=== PATIENT | male | born 1945 | race Caucasian/White ===

== ENCOUNTER 2019-12-22 16:17 | Outpatient (REF) | payer MEDICARE, SELFPAY ==
--- NOTE | 2019-12-22 | XR_ITS ---
EXAMINATION: XR ORBITS CLINICAL INFORMATION: ORBITAL MYOSITIS, FB? COMPARISON: None TECHNIQUE: 3 views of the orbits were obtained. FINDINGS: No radiodense foreign bodies are identified. A few of the mandibular teeth remain, though the patient is otherwise intact and shows. No acute osseous abnormalities. Paranasal sinuses appear clear. IMPRESSION: No periorbital radiodense foreign bodies are identified.
== END 2019-12-22 16:18 | disposition home or self-care (01) ==
LOC: HO.XRAY 16:17
PROVIDERS: PCP Internal Medicine; Visit Provider Internal Medicine Medical Oncology
DX: H05.123 Orbital myositis, bilateral (principal)
CPT/HCPCS: 70200

== ENCOUNTER 2019-12-23 12:31 | Outpatient (REF) | payer MEDICARE, SELFPAY ==
--- NOTE | 2019-12-23 13:05 | CT_ITS ---
EXAMINATION: CT ABDOMEN AND PELVIS WITHOUT AND WITH CONTRAST CLINICAL INFORMATION: 4 cm rectal tumor. Staging. COMPARISON: None TECHNIQUE: Multidetector volumetric imaging was performed of the abdomen and pelvis before and after the IV administration of 85 mL Omnipaque 350. Sagittal and coronal reformatted images were obtained on the technologist's workstation. This CT examination was performed using dose optimization techniques as appropriate, variously including the following: *Automated exposure control *Adjustment of mA and/or kV according to patient size (this includes techniques or standardized protocols for targeted exams where dose is matched to indication/reason for exam; i.e. extremities or head) *Use of iterative reconstruction technique DLP: 594 mGy-cm FINDINGS: LUNG BASES: There are increased peripheral reticular markings, traction bronchiolectasis and probable honeycombing the right lung base suggestive of interstitial lung disease. LIVER, GALLBLADDER, AND BILIARY TREE: The liver is normal in size, shape, and attenuation. No focal hepatic lesion or biliary ductal dilatation is present. The gallbladder is unremarkable with no evidence of radiopaque gallstones, gallbladder wall thickening, or obvious pericholecystic inflammatory changes. PANCREAS: Unremarkable SPLEEN: Unremarkable ADRENAL GLANDS: Unremarkable KIDNEYS AND URETERS: There are bilateral renal cysts. Origin cyst measures 2.2 x 3 cm exophytic to the lower pole of the right kidney. BLADDER: There is a left-sided bladder diverticulum. The prostate gland is enlarged and protrudes into the base of the bladder. GASTROINTESTINAL TRACT: There is a large soft tissue mass in the rectum. This measures 4.2 cm in length and sagittal constructed image 82. There is marked luminal narrowing and question ulceration. There is increased fat stranding seen in the perirectal space on the right. There is a prominent longitudinally oriented soft tissue density that follows the course of the vessels, for example axial image 60 04/18/1967 series 8. This area measures approximately 5 x 9 x 3.5 cm in transverse AP and longitudinal dimension and is worrisome for atypical appearance of natty disease along the vessels. This could be better delineated with MRI. There is severe diverticular disease of the colon. There is an area of marked wall thickening of the cystic colon measuring approximately 5 cm in length, for example axial image 61 series 8. This may be related to diverticular disease. Correlation with colonoscopy is recommended. The small and large bowel is otherwise unremarkable. The appendix is not identified. The stomach is unremarkable. ABDOMINAL WALL: No significant hernia is appreciated. LYMPH NODES: Question right-sided perirectal lymphadenopathy extending along the vascular bundle. No other adenopathy. VASCULAR: There is evidence of atherosclerotic disease. No aneurysm is seen. There is focal mild ectasia of the distal abdominal aorta just above the bifurcation measuring 2.1 cm. PELVIC VISCERA: The prostate gland is enlarged and protrudes into the base of the bladder. The prostate gland measures 4 x 5 cm in AP and transverse dimension. OSSEOUS STRUCTURES: There are degenerative changes of the spine. There are T11 and L3 vertebral body compression fractures. IMPRESSION: Large 4.2 cm rectal mass with question of infiltration of the perirectal fat and right-sided perirectal lymphadenopathy. These findings could be better assessed with MRI. There is marked luminal narrowing, question of ulceration and impending partial obstruction should be considered. Severe diverticular disease of the sigmoid colon. There is an area of wall thickening of the distal sigmoid colon measuring 5 cm in length, question related to diverticular disease. Correlation with colonoscopy results recommended. No evidence of metastatic disease. Bilateral renal cysts. Severe atherosclerotic disease. Enlarged prostate gland. Left-sided bladder diverticulum. Evidence of interstitial lung disease. T11 and L3 vertebral body compression fractures.
[2019-12-23 13:29] LABS: MANUAL DIFF FLAG NO
[2019-12-23 13:35] LABS: Basophils Absolute Auto 0.1 X10*3/uL (0.0-0.2); Basophils Percent Auto 0.7 % (0-2); Eosinophils Absolute Auto 0.2 X10*3/uL (0.0-0.4); Eosinophils Percent Auto 1.6 % (0-4); Imm Gran Abs Auto 0.05 X10*3/uL (0.00-0.03); Imm Gran Pct Auto 0.5 % (0.0-0.4); Lymphocytes Absolute Auto 2.8 X10*3/uL (1.2-4.9); Lymphocytes Percent Auto 26.6 % (20-40); Mean Corpuscular HGB Conc 33.3 g/dl (31.0-36.0); Mean Corpuscular Volume 95.9 fL (80-98); Mean Platelet Volume 9.7 fL (9.4-12.4); Monocytes Absolute Auto 0.6 X10*3/uL (0.1-1.2); Monocytes Percent Auto 5.9 % (2-11); Neutrophils Absolute Auto 6.8 X10*3/uL (2.0-8.3); Neutrophils Percent Auto 64.7 % (45-73); Platelet Count 178 X10*3/uL (160-400); Red Blood Count 5.32 X10*6/uL (4.60-5.80); Red Cell Distribution Width 13.2 % (11.0-16.0); White Blood Count 10.4 X10*3/uL (4.8-10.8)
[2019-12-23 13:59] LABS: Alanine Aminotransferase 12 U/L (0-40); Albumin Level 4.5 g/dL (3.5-5.0); Alkaline Phosphatase 145 U/L (39-117); Anion Gap 14 (12-20); Aspartate Amino Transferase 16 U/L (5-37); Bilirubin Total 0.9 mg/dL (0.0-1.0); Blood Urea Nitrogen 11 mg/dL (9-16); Calcium 9.6 mg/dL (8.4-10.2); Carbon Dioxide 28 mmol/L (22-29); Chloride 99 mmol/L (96-108); Estimated Glomerular Filt Rate > 60; Glucose Random 95 mg/dL (60-115); Potassium 4.9 mmol/l (3.3-5.1); Sodium 136 mmol/L (135-145); Total Protein 7.9 g/dL (6.5-8.0)
[2019-12-23] MEDS: iohexoL 350 MG/ML 100 ML INFUS..BTL IV (16:07)
[2019-12-23] MEDS: Barium Sulfate Oral (Berry) 450 ML ORAL.SUSP 900 ML PO (16:08)
== END 2019-12-23 12:32 | disposition home or self-care (01) ==
LOC: HO.CT 12:31
PROVIDERS: PCP Internal Medicine Medical Oncology; Visit Provider Internal Medicine Medical Oncology
DX: C61 Malignant neoplasm of prostate (principal)
CPT/HCPCS: 36415; 74178; 80053; 85025

== ENCOUNTER 2020-01-04 08:58 | Outpatient (REF) | payer MEDICARE, SELFPAY ==
--- NOTE | 2020-01-04 | PE_ITS ---
EXAMINATION: Fluorine-18 FDG PET/CT Scan CLINICAL INDICATION: Initial treatment management. Rectal cancer. PROCEDURE: 67 minutes following the intravenous administration of 16.8 mCi of fluorine 18 FDG, images from the base of the skull to the mid thighs were obtained using a combined PET/CT scanner with CT scan based attenuation correction. No oral contrast was administered. No intravenous contrast was administered. Transverse, coronal, sagittal, and volume reconstruction projections were obtained. The patient's blood glucose as determined by a finger stick, was 100 mg/dl immediately prior to injection. Total CT exam dose-length product 263.84 mGy-cm COMPARISON: No previous PET/CT scan is available for comparison. The diagnostic CT scan of the abdomen and pelvis, dated 12/23/2019, is available for comparison. FINDINGS: (Slice numbers described in this report are numbered superiorly to inferiorly with slice #1 in the head) NECK AND VISUALIZED HEAD: No foci of abnormal FDG activity are noted. The distribution of FDG activity is physiological. There is no cervical lymphadenopathy. THORAX: There is a weakly FDG avid right lower paratracheal lymph node showing SUV Max 2.3, slice 77/267 which measures 2.0 x 1.1 cm in largest transverse dimensions. No additional foci of abnormally increased FDG activity are present in the chest. A few additional subcentimeter mediastinal lymph nodes are present predominantly in the AP window region. There is no additional mediastinal, supraclavicular, or axillary lymphadenopathy. Severe emphysema is present diffusely. Unchanged from the CT scan dated 12/23/2019 are increased peripheral reticular markings, traction bronchiectasis bilaterally, and some honeycombing in the right lung base. These findings are not associated with abnormal FDG activity. No definite pulmonary nodules are visualized. There is no pleural or pericardial fluid, or pneumothorax. ABDOMEN AND PELVIS: There is intense abnormally increased FDG activity associated with circumferential wall thickening in the rectum, showing SUV Max 10.8, slice 206/267. There is some perirectal fat stranding on the CT images, similar to the 12/23/2019 CT scan but no abnormal FDG activity is present in the perirectal soft tissues. There is a focus of FDG activity in the right side of the pelvis, slice 197/267 which is most likely in the distal right ureter and an additional more superior focus which is more intense centered around slice 176/267 corresponds to the ureter on the CT images. No additional foci of abnormal FDG activity are suggested in the abdomen or pelvis. The liver, gallbladder, spleen, adrenal glands and pancreas appear unremarkable. Bilateral renal cysts are present, the largest posteriorly in the lower pole of the right kidney is markedly FDG photopenic and likely a simple cyst cysts. A left renal cyst is just barely visualized and these renal cysts are much better visualized on the diagnostic IV contrast enhanced CT scan dated 12/23/2019. The kidneys are otherwise unremarkable. There is diffuse diverticulosis without evidence of diverticulitis. Residual dense barium is present in the colon and particularly in multiple diverticuli, likely residual from the diagnostic CT scan dated 12/23/2019. There is no retroperitoneal, mesenteric, pelvic or inguinal lymphadenopathy. The prostate gland is enlarged measuring approximately 6.4 cm in largest transverse dimension. A left-sided bladder diverticulum is noted. MUSCULOSKELETAL: No foci of abnormal FDG activity are present in the osseous structures. Compression deformities at T11 and L3 show no associated abnormal FDG activity and are likely chronic, and are unchanged from the recent 12/23/2019 CT scan. There are no suspicious sclerotic or lytic lesions visualized. VASCULAR: Diffuse vascular calcifications including coronary are noted. PET/PET CT fusion skull to thigh IMPRESSION: 1. Intensely FDG avid rectal mass is present as described above, consistent with the known diagnosis of rectal cancer. 2. Some stranding in the perirectal fat is present and this does not show abnormal FDG activity, but this subtle stranding is probably below the resolution of the FDG PET images. This remains suspicious for local invasion. 3. No FDG avid lymphadenopathy is present. 4. A single right paratracheal lymph node is mildly enlarged and shows weak FDG activity and this is nonspecific. This is more likely inflammatory than malignant. 5. No additional abnormalities suspicious for metastatic or other malignant lesions are noted. 6. Severe emphysema. 7. Diffuse vascular calcifications including coronary. 8. Chronic T11 and L3 vertebral compression fractures.
== END 2020-01-04 08:59 | disposition home or self-care (01) ==
LOC: HO.PET 08:58
PROVIDERS: Visit Provider Internal Medicine Medical Oncology
DX: Z13.89 Encounter for screening for other disorder (principal)

== ENCOUNTER → 2020-01-06 09:19 | Outpatient (BNVA) | payer MEDICARE, SELFPAY | PROVIDERS: PCP Internal Medicine Medical Oncology; Visit Provider Surgery | DX: C20 Malignant neoplasm of rectum (principal) | CPT/HCPCS: 46600; 99214 ==

== ENCOUNTER → 2020-02-03 09:05 | Outpatient (BNVA) | payer MEDICARE, SELFPAY | PROVIDERS: PCP Internal Medicine Medical Oncology; Visit Provider Surgery | DX: C20 Malignant neoplasm of rectum (principal) | CPT/HCPCS: 99212 ==

== ENCOUNTER → 2020-03-01 09:15 | Outpatient (BNVA) | payer MEDICARE, SELFPAY | PROVIDERS: PCP Internal Medicine Medical Oncology; Visit Provider Surgery | DX: C20 Malignant neoplasm of rectum (principal) | CPT/HCPCS: 99212 ==

== ENCOUNTER → 2020-03-29 09:17 | Outpatient (BNVA) | payer MEDICARE, SELFPAY | PROVIDERS: PCP Internal Medicine Medical Oncology; Visit Provider Surgery | DX: C20 Malignant neoplasm of rectum (principal) | CPT/HCPCS: 99212 ==

== ENCOUNTER 2020-05-03 09:07 | Outpatient (REF) | payer MEDICARE, SELFPAY ==
[2020-05-03 11:22] LABS: Blood Urea Nitrogen 12 mg/dL (9-16); Estimated Glomerular Filt Rate > 60
== END 2020-05-03 09:08 | disposition home or self-care (01) ==
LOC: HO.LAB 09:07
PROVIDERS: PCP Internal Medicine Medical Oncology; Visit Provider Surgery
DX: C20 Malignant neoplasm of rectum (principal); Z92.3 Personal history of irradiation; Z92.21 Personal history of antineoplastic chemotherapy
CPT/HCPCS: 36415; 82565; 84520; 99212

== ENCOUNTER 2020-05-12 07:52 | Outpatient (REF) | payer MEDICARE, SELFPAY ==
--- NOTE | ~2020-05-12 | CT_ITS ---
EXAMINATION: CT ABDOMEN AND PELVIS WITH CONTRAST CLINICAL INFORMATION: Rectal cancer COMPARISON: Previous CT of the abdomen and pelvis December 2019 TECHNIQUE: Multidetector volumetric images were obtained from the superior aspect of the liver through the pubic symphysis following administration 85 mL of Omnipaque 350 intravenous contrast. Sagittal and coronal reformatted images were obtained on the technologist's workstation. Oral contrast: Yes This CT examination was performed using dose optimization techniques as appropriate, variously including the following: *Automated exposure control *Adjustment of mA and/or kV according to patient size (this includes techniques or standardized protocols for targeted exams where dose is matched to indication/reason for exam; i.e. extremities or head) *Use of iterative reconstruction technique DLP: 243 mGy-cm FINDINGS: LUNG BASES: There is evidence of interstitial lung disease at the lung bases. This is similar to previous exam. There is a trace right pleural effusion. LIVER, GALLBLADDER, AND BILIARY TREE: The liver is normal in size, shape, and attenuation. No focal hepatic lesion or biliary ductal dilatation is present. The gallbladder is unremarkable with no evidence of radiopaque gallstones, gallbladder wall thickening, or obvious pericholecystic inflammatory changes. PANCREAS: Unremarkable. SPLEEN: Unremarkable. ADRENAL GLANDS: Unremarkable. KIDNEYS AND URETERS: There are bilateral renal cysts. The kidneys are otherwise unremarkable. BLADDER: Not optimally distended. There is diffuse bladder wall thickening. There is a left-sided bladder diverticulum. GASTROINTESTINAL TRACT: There is severe diverticulosis of the distal colon. There is an area of wall thickening of the distal sigmoid colon. It is uncertain whether this is related to diverticular disease or could represent a mass. This appears increased from December 2019 exam. There is no evidence of obstruction. Small and large bowel is otherwise unremarkable. The previously identified rectal mass has decreased in size. There is residual circumferential wall thickening of the rectum seen in this region. There is a stranding of the surrounding perirectal fat.. ABDOMINAL WALL: No significant hernia is appreciated. LYMPH NODES: Normal. VASCULAR: There is evidence of severe atherosclerotic disease. There is mild ectasia of the lower abdominal aorta measuring 2.2 cm in transverse dimension. PELVIC VISCERA: The prostate gland is slightly enlarged measuring 3.8 x 5.4 cm in AP and transverse dimension. OSSEOUS STRUCTURES: There are degenerative changes of the spine. There is an old severe L3 vertebral body compression fracture and moderate T11 vertebral body compression fracture that are unchanged. CT/CT abdomen pelvis w con IMPRESSION: Interval decrease in size in the rectal mass from previous exam. There is residual mild rectal wall thickening and some stranding of the adjacent fat. Severe diverticular disease of the distal colon. There is increased wall thickening of the sigmoid colon. It is uncertain whether this is related to diverticular disease or could represent post radiation change or neoplasm. Increased wall thickening of the bladder probably, question related to post radiation change. Bilateral renal cysts. Severe atherosclerotic disease. Interstitial lung disease. Stable T11 and L3 compression fractures.
[2020-05-12] MEDS: iohexoL 350 MG/ML 100 ML INFUS..BTL 85 ML IV (10:48)
[2020-05-12] MEDS: Barium Sulfate Oral (Berry) 450 ML ORAL.SUSP 900 ML PO (10:49)
== END 2020-05-12 07:53 | disposition home or self-care (01) ==
LOC: HO.CT 07:52
PROVIDERS: Visit Provider Surgery
DX: C20 Malignant neoplasm of rectum (principal)
CPT/HCPCS: 74177; Q9967

== ENCOUNTER → 2020-05-18 09:49 | Outpatient (BNVA) | payer MEDICARE, SELFPAY | PROVIDERS: PCP Internal Medicine Medical Oncology; Visit Provider Surgery | DX: C20 Malignant neoplasm of rectum (principal) | CPT/HCPCS: 99212 ==

== ENCOUNTER 2020-05-26 06:18 | Day surgery (SDC) | payer MEDICARE, SELFPAY ==
[2020-05-22 11:25] VITALS: BMI 19.5
--- NOTE | 2020-05-25 07:43 | HO.ANESPROP2 ---
Documented by User: Hoa Cooper 05/25/20 07:44 HPI - Anesthesia Eval Consult details Narrative: 74yo M for Sigmoidoscopy Flexible PMFSH Active Problems Active Problems: All Active Problems (Updated 05/22/20 @ 11:27 by Darcy Schmitt) Rectal cancer (Acute) Chronic bronchitis (Acute) Smoker (Acute) History of herpes zoster (Acute) Hypertension (Acute) Past Medical History Medical History Chronic bronchitis History of herpes zoster Hypertension Rectal cancer Smoker Family History Family History Sister History of breast cancer Surgical History Surgical History H/O colonoscopy History of eye surgery (~1965) History of left inguinal hernia repair History of right inguinal hernia repair (~1971) Hx of bilateral cataract extraction Social History Social History Smoking Status: Current every day smoker Use of substances other than those prescribed or required for medical reasons: No Have you been hit, kicked, punched, or otherwise hurt by someone within the past year? If so, by whom?: No Advance Directives Information Provided: No Meds Allergies Allergy/AdvReac Type Severity Reaction Status Date / Time No Known Allergies Allergy Verified 05/26/20 06:41 Home Medications Medication Instructions Recorded Confirmed Last Taken Type atenolol 50 mg tablet 50 mg PO DAILY 01/06/20 05/26/20 05/26/20 03:00 History cholecalciferol (vitamin D3) 10 10 mcg PO DAILY 03/29/20 05/22/20 Unknown History mcg (400 unit) capsule Exam Exam Date and Time: May 25, 2020 0743 Height,Weight and Vital Signs: Height 5 ft 9 in Weight 60 kg Pertinent Lab Results Pertinent Lab Results: Laboratory Tests 12/23/19 05/03/20 12:56 10:15 WBC 10.4 Hgb 17.0 Hct 51.0 Plt Count 178 BUN 12 Creatinine 0.82 Assessment and Plan Assessment Anesthesia Assessment: Chart Reviewed Documented by User: Maxine Bergman 05/26/20 07:41 PMFSH Past Medical History Medical History Chronic bronchitis History of herpes zoster Hypertension Rectal cancer Smoker Family History Family History Sister History of breast cancer Family history of problems with anesthesia: No Surgical History Surgical History H/O colonoscopy History of eye surgery (~1965) History of left inguinal hernia repair History of right inguinal hernia repair (~1971) Hx of bilateral cataract extraction History of Problems with Anesthesia: No Social History Social History Smoking Status: Current every day smoker Use of substances other than those prescribed or required for medical reasons: No Have you been hit, kicked, punched, or otherwise hurt by someone within the past year? If so, by whom?: No Advance Directives Information Provided: No Meds Allergies Allergy/AdvReac Type Severity Reaction Status Date / Time No Known Allergies Allergy Verified 05/26/20 06:41 Home Medications Medication Instructions Recorded Confirmed Last Taken Type atenolol 50 mg tablet 50 mg PO DAILY 01/06/20 05/26/20 05/26/20 03:00 History cholecalciferol (vitamin D3) 10 10 mcg PO DAILY 03/29/20 05/22/20 Unknown History mcg (400 unit) capsule Exam Height,Weight and Vital Signs: Vital Signs Temp Pulse Resp BP Pulse Ox 05/26/20 06:31 97.6 F 54 18 125/49 L 97 Airway Mallampati Class: II TM Dist: >3cm Neck ROM: Full Denture: Upper Partial: Lower Heart: RRR Lungs: CTAB Assessment and Plan Assessment Anesthesia Assessment: Anesthesia Plan Discussed and Chart Reviewed Final Anesthetic Review NPO: Yes ASA Class: II Final Preanesthetic Review: No Changes in Pt Med Stat, Meds/Allgs Chart Reviewed, Consent Obtained/Reviewed and Anes Risks/Benef Reviewed Patient Risk: Low Procedure Risk: Low Assessment/Block/Sedation in SS: Assess/Block/Sedation-SS Anesthetic Plan Anesthetic Plan: MAC: Disposition: Standard PACU
[2020-05-26 06:31] VITALS: BP 125/49; PULSE 54; RESP 18; TEMP 36.4; O2SAT 97
[2020-05-26] MEDS: Lactated Ringers 1,000 ML 100 ML IVCONT (06:50)
--- NOTE | 2020-05-26 07:26 | MHC.SHP ---
Pre-Procedural Eval Section B Chief Complaint: Rectal Cancer Allergies: Allergies Allergy/AdvReac Type Severity Reaction Status Date / Time No Known Allergies Allergy Verified 05/26/20 06:41 Plan I have reviewed the history and physical and performed a pertinent physical examination on my patient. No changes have occurred unless specified.
[2020-05-26 07:46] VITALS: BP 95/47; PULSE 52; RESP 12; TEMP 37.1; O2SAT 100
--- NOTE | 2020-05-26 07:47 | W.PM.OPN ---
Operative Note Operative Note Date of Service: 05/26/20 Narrative: Preop diagnosis: Rectal cancer status post neoadjuvant chemotherapy and radiation Postop diagnosis: Rectal cancer status post neoadjuvant chemotherapy and radiation Procedure: Flexible sigmoidoscopy Surgeon: Maurice Crowe MD The patient is a 74-year-old male with a history of rectal cancer. He had undergone neoadjuvant chemotherapy and radiation and had completed this. I had scheduled him for flexible sigmoidoscopy to re-examine the area of the cancer and determine response to treatment prior to resection. He understood the technique of the procedure as well as the risks, benefits, and alternatives. The patient was brought to the operating room placed in left lateral decubitus position under monitored anesthesia care. A full digital rectal was done and there were no palpable anal canal lesions. There was no induration felt on exam with the finger. The tip of the Olympus colonoscope was gently inserted into the anal orifice advanced with insufflation all way to level about 30 cm. We proceeded to then withdraw the scope with careful examination of the entire colonic mucosa being done with scope withdrawal. There were no lesions seen. I reach the area of the rectum. I did not visualize any obvious lesion. There was note of a mild erythema in suggestion of scattering at level 8 cm. There was no ulceration. Again the mucosa appeared to be unremarkable except for some erythema in this area on a very short segment. The rest of the distal rectum a nickel also unremarkable. The scope was then withdrawn completely. I then repeated the digital examination and palpated for the entire anal canal, anal shelf as well as the distal rectum and I did not feel any induration. The procedure was then completed. He tolerated the procedure well. There were no complications noted. It appears that he had excellent response to neoadjuvant treatment. I will see him in the office to discuss low anterior resection.
[2020-05-26 08:01] VITALS: BP 103/54; PULSE 50; RESP 16; O2SAT 96
[2020-05-26 08:08] VITALS: BP 95/59; PULSE 53; RESP 18; O2SAT 96
--- NOTE | 2020-05-26 08:43 | PM.OP ---
Brief Operative Note Date of Service: 05/26/20 Pre-op diagnosis: Rectal cancer status post neoadjuvant chemotherapy and radiation Post-op diagnosis: same Procedure: Flexible sigmoidoscopy Surgeon: Maurice Crowe MD Anesthesia: MAC Estimated blood loss (mL): 0 Pathology: none sent Condition: stable Disposition: PACU
== END 2020-05-26 08:37 | disposition home or self-care (01) ==
PROVIDERS: PCP Internal Medicine Medical Oncology; Visit Provider Surgery
PROC: 0DJD8ZZ Inspection of Lower Intestinal Tract, Via Natural or Artificial Opening Endoscopic (ICD-10-PCS; CPT 45330; principal; 2020-05-26 07:30)
DX: C20 Malignant neoplasm of rectum (principal); Z92.21 Personal history of antineoplastic chemotherapy; Z92.3 Personal history of irradiation; I10 Essential (primary) hypertension; J42 Unspecified chronic bronchitis; Z79.899 Other long term (current) drug therapy; Z86.19 Personal history of other infectious and parasitic diseases
CPT/HCPCS: 45330; J2370

== ENCOUNTER → 2020-05-31 13:16 | Outpatient (BNVA) | payer MEDICARE, SELFPAY | PROVIDERS: PCP Internal Medicine Medical Oncology; Visit Provider Surgery | DX: C20 Malignant neoplasm of rectum (principal) | CPT/HCPCS: 99202 ==

== ENCOUNTER 2020-06-13 05:47 | Inpatient (IN) | payer MEDICARE, SELFPAY ==
[2020-06-08 09:01] VITALS: BMI 19.5
[2020-06-09 11:39] VITALS: BP 127/61; PULSE 55; RESP 20; O2SAT 95; BMI 19.9
--- NOTE | 2020-06-09 12:34 | ECG_ITS ---
Test Reason : PRE-OP, ARRHYTHMIA Blood Pressure : / mmHG Vent. Rate : 055 BPM Atrial Rate : 055 BPM P-R Int : 168 ms QRS Dur : 100 ms QT Int : 422 ms P-R-T Axes : 052 022 045 degrees QTc Int : 403 ms Sinus bradycardia Otherwise normal ECG When compared with ECG of 12-JUL-2019 08:24, No significant change was found Referred By: Justin Yin Electronically Signed By:CA RUTHERFORD
[2020-06-09 13:29] LABS: Hematocrit 45.2 % (42-52); Hemoglobin 15.4 g/dl (14.0-18.0); Mean Corpuscular HGB Conc 34.1 g/dl (31.0-36.0); Mean Corpuscular Hemoglobin 34.7 pg (27.0-33.0); Mean Corpuscular Volume 101.8 fL (80-98); Mean Platelet Volume 9.7 fL (9.4-12.4); Platelet Count 107 X10*3/uL (160-400); Red Blood Count 4.44 X10*6/uL (4.60-5.80); Red Cell Distribution Width 12.2 % (11.0-16.0); White Blood Count 5.9 X10*3/uL (4.8-10.8)
[2020-06-09 13:52] LABS: Anion Gap 14 (12-20); Blood Urea Nitrogen 15 mg/dL (9-16); Calcium 8.7 mg/dL (8.4-10.2); Carbon Dioxide 26 mmol/L (22-29); Chloride 100 mmol/L (96-108); Estimated Glomerular Filt Rate > 60; Glucose Random 96 mg/dL (60-115); Potassium 4.1 mmol/L (3.3-5.1); Sodium 136 mmol/L (135-145)
--- NOTE | 2020-06-12 09:27 | HO.ANESPROP2 ---
Documented by User: Hoa Cooper 06/12/20 09:30 HPI - Anesthesia Eval Consult details Narrative: 74yo M for Hand Assisted Bowel Resection Laparoscopic, Sigmod with Stoma, Poss Open s/p Flex Sig with TIVA 05/26/20 PMF Active Problems Active Problems: All Active Problems (Updated 06/09/20 @ 12:04 by Darcy Schmitt) Rectal cancer (Acute) Chronic bronchitis (Acute) Smoker (Acute) History of herpes zoster (Acute) Hypertension (Acute) Past Medical History Medical History Chronic bronchitis COPD (chronic obstructive pulmonary disease) History of herpes zoster Hx of flexible sigmoidoscopy Hx of melanoma of skin Hypertension On beta alisson at home Peptic ulcer Rectal cancer Smoker Family History Family History Sister History of breast cancer Surgical History Surgical History H/O colonoscopy History of eye surgery (~1965) History of left inguinal hernia repair History of right inguinal hernia repair (~1971) Hx of bilateral cataract extraction Social History Social History Are you a primary career and transition teacher to a significant other at home: No Do you presently have visiting nurse or other home services: No Smoking Status: Current every day smoker Packs Per Day: 0.75 Cigarettes Per Day: 15.0 Years Smoked: 60 Smoked in Last 30 Days: Yes Patient Interested in Nicotine Replacement: Yes Patient Given Instructions on How to Stop Smoking: Yes Date Education Initiated: 06/09/20 Use of substances other than those prescribed or required for medical reasons: No Have you been hit, kicked, punched, or otherwise hurt by someone within the past year? If so, by whom?: No Advance Directives Information Provided: No Recently lost weight without trying: No Meds Allergies Allergy/AdvReac Type Severity Reaction Status Date / Time No Known Allergies Allergy Verified 05/31/20 13:26 Home Medications Medication Instructions Recorded Confirmed Last Taken Type atenolol 50 mg tablet 50 mg PO DAILY 01/06/20 06/13/20 06/13/20 05:00 History cholecalciferol (vitamin D3) 10 10 mcg PO DAILY 03/29/20 06/09/20 Unknown History mcg (400 unit) capsule Exam Exam Date and Time: June 12, 2020926 Height,Weight and Vital Signs: Height 5 ft 9 in Weight 61.235 kg Last Vital Signs Pulse 55 06/09/20 11:39 Resp 20 06/09/20 11:39 BP 127/61 06/09/20 11:39 Pulse Ox 95 06/09/20 11:39 Pertinent Lab Results Pertinent Lab Results: Laboratory Tests 06/09/20 06/09/20 06/09/20 13:00 13:00 13:00 WBC 5.9 RBC 4.44 L Hgb 15.4 Hct 45.2 MCV 101.8 H MCH 34.7 H MCHC 34.1 RDW 12.2 Plt Count 107 L D MPV 9.7 Absolute Nucleated RBC 0.000 Nucleated RBC % (auto) 0.0 Sodium 136 Potassium 4.1 Chloride 100 Carbon Dioxide 26 Anion Gap 14 BUN 15 Creatinine 0.85 Estim Creat Clear Calc 65.0 Estimated GFR > 60 Random Glucose 96 Calcium 8.7 D Blood Type O Positive Antibody Screen NEGATIVE Narrative Narrative: EKG 06/09/20 Vent. Rate : 055 BPM Atrial Rate : 055 BPM P-R Int : 168 ms QRS Dur : 100 ms QT Int : 422 ms P-R-T Axes : 052 022 045 degrees QTc Int : 403 ms Sinus bradycardia Otherwise normal ECG When compared with ECG of 12-JUL-2019 08:24, No significant change was found Assessment and Plan Assessment Anesthesia Assessment: Chart Reviewed Documented by User: Prasanna Shell MD 06/13/20 07:29 [facility] Past Medical History Medical History Chronic bronchitis COPD (chronic obstructive pulmonary disease) History of herpes zoster Hx of flexible sigmoidoscopy Hx of melanoma of skin Hypertension On beta alisson at home Peptic ulcer Rectal cancer Smoker Family History Family History Sister History of breast cancer Surgical History Surgical History H/O colonoscopy History of eye surgery (~1965) History of left inguinal hernia repair History of right inguinal hernia repair (~1971) Hx of bilateral cataract extraction Social History Social History Are you a primary career and transition teacher to a significant other at home: No Do you presently have visiting nurse or other home services: No Smoking Status: Current every day smoker Packs Per Day: 0.75 Cigarettes Per Day: 15.0 Years Smoked: 60 Smoked in Last 30 Days: Yes Patient Interested in Nicotine Replacement: Yes Patient Given Instructions on How to Stop Smoking: Yes Date Education Initiated: 06/09/20 Use of substances other than those prescribed or required for medical reasons: No Have you been hit, kicked, punched, or otherwise hurt by someone within the past year? If so, by whom?: No Advance Directives Information Provided: No Recently lost weight without trying: No Meds Allergies Allergy/AdvReac Type Severity Reaction Status Date / Time No Known Allergies Allergy Verified 05/31/20 13:26 Home Medications Medication Instructions Recorded Confirmed Last Taken Type atenolol 50 mg tablet 50 mg PO DAILY 01/06/20 06/13/20 06/13/20 05:00 History cholecalciferol (vitamin D3) 10 10 mcg PO DAILY 03/29/20 06/09/20 Unknown History mcg (400 unit) capsule Exam Airway Mallampati Class: I TM Dist: >3cm Denture: Upper and Lower Heart: RRR Lungs: NL Assessment and Plan Assessment Anesthesia Assessment: Anesthesia Plan Discussed and Chart Reviewed Final Anesthetic Review NPO: Yes ASA Class: III Final Preanesthetic Review: No Changes in Pt Med Stat, Meds/Allgs Chart Reviewed, Consent Obtained/Reviewed and Anes Risks/Benef Reviewed Patient Risk: High Procedure Risk: Intermediate Anesthetic Plan Anesthetic Plan: GA Disposition: Standard PACU
[2020-06-13] VITALS (18 sets, daily range): BP systolic 89–130; BP diastolic 46–65; PULSE 55–82; RESP 14–19; TEMP 36.1–36.4; O2SAT 93–100
--- NOTE | ~2020-06-13 | NM_ITS ---
EXAMINATION: NM LUNG IMAGE PERFUSION CLINICAL INFORMATION: SOB, hypoxia. Recent surgery. Left lower lobe pneumonia. COMPARISON: Chest x-ray 06/15/2020 TECHNIQUE: Following intravenous administration of 4 mCi of 90 9M technetium MAA, imaging with lungs were obtained in multiple projections. No ventilation study was obtained. FINDINGS: On perfusion imaging there is normal flow seen to all segments of both lungs with no defects seen. There are nonsegmental defects corresponding to the major fissure in both lungs. Ventilation study was not performed. NM/[place] pul perfusion IMPRESSION: No evidence of segmental or subsegmental perfusion defects seen. Findings suggestive of low probability for PE.
--- NOTE | ~2020-06-13 | XR_ITS ---
EXAMINATION: CHEST 1 VIEW CLINICAL INFORMATION: Shortness of breath. COMPARISON: None. TECHNIQUE: An AP view of the chest is provided. FINDINGS: The cardiac silhouette is not enlarged. The mediastinal and hilar contours are unremarkable. There are neither pleural effusions nor pneumothoraces. There is retrocardiac opacification. There is coarsened interstitial prominence throughout both lungs. There is suggestion of gas underneath the right hemidiaphragm. The osseous structures are unremarkable. XR/XR chest 1V IMPRESSION: Lucency underneath the right hemidiaphragm suspicious for pneumoperitoneum. The aforementioned was communicated to Dr. Rae at [address]10 hours. Upon discussion with Dr. Rae , it is revealed that the patient had gastric surgery on 06/13/2020. The recent abdominal surgery history explains the presence of pneumoperitoneum. Retrocardiac opacification is present. Recommendation is for a followup chest series to be obtained following treatment and/or resolution of symptoms to assure resolution of this appearance. Diffuse interstitial prominence throughout both lungs. This is age indeterminant, though likely chronic.
[2020-06-13 06:44] LABS: COVID-19 Test Negative (Negative)
[2020-06-13] MEDS: Lactated Ringers 1,000 ML 100 ML IVCONT (07:03)
--- NOTE | 2020-06-13 07:25 | MHC.SHP ---
Pre-Procedural Eval Section B Chief Complaint: S/P HAND ASST BOWEL RESECTION Allergies: Allergies Allergy/AdvReac Type Severity Reaction Status Date / Time No Known Allergies Allergy Verified 05/31/20 13:26 Plan I have reviewed the history and physical and performed a pertinent physical examination on my patient. No changes have occurred unless specified.
--- NOTE | 2020-06-13 12:32 | PM.OP ---
Brief Operative Note Date of Service: 06/13/20 Pre-op diagnosis: rectal CA Post-op diagnosis: same Procedure: hand assisted laparoscopic low anterior resection with diverting loop ileostomy Surgeon: PATEL GARCIA MD Anesthesia: GETA [place] Operator: Chano Kim Estimated blood loss (mL): 350 IV fluids (mL): 1,300 Urine output (mL): 110 Pathology: other (RECTOSIGMOID) Condition: stable Disposition: PACU
--- NOTE | 2020-06-13 13:37 | W.PM.OPN ---
Operative Note Operative Note Date of Service: 06/13/20 Narrative: Preop diagnosis: Rectal cancer Postop diagnosis: Rectal cancer Procedure: Hand assisted laparoscopic low anterior resection, mobilization of the splenic flexure, intraop flexible sigmoidoscopy, loop loop ileostomy Surgeon: Maurice Crowe MD medicine assistant: Chano Kim MD Second family medicine physician assistant: MATIAS Chavez The patient is 74-year-old male who had previously undergone colonoscopy last December 2020 and was noted to have a rectal cancer at around 8 cm. He had undergone neoadjuvant chemotherapy and radiation and had completed this about 11 weeks ago. I had done a flexible sigmoidoscopy post neoadjuvant treatment and the lesion was barely identifiable with just note of some scarring on the area at level 8 cm more proximally. The patient did not have any metastatic disease. He had apparent very good response to neoadjuvant treatment. I therefore scheduled him for hand assisted laparoscopic low anterior resection resection with loop ileostomy. He understood the technique procedure and he was aware of the risks, benefits and alternatives. The patient was brought the operating room placed in modified lithotomy position under general anesthesia via endotracheal tube. A surgical time-out was done. The patient received Cefotan 2 g IV preoperatively. The abdomen and the perineum were prepped and draped in the usual sterile fashion. I made incision on the skin the on the lower midline measuring about 6.5 cm just below umbilicus using a blade 15. This was carried down through the full-thickness of the skin subcutaneous fat down to the fascia. The fascia was incised. The peritoneum was entered and through this incision an Ezio wound retractor was positioned. We attached a GelPort with an insufflating port and this was insufflated to a pressure of 15 mmHg. We position a 10 mm 30 degree angle laparoscope through the insufflating port and with laparoscopic visualization, inserted a 5/12 mm port in the epigastric area. I then transferred the laparoscope into this epigastric port. A 2nd 5/12 mm port was introduced in the right lower quadrant through a small incision. From here on the rest of procedure was done under vision with the laparoscope. The patient was placed in a steep head-down position. This allowed us to retract the small bowel loops away from the pelvis. I had my left hand placed through the GelPort to retract the rest of the bowel loops away from the pelvis. I was able to visualize the rectum. There was note of significant chronic inflammatory changes with adhesions from the rectosigmoid all the way to the left colon. The mid part of the sigmoid also appeared to be boggy, edematous with chronic inflammatory changes. This is likely due to some chronic diverticular disease. I had to carefully take down the adhesions tethering this sigmoid to the sidewall. This was achieved using the LigaSure. By doing so, I was able to visualize the entire length of the sigmoid. However, there was note of poor planes on the peritoneum on both the left side and the right side of the sigmoid all the way to the rectum. Furthermore, the left colon was also adherent as well to the gutter with bands of adhesions. I placed the patient in a head down position to expose the right side the rectum. I opened up peritoneum just at the rectosigmoid and divided the peritoneum with the LigaSure distally to expose the mesorectum. I proceeded slowly and carefully just under the peritoneal so as to make sure that we were not in the plane of the ureter. I proceeded to continue to divide the peritoneum all the way to the anterior aspect. I was able to visualize the rectum. I bluntly dissected this rectum to sweep down fat and identify a plane of dissection to include the mesorectum. Once this plane was identified I was able to carefully dissect the mesorectum off of the sacral curve with a combination of sharp dissection with the LigaSure as well as with blunt dissection with my finger. I step-down small thin tubular structures that could be part of the nerve plexus in the sacrum. I was able to identify the plane well and was able to separate the right side of the rectum off of the rest of the pelvic wall. I was able to therefore continue to dissect the distal rectum all the way distally towards the pelvic floor . We also carefully the mesorectum from the curve of the sacrum to preserve the planes of the mesorectum. Again this was all achieved with a combination of blunt dissection with the finger as well as with the LigaSure. I continued with this dissection distally until I was able to separate the right side of the rectum, anteriorly, and posteriorly with an intact plane of mesorectum. I then proceeded to work on the left perirectal plane. Again I opened up peritoneum and divided this using the LigaSure distally. We connected with the earlier opening in the anterior aspect of the rectum towards the floor and continued to dissect along the same plane that we had created earlier. We had to do a lot of dissection to separate the sigmoid the left colon from the left gutter cause of adhesions likely from a previous diverticular inflammation. This was also suggested by a short segment of sigmoid colon that was boggy and somewhat edematous. I proceeded to continue to dissect the left colon all the way proximally. I was able to therefore separate the retroperitoneal side of the lateral aspect of the colon. It appeared that we had good mobilization of the left colon sigmoid at this point. However, it is noted that there were poor planes on the left side of the peritoneum of the sigmoid and the rectum. I had to struggle a little bit with finding the plane and dissecting on the left side using the LigaSure because of these adhesions. During the dissection of the peritoneum, I was mindful that we were staying superficial to avoid any injury to the ureter. Eventually were able to continue to advance distally and the proceeded to continue to do total mesorectal excision distally from the right site to the left. We had good planes posteriorly and on the right side. We continue to separate the mesorectum from the rest of the pelvis circumferentially with the LigaSure and fine dissection and proceeded to continue along this plane anteriorly. This part of the procedure took the longest time of the entire procedure. We had to go all the way down until we were able to reach the pelvic floor circumferentially. Once I felt that we had reached the pelvic floor and we were past the lesion, I proceeded to continue to mobilize the left colon and the splenic flexure. We pulled down the splenic flexure to allow me to identify the spleniccolic ligaments and I proceeded to divide this with the LigaSure in a mm by mm fashion, making sure that we were staying away from the serosa of the flexure itself. We were able to mobilize the splenic flexure down and separate this from the omentum by carefully dividing the omental attachments to the transverse colon as well distally. By doing so I felt that we were able to bring down the splenic flexure and had this well mobilized to allow as anastomosis of the resected left colon later on. I then proceeded to continue to see if we were past the lesion on the rectum. I put the rectum on stretch away from the pelvic floor. I was able to place my index finger and 3rd finger around the distal rectum just adjacent to the pelvic floor to mimic the stapler. To confirm the level of resection and and 2 make sure that were past the lesion distally, I proceeded to do an intraop flexible sigmoidoscopy. The family medicine physician assistant, MATIAS Chavez inserted this flexible sigmoidoscope gently with my fingers clamped distal to the lesion. We were able to reach this with the scope. We proceeded to examine the proximal mucosa and there were no lesions seen. I opened up my fingers to allow the scope to pass to and I could see the faint scar from the previous lesion more proximal to our intended line of transection. We therefore proceeded to remove the flexible sigmoidoscope. We examination of the rest of the distal most part of the rectum and the anal canal did not reveal any other lesions. Then positioned the Radial stapler through the right lower quadrant incision. I removed the port and by following the curve of the stapler, was able to inserted to the small port site. I advanced it into the pelvis. I positioned this was across the rectum and proceeded to gently advanced this further until I reached the floor of the pelvis. I confirmed by palpation that we were past the level of the lesion. I had the radial stapler resting on the pelvic floor itself. I therefore positioned this across the rectum at this level and this was fired. We had to apply the stapler twice to allow complete transection of the very distal rectum at the floor of the pelvis. I removed the stapler. I proceeded to then check whether we had enough length and mobilization of the left colon to reach the pelvic floor as we had to divide a longer part of this sigmoid proximally in view of the presence of diverticular disease. I had to do some more mobilization of the left colon by dividing the ligamentous attachments at the retroperitoneum. Eventually I felt that we would be reaching the floor of the pelvis with the proximal line of transection to allow an anastomosis without tension. I then proceeded to remove the GelPort with the Ezio wound retractor in place. I pulled up the rectum in the sigmoid and identified my proximal line of transection. I created a mesenteric window at this and I applied a MO stapler across to divide this part of the colon. The mesentery of the sigmoid was then transected using the LigaSure to connect with the previous transected mesentery near the sigmoid until the entire specimen was . This was sent as a specimen for immediate gross examination. I then prepared the proximal stump for the anastomosis. I opened up the staple line by dividing this using Metzenbaum scissors. I used a 25 mm dilator to dilate this stump. Appeared to be tight already so I did not proceed with dilating this further. I therefore opened up a 25 mm EEA stapler. I created a pursestring suture with a Prolene 2-0 on this proximal stump. I positioned and will through this and this pursestring was tightened. This was brought back into the peritoneal cavity. The 1st family medicine physician assistant proceeded to then dilate rectum from below with the 25 mm dilator. We were able to visualize the position of the staple line of the rectal stump. We then replaced this dilator with the EEA apparatus. This was gently inserted by the persistent until this was seen on the staple line of the stump. The spike was activated. I then connected the anvil of the proximal stump into the spike to out fistula in place. The EEA stapler was then tightened and then activated. This was then withdrawn carefully. There was note of 2 small and thin anastomotic rings. We proceeded to insufflate the anus with a bulb syringe using air with the anastomosis immersed in irrigation fluid. This was done 5 times and there was no signs of any bleeding or any leak. The more proximal colon distended with insufflation as well. We then proceeded to irrigate the pelvis. We observed for hemostasis. There was note of old blood clots from the earlier dissection. There had been some steady oozing earlier in the pelvis during dissection of the rectum and him me so sigmoid. Examination of the pelvis however did not show any difficult bleeding. I then examined the colon starting from the distal transverse all the way to the anastomosis. There was no twisting of the colon. I also proceeded to further divide attachments of the left colon retroperitoneum using the LigaSure to make sure that there was absolutely no tension on the anastomotic line. Once this was confirmed, I observed all 4 quadrants. There is no evidence of any bowel injury. I removed the GelPort to directly visualize the cecum. By following the cecum, I was able to see the terminal ileum. I chose a segment that would easily reach the bowel wall for my loop ileostomy. I passed a [place] drain through a small mesenteric defect that was created. I pulled this [place] drain right lower quadrant port. I had earlier dilated this port to 3 0 my fingers. The loop of ileum went through these port site without difficulty. I position a stoma bridge through the mesenteric defect. I then re placed the GelPort and laparoscopically examined the entire abdomen again. The loop ileostomy was examined and this appeared to in good position. Again I proceeded to examine the left colon, and splenic flexure all the way to the pelvis. There was no evidence of any bowel injury. There was note of good hemostasis. I re-irrigated the area the pelvis and left side of the abdomen. I suctioned out the irrigant fluid. We desufflated through the port sites. I closed the fascia of the midline incision with a running Maxon 1 stitch. I removed all ports. All incisions were closed with skin bridgett. I then matured the stoma by making a transverse incision on the anterior wall of small bowel. If this done using electrocautery to enter the lumen. We then proceeded to secure the open anterior wall to the subdermal layer circumferentially with Dexon 3-0 interrupted sutures to mature the stoma. I was able to pass my little finger through both efferent and afferent limbs without difficulty. All incisions were infiltrated with Marcaine 0.5% for postop analgesia. Dressings were applied. The stoma appliance was placed. The patient tolerated procedure well. There were no complication noted. Initial and final counts of sponges and instruments were correct. Estimated blood loss was about 350 cc. The patient was extubated without difficulty in the operating room and transferred to the recovery room with stable vital signs.
[2020-06-13] MEDS: Lactated Ringers 1,000 ML 999 ML IVCONT (14:00)
[2020-06-13] MEDS: Lactated Ringers 1,000 ML 80 ML IVCONT (15:30)
--- NOTE | 2020-06-13 16:38 | PM.EVENT ---
Event Note Date of Service: 06/13/20 Event Note: Seen postoperatively Says he is comfortable Denies significant pain Vital signs have been stable in the PACU Urine output was poor earlier - on least 50 cc in PACU Given a bolus of 1 L - [place] now with increasing output, clear, nonbloody Pain management bedside - reviewed surgery with her Stoma appears viable
--- NOTE | 2020-06-13 19:52 | HO.PM.IMPN ---
Subjective Subjective Date of Service: 06/26/20 Interval History: Medicine consult: Patient is status post surgery. Complains of mild pain. Spoke to the RN. Vitals stable. Physical Exam Vital Signs: Vital Signs: Last Vital Signs Temp 97.1 F 06/13/20 15:50 Pulse 60 06/13/20 15:50 Resp 16 06/13/20 15:50 BP 96/50 L 06/13/20 15:50 Pulse Ox 98 06/13/20 15:50 Body Mass Index 19.9 Gen: Appears be in no acute distress HEENT: NCAT, Moist mucosa. Pulmonary: Vesicular breath sounds, fair air entry CVS: Normal S1-S2 Abdomen: BS+, dressing in place. Extremities: Warm well perfused Neuro: Alert and awake. Objective Data Current Medications Generic Name Dose Route Start Last Admin Trade Name Freq PRN Reason Stop Dose Admin Atenolol 50 mg 06/14/20 09:00 Atenolol 50 Mg Tablet PO DAILY [facility] Protocol Heparin Sodium (Porcine) 5,000 unit 06/14/20 13:00 Heparin Sodium,Porcine 5,000 Unit/Ml Vial SUBCUT Q12H [facility] Hydromorphone HCl 0.5 mg 06/13/20 19:28 Hydromorphone Hcl 0.5 Mg/0.5 Ml Syringe IVPUSH Q3H PRN Breakthrough Pain Lactated Ringer's 1,000 mls @ 100 mls/hr 06/13/20 15:26 06/13/20 16:52 Lr IVCONT 100 mls/hr .Q10H [facility] Infusion Acetaminophen 1,000 mg in 100 mls @ 400 mls/hr 06/13/20 16:24 Ofirmev IV Q6H PRN Pain, Severe (Pain Scale 7-10) Metoprolol Tartrate 12.5 mg 06/13/20 21:00 Metoprolol Tartrate 12.5 Mg Halftab PO BID [facility] Protocol Nicotine 21 mg 06/14/20 09:00 Nicotine 21 Mg Patch.Td24 TRANSDERMA DAILY [facility] Ondansetron HCl 4 mg 06/13/20 16:24 Ondansetron Hcl 4 Mg/2 Ml Vial IVPUSH Q8H PRN Nausea and Vomiting Ondansetron HCl 4 mg 06/13/20 16:41 Ondansetron Hcl 4 Mg/2 Ml Vial IVPUSH Q8H PRN Nausea Oxycodone HCl 5 mg 06/13/20 16:24 Oxycodone Hcl Immed Release 5 Mg Tablet PO Q4H PRN Pain, Moderate (Pain Scale 4-6 Sodium Chloride 3 ml 06/13/20 16:24 06/13/20 16:36 0.9 % Sodium Chloride Flush 3 Ml Syringe IVFLUSH Not Given QSHIFT [facility] Labs CBC & Chem 7: 06/16/20 07:27 06/16/20 07:27 Assessment and Plan (1) Rectal cancer: Problem details: He underwent hand assisted laparoscopic low anterior resection with a loop ileostomy as a same-day surgery patient last June 13, 2020. He tolerated procedure well. He went to the med surg unit from PACU. He did have some low O2 sats on his 1st postop day and underwent chest x-ray which suggested an early pneumonia. He had a V/Q scan was unremarkable. These were all ordered by the hospitalist service. He was therefore advised on bring out of bed as well as doing incentive spirometry and he improved significantly. He was started on regular diet postop day 2 as he had good stoma function function. He continued to tolerate this. He had good pain control and was off of IV fluids on postop day 3. He did not have any further significant complaints. He did not have any fever postop. He had good pain control so he was discharged on postop day 4, on 06/17/2020. His path report showed a moderately differentiated [id number] rectal adenocarcinoma. Status: Acute Assessment and Plan: 74-year-old male with a past medical history of hypertension, chronic bronchitis, rectal cancer admitted to the surgery service. Status post/colostomy. Medicine team consulted for comanagement of blood pressure. Rectal cancer: Status post surgery. Postoperative care as per the General surgery team Hypertension: Patient on atenolol at home. Currently blood pressure is 96/50. Will stop omental well. Will keep the patient on metoprolol 12.5 mg b.i.d. with holding parameters in the perioperative period. Will also suggest to discontinue morphine and to start the patient on Dilaudid p.r.n. for pain control. Regard to provide room for blood pressure. Thank you for the consult please call for any questions.
[2020-06-13] MEDS: Metoprolol Tartrate 12.5 MG HALFTAB PO (21:13)
[2020-06-14] VITALS (7 sets, daily range): BP systolic 93–123; BP diastolic 50–75; PULSE 62–84; RESP 16–20; TEMP 36.1–36.6; O2SAT 92–100
[2020-06-14] MEDS: Lactated Ringers 1,000 ML 100 ML IVCONT ×2 (03:05→13:22)
[2020-06-14 06:43] LABS: Basophils Percent Auto 0.1 % (0-2); Hematocrit 37.7 % (42-52); Hemoglobin 12.8 g/dl (14.0-18.0); Imm Gran Abs Auto 0.05 X10*3/uL (0.00-0.03); Imm Gran Pct Auto 0.4 % (0.0-0.4); Lymphocytes Absolute Auto 0.4 X10*3/uL (1.2-4.9); Lymphocytes Percent Auto 3.1 % (20-40); MANUAL DIFF FLAG SCAN; Mean Corpuscular Hemoglobin 34.4 pg (27.0-33.0); Mean Corpuscular Volume 101.3 fL (80-98); Mean Platelet Volume 9.8 fL (9.4-12.4); Monocytes Absolute Auto 0.8 X10*3/uL (0.1-1.2); Monocytes Percent Auto 6.2 % (2-11); Neutrophils Absolute Auto 11.3 X10*3/uL (2.0-8.3); Neutrophils Percent Auto 90.2 % (45-73); Red Blood Count 3.72 X10*6/uL (4.60-5.80); Red Cell Distribution Width 12.2 % (11.0-16.0); SCAN SMEAR FLAG 1; White Blood Count 12.5 X10*3/uL (4.8-10.8)
[2020-06-14 06:46] LABS: Platelet Count 97 X10*3/uL (160-400)
[2020-06-14 07:28] LABS: Anion Gap 17 (12-20); Blood Urea Nitrogen 19 mg/dL (9-16); Carbon Dioxide 22 mmol/L (22-29); Chloride 99 mmol/L (96-108); Creatinine Clr Calc Pharmacy 54.7; Estimated Glomerular Filt Rate > 60; Glucose Random 139 mg/dL (60-115); Potassium 4.7 mmol/L (3.3-5.1); Sodium 133 mmol/L (135-145)
[2020-06-14 07:31] LABS: SLIDE REVIEW VERIFIED
--- NOTE | 2020-06-14 08:10 | PM.PNGS ---
Subjective Subjective Date of Service: 06/14/20 Interval history: Says his left for a few hours last night Sore on his incisions but not too bad Tolerating liquids - says he wants to eat No events reported Physical Exam Vital Signs: Vital Signs: Last Vital Signs Temp 97 F 06/14/20 03:27 Pulse 74 06/14/20 03:27 Resp 16 06/14/20 03:27 BP 110/56 L 06/14/20 03:27 Pulse Ox 98 06/14/20 03:27 Body Mass Index 19.9 Chemistry 06/14/20 06:11 Sodium 133 L Potassium 4.7 Carbon Dioxide 22 BUN 19 H Creatinine 1.01 Calcium 8.0 L D Hematology 06/14/20 06:11 WBC 12.5 H Hgb 12.8 L Plt Count 97 L Const: General: comfortable and no acute distress Resp: Effort & Inspection: normal respiratory effort Cardio: Rhythm: regular rhythm GI: Other: Ileostomy good output Palpation (GI): Soft to palpation, not firm, Tenderness to palpation present (GI) (Appropriate to postop status) and no guarding : Other: Patton in place, good urine output, clear, nonbloody Progress Note: A&P Assessment and plan (1) Rectal cancer: Problem details: w/chemotherapy & radiation-completed 03/09/20 Status: Acute Assessment and Plan: Status post low anterior resection, ileostomy Seems to have adequate pain control Urine output much improved Ileostomy function - will advance diet tolerated today Instructed again on incentive spirometry Out of bed to chair - will provide recliner Will Keep Patton until tomorrow Platelet count low - will hold subcu heparin Pain management Appreciate hospitalist input Seems to be doing well Fall Risk Details Current Medications: Current Medications Generic Name Dose Route Start Last Admin Trade Name Freq PRN Reason Stop Dose Admin Atenolol 50 mg 06/14/20 09:00 Atenolol 50 Mg Tablet PO DAILY [facility] Protocol Heparin Sodium (Porcine) 5,000 unit 06/14/20 13:00 Heparin Sodium,Porcine 5,000 Unit/Ml Vial SUBCUT Q12H [facility] Hydromorphone HCl 0.5 mg 06/13/20 19:28 Hydromorphone Hcl 0.5 Mg/0.5 Ml Syringe IVPUSH Q3H PRN Breakthrough Pain Lactated Ringer's 1,000 mls @ 100 mls/hr 06/13/20 15:26 06/14/20 03:05 Lr IVCONT 100 mls/hr .Q10H [facility] Administration Acetaminophen 1,000 mg in 100 mls @ 400 mls/hr 06/13/20 16:24 Ofirmev IV Q6H PRN Pain, Severe (Pain Scale 7-10) Metoprolol Tartrate 12.5 mg 06/13/20 21:00 06/13/20 21:13 Metoprolol Tartrate 12.5 Mg Halftab PO 12.5 mg BID [facility] Administration Protocol Nicotine 21 mg 06/14/20 09:00 Nicotine 21 Mg Patch.Td24 TRANSDERMA DAILY [facility] Ondansetron HCl 4 mg 06/13/20 16:24 Ondansetron Hcl 4 Mg/2 Ml Vial IVPUSH Q8H PRN Nausea and Vomiting Ondansetron HCl 4 mg 06/13/20 16:41 Ondansetron Hcl 4 Mg/2 Ml Vial IVPUSH Q8H PRN Nausea Oxycodone HCl 5 mg 06/13/20 16:24 Oxycodone Hcl Immed Release 5 Mg Tablet PO Q4H PRN Pain, Moderate (Pain Scale 4-6 Sodium Chloride 3 ml 06/13/20 16:24 06/13/20 21:51 0.9 % Sodium Chloride Flush 3 Ml Syringe IVFLUSH Not Given QSHIFT [facility] Time Spent With Patient Time: Total time spent is greater than 50% in coordination of care (as documented) at patient's floor/unit and/or counseling patient: Time with patient: 15 - 24 minutes
[2020-06-14] MEDS: Nicotine 21 MG PATCH.TD24 TRANSDERMA (08:13)
[2020-06-14] MEDS: atenoloL 50 MG TABLET PO (08:13)
[2020-06-14] MEDS: HYDROmorphone HCl 0.5 MG/0.5 ML SYRINGE IVPUSH ×2 (08:14→23:11)
[2020-06-14] MEDS: Metoprolol Tartrate 12.5 MG HALFTAB PO (08:14)
--- NOTE | 2020-06-14 08:53 | MHC.CM.PN ---
pt lives c his and adult son in his home. he reports that he is independent in his care. he drives a car and does not use any AD c ambulation, although he says he has a walker and cane in the home. pt's and son can help him should he need it. this will include a ride home [place]. pt also has requested to have [facility] provide nsg visits at [place], a ref. has been made for this. pt does not want to go to [facility]. dc plan is home c [facility]na. cm to cont. to follow.
--- NOTE | 2020-06-14 13:07 | HO.POSTANES ---
Post Anesthesia Evaluation Post Anesthesia Evaluation Vital Signs: Vital Signs Temp Pulse Resp BP Pulse Ox 06/14/20 12:00 97.3 F 62 17 93/55 L 100 06/14/20 08:00 97.2 F 62 18 123/60 98 06/14/20 03:27 97 F 74 16 110/56 L 98 Anesthesia: General Endotracheal-GETA Mental Status: Awake Pain Control: Satisfactory Nausea/Vomiting: None Hydration: Adequate Anesthesia-Related Issues: No Anes. Related Issues
--- NOTE | 2020-06-14 13:10 | P.PNIM_ITS ---
Subjective Subjective Date of Service: 06/14/20 Interval History: the patient was seen and evaluated this morning Laying in bed, feels comfortable overall with some discomfort around the s urgical site. Noticed to have low blood pressure readings Denies any fever, chills or shortness of breath No reported other overnight events. Systemic review: No fever, chills or weakness No chest pain, palpitation No shortness of breath or coughing No abdominal pain, nausea or vomiting No urinary symptoms No any rash or wounds Physical Exam Vital Signs: Vital Signs: Last Vital Signs Temp 97.3 F 06/14/20 12:00 Pulse 62 06/14/20 12:00 Resp 17 06/14/20 12:00 BP 93/55 L 06/14/20 12:00 Pulse Ox 100 06/14/20 12:00 Body Mass Index 19.9 Const: Other: Constitutional : Alert, oriented, not in distress Neck : Normal inspection, Supple Cardiovascular : RRR, S1 S2, no lower extremity edema Respiratory : Good bilateral air entry, no crackles, wheezes or rhonchi Gastrointestinal: soft, lax, Normal bowel sounds, Non tender, ostomy in place with no bleeding Skin : Warm/Dry, No rash Neurological : Alert & oriented x3, No focal deficit Objective Data Current Medications Generic Name Dose Route Start Last Admin Trade Name Freq PRN Reason Stop Dose Admin Atenolol 50 mg 06/14/20 09:00 06/14/20 08:13 Atenolol 50 Mg Tablet PO 50 mg DAILY [facility] Administration Protocol Hydromorphone HCl 0.5 mg 06/13/20 19:28 06/14/20 08:14 Hydromorphone Hcl 0.5 Mg/0.5 Ml Syringe IVPUSH 0.5 mg Q3H PRN Administration Breakthrough Pain Lactated Ringer's 1,000 mls @ 80 mls/hr 06/13/20 15:26 06/14/20 03:05 Lr IVCONT 100 mls/hr .[id number] [facility] Administration Acetaminophen 1,000 mg in 100 mls @ 400 mls/hr 06/13/20 16:24 Ofirmev IV Q6H PRN Pain, Severe (Pain Scale 7-10) Metoprolol Tartrate 12.5 mg 06/13/20 21:00 06/14/20 08:14 Metoprolol Tartrate 12.5 Mg Halftab PO 12.5 mg BID [facility] Administration Protocol Nicotine 21 mg 06/14/20 09:00 06/14/20 08:13 Nicotine 21 Mg Patch.Td24 TRANSDERMA 21 mg DAILY [facility] Administration Ondansetron HCl 4 mg 06/13/20 16:24 Ondansetron Hcl 4 Mg/2 Ml Vial IVPUSH Q8H PRN Nausea and Vomiting Ondansetron HCl 4 mg 06/13/20 16:41 Ondansetron Hcl 4 Mg/2 Ml Vial IVPUSH Q8H PRN Nausea Oxycodone HCl 5 mg 06/13/20 16:24 Oxycodone Hcl Immed Release 5 Mg Tablet PO Q4H PRN Pain, Moderate (Pain Scale 4-6 Sodium Chloride 3 ml 06/13/20 16:24 06/14/20 08:13 0.9 % Sodium Chloride Flush 3 Ml Syringe IVFLUSH Not Given QSHIFT [facility] Labs CBC & Chem 7: 06/14/20 06:11 06/14/20 06:11 Assessment and Plan (1) Rectal cancer: Status: Acute Assessment and Plan: 74-year-old male with a past medical history of hypertension, chronic bronchitis, rectal cancer admitted to the surgery service. Status post/colostomy. Medicine team consulted for comanagement of blood pressure. Rectal cancer Status post surgery care as per the General surgery team Hypotension To discontinue home does atenolol continue IVF Smoker NRT Thank you for the consult . Will continue to follow the patient with you as needed.
[2020-06-14] MEDS: oxyCODONE HCl Immed Release 5 MG TABLET PO (14:33)
[2020-06-15] VITALS (7 sets, daily range): BP systolic 113–139; BP diastolic 51–68; PULSE 58–71; RESP 16–19; TEMP 36.3–36.7; O2SAT 91–100
[2020-06-15] MEDS: Lactated Ringers 1,000 ML 80 ML IVCONT (02:23)
--- NOTE | 2020-06-15 04:03 | PC.NURSE ---
Addendum entered by Polly Jung RN 06/15/20 04:12: ordered STAT V/Q scan and CXR Original Note: P: O2 sat found to be 88-92% on room air during 4am VS. Pt otherwise asymptomatic. Pt does have COPD at baseline. Does not use O2 at home. I: Pt placed on 2L O2 NC. notified of change in status. E: Will recheck O2 sat in 30min.
--- NOTE | 2020-06-15 05:14 | PM.EVENT ---
Event Note Date of Service: 06/15/20 Event Note: Hypoxia: Patient was hypoxic to 90%. Patient on supplemental oxygen. Diminished breath sounds. Chest x-ray showed possible lower lobe pneumonia. Started on empiric antibiotics. Also ordered a V/Q scan. Pneumoperitoneum: Spoke to the radiologist to mention the patient had pneumoperitoneum on the chest x-ray done at 5:00 a.m. Per discussion with Radiology the pneumoperitoneum is probably explained by the patient's surgery and no need for follow-up. Patient's vitals are stable. Patient not tachycardic.
[2020-06-15] MEDS: cefTRIAXone sodium 1 GM in 0.9 % Sodium Chloride 50 ML IV (06:42)
--- NOTE | 2020-06-15 08:18 | PM.PNGS ---
Subjective Subjective Date of Service: 06/15/20 Interval history: Reported to have a lot of coughing last night O2 sat was borderline Patient feels better this morning although frustrated Denies abdominal pain stoma has been function Chest x-ray had shown interstitial prominence Tolerating liquids Physical Exam Vital Signs: Vital Signs: Last Vital Signs Temp 98.0 F 06/15/20 03:41 Pulse 69 06/15/20 03:41 Resp 19 06/15/20 03:41 BP 115/51 L 06/15/20 03:41 Pulse Ox 91 L 06/15/20 03:41 Body Mass Index 19.9 Const: Other: No acute shortness of breath General: comfortable and no acute distress Resp: Effort & Inspection: normal respiratory effort Cardio: Rhythm: regular rhythm GI: Other: Stoma functioning well with good output, incisions all clean and healing well Palpation (GI): Soft to palpation, not firm, nontender and no guarding Progress Note: A&P Assessment and plan (1) Rectal cancer: Status: Acute Assessment and Plan: Status post low anterior resection, ileostomy Had borderline O2 sats, a lot of coughing, some shortness of breath last night Patient has been smoker all his life, with chronic bronchitis Much better this morning Nuclear lung scan ordered by hospitalist service Stoma otherwise working well Exam of abdomen very benign Will advance diet PAM Patton Incentive spirometry Out of bed to chair Fall Risk Details Current Medications: Current Medications Generic Name Dose Route Start Last Admin Trade Name Freq PRN Reason Stop Dose Admin Doxycycline Hyclate 100 mg 06/15/20 06:00 06/15/20 06:41 Doxycycline Hyclate 100 Mg Tablet PO 100 mg Q12H [facility] Administration Hydromorphone HCl 0.5 mg 06/13/20 19:28 06/14/20 23:11 Hydromorphone Hcl 0.5 Mg/0.5 Ml Syringe IVPUSH 0.5 mg Q3H PRN Administration Breakthrough Pain Lactated Ringer's 1,000 mls @ 80 mls/hr 06/13/20 15:26 06/15/20 02:23 Lr IVCONT 80 mls/hr .[id number] [facility] Administration Acetaminophen 1,000 mg in 100 mls @ 400 mls/hr 06/13/20 16:24 Ofirmev IV Q6H PRN Pain, Severe (Pain Scale 7-10) Ceftriaxone Sodium 1 gm/ 50 mls @ 100 mls/hr 06/15/20 06:00 06/15/20 07:56 Sodium Chloride IV Infused Q24H [facility] Infusion Nicotine 21 mg 06/14/20 09:00 06/14/20 08:13 Nicotine 21 Mg Patch.Td24 TRANSDERMA 21 mg DAILY [facility] Administration Ondansetron HCl 4 mg 06/13/20 16:24 Ondansetron Hcl 4 Mg/2 Ml Vial IVPUSH Q8H PRN Nausea and Vomiting Ondansetron HCl 4 mg 06/13/20 16:41 Ondansetron Hcl 4 Mg/2 Ml Vial IVPUSH Q8H PRN Nausea Oxycodone HCl 5 mg 06/13/20 16:24 06/14/20 14:33 Oxycodone Hcl Immed Release 5 Mg Tablet PO 5 mg Q4H PRN Administration Pain, Moderate (Pain Scale 4-6 Sodium Chloride 3 ml 06/13/20 16:24 06/15/20 07:53 0.9 % Sodium Chloride Flush 3 Ml Syringe IVFLUSH Not Given QSHIFT TOBY Time Spent With Patient Time: Total time spent is greater than 50% in coordination of care (as documented) at patient's floor/unit and/or counseling patient: Time with patient: 25 - 35 minutes
[2020-06-15] MEDS: Nicotine 21 MG PATCH.TD24 TRANSDERMA (09:17)
--- NOTE | 2020-06-15 10:37 | PC.NURSE ---
Addendum entered by Brittani Davidson RN 06/15/20 14:25: DTV #1 AT 1400 150MLS Original Note: ALBER D/C AT 0800, DTV#1 1400
--- NOTE | 2020-06-15 13:28 | HO.PM.IMPN ---
Subjective Subjective Date of Service: 06/15/20 Interval History: Patient sitting comfortably on bed complaining of mild abdominal discomfort at site of surgery, denies any shortness of breath , no chest pain patient was noted to be hypoxic finger oximetry 90%, chest x-ray and V/Q scan was obtained. ROS General no headache, no dizziness, no fever chills. CVS no chest pain, no palpitation. Respiratory no cough, no sob. Gastrointestinal no nausea, no vomiting, mild abdominal discomfort. Physical Exam Vital Signs: Vital Signs: Last Vital Signs Temp 97.8 F 06/15/20 12:00 Pulse 71 06/15/20 12:00 Resp 19 06/15/20 12:00 BP 135/66 06/15/20 12:00 Pulse Ox 100 06/15/20 12:00 Body Mass Index 19.9 Constitutional : Alert, oriented, no distress Neck : Normal inspection, Supple Cardiovascular : RRR, S1 S2, Respiratory : Diminished breath sounds, no crackles, wheezes or rhonchi Gastrointestinal: soft, Normal bowel sounds, Non tender, ostomy in place with liquidy stool Skin : Warm/Dry, No rash Extremities trace bilateral pedal edema Neurological : Alert & oriented x3, No focal deficit Objective Data Current Medications Generic Name Dose Route Start Last Admin Trade Name Freq PRN Reason Stop Dose Admin Doxycycline Hyclate 100 mg 06/15/20 06:00 06/15/20 06:41 Doxycycline Hyclate 100 Mg Tablet PO 100 mg Q12H [facility] Administration Hydromorphone HCl 0.5 mg 06/13/20 19:28 06/14/20 23:11 Hydromorphone Hcl 0.5 Mg/0.5 Ml Syringe IVPUSH 0.5 mg Q3H PRN Administration Breakthrough Pain Lactated Ringer's 1,000 mls @ 80 mls/hr 06/13/20 15:26 06/15/20 02:23 Lr IVCONT 80 mls/hr .[id number] [facility] Administration Acetaminophen 1,000 mg in 100 mls @ 400 mls/hr 06/13/20 16:24 Ofirmev IV Q6H PRN Pain, Severe (Pain Scale 7-10) Ceftriaxone Sodium 1 gm/ 50 mls @ 100 mls/hr 06/15/20 06:00 06/15/20 07:56 Sodium Chloride IV Infused Q24H [facility] Infusion Nicotine 21 mg 06/14/20 09:00 06/15/20 09:17 Nicotine 21 Mg Patch.Td24 TRANSDERMA 21 mg DAILY [facility] Administration Ondansetron HCl 4 mg 06/13/20 16:24 Ondansetron Hcl 4 Mg/2 Ml Vial IVPUSH Q8H PRN Nausea and Vomiting Ondansetron HCl 4 mg 06/13/20 16:41 Ondansetron Hcl 4 Mg/2 Ml Vial IVPUSH Q8H PRN Nausea Oxycodone HCl 5 mg 06/13/20 16:24 06/14/20 14:33 Oxycodone Hcl Immed Release 5 Mg Tablet PO 5 mg Q4H PRN Administration Pain, Moderate (Pain Scale 4-6 Sodium Chloride 3 ml 06/13/20 16:24 06/15/20 07:53 0.9 % Sodium Chloride Flush 3 Ml Syringe IVFLUSH Not Given QSHIFT [facility] Labs CBC & Chem 7: 06/14/20 06:11 06/14/20 06:11 Assessment and Plan (1) Hypoxia: Status: Acute (2) Chronic bronchitis: Status: Acute (3) Rectal cancer: Status: Acute (4) Smoker: Status: Acute (5) History of herpes zoster: Status: Acute (6) Hypertension: Status: Acute Assessment and Plan: 74-year-old male with a past medical history of hypertension, chronic bronchitis, rectal cancer admitted to the surgery service. Status post/colostomy. Medicine team consulted for comanagement of blood pressure. Rectal cancer Status post surgery, good pain control tolerating diet, colostomy functioning fine, will DC fluids. Hypertension, noted to have soft blood pressure yesterday therefore atenolol will held blood pressure is stable today therefore will resume low-dose atenolol 25 mg by mouth daily Will discontinue IV fluid Mild hypoxia/chronic bronchitis/pneumonia with no evidence of acute respiratory failure, V/Q scan is low probability chest x-ray showed retrocardiac opacity and chronic interstitial changes, patient is on ceftriaxone and doxycycline, noted to have leukocytosis no fever, will follow CBC and clinical course Will follow clinical course, currently oxygenation 100% on 2 L, will wean oxygen, no evidence of sepsis. Smoker continue nicotine patch counseling done DVT prophylaxis with compression boots.
[2020-06-15] MEDS: atenoloL 25 MG TABLET PO (14:12)
--- NOTE | 2020-06-15 16:00 | PM.EVENT ---
Event Note Date of Service: 06/15/20 Event Note: Seen for afternoon rounds He is comfortable Tolerating diet well Denies abdominal pain Says that he is not short of breath Looks well Abdomen soft Stoma functioning Beta-alisson restarted by hospitalist Repeat labs tomorrow Doing well overall Charline roberson
[2020-06-15] MEDS: 0.9 % Sodium Chloride Flush 3 ML SYRINGE IVFLUSH ×2 (16:16→20:32)
[2020-06-16] VITALS (8 sets, daily range): BP systolic 100–145; BP diastolic 61–79; PULSE 59–110; RESP 17–20; TEMP 36.1–36.8; O2SAT 88–100
[2020-06-16] MEDS: cefTRIAXone sodium 1 GM in 0.9 % Sodium Chloride 50 ML IV (05:47)
[2020-06-16 07:59] LABS: MANUAL DIFF FLAG NO
[2020-06-16] MEDS: atenoloL 25 MG TABLET PO (08:04)
[2020-06-16] MEDS: Nicotine 21 MG PATCH.TD24 TRANSDERMA (08:04)
[2020-06-16] MEDS: 0.9 % Sodium Chloride Flush 3 ML SYRINGE IVFLUSH ×3 (08:05→23:28)
--- NOTE | 2020-06-16 08:05 | PM.PNGS ---
Subjective Subjective Date of Service: 06/16/20 Interval history: Says he had a good night Denies new complaints Denies shortness of breath Stoma functioning well Tolerating regular diet Denies significant pain Physical Exam Vital Signs: Vital Signs: Last Vital Signs Temp 97.1 F 06/16/20 03:47 Pulse 74 06/16/20 03:47 Resp 18 06/16/20 03:47 BP 145/70 H 06/16/20 03:47 Pulse Ox 98 06/16/20 03:47 Body Mass Index 19.9 Laboratory Results - last 24 hr 06/16/20 06/16/20 07:27 07:27 WBC 15.4 H RBC 3.77 L Hgb 13.2 L Hct 40.3 L MCV 106.9 H D MCH 35.0 H MCHC 32.8 RDW 12.8 Plt Count 134 L D MPV 11.1 Immature Gran % (A uto) 0.7 H Neut % (Auto) 85.6 H Lymph % (Auto) 5.9 L [place] % (Auto) 7.5 Eos % (Auto) 0.2 Baso % (Auto) 0.1 Lymph # (Auto) 0.9 L [place] # (Auto) 1.2 Eos # (Auto) 0.0 Baso # (Auto) 0.0 Abs Immat Gran (au to) 0.11 H Absolute Neuts (au to) 13.2 H Absolute Nucleated RBC 0.000 Nucleated RBC % (a uto) 0.0 Sodium 133 L Potassium 4.2 Chloride 99 Carbon Dioxide 22 Anion Gap 16 BUN 18 H Creatinine 0.83 Estim Creat Clear Calc 66.6 Estimated GFR > 60 Random Glucose 96 Calcium 8.4 Const: General: comfortable and no acute distress Resp: Effort & Inspection: normal respiratory effort and able to speak in complete sentences Auscultation: clear to auscultation bilaterally Cardio: Rhythm: regular rhythm GI: Other: Soft, guarding or rebound, incisions clean and dry, minimal tenderness, stoma functioning well Progress Note: A&P Assessment and plan (1) Rectal cancer: Status: Acute Assessment and Plan: Status post low anterior resection, loop ileostomy Doing well Good urine output - voiding well Respiratory status much improved Tolerating diet with good GI function WBC elevated - no fever, clinically looks well; will follow Push incentive spirometry Ambulate - out of bed more PT eval Charline updated, plans discussed Fall Risk Details Current Medications: Current Medications Generic Name Dose Route Start Last Admin Trade Name Freq PRN Reason Stop Dose Admin Atenolol 25 mg 06/16/20 09:00 06/15/20 14:12 Atenolol 25 Mg Tablet PO 25 mg DAILY TOBY Administration Protocol Doxycycline Hyclate 100 mg 06/15/20 06:00 06/16/20 05:46 Doxycycline Hyclate 100 Mg Tablet PO 100 mg Q12H TOBY Administration Hydromorphone HCl 0.5 mg 06/13/20 19:28 06/14/20 23:11 Hydromorphone Hcl 0.5 Mg/0.5 Ml Syringe IVPUSH 0.5 mg Q3H PRN Administration Breakthrough Pain Ceftriaxone Sodium 1 gm/ 50 mls @ 100 mls/hr 06/15/20 06:00 06/16/20 06:25 Sodium Chloride IV Infused Q24H TOBY Infusion Nicotine 21 mg 06/14/20 09:00 06/15/20 09:17 Nicotine 21 Mg Patch.Td24 TRANSDERMA 21 mg DAILY TOBY Administration Ondansetron HCl 4 mg 06/13/20 16:24 Ondansetron Hcl 4 Mg/2 Ml Vial IVPUSH Q8H PRN Nausea and Vomiting Ondansetron HCl 4 mg 06/13/20 16:41 Ondansetron Hcl 4 Mg/2 Ml Vial IVPUSH Q8H PRN Nausea Oxycodone HCl 5 mg 06/13/20 16:24 06/14/20 14:33 Oxycodone Hcl Immed Release 5 Mg Tablet PO 5 mg Q4H PRN Administration Pain, Moderate (Pain Scale 4-6 Sodium Chloride 3 ml 06/13/20 16:24 06/15/20 20:32 0.9 % Sodium Chloride Flush 3 Ml Syringe IVFLUSH 3 ml QSHIFT TOBY Administration Time Spent With Patient Time: Total time spent is greater than 50% in coordination of care (as documented) at patient's floor/unit and/or counseling patient: Time with patient: 15 - 24 minutes
[2020-06-16 08:20] LABS: Basophils Percent Auto 0.1 % (0-2); Eosinophils Percent Auto 0.2 % (0-4); Hematocrit 40.3 % (42-52); Hemoglobin 13.2 g/dl (14.0-18.0); Imm Gran Abs Auto 0.11 X10*3/uL (0.00-0.03); Imm Gran Pct Auto 0.7 % (0.0-0.4); Lymphocytes Absolute Auto 0.9 X10*3/uL (1.2-4.9); Lymphocytes Percent Auto 5.9 % (20-40); Mean Corpuscular HGB Conc 32.8 g/dl (31.0-36.0); Mean Corpuscular Volume 106.9 fL (80-98); Mean Platelet Volume 11.1 fL (9.4-12.4); Monocytes Absolute Auto 1.2 X10*3/uL (0.1-1.2); Monocytes Percent Auto 7.5 % (2-11); Neutrophils Absolute Auto 13.2 X10*3/uL (2.0-8.3); Neutrophils Percent Auto 85.6 % (45-73); Platelet Count 134 X10*3/uL (160-400); Red Blood Count 3.77 X10*6/uL (4.60-5.80); Red Cell Distribution Width 12.8 % (11.0-16.0); White Blood Count 15.4 X10*3/uL (4.8-10.8)
[2020-06-16 08:41] LABS: Anion Gap 16 (12-20); Blood Urea Nitrogen 18 mg/dL (9-16); Calcium 8.4 mg/dL (8.4-10.2); Carbon Dioxide 22 mmol/L (22-29); Chloride 99 mmol/L (96-108); Creatinine Clr Calc Pharmacy 66.6; Estimated Glomerular Filt Rate > 60; Glucose Random 96 mg/dL (60-115); Potassium 4.2 mmol/L (3.3-5.1); Sodium 133 mmol/L (135-145)
--- NOTE | 2020-06-16 11:46 | P.PNIM_ITS ---
Subjective Subjective Date of Service: 06/16/20 Interval History: Patient eating breakfast, no episode of choking or cough had a good night sleep, is motivated to be out of bed to chair and ambulate, denies fever chills. ROS General no headache, no dizziness, no fever, chills. CVS no chest pain, no palpitation. Respiratory no cough, no sob. Gastrointestinal no nausea, no vomiting, mild abdominal discomfort. Physical Exam Vital Signs: Vital Signs: Last Vital Signs Temp 97 F 06/16/20 08:00 Pulse 110 H 06/16/20 10:38 Resp 17 06/16/20 08:00 BP 100/61 06/16/20 10:38 Pulse Ox 100 06/16/20 08:00 Body Mass Index 19.9 Constitutional : Sitting comfortably eating breakfast Neck : Normal inspection, Supple Cardiovascular : RRR, S1 S2, Respiratory : Diminished breath sounds, no crackles, wheezes or rhonchi Gastrointestinal: soft, Normal bowel sounds, mild tenderness around incision, incision clean and dry, ileostomy functioning well Skin : Warm/Dry, No rash Extremities trace bilateral pedal edema Neurological : Alert & oriented x3, No focal deficit Objective Data Current Medications Generic Name Dose Route Start Last Admin Trade Name Freq PRN Reason Stop Dose Admin Atenolol 25 mg 06/16/20 09:00 06/16/20 08:04 Atenolol 25 Mg Tablet PO 25 mg DAILY TOBY Administration Protocol Doxycycline Hyclate 100 mg 06/15/20 06:00 06/16/20 05:46 Doxycycline Hyclate 100 Mg Tablet PO 100 mg Q12H TOBY Administration Hydromorphone HCl 0.5 mg 06/13/20 19:28 06/14/20 23:11 Hydromorphone Hcl 0.5 Mg/0.5 Ml Syringe IVPUSH 0.5 mg Q3H PRN Administration Breakthrough Pain Ceftriaxone Sodium 1 gm/ 50 mls @ 100 mls/hr 06/15/20 06:00 06/16/20 06:25 Sodium Chloride IV Infused Q24H TOBY Infusion Nicotine 21 mg 06/14/20 09:00 06/16/20 08:04 Nicotine 21 Mg Patch.Td24 TRANSDERMA 21 mg DAILY TOBY Administration Ondansetron HCl 4 mg 06/13/20 16:24 Ondansetron Hcl 4 Mg/2 Ml Vial IVPUSH Q8H PRN Nausea and Vomiting Ondansetron HCl 4 mg 06/13/20 16:41 Ondansetron Hcl 4 Mg/2 Ml Vial IVPUSH Q8H PRN Nausea Oxycodone HCl 5 mg 06/13/20 16:24 06/14/20 14:33 Oxycodone Hcl Immed Release 5 Mg Tablet PO 5 mg Q4H PRN Administration Pain, Moderate (Pain Scale 4-6 Sodium Chloride 3 ml 06/13/20 16:24 06/16/20 08:05 0.9 % Sodium Chloride Flush 3 Ml Syringe IVFLUSH 3 ml QSHIFT TOBY Administration Labs CBC & Chem 7: 06/16/20 07:27 06/16/20 07:27 Assessment and Plan (1) Hypoxia: Status: Acute (2) Rectal cancer: Status: Acute (3) Chronic bronchitis: Status: Acute (4) Smoker: Status: Acute (5) Hypertension: Status: Acute Assessment and Plan: 74-year-old male with a past medical history of hypertension, chronic bronchitis, rectal cancer admitted to the surgery service. Status post/colostom y. Medicine team consulted for comanagement of blood pressure. Rectal cancer Status post surgery, good pain control tolerating diet, ileostomy functioning fine, encourage out of bed to chair and ambulate, encourage incentive spirometer. Hypertension, noted to have soft blood pressure yesterday therefore atenolol was held, patient started back on low-dose atenolol 25 mg by mouth daily, noted mild tachycardia patient asymptomatic Continue to follow follow vitals closely Mild hypoxia/chronic bronchitis/pneumonia with no evidence of acute respiratory failure, V/Q scan is low probability chest x-ray showed retrocardiac opacity and chronic interstitial changes, patient is on ceftriaxone and doxycycline, no fever, clinically stable, will wean oxygen, no evidence of sepsis, worsening white cell count likely reactive will follow CBC and clinical course, currently oxygenation 100% on 2 L, will wean oxygen, no evidence of sepsis. Smoker continue nicotine patch counseling done DVT prophylaxis with compression boots.
--- NOTE | 2020-06-16 12:11 | MHC.CM.PN ---
PLAN IS FOR PATIENT TO RETURN HOME SATURDAY 06/17. TO TRANSPORT. IMM 06/16 IN CHART.
--- NOTE | 2020-06-16 15:48 | PM.EVENT ---
Event Note Date of Service: 06/16/20 Event Note: pt continues to do very well good PO intake denies significant pain stoma functioning well seen by PT - ok to be at home likely home tomorrow home meds - Betablocker, ?abx to be finalized by Hospitalist service
[2020-06-17 04:00] VITALS: BP 148/73; PULSE 66; RESP 18; TEMP 36.4; O2SAT 97
[2020-06-17] MEDS: cefTRIAXone sodium 1 GM in 0.9 % Sodium Chloride 50 ML IV (05:52)
[2020-06-17 08:00] VITALS: BP 134/73; PULSE 86; RESP 19; TEMP 36.6; O2SAT 91
[2020-06-17] MEDS: 0.9 % Sodium Chloride Flush 3 ML SYRINGE IVFLUSH (08:06)
[2020-06-17] MEDS: atenoloL 25 MG TABLET PO (08:07)
[2020-06-17] MEDS: Nicotine 21 MG PATCH.TD24 TRANSDERMA (08:07)
--- NOTE | 2020-06-17 09:03 | P.PNIM_ITS ---
Subjective Subjective Date of Service: 06/17/20 Interval History: Patient awake alert frustrated and wants to go home today and take the next step he is ready to quit smoking and wishes to be continued on nicotine patch he feels he is aware that he has COPD and will require oxygen, patient not offering any acute complaints but noted to be coughing during conversation and brought up frank colored phlegm, is afebrile require oxygen overnight since finger oximetry drop down to 88 now finger oximetry 91% on 2 L. 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 CVS denies chest pain or palpitation GI denies nausea vomiting no abdominal pain Physical Exam Vital Signs: Vital Signs: Last Vital Signs Temp 97.8 F 06/17/20 08:00 Pulse 86 06/17/20 08:00 Resp 19 06/17/20 08:00 BP 134/73 06/17/20 08:00 Pulse Ox 91 L 06/17/20 08:00 Body Mass Index 19.9 Constitutional : Sitting comfortably eating breakfast Neck : Normal inspection, Supple Cardiovascular : RRR, S1 S2, Respiratory : Diminished breath sounds, no crackles, no wheezes or rhonchi Gastrointestinal: soft, Normal bowel sounds, incision clean and dry, ileostomy functioning well Skin : Warm/Dry, No rash Extremities trace bilateral pedal edema Neurological : Alert & oriented x3, No focal deficit Objective Data Current Medications Generic Name Dose Route Start Last Admin Trade Name Freq PRN Reason Stop Dose Admin Atenolol 25 mg 06/16/20 09:00 06/17/20 08:07 Atenolol 25 Mg Tablet PO 25 mg DAILY TOBY Administration Protocol Doxycycline Hyclate 100 mg 06/15/20 06:00 06/17/20 05:52 Doxycycline Hyclate 100 Mg Tablet PO 100 mg Q12H TOBY Administration Guaifenesin/Dextromethorphan 1 tab 06/17/20 09:05 Guaifenesin Dm 600/30 1 Tab Tab.Er.12h PO BID TOBY Hydromorphone HCl 0.5 mg 06/13/20 19:28 06/14/20 23:11 Hydromorphone Hcl 0.5 Mg/0.5 Ml Syringe IVPUSH 0.5 mg Q3H PRN Administration Breakthrough Pain Ceftriaxone Sodium 1 gm/ 50 mls @ 100 mls/hr 06/15/20 06:00 06/17/20 06:27 Sodium Chloride IV Infused Q24H TOBY Infusion Nicotine 21 mg 06/14/20 09:00 06/17/20 08:07 Nicotine 21 Mg Patch.Td24 TRANSDERMA 21 mg DAILY TOBY Administration Ondansetron HCl 4 mg 06/13/20 16:24 Ondansetron Hcl 4 Mg/2 Ml Vial IVPUSH Q8H PRN Nausea and Vomiting Ondansetron HCl 4 mg 06/13/20 16:41 Ondansetron Hcl 4 Mg/2 Ml Vial IVPUSH Q8H PRN Nausea Oxycodone HCl 5 mg 06/13/20 16:24 06/14/20 14:33 Oxycodone Hcl Immed Release 5 Mg Tablet PO 5 mg Q4H PRN Administration Pain, Moderate (Pain Scale 4-6 Sodium Chloride 3 ml 06/13/20 16:24 06/17/20 08:06 0.9 % Sodium Chloride Flush 3 Ml Syringe IVFLUSH 3 ml QSHIFT TOBY Administration Labs CBC & Chem 7: 06/16/20 07:27 06/16/20 07:27 Assessment and Plan (1) Pneumonia: Status: Acute (2) Hypoxia: Status: Acute (3) Colostomy in place: Status: Acute (4) Rectal cancer: Status: Acute (5) Chronic bronchitis: Status: Acute (6) Smoker: Status: Acute (7) Hypertension: Status: Acute Assessment and Plan: 74-year-old male with a past medical history of hypertension, chronic bronchitis, rectal cancer admitted to the surgery service. Status post/colostomy. Medicine team consulted for comanagement of blood pressure. Rectal cancer Status post surgery, good pain control tolerating diet, ileostomy functioning fine, encourage out of bed to chair and ambulate, encourage incentive spirometer, plan is for discharge home today. Hypertension, noted to have soft blood pressures in last few days, therefore do se of atenolol reduced from 50 mg daily to 25 mg daily BP stable continue atenolol 25 daily may adjust dose as outpatient if noted to have high blood pressure Mild hypoxia/chronic bronchitis/pneumonia/history of COPD with no evidence of acute respiratory failure, no acute COPD exacerbation V/Q scan is low probability chest x-ray showed retrocardiac opacity and chronic interstitial changes, patient noted to have low oxygenation high 80s overnight therefore placed on oxygen 3 liters wean oxygen to 2 L ,obtain home O2 evaluation, patient did not qualify for home O2 therefore will discharge without oxygen, patient is clinically stable, with occasional productive cough,no evidence of sepsis, worsening white cell count likely reactive,will discharge patient home on by mouth Ceftin and doxycycline for 5 more days.cough medicine. Patient will need repeat chest x-ray in 3-4 weeks to check for clearance of retrocardiac opacity. Smoker continue nicotine patch 21 mg daily #21 dispense counseling done. DVT prophylaxis with compression boots.
[2020-06-17] MEDS: guaiFENesin DM 600/30 1 TAB TAB.ER.12H PO (09:35)
[2020-06-17 10:19] VITALS: PULSE 70; O2SAT 93
--- NOTE | 2020-06-17 12:15 | P.F2F_ITS ---
Service Date Service Date: 06/17/20 Encounter Date of encounter: 06/17/20 Encounter: Postop evaluation after low anterior resection and creation of loop ileostomy Reasons for Services Signs and symptoms assessed: assist with care and teaching new ileostomy Reason for senior living: wound care and postoperative assessment and/or care MD Overseeing Care: Maurice Crowe Homebound: Leaving the home is medically contraindicated at this time without the asist of a device and/or another person due th the listed conditions above and below. Reason homebound: weakness related to hospital stay Homebound supporting statement: He is weak after treatment and surgery for rectal CA, requires teaching and assistance with new ileostomy care. Certification: Based on the above findings, I certify that this patient is confined to the home and needs intermittent senior living care, physical therapy and/or speech therapy, or continues to need occupational therapy. The patient is under my care, and I have initiated the establishment of the plan of care. The patient will be followed by a physician who will periodically review the plan of care.
--- NOTE | 2020-06-17 12:21 | MHC.CM.PN ---
PATIENT IS RETURNING HOME TODAY WITH [facility] MONDAY 06/19. RN AND PATIENT AWARE OF PLAN. IMM 06/16 IN CHART.
--- NOTE | 2020-06-17 13:00 | PM.PNGS ---
Subjective Subjective Date of Service: 06/17/20 Interval history: He reports that he is feeling stronger. He wants to go home. He is emptying his ileostomy appliance without difficulty and feels that he could change it if needed. Physical Exam Vital Signs: Vital Signs: Last Vital Signs Temp 97.8 F 06/17/20 08:00 Pulse 86 06/17/20 08:00 Resp 19 06/17/20 08:00 BP 134/73 06/17/20 08:00 Pulse Ox 91 L 06/17/20 08:00 Body Mass Index 19.9 Const: General: cooperative, comfortable and no acute distress Resp: Effort & Inspection: normal respiratory effort Auscultation: crackles on the left at the base Cardio: Rate: regular rate Rhythm: regular rhythm GI: Other: Soft, nondistended, nontender. Incision is clean and well approximated. Healthy-appearing ostomy right lower quadrant. Skin: Other: Normal color, warm and dry Psych: Affect: normal affect Attitude: cooperative Progress Note: A&P Assessment and plan (1) Rectal cancer: Status: Acute Assessment and Plan: He continues to do well postoperatively. He is progressing with ostomy teaching and feels ready for discharge today. Visiting nurses will follow for continued postoperative care and assistance with ostomy management and teaching. He will follow up with Dr. Crowe in the office. (2) Chronic bronchitis: Status: Acute Assessment and Plan: He is improving from a respiratory standpoint. He will be discharged to complete a course of p.o. antibiotics. A prescription for nicotine patches has also been provided for support of smoking cessation. Fall Risk Details Current Medications: Current Medications Generic Name Dose Route Start Last Admin Trade Name Isa PRN Reason Stop Dose Admin Atenolol 25 mg 06/16/20 09:00 06/17/20 08:07 Atenolol 25 Mg Tablet PO 25 mg DAILY TOBY Administration Protocol Doxycycline Hyclate 100 mg 06/15/20 06:00 06/17/20 05:52 Doxycycline Hyclate 100 Mg Tablet PO 100 mg Q12H TOBY Administration Guaifenesin/Dextromethorphan 1 tab 06/17/20 09:05 06/17/20 09:35 Guaifenesin Dm 600/30 1 Tab Tab.Er.12h PO 1 tab BID TOBY Administration Hydromorphone HCl 0.5 mg 06/13/20 19:28 06/14/20 23:11 Hydromorphone Hcl 0.5 Mg/0.5 Ml Syringe IVPUSH 0.5 mg Q3H PRN Administration Breakthrough Pain Ceftriaxone Sodium 1 gm/ 50 mls @ 100 mls/hr 06/15/20 06:00 06/17/20 06:27 Sodium Chloride IV Infused Q24H TOBY Infusion Nicotine 21 mg 06/14/20 09:00 06/17/20 08:07 Nicotine 21 Mg Patch.Td24 TRANSDERMA 21 mg DAILY TOBY Administration Ondansetron HCl 4 mg 06/13/20 16:24 Ondansetron Hcl 4 Mg/2 Ml Vial IVPUSH Q8H PRN Nausea and Vomiting Ondansetron HCl 4 mg 06/13/20 16:41 Ondansetron Hcl 4 Mg/2 Ml Vial IVPUSH Q8H PRN Nausea Oxycodone HCl 5 mg 06/13/20 16:24 06/14/20 14:33 Oxycodone Hcl Immed Release 5 Mg Tablet PO 5 mg Q4H PRN Administration Pain, Moderate (Pain Scale 4-6 Sodium Chloride 3 ml 06/13/20 16:24 06/17/20 08:06 0.9 % Sodium Chloride Flush 3 Ml Syringe IVFLUSH 3 ml QSHIFT TOBY Administration Time Spent With Patient Time: Total time spent is greater than 50% in coordination of care (as documented) at patient's floor/unit and/or counseling patient: Time with patient: less than 15 minutes
--- NOTE | 2020-06-21 10:27 | PM.DS ---
DS: Providers Provider Date of Service: 06/21/20 Date of admission: 06/13/20 05:47 Primary care physician: Felix Tejeda MD Consults: 06/13/20 16:40 Consult to Hospitalist Routine Consulting Provider: Hospitalist Reason For Exam: Hypertension DS: Diagnosis Discharge Diagnosis (1) Pneumonia: Status: Acute Problem details: He good O2 saturation on postop day 2. He was discharged on Ceftin and doxycycline. He had remained afebrile during his hospital stay. (2) Hypoxia: Status: Acute Problem details: He had to be on supplemental oxygen by nasal cannula the 1st 2 days postop. This was probably secondary to his history of smoking. He he improved significantly and was off oxygen after his 3rd postop day. (3) Colostomy in place: Status: Acute (4) Rectal cancer: Status: Acute Problem details: He underwent hand assisted laparoscopic low anterior resection with a loop ileostomy as a same-day surgery patient last June 13, 2020. He tolerated procedure well. He went to the med surg unit from PACU. He did have some low O2 sats on his 1st postop day and underwent chest x-ray which suggested an early pneumonia. He had a V/Q scan was unremarkable. These were all ordered by the hospitalist service. He was therefore advised on bring out of bed as well as doing incentive spirometry and he improved significantly. He was started on regular diet postop day 2 as he had good stoma function function. He continued to tolerate this. He had good pain control and was off of IV fluids on postop day 3. He did not have any further significant complaints. He did not have any fever postop. He had good pain control so he was discharged on postop day 4, on 06/17/2020. His path report showed a moderately differentiated [id number] rectal adenocarcinoma. (5) Chronic bronchitis: Status: Acute (6) Smoker: Status: Acute (7) Hypertension: Status: Acute DS: Medications Discharge Medications Home Medications: Home Medications Medication Instructions Recorded Confirmed cholecalciferol (vitamin D3) 10 10 mcg PO DAILY 03/29/20 06/09/20 mcg (400 unit) capsule Previous Rx's Medication Instructions Recorded ostomy supplies #1 ea 06/16/20 oxycodone-acetaminophen [Percocet] 1 - 2 tab PO Q4-6H PRN #25 tab 06/16/20 skin protectants, misc. 1 pad TOPICAL .as needed #30 ea 06/16/20 atenolol 25 mg PO DAILY #30 tab 06/17/20 cefuroxime axetil 500 mg PO Q12H 5 Days #10 tab 06/17/20 dextromethorphan-guaifenesin 1 tab PO BID #12 tab 06/17/20 [Mucinex DM] doxycycline hyclate 100 mg PO Q12H #10 tab 06/17/20 nicotine 21 mg TRANSDERMAL DAILY #21 ea 06/17/20 DS: Summary Time Spent with Patient Time attestation: Total time spent providing and/or coordinating discharge services: Discharge coordination time: Less than 30 minutes Physical Exam Vital Signs: Vital Signs: Last Vital Signs Temp 97.8 F 06/17/20 08:00 Pulse 86 06/17/20 08:00 Resp 19 06/17/20 08:00 BP 134/73 06/17/20 08:00 Pulse Ox 91 L 06/17/20 08:00 Body Mass Index 19.9 Const: General: comfortable and no acute distress Orientation/consciousness: patient oriented x3 Neck: Neck: Yes no lymphadenopathy Resp: Auscultation: clear to auscultation bilaterally Cardio: Rhythm: regular rhythm GI: Other: Loop ileostomy functioning well Palpation (GI): Soft to palpation, nontender and no guarding Neuro: General: patient oriented x3 DS: Data Data Completed and Pending Completed studies during hospitalization [Text1]: Pending at discharge 06/13/20 10:47 Surgical [PTH] Stat Discharge Plan Discharge Patient Disposition: Home, Self-Care Referrals: [facility] [Outside] Felix Tejeda MD [Primary Care Provider] - Maurice Crowe MD [Physician] - Discharge Medications: New oxycodone-acetaminophen [Percocet] 5-325 mg tablet 1 - 2 tab PO Q4-6H PRN (Reason: pain) Qty: 25 RF: 0 atenolol 25 mg Tablet 25 mg PO DAILY Qty: 30 RF: 0 doxycycline hyclate 100 mg Tablet 100 mg PO Q12H Qty: 10 RF: 0 cefuroxime axetil 500 mg tablet 500 mg PO Q12H 5 Days Qty: 10 RF: 0 nicotine 21 mg/24 hr Patch 24 Hour 21 mg transdermal DAILY Qty: 21 RF: 0 Mucinex DM 30-600 mg Tablet Extended Release 12 Hr 1 tab PO BID Qty: 12 RF: 0 Continued No Sting Barrier Film Pads, Medicated 1 pad topical .as needed Qty: 30 RF: 0 cholecalciferol (vitamin D3) 10 mcg (400 unit) capsule 10 mcg PO DAILY RF: 0 Discontinued atenolol 50 mg tablet 50 mg PO DAILY RF: 0 No Action (DME) SenSura Flex Ostomy Pouch Misc See Rx Instructions .ROUTE .MEDSUPPLY Qty: 1 RF: 0 Discharge Orders: Discharge Order (Routine); Ordered 06/17/20 Ordered By: Lazara Burch Diet: advance to usual diet Activity on Discharge: No heavy lifting Stand Alone Forms: Patient Portal Discharge page Activity Restrictions/Additional Instructions: Drink enough liquids to make up for losses from the stoma. If the incision area is tender, you may apply an ice pack for short intervals (No more than 20 minutes on, followed by at least 20 minutes off). Do not apply heat. Do not use creams, lotions, or topical antibiotics unless instructed to do so by your surgeon. These can cause infection or allergic reaction. Ok to shower. No lifting more than 20 lb Call the office for follow-up in 2-3 weeks Call Your Doctor If: -Your temperature exceeds 101.5? F -You experience excessive pain or swelling -You have an unexpected reaction to medication -You have excessive bleeding -You experience continued vomiting/nausea -Your incision begins to separate -Your incision shows signs of infection such as increased redness, swelling, excessive pain, drainage (light blood or clear fluid is normal) or heat Care Plan Goals: Stoma care Health Concerns: Rectal cancer Chronic bronchitis/retrocardiac opacity repeat chest x-ray in 3-4 weeks for clearance Plan of Treatment: Stoma care Pain management Ffup in office in 2 weeks Discharge Date/Time: 06/17/20 13:25
== END 2020-06-17 13:25 | disposition home or self-care (01) | DRG 331 ==
LOC: HO.SSSA 05:48 → HO.S3 13:53
PROVIDERS: Anesthesiology; Physician Assistant Surgical; Admitting Provider Surgery; PCP Internal Medicine Medical Oncology; Visit Provider Surgery
PROC: 0D1B0Z4 Bypass Ileum to Cutaneous, Open Approach (ICD-10-PCS; principal; 2020-06-13 07:30)
DX: C20 Malignant neoplasm of rectum (principal); J42 Unspecified chronic bronchitis; F17.200 Nicotine dependence, unspecified, uncomplicated; Z71.6 Tobacco abuse counseling; Z79.899 Other long term (current) drug therapy
CPT/HCPCS: 36415; 71045; 78580; 80048; 85025; 85027; 86850; 86900; 87635; 88305; 88309; 88329; 93005; 97162; 99024; A9540; C1758; J0131; J0696; J1100; J1170; J2370; J2405; J3010

== ENCOUNTER → 2020-06-26 11:29 | Outpatient (BNVA) | payer MEDICARE, SELFPAY | PROVIDERS: PCP Internal Medicine Medical Oncology; Visit Provider Surgery | DX: C20 Malignant neoplasm of rectum (principal) | CPT/HCPCS: 99212 ==

== ENCOUNTER 2020-07-19 09:29 | Outpatient (REF) | payer MEDICARE, SELFPAY ==
[2020-07-19 10:37] LABS: MANUAL DIFF FLAG NO
[2020-07-19 11:01] LABS: Basophils Absolute Auto 0.1 X10*3/uL (0.0-0.2); Basophils Percent Auto 0.7 % (0-2); Eosinophils Absolute Auto 0.2 X10*3/uL (0.0-0.4); Eosinophils Percent Auto 2.1 % (0-4); Hematocrit 39.8 % (42-52); Hemoglobin 13.2 g/dl (14.0-18.0); Imm Gran Abs Auto 0.05 X10*3/uL (0.00-0.03); Imm Gran Pct Auto 0.6 % (0.0-0.4); Lymphocytes Absolute Auto 1.1 X10*3/uL (1.2-4.9); Lymphocytes Percent Auto 12.8 % (20-40); Mean Corpuscular HGB Conc 33.2 g/dl (31.0-36.0); Mean Corpuscular Hemoglobin 32.4 pg (27.0-33.0); Mean Corpuscular Volume 97.5 fL (80-98); Mean Platelet Volume 9.8 fL (9.4-12.4); Monocytes Absolute Auto 0.7 X10*3/uL (0.1-1.2); Monocytes Percent Auto 7.7 % (2-11); Neutrophils Absolute Auto 6.7 X10*3/uL (2.0-8.3); Neutrophils Percent Auto 76.1 % (45-73); Platelet Count 151 X10*3/uL (160-400); Red Blood Count 4.08 X10*6/uL (4.60-5.80); Red Cell Distribution Width 13.1 % (11.0-16.0); White Blood Count 8.7 X10*3/uL (4.8-10.8)
[2020-07-19 11:06] LABS: Alanine Aminotransferase 11 U/L (0-40); Albumin Level 3.9 g/dL (3.5-5.0); Alkaline Phosphatase 109 U/L (39-117); Anion Gap 13 (12-20); Aspartate Amino Transferase 19 U/L (5-37); Bilirubin Total 0.6 mg/dL (0.0-1.0); Blood Urea Nitrogen 15 mg/dL (9-16); Calcium 9.3 mg/dL (8.4-10.2); Carbon Dioxide 26 mmol/L (22-29); Chloride 103 mmol/L (96-108); Estimated Glomerular Filt Rate > 60; Glucose Random 96 mg/dL (60-115); Potassium 4.2 mmol/L (3.3-5.1); Sodium 138 mmol/L (135-145)
== END 2020-07-19 09:30 | disposition home or self-care (01) ==
LOC: HO.LAB 09:29
PROVIDERS: PCP Internal Medicine Medical Oncology; Visit Provider Internal Medicine Medical Oncology
DX: C20 Malignant neoplasm of rectum (principal)
CPT/HCPCS: 36415; 80053; 85025

== ENCOUNTER → 2020-07-26 10:20 | Outpatient (BNVA) | payer MEDICARE, SELFPAY | PROVIDERS: PCP Internal Medicine Medical Oncology; Visit Provider Surgery | DX: C20 Malignant neoplasm of rectum (principal) | CPT/HCPCS: 99212 ==

== ENCOUNTER 2020-08-24 08:12 | Outpatient (REF) | payer MEDICARE, SELFPAY ==
--- NOTE | ~2020-08-24 | FL_ITS ---
EXAMINATION: FL BARIUM ENEMA CLINICAL INFORMATION: 75-year-old outpatient status post resection rectal cancer with right lower quadrant double barrel ileostomy. Assess colon from antegrade approach. COMPARISON: CT abdomen and pelvis 05/12/2020. TECHNIQUE: Case discussed with Dr. Crowe prior to procedure. Initial general accounting manager views are obtained. Evaluation of the colon is performed using fluoroscopic evaluation in addition to multiple fluoroscopic spot views and overhead images. The exam is performed using single contrast technique and antegrade approach using Patton catheter with 5 cc balloon from the ostomy. Fluoroscopy time: 1.1 minutes DAP: 24.39 Gycm2 Images: 15 fluoroscopic spot views; 2 general accounting manager views, 8 overhead images. FINDINGS: The general accounting manager view shows no gaseous dilatation of bowel or abnormal collections of gas. There are chain bridgett noted in the central lower pelvis. Barium flows in antegrade fashion from the ostomy to the anus. The distal ileum and ileocecal valve are unremarkable. The cecum, ascending colon, transverse colon, and proximal to mid descending colon are unremarkable. There is no obstruction, mass, mucosal thickening, or stricture. There are numerous diverticula distal descending and sigmoid colon without diverticulitis or stricture or extravasation of contrast. The anastomosis shows no stricture. Mucosal contours appears smooth. FL/FL barium enema IMPRESSION: Diverticulosis distal descending and sigmoid colon. No obstruction, stricture, intraluminal filling defect, or extravasation of contrast.
== END 2020-08-24 08:13 | disposition home or self-care (01) ==
LOC: HO.XRAY 08:12
PROVIDERS: PCP Internal Medicine Medical Oncology; Visit Provider Surgery
DX: Z93.3 Colostomy status (principal)
CPT/HCPCS: 74270

== ENCOUNTER → 2020-08-30 13:27 | Outpatient (BNVA) | payer MEDICARE, SELFPAY | PROVIDERS: PCP Internal Medicine Medical Oncology; Referring Provider Internal Medicine; Visit Provider Surgery | DX: C20 Malignant neoplasm of rectum (principal) | CPT/HCPCS: 99212 ==

== ENCOUNTER → 2020-09-08 11:01 | Outpatient (REF) | payer MEDICARE, SELFPAY ==
--- NOTE | 2020-09-08 11:07 | CA_ITS ---
Transthoracic Echocardiogram Patient (Last, First, Middle): Best Palomo T Gender: Male Date of : 1945 Age: 75 Procedure Date: 09/08/2020 Procedure Type: Transthoracic Echocardiogram Location: OP Height: 172.72 cm Weight: 57.15 kg BSA: 1.68 m2 Heart Rate: bpm BP: 137 / 66 mmHg Podiatrist: WILTON Referring MD: Prasanna Shell MD Symptoms: PRE OP, LEG SWELLING, LONG HX OF COPD ? RV fUNCTION, ?PAP Study Quality: Technically Difficult Conclusions: - Normal left ventricular size, thickness, and systolic function. - Diastolic function is indeterminate on the basis of available data. - Normal right ventricular cavity size and systolic function. - There is no evidence of pulmonary hypertension. Findings Left Ventricle Normal left ventricular size, thickness, and systolic function. The visually estimated ejection fraction is between 55-60%. Regional wall motion abnormalities can not be excluded due to suboptimal endocardial definition. Diastolic function is indeterminate on the basis of available data. Spectral Doppler is indicative of an impaired relaxation filling pattern. E/E prime ratio is <8, consistent with normal filling pressures. Right Ventricle Normal right ventricular cavity size and systolic function. Atria Both atria are normal in size. Aortic Valve There is mild calcification of the aortic valve. There is mild thickening of the aortic valve. There is no aortic valve stenosis. There is no aortic valve regurgitation. Mitral Valve Normal mitral valve structure and function. There is no mitral valve regurgitation. There is no mitral valve stenosis. Pulmonic Valve The pulmonic valve is likely normal. Tricuspid Valve Normal tricuspid valve structure. There is no tricuspid valve regurgitation. Normal right atrial pressure. There is no evidence of pulmonary hypertension. Venous The inferior vena cava is normal in size and collapses greater than 50% with inspiration. Pericardium/Pleural There is no evidence of pericardial effusion. Prior Study Comparison No prior study available for comparison. Measurements M-Mode Liner Measurements Normals - Women/Men AOV Cusps: 1.80 1.5-2.6 cm/m2 2D Linear Measurements IVSd: 0.71 0.6-0.9/0.6-1.0 cm LVIDd: 3.70 3.9-5.3/4.2-5.9 cm LVIDd Index: 2.20 2.4-3.2/2.2-3.1 cm/m2 LVIDs: 1.99 2.0-3.6 cm LVPWd: 0.73 0.7-1.1 cm Ao Root: 2.70 2.1-3.5 cm LA Diam: 2.70 2.7-3.8/3.0-4.0 cm LAIDs Index: 1.61 1.5-2.3 cm/m2 LV Mass: 88.63 67-162/88-224 g LV Mass Index: 52.76 43-95/49-115 g/m2 LVOT Diam: 2.20 3.0+(-)1.3 cm 2D Systolic Function EF 4C: 58.00 >55% EF 2C: 66.60 >55% EF BiP: 61.20 >55% Mitral Valve MV Pk E: 0.76 MV PK A: 0.99 MV Decel Time: 304.00 E/A: 0.80 E'Lateral: 8.70 E'Medial: 4.68 E/E' Med: 16.20 E/E' Lat: 8.70 PHT: 89.00 MVA PHT: 2.47 Decel [place]: 2.50 Aortic Valve AoV Pk [place]: 1.32 AoV Mn [place]: 0.93 AoV VTI: 0.31 AoV Pk Grad: 7.00 Aov Mn Grad: 4.00 SHARDA Cont.VTI: 3.10 LVOT LVOT Pk [place]: 1.03 LVOT Mn [place]: 0.70 LVOT VTI: 0.25 LVOT Pk Grad: 4.00 LVOT Mn Grad: 2.00 LVOT Diam: 2.20 LVOT Area: 3.80 Diastolic Function MV Pk E: 0.76 MV Pk A: 0.99 E/A: 0.80 E'Medial: 4.68 E/E' Med: 16.20 E' Laterial: 8.70 E/E' Lat: 8.70 Tricuspid Valve TR Pk Clayton: 2.45 TR Pk Grad: 24.00 RA Press: 3.00 RVSP: 27.00 Great Vessels Aorta Ao Root-2D: 2.70 2.0-3.7 cm Ao Asc: 2.90 2.1-3.4 cm Pulmonary Valve PV Pk Clayton: 0.86 Peak PV Grad: 3.00 Updated in Other Vendor System with Status of Final Kevin Venegas MD electronically signed on 09/10/2020 1:40:01 PM with status of Final
== END ==
LOC: HO.CARD 11:01
PROVIDERS: PCP Internal Medicine; Visit Provider Internal Medicine
DX: Z01.818 Encounter for other preprocedural examination (principal); M79.89 Other specified soft tissue disorders; M25.472 Effusion, left ankle; M25.471 Effusion, right ankle; J44.9 Chronic obstructive pulmonary disease, unspecified
CPT/HCPCS: 93306

== ENCOUNTER 2020-09-12 09:38 | Inpatient (IN) | payer MEDICARE, SELFPAY ==
[2020-09-06 12:18] VITALS: BMI 18.7
[2020-09-07 11:48] VITALS: BP 139/61; PULSE 56; RESP 20; O2SAT 97; BMI 19.1
--- NOTE | 2020-09-11 11:55 | P.CONAN_ITS ---
Documented by User: Hoa Cooper 09/11/20 11:59 HPI - Anesthesia Eval Consult details Narrative: 75yo M for Reversal of Loop Ileostomy, Poss Laparotomy Pt evaluated in [facility] 09/07/[address] Shell. Echo ordered for new onset of ankle swelling. s/p lap bowel resect 05/2020 with GA-ETT 7.5 PMFSH Active Problems Active Problems: All Active Problems (Updated 09/07/20 @ 12:16 by Angelica Jewell) Colostomy in place (Acute) Rectal cancer (Acute) Chronic bronchitis (Acute) Smoker (Acute) Hypertension (Acute) Past Medical History Medical History Anxiety Chronic bronchitis COPD (chronic obstructive pulmonary disease) Edema of both ankles Family history of radiation exposure History of chemotherapy History of herpes zoster [place] (hard of hearing) Hx of flexible sigmoidoscopy Hx of melanoma of skin Hypertension On beta alisson at home Peptic ulcer Rectal cancer Smoker Family History Family History Sister History of breast cancer Family history of problems with anesthesia: No Surgical History Surgical History H/O colonoscopy History of eye surgery (~1965) History of left inguinal hernia repair History of low anterior resection of rectum History of right inguinal hernia repair (~1971) Hx of bilateral cataract extraction Hx of melanoma excision History of Problems with Anesthesia: No Social History Social History Are you a primary intensive care unit registered nurse to a significant other at home: No Do you presently have visiting nurse or other home services: No Patient Tobacco Use Status: Current someday Tobacco user Tobacco use type: Cigarette Cigarette Packs Per Day: 0.75 Cigarettes Per Day: 3 Years Smoked: 60 Smoked in Last 30 Days: Yes Patient Interested in Nicotine Replacement: Yes Patient Given Instructions on How to Stop Smoking: Yes Date Education Initiated: 09/07/20 Second Hand Smoke Exposure: Yes Use of substances other than those prescribed or required for medical reasons: No Have you been hit, kicked, punched, or otherwise hurt by someone within the past year? If so, by whom?: No Spiritual Healthcare Practices: None Hindu Healthcare Practices: None Cultural Healthcare Practices: None Are you DNR?: No Advance Directives: No Advance Directives Information Provided: No Advance Directives on File: No Recently lost weight without trying: Unsure Poor oral hygiene: No (full upper, partial lower) service: No Current occupational status: retired Meds Allergies Allergy/AdvReac Type Severity Reaction Status Date / Time No Known Allergies Allergy Verified 09/06/20 12:17 Home Medications Medication Instructions Recorded Confirmed Last Taken Type cholecalciferol (vitamin D3) 50 mcg PO DAILY 09/07/20 09/07/20 Unknown History [Vitamin D3] Exam Exam Date and Time: September 11, 2020 1155 Height,Weight and Vital Signs: Height 5 ft 8 in Weight 57.153 kg Last Vital Signs Pulse 56 09/07/20 11:48 Resp 20 09/07/20 11:48 BP 139/61 09/07/20 11:48 Pulse Ox 97 09/07/20 11:48 Pertinent Lab Results Pertinent Lab Results: Laboratory Tests 07/19/20 07/19/20 10:00 10:00 WBC 8.7 Hgb 13.2 L Hct 39.8 L Plt Count 151 L Sodium 138 Potassium 4.2 Chloride 103 Carbon Dioxide 26 BUN 15 Creatinine 0.97 Narrative Narrative: EKG 05/2020 Vent. Rate : 055 BPM Atrial Rate : 055 BPM P-R Int : 168 ms QRS Dur : 100 ms QT Int : 422 ms P-R-T Axes : 052 022 045 degrees QTc Int : 403 ms Sinus bradycardia Otherwise normal ECG When compared with ECG of 12-JUL-2019 08:24, No significant change was found ECHO 09/08/20 Conclusions: - Normal left ventricular size, thickness, and systolic function. - Diastolic function is indeterminate on the basis of available data. - Normal right ventricular cavity size and systolic function. - There is no evidence of pulmonary hypertension. Documented by User: Aminah Smith 09/12/20 10:22 [facility] Past Medical History Medical History Anxiety Chronic bronchitis COPD (chronic obstructive pulmonary disease) Edema of both ankles Family history of radiation exposure History of chemotherapy History of herpes zoster [place] (hard of hearing) Hx of flexible sigmoidoscopy Hx of melanoma of skin Hypertension On beta alisson at home Peptic ulcer Rectal cancer Smoker Family History Family History Sister History of breast cancer Surgical History Surgical History H/O colonoscopy History of eye surgery (~1965) History of left inguinal hernia repair History of low anterior resection of rectum History of right inguinal hernia repair (~1971) Hx of bilateral cataract extraction Hx of melanoma excision Social History Social History Are you a primary intensive care unit registered nurse to a significant other at home: No Do you presently have visiting nurse or other home services: No Patient Tobacco Use Status: Current someday Tobacco user Tobacco use type: Cigarette Cigarette Packs Per Day: 0.75 Cigarettes Per Day: 3 Years Smoked: 60 Smoked in Last 30 Days: Yes Patient Interested in Nicotine Replacement: Yes Patient Given Instructions on How to Stop Smoking: Yes Date Education Initiated: 09/07/20 Second Hand Smoke Exposure: Yes Use of substances other than those prescribed or required for medical reasons: No Have you been hit, kicked, punched, or otherwise hurt by someone within the past year? If so, by whom?: No Spiritual Healthcare Practices: None Hindu Healthcare Practices: None Cultural Healthcare Practices: None Are you DNR?: No Advance Directives: No Advance Directives Information Provided: No Advance Directives on File: No Recently lost weight without trying: Unsure Poor oral hygiene: No (full upper, partial lower) service: No Current occupational status: retired Meds Allergies Allergy/AdvReac Type Severity Reaction Status Date / Time No Known Allergies Allergy Verified 09/06/20 12:17 Home Medications Medication Instructions Recorded Confirmed Last Taken Type cholecalciferol (vitamin D3) 50 mcg PO DAILY 09/07/20 09/07/20 Unknown History [Vitamin D3] Exam Airway Mallampati Class: II TM Dist: <=3cm Neck ROM: Limited Denture: Upper and Lower Assessment and Plan Assessment Anesthesia Assessment: Anesthesia Plan Discussed and Chart Reviewed Final Anesthetic Review NPO: Yes ASA Class: III Final Preanesthetic Review: No Changes in Pt Med Stat, Meds/Allgs Chart Reviewed, Consent Obtained/Reviewed and Anes Risks/Benef Reviewed Patient Risk: Intermediate Procedure Risk: Low Assessment/Block/Sedation in SS: Assess/Block/Sedation-SS Anesthetic Plan Anesthetic Plan: GA Disposition: Standard PACU
[2020-09-12] VITALS (16 sets, daily range): BP systolic 95–137; BP diastolic 46–64; PULSE 48–60; RESP 14–20; TEMP 35.8–36.4; O2SAT 87–98
--- NOTE | 2020-09-12 08:37 | MHC.SHP ---
Pre-Procedural Eval Section A Date of Service: 09/12/20 Section B Chief Complaint: Rectal Cancer Allergies: Allergies Allergy/AdvReac Type Severity Reaction Status Date / Time No Known Allergies Allergy Verified 09/06/20 12:17 Plan I have reviewed the history and physical and performed a pertinent physical examination on my patient. No changes have occurred unless specified.
[2020-09-12] MEDS: Lactated Ringers 1,000 ML 100 ML IVCONT (09:03)
[2020-09-12 09:10] LABS: COVID-19 Test Negative (Negative)
--- NOTE | 2020-09-12 09:14 | PC.NURSE ---
anesthesia aware of patients pulse 44-52 denies dizziness pwd nad
[2020-09-12] MEDS: fentaNYL citrate/PF 100 MCG/2 ML VIAL 50 MCG IVPUSH ×2 (11:37→11:51)
--- NOTE | 2020-09-12 11:40 | W.PM.OPN ---
Operative Note Operative Note Date of Service: 09/12/20 Narrative: Preop diagnosis: loop ileostomy in place Postop diagnosis: same Procedure: Reversal of loop ileostomy Surgeon: Maurice Crowe MD No hospital administrative assistant The patient is a 75-year-old male who had undergone low anterior resection with a diverting loop ileostomy last May,. Isra is here now for reversal of his loop ileostomy. I have reviewed his barium enema study with multiple radiologists and there was no leak identified. The anastomosis appeared patent .The patient therefore wanted to proceed with reversal of the loop ileostomy. He understood the technique of the procedure. He was aware of the risks , benefits and alternatives. The patient was brought to the operating room and placed in supine position under general anesthesia via endotracheal tube. A Patton catheter was inserted. A digital rectum exam was done and the anastomosis was palpable and patent. I closed both limbs of the loop ileostomy with a running Prolene 2-0 stitch. The abdomen was then prepped and draped in the usual sterile fashion. A surgical time-out was done. The patient received cefazolin 2 g IV preoperatively I made an elliptical incision around the stoma using blade 15. This was carried down through the full-thickness of skin subcutaneous fat with electrocautery and we continued to dissect through the subcutaneous layer until I reached the fascia. I then proceeded to carefully define the fascial edge of the stoma. This was done with careful dissection using the right angle clamp and Metzenbaum scissors. Once I was able to identify the fascial edge, proceeded to separate the ileostomy from the fascial layer with prep dissection with Metzenbaum scissors as well as with electrocautery. Was able to therefore enter the peritoneum along the fascial edge. Arthur clamp was placed on the fascial edge so that we could retract the fascia and visualize the peritoneal cavity as we the ileostomy. We continued to sharply dissect the ileostomy off of the fascial edge with Metzenbaum scissors as well as with electrocautery circumferentially until was able to completely separate this from the fascial defect. There was note of a hernia sac which we also divided off of the fascial layer. The deferred and efferent limbs of the ileostomy both appeared very mobile so were able to bring it out into the field adequately. I examined the ileostomy and this appeared viable. I proceeded to carefully define both afferent and efferent limbs and proceeded to create a mesenteric defect on each limb just below the level of the ileostomy itself. I divided each limb of the ileostomy MO 60 mm staplers. I then proceeded to transect the mesentery attached to the ileostomy itself WithLigaSure and this was completely and sent as a specimen. I aligned the afferent and efferent limbs at the antimesenteric side. I open up the apex of each staple line to enter the lumen of each limb. I then inserted each arm of the MO 60 mm stapler through this enterotomy sites. Aligned this limbs at the anti mesenteric border. I closed the MO 60 mm stapler and made sure that we were at the anti mesenteric border and that there were no loops or mesentery trapped between the stapler itself. We then fired the stapler to create our [id number] anastomosis. I applied Allis clamps on the edges of the enterotomy. I lined this edges of the enterotomy and used a TA 60 mm stapler to close this to complete the anastomosis. I examined all staple lines and these all appeared to be intact. The anastomotic site appeared viable. I was able to palpate the anastomosis itself and this appeared to be patent. I applied Dexon 3-0 seromuscular sutures at the crotch of the staple line. I closed the mesenteric defect with a running Dexon 3-0 stitch. I examined the staple line again and this remained viable and in I dropped the anastomotic site back into the peritoneal cavity through the stoma opening. I then positioned the omentum to over lie this staple line I closed the fascia with the running Maxon 1 stitch. I irrigated the area of closure at the subcutaneous layer. I then closed the skin with skin bridgett. I applied Endoform packing into the subcutaneous layer in between the bridgett I infiltrated the area with Marcaine 0.5% for postop analgesia. The procedure was then completed The patient tolerated procedure well. There were no complication noted. Initial fine counts of sponges and instruments were correct. Estimated blood loss about 10 cc The patient was then extubated without difficulty and transferred to the recovery room with stable vital signs.
--- NOTE | 2020-09-12 11:50 | PM.OP ---
Brief Operative Note Date of Service: 09/12/20 Pre-op diagnosis: Presence of loop ileostomy Post-op diagnosis: same Procedure: reversal of loop ileostomy Surgeon: Maurice Crowe MD Anesthesia: GETA Was an Is/It Project Manager used for this Procedure?: No Estimated blood loss (mL): 10 Pathology: other ( loop ileostomy) Condition: stable Disposition: PACU
[2020-09-12] MEDS: Lactated Ringers 1,000 ML 80 ML IVCONT (14:08)
[2020-09-12] MEDS: 0.9 % Sodium Chloride Flush 3 ML SYRINGE IVFLUSH (14:08)
--- NOTE | 2020-09-12 14:41 | PM.EVENT ---
Event Note Date of Service: 09/12/20 Event Note: seen postop - underwent reversal of loop ileotomy earlier today looks comfortable seems to have good pain control abd soft stable VS good UO pain mgt instructed on incentive spirometry doing well postop at bedside
[2020-09-13] MEDS: Lactated Ringers 1,000 ML 80 ML IVCONT ×3 (02:07→21:11)
[2020-09-13 03:58] VITALS: BP 106/56; PULSE 50; RESP 16; TEMP 36; O2SAT 93
[2020-09-13 06:42] LABS: Hematocrit 35.4 % (42-52); Mean Corpuscular HGB Conc 33.9 g/dl (31.0-36.0); Mean Corpuscular Volume 94.4 fL (80-98); Mean Platelet Volume 10.1 fL (9.4-12.4); Platelet Count 107 X10*3/uL (160-400); Red Blood Count 3.75 X10*6/uL (4.60-5.80); Red Cell Distribution Width 13.5 % (11.0-16.0); White Blood Count 10.1 X10*3/uL (4.8-10.8)
[2020-09-13 06:55] LABS: Anion Gap 12 (12-20); Blood Urea Nitrogen 15 mg/dL (9-16); Calcium 8.4 mg/dL (8.4-10.2); Carbon Dioxide 24 mmol/L (22-29); Chloride 101 mmol/L (96-108); Estimated Glomerular Filt Rate > 60; Glucose Random 106 mg/dL (60-115); Potassium 4.4 mmol/L (3.3-5.1); Sodium 133 mmol/L (135-145)
--- NOTE | 2020-09-13 06:56 | HO.POSTANES ---
Post Anesthesia Evaluation Post Anesthesia Evaluation Vital Signs: Vital Signs Temp Pulse Resp BP Pulse Ox 09/13/20 03:58 96.8 F 50 16 106/56 L 93 09/12/20 23:49 97 F 60 18 100/55 L 92 09/12/20 21:01 93 09/12/20 19:09 96.8 F 55 14 95/46 L 87 L Anesthesia: General Mental Status: Awake Pain Control: Satisfactory Nausea/Vomiting: None Hydration: Adequate Anesthesia-Related Issues: No Anes. Related Issues
[2020-09-13 07:36] VITALS: BP 104/61; PULSE 67; RESP 20; TEMP 36.7; O2SAT 92
[2020-09-13] MEDS: atenoloL 25 MG TABLET PO (08:43)
[2020-09-13] MEDS: oxyCODONE HCl Immed Release 5 MG TABLET 10 MG PO ×2 (08:43→21:10)
[2020-09-13] MEDS: Heparin Sodium,Porcine 5,000 UNIT/ML VIAL 5000 UNIT SUBCUT ×2 (08:44→21:10)
--- NOTE | 2020-09-13 09:34 | P.PNGS_ITS ---
Subjective Subjective Date of Service: 09/13/20 Interval history: says he feels well as today thinks he may have passed small amount of flatus earlier good pain control he has been out of bed to the bathroom Physical Exam Vital Signs: Vital Signs: Last Vital Signs Temp 98.0 F 09/13/20 07:36 Pulse 67 09/13/20 07:36 Resp 20 09/13/20 07:36 BP 104/61 09/13/20 07:36 Pulse Ox 92 09/13/20 07:36 Body Mass Index 19.1 Laboratory Results - last 24 hr 09/13/20 09/13/20 05:51 05:51 WBC 10.1 RBC 3.75 L Hgb 12.0 L Hct 35.4 L MCV 94.4 MCH 32.0 MCHC 33.9 RDW 13.5 Plt Count 107 L D MPV 10.1 Absolute Nucleated RBC 0.000 Nucleated RBC % (a uto) 0.0 Sodium 133 L Potassium 4.4 Chloride 101 Carbon Dioxide 24 Anion Gap 12 BUN 15 Creatinine 0.86 Estim Creat Clear Calc 59.0 Estimated GFR > 60 Random Glucose 106 Calcium 8.4 D Const: General: comfortable and no acute distress Resp: Effort & Inspection: normal respiratory effort Cardio: Rate: regular rate GI: Other: dressing dry Palpation (GI): Soft to palpation and not firm Progress Note: A&P Assessment and plan (1) Status post reversal of ileostomy: Status: Acute Assessment and Plan: doing well good pain control looks comfortable plan to keep on clear liquids today and may advance once with consistent flatus out of bed and ambulate pain management [place] Patton Fall Risk Details Current Medications: Current Medications Generic Name Dose Route Start Last Admin Trade Name Freq PRN Reason Stop Dose Admin Albuterol Sulfate 2.5 mg 09/12/20 08:30 Albuterol Sulfate (0.083%) 2.5 Mg/3 Ml Vial.Neb INHALE ONCE PRN Shortness of Breath/Wheezing Albuterol Sulfate 2 puff 09/12/20 11:38 Albuterol Sulfate 90 Mcg 8 Gm Inhaler INHALE RQ4H PRN Wheezing Atenolol 25 mg 09/13/20 09:00 09/13/20 08:43 Atenolol 25 Mg Tablet PO 25 mg DAILY [facility] Administration Protocol Docusate Sodium 100 mg 09/13/20 20:00 Docusate Sodium 100 Mg Capsule PO BEDTIME TOBY Fentanyl 50 mcg 09/12/20 10:25 09/12/20 11:51 Fentanyl Citrate/Pf 100 Mcg/2 Ml Vial IVPUSH 50 mcg Q5M PRN Administration Pain, Severe (Pain Scale 7-10) Heparin Sodium (Porcine) 5,000 unit 09/13/20 10:00 09/13/20 08:44 Heparin Sodium,Porcine 5,000 Unit/Ml Vial SUBCUT 5,000 unit Q12H TOBY Administration Lactated Ringer's 1,000 mls @ 80 mls/hr 09/12/20 08:30 09/13/20 02:07 Lr IVCONT 80 mls/hr .[id number] TOBY Administration Morphine Sulfate 2 mg 09/12/20 13:15 Morphine Sulfate 2 Mg/Ml Cartridge IVPUSH Q3H PRN Pain, Severe (Pain Scale 7-10) Ondansetron HCl 4 mg 09/12/20 10:25 Ondansetron Hcl 4 Mg/2 Ml Vial IVPUSH ONCE PRN Nausea and Vomiting Ondansetron HCl 4 mg 09/12/20 11:34 Ondansetron Hcl 4 Mg/2 Ml Vial IVPUSH Q8H PRN Nausea Oxycodone HCl 5 mg 09/12/20 10:25 Oxycodone Hcl Immed Release 5 Mg Tablet PO ONCE PRN Pain, Severe (Pain Scale 7-10) Oxycodone HCl 10 mg 09/12/20 13:15 09/13/20 08:43 Oxycodone Hcl Immed Release 5 Mg Tablet PO 10 mg Q4H PRN Administration Pain, Moderate (Pain Scale 4-6 Sodium Chloride 3 ml 09/12/20 16:00 09/13/20 08:36 0.9 % Sodium Chloride Flush 3 Ml Syringe IVFLUSH Not Given QSHIFT TOBY Sodium Chloride 3 ml 09/12/20 16:00 09/13/20 08:36 0.9 % Sodium Chloride Flush 3 Ml Syringe IVFLUSH Not Given QSHIFT TOBY Time Spent With Patient Time: Total time spent is greater than 50% in coordination of care (as documented) at patient's floor/unit and/or counseling patient: Time with patient: 15 - 24 minutes Procedures Date of Service Date of Service: 09/13/20 Quality Stroke Does the patient have a stroke diagnosis?: No VTE Prior VTE?: No VTE Risk Level:: Medical - moderate - high VTE Device Contraindication: N/A - Device Ordered VTE Drug Contraindication: N/A - Med Ordered
--- NOTE | 2020-09-13 09:43 | MHC.CM.PN ---
Addendum entered by Emili Blanco RN 09/13/20 09:52: PT IS 10% SERVICE CONNECTED FOR ESSENTIAL HTN, USES [facility] IN [facility] FOR ANTIHYPERTENSIVE AND EPIPEN FOR BEE STINGS ONLY. Original Note: IMM 09/13/2020, EMR REVIEWED, PT ADMITTED S/P REVERSAL OF LOOP ILEOSTOMY, CM MET W/PT WHO REPORTS HE IS INDEPENDENT W/CARE, HAS A WALKER, CANE AND WALK IN SHOWER W/BENCH, PT REPORTS HE HAS NOT NEEDED TO USE THE WALKER/CANE SO FAR, PT HAS NO HOME SERVICES AND DENIES NEED AND DECLINES VNA, PER PT AND WHO IS PRESENT SHE IS ABLE TO MEET ANY NEEDS HE MAY HAVE, ADULT SON ALSO LIVES W/ PT AND . D/C PLAN: HOME SELF-CARE PCP: LATIA TERRY HCP: DEIDRA ELISE [phone], COPY REQUESTED.
[2020-09-13 11:24] VITALS: BP 102/52; PULSE 55; RESP 17; TEMP 36.3; O2SAT 92
--- NOTE | 2020-09-13 13:43 | PC.NURSE ---
Skin assessment completed today. Patient has an abdominal incision which has serosanguineous drainage. Yazmin are intact. Dressing was changed. No other skin issues were found. Skin dry and intact.
[2020-09-13 14:06] VITALS: BMI 19.1
[2020-09-13 15:35] VITALS: BP 143/74; PULSE 77; RESP 15; TEMP 36.4; O2SAT 97
[2020-09-13 19:33] VITALS: BP 102/51; PULSE 51; RESP 14; TEMP 36.2; O2SAT 87
[2020-09-13 23:43] VITALS: BP 103/52; PULSE 61; RESP 16; TEMP 36.4; O2SAT 92
[2020-09-14 03:39] VITALS: BP 117/54; PULSE 54; RESP 16; TEMP 36.8; O2SAT 94
[2020-09-14 07:42] VITALS: BP 150/72; PULSE 58; RESP 18; TEMP 36.2; O2SAT 97
[2020-09-14] MEDS: 0.9 % Sodium Chloride Flush 3 ML SYRINGE IVFLUSH ×2 (09:23)
[2020-09-14] MEDS: Heparin Sodium,Porcine 5,000 UNIT/ML VIAL 5000 UNIT SUBCUT (09:23)
[2020-09-14 09:24] VITALS: BP 141/72; PULSE 60
[2020-09-14] MEDS: atenoloL 25 MG TABLET PO (09:24)
--- NOTE | 2020-09-14 09:24 | PM.PNGS ---
Subjective Subjective Date of Service: 09/14/20 Interval history: he feels well today states he had large amounts of loose stools overnight good pain control says he wants to go home today Physical Exam Vital Signs: Vital Signs: Last Vital Signs Temp 97.2 F 09/14/20 07:42 Pulse 58 09/14/20 07:42 Resp 18 09/14/20 07:42 BP 150/72 H 09/14/20 07:42 Pulse Ox 97 09/14/20 07:42 Body Mass Index 19.1 Const: General: comfortable and no acute distress Resp: Effort & Inspection: normal respiratory effort Cardio: Rate: regular rate GI: Other: soft, nondistended, incision is clean Palpation (GI): not firm and no guarding Progress Note: A&P Assessment and plan (1) Status post reversal of ileostomy: Status: Acute Assessment and Plan: doing well postop diet as tolerated possible home later on today iodoform packing removed from within incision patient instructed on wound care clinically looks well Fall Risk Details Current Medications: Current Medications Generic Name Dose Route Start Last Admin Trade Name Brandonq PRN Reason Stop Dose Admin Albuterol Sulfate 2.5 mg 09/12/20 08:30 Albuterol Sulfate (0.083%) 2.5 Mg/3 Ml Vial.Neb INHALE ONCE PRN Shortness of Breath/Wheezing Albuterol Sulfate 2 puff 09/12/20 11:38 Albuterol Sulfate 90 Mcg 8 Gm Inhaler INHALE RQ4H PRN Wheezing Atenolol 25 mg 09/13/20 09:00 09/13/20 08:43 Atenolol 25 Mg Tablet PO 25 mg DAILY TOBY Administration Protocol Docusate Sodium 100 mg 09/13/20 20:00 09/13/20 21:14 Docusate Sodium 100 Mg Capsule PO Not Given BEDTIME TOBY Fentanyl 50 mcg 09/12/20 10:25 09/12/20 11:51 Fentanyl Citrate/Pf 100 Mcg/2 Ml Vial IVPUSH 50 mcg Q5M PRN Administration Pain, Severe (Pain Scale 7-10) Heparin Sodium (Porcine) 5,000 unit 09/13/20 10:00 09/13/20 21:10 Heparin Sodium,Porcine 5,000 Unit/Ml Vial SUBCUT 5,000 unit Q12H TOBY Administration Morphine Sulfate 2 mg 09/12/20 13:15 Morphine Sulfate 2 Mg/Ml Cartridge IVPUSH Q3H PRN Pain, Severe (Pain Scale 7-10) Ondansetron HCl 4 mg 09/12/20 10:25 Ondansetron Hcl 4 Mg/2 Ml Vial IVPUSH ONCE PRN Nausea and Vomiting Ondansetron HCl 4 mg 09/12/20 11:34 Ondansetron Hcl 4 Mg/2 Ml Vial IVPUSH Q8H PRN Nausea Oxycodone HCl 5 mg 09/12/20 10:25 Oxycodone Hcl Immed Release 5 Mg Tablet PO ONCE PRN Pain, Severe (Pain Scale 7-10) Oxycodone HCl 10 mg 09/12/20 13:15 09/13/20 21:10 Oxycodone Hcl Immed Release 5 Mg Tablet PO 10 mg Q4H PRN Administration Pain, Moderate (Pain Scale 4-6 Sodium Chloride 3 ml 09/12/20 16:00 09/14/20 01:17 0.9 % Sodium Chloride Flush 3 Ml Syringe IVFLUSH Not Given QSHIFT [facility] Sodium Chloride 3 ml 09/12/20 16:00 09/14/20 01:17 0.9 % Sodium Chloride Flush 3 Ml Syringe IVFLUSH Not Given QSHIFT TOBY Time Spent With Patient Time: Total time spent is greater than 50% in coordination of care (as documented) at patient's floor/unit and/or counseling patient: Time with patient: 15 - 24 minutes Procedures Date of Service Date of Service: 09/14/20 Quality Stroke Does the patient have a stroke diagnosis?: No VTE Prior VTE?: No VTE Risk Level:: Medical - moderate - high VTE Device Contraindication: N/A - Device Ordered VTE Drug Contraindication: N/A - Med Ordered
[2020-09-14 09:43] VITALS: O2SAT 91
[2020-09-14 11:20] VITALS: BP 136/56; PULSE 53; RESP 18; TEMP 36.3; O2SAT 92
--- NOTE | 2020-09-14 13:38 | PM.EVENT ---
Event Note Date of Service: 09/14/20 Event Note: he says he feels great tolerating regular diet good flatus abd soft, not distended looks well good GI function ok to dc home tiffany pt and Nichole instructions explained
--- NOTE | 2020-09-14 15:44 | MHC.CM.PN ---
PATIENT DISCHARGED HOME WITH NO NEED FOR SERVICES. IMM 09/13 IN CHART
--- NOTE | 2020-09-18 13:55 | P.DS_ITS ---
DS: Providers Provider Date of Service: 09/14/20 Date of admission: 09/12/20 09:38 Primary care physician: Felix Tejeda MD DS: Diagnosis Discharge Diagnosis (1) Status post reversal of ileostomy: Status: Acute (2) Rectal cancer: Status: Acute DS: Medications Discharge Medications Home Medications: Home Medications Medication Instructions Recorded Confirmed cholecalciferol (vitamin D3) 50 mcg PO DAILY 09/07/20 09/07/20 [Vitamin D3] Previous Rx's Medication Instructions Recorded atenolol 25 mg PO DAILY #30 tab 06/17/20 docusate sodium [Colace] 100 mg PO BID #60 cap 09/14/20 oxycodone-acetaminophen [Percocet] 1 - 2 tab PO Q4-6H PRN #30 tab 09/14/20 DS: Summary Hospital Course Hospital Course: 75M who unde undergone low anterior resection with diverting loop ileostomy last June 13, 2020, admitted for elective reversal of his ileostomy. He underwent reversal of his loop ileostomy on August. He tolerated this well. He was transferred to the med-surg unit postop from the PACU. He was started on clear liquids. He tolerated this well. He started to pass flatus on his POD 1. He was started on regualr diet on the java enterprise architect of POD2. He continud to tolerate diet advancement. He continued to pass good flatus with BMs. He remained stable with good pain control. he was therefore discharged to home on September 14. Time spent discussing smoking cessation with patient: 3 to 10 minutes Time Spent with Patient Time attestation: Total time spent providing and/or coordinating discharge services: Discharge coordination time: Less than 30 minutes Quality: Stroke Does the patient have a stroke diagnosis?: No Physical Exam Vital Signs: Vital Signs: Last Vital Signs Temp 97.4 F 09/14/20 11:20 Pulse 53 09/14/20 11:20 Resp 18 09/14/20 11:20 BP 136/56 L 09/14/20 11:20 Pulse Ox 92 09/14/20 11:20 Body Mass Index 19.1 Const: General: comfortable and no acute distress Orientation/consciousness: patient oriented x3 Neck: Neck: Yes no lymphadenopathy Resp: Auscultation: clear to auscultation bilaterally Cardio: Rhythm: regular rhythm GI: Other: incision clean and dry Palpation (GI): Soft to palpation, nontender and no guarding Neuro: General: patient oriented x3 DS: Data Data Completed and Pending Completed studies during hospitalization [Text1]: Pending at discharge 09/12/20 10:56 Surgical [PTH] Routine Procedures Bypass Ileum to Cutaneous, Open Approach (06/13/20) Excision of Sigmoid Colon, Open Approach (06/13/20) Discharge Plan Discharge Patient Disposition: Home, Self-Care Discharge Diagnosis: s/p reversal of loop ileostomy Referrals: Felix Tejeda MD [Primary Care Provider] - 1 Week Maurice Crowe MD [Physician] - 1 Week Discharge Medications: New docusate sodium [Colace] 100 mg capsule 100 mg PO BID Qty: 60 RF: 2 oxycodone-acetaminophen [Percocet] 5-325 mg tablet 1 - 2 tab PO Q4-6H PRN (Reason: pain) Qty: 30 RF: 0 Continued atenolol 25 mg Tablet 25 mg PO DAILY Qty: 30 RF: 0 cholecalciferol (vitamin D3) [Vitamin D3] 50 mcg (2,000 unit) Tablet 50 mcg PO DAILY RF: 0 Discontinued No Sting Barrier Film Pads, Medicated 1 pad topical .as needed Qty: 30 RF: 0 (DME) SenSura Flex Ostomy Pouch Misc See Rx Instructions .ROUTE .MEDSUPPLY Qty: 30 RF: 3 Discharge Orders: Discharge Order (Routine); Ordered 09/14/20 Ordered By: Maurice Crowe Diet: advance to usual diet Activity on Discharge: No heavy lifting Stand Alone Forms: Patient Portal Discharge page Activity Restrictions/Additional Instructions: If the incision area is tender, you may apply an ice pack for short intervals (No more than 20 minutes on, followed by at least 20 minutes off). Do not apply heat. Do not use creams, lotions, or topical antibiotics unless instructed to do so by your surgeon. These can cause infection or allergic reaction. OK to shower OK to change dressings daily with gauze No lifting more than 15 lb No strenuous activities Call the office for follow-up in 2 weeks - with Dr. Crowe Call Your Doctor If: -Your temperature exceeds 101.5? F -You experience excessive pain or swelling -You have an unexpected reaction to medication -You have excessive bleeding -You experience continued vomiting/nausea -Your incision begins to separate -Your incision shows signs of infection such as increased redness, swelling, excessive pain, drainage (light blood or clear fluid is normal) or heat Care Plan Goals: wound care no lifting ffup in the office Health Concerns: pain control smoking history Plan of Treatment: no lifting more than 20 lbs oral pain meds ffup in office in 2-3 weeks Assessment: doing well postop Discharge Date/Time: 09/14/20 14:11
== END 2020-09-14 14:11 | disposition home or self-care (01) | DRG 331 ==
LOC: HO.SSSA 09:49 → HO.S3 12:14
PROVIDERS: Admitting Provider Surgery; PCP Internal Medicine Medical Oncology; Visit Provider Surgery
PROC: 0DBB0ZZ Excision of Ileum, Open Approach (ICD-10-PCS; CPT 44620; principal; 2020-09-12 11:50)
DX: Z43.2 Encounter for attention to ileostomy (principal); Z85.048 Personal history of other malignant neoplasm of rectum, rectosigmoid junction, and anus; F41.9 Anxiety disorder, unspecified; F17.210 Nicotine dependence, cigarettes, uncomplicated; Z71.6 Tobacco abuse counseling; Z20.822 Contact with and (suspected) exposure to COVID-19; Z79.899 Other long term (current) drug therapy
CPT/HCPCS: 36415; 80048; 85027; 87635; 88304; 88307; 93306; 99024; J0131; J0690; J1100; J2370; J2405; J3010

== ENCOUNTER → 2020-09-25 15:10 | Outpatient (BNVA) | payer MEDICARE, SELFPAY | PROVIDERS: PCP Internal Medicine Medical Oncology; Visit Provider Surgery | DX: Z48.815 Encounter for surgical aftercare following surgery on the digestive system (principal); Z98.890 Other specified postprocedural states | CPT/HCPCS: 99212 ==

== ENCOUNTER 2020-10-03 13:14 | Inpatient (IN) | payer OTHER, SELFPAY ==
--- NOTE | ~2020-10-03 | CT_ITS ---
EXAMINATION: CT CHEST WITHOUT CONTRAST CLINICAL INFORMATION: Shortness of breath and cough COMPARISON: Chest x-ray of October 03, 2020 and June 15, 2020 TECHNIQUE: Multidetector volumetric CT imaging of the chest was done. Axial MIP volume rendering provided. Sagittal and coronal reformatted images were obtained. This CT examination was performed using dose optimization techniques as appropriate, variously including the following: *Automated exposure control *Adjustment of mA and/or kV according to patient size (this includes techniques or standardized protocols for targeted exams where dose is matched to indication/reason for exam; i.e. extremities or head) *Use of iterative reconstruction technique DLP: 295 mGy-cm FINDINGS: LUNGS: There are severe changes of centrilobular and paraseptal emphysema. Central airways are patent. There is left lower lobe consolidative airspace disease consistent with pneumonia and less likely atelectasis. There are some mild atelectatic changes seen dependently in the right lower lobe. There are some sub-4 mm densities present bilaterally. A few calcified granulomas are seen. There is bronchial wall thickening within the lower lobes bilaterally without evidence of bronchiectasis. There is a 7 mm noncalcified subpleural nodule seen within the right lower lobe on image 425 of 576 in series #5. There is a 4 mm noncalcified nodule seen within the right middle lobe on image 417 of 576. There is a 6 mm noncalcified nodule seen within the right lower lobe on image 380 of 576. MEDIASTINUM: Thyroid appears unremarkable. There are some prominent aortopulmonary window lymph nodes but no mediastinal or hilar lymphadenopathy is appreciated. No thoracic aortic aneurysm. Heart normal size. No pericardial effusion. Coronary artery calcification is seen. There is nonocclusive aortic arch calcification seen. PLEURA: There is no pleural effusion. There is elevation of the left hemidiaphragm. This appears chronic. AXILLA: No lymphadenopathy. UPPER ABDOMEN: Unremarkable. OSSEOUS STRUCTURES: No suspicious destructive bony lesions identified. There are compression fractures of greater than 50% seen involving the T7 and T11 vertebral bodies. CT/CT chest wo con IMPRESSION: Severe changes of centrilobular and paraseptal emphysema. Left lower lobe disease consistent with pneumonia. Old granulomatous disease. Multiple lung nodules as described largest measuring approximately 7 mm in diameter. According to the UPDATED 2017 Fleischner Society recommendations, the advised follow-up imaging for multiple solid nodules, the largest measuring 6 mm or greater, is: LOW RISK PATIENT: CT at 3-6 months, then consider CT at 18-24 months. HIGH RISK PATIENT: CT at 3-6 months, then at 18-24 months.
--- NOTE | ~2020-10-03 | XR_ITS ---
EXAMINATION: XR CHEST CLINICAL INFORMATION: Shortness of breath. COMPARISON: Chest 06/15/2020 TECHNIQUE: 2 views of the chest were obtained. FINDINGS: The lungs are well-expanded with increased pulmonary vascularity and bibasilar haziness consistent with CHF. The heart size is enlarged. No gross bony abnormality seen. XR/XR chest 2V IMPRESSION: Cardiomegaly with CHF.
--- NOTE | 2020-10-03 13:15 | ED_ITS ---
HPI - SOB/Dyspnea General Chief Complaint: Dyspnea Stated Complaint: shortness of breath Time Seen by Provider: 10/03/20 13:25 Source: patient Mode of arrival: EMS Limitations: no limitations History of Present Illness HPI Narrative: 2 weeks ago he was discharged from the hospital after colon surgery, he has a history of COPD, not on oxygen at home. EMS states 2 hours of shortness of breath found patient to be 84% on 2L he got up to 91%. According to family he was fine yesterday and this morning. Family states he has a regular cough. Patient states he had shaking chills. MD elicited complaint: shortness of breath Pertinent past history: COPD and pneumonia Onset (ago): hour(s) (2) Context: recent illness Timing: constant Severity: moderate Related Data Home Medications Medication Instructions Recorded Confirmed atenolol 50 mg PO DAILY 10/03/20 10/03/20 Allergies Allergy/AdvReac Type Severity Reaction Status Date / Time No Known Allergies Allergy Verified 09/25/20 15:17 Review of Systems Constitutional: Constitutional: Reports no additional constitutional complaints Eyes: Eyes: Reports no additional eye complaints ENT: Denies dizziness Cardiovascular: Cardiovascular: Reports no additional cardiovascular complaints Respiratory: Respiratory: Reports as per HPI Gastrointestinal: Gastrointestinal: Reports no additional gastrointestinal complaints Musculoskeletal: Musculoskeletal: Reports no additional musculoskeletal complaints Integumentary/Breasts: Skin/Breast: Denies rash Neurologic: Reports system reviewed and no additional complaints, except as documented, Denies dizziness and Denies Sensory deficit (Neuro) Psychiatric: Psychiatric: Denies anxiety PMFSH Past Medical History Medical History Anxiety Chronic bronchitis COPD (chronic obstructive pulmonary disease) Edema of both ankles Family history of radiation exposure History of chemotherapy History of herpes zoster [place] (hard of hearing) Hx of flexible sigmoidoscopy Hx of melanoma of skin Hypertension On beta alisson at home Peptic ulcer Rectal cancer Smoker Surgical History H/O colonoscopy History of eye surgery (~1965) History of left inguinal hernia repair History of low anterior resection of rectum History of right inguinal hernia repair (~1971) Hx of bilateral cataract extraction Hx of melanoma excision Status post reversal of ileostomy Family History Family History Sister History of breast cancer Social History Social History Household Members: Spouse Housing: House Are you a primary care management associate to a significant other at home: No Do you presently have visiting nurse or other home services: No Patient Tobacco Use Status: Current someday Tobacco user Tobacco use type: Cigarette Cigarette Packs Per Day: 0.75 Cigarettes Per Day: 3 Years Smoked: 60 Second Hand Smoke Exposure: Yes Advance Directives: Yes Advance Directives Information Provided: Yes Advance Directives on File: No service: Yes Current occupational status: retired Physical Exam Vital Signs: Vital Signs: Last Vital Signs Pulse 73 10/03/20 15:02 Resp 16 10/03/20 15:02 BP 114/50 L 10/03/20 15:02 Pulse Ox 93 10/03/20 15:02 Body Mass Index 18.0 Const: Other: chronically ill male Nutritional Appearance: thin Orientation/consciousness: oriented to person and patient oriented x3 Limitations: no limitations HENMT: Head: Yes normal to inspection Ears: external ears normal General nose exam: Normal external nose present Mouth: Normal oral and palatal mucosa present and oropharynx normal Throat: Yes posterior oropharynx normal Eyes: General: appearance normal, both eyes and all related structures Neck: Other: supple Neck: Yes normal visual inspection Chest: Chest palpation & inspection: normal inspection of the chest Resp: Auscultation: clear to auscultation bilaterally Cardio: Jugular venous distension: no JVD Rate: regular rate Rhythm: regular rhythm Heart sounds: S1 normal heart sound present and S2 normal heart sound present GI: Inspection: Yes normal to inspection Palpation (GI): Soft to palpation, nontender and No hepatosplenomegaly present Auscultation: normal bowel sounds : General: Yes no CVA tenderness Back/Spine/Pelvis: Back: no CVA tenderness Skin: General skin exam: no rashes or lesions noted Neuro: General: oriented to person and patient oriented x3 Cranial nerves: Yes CN's II-XII intact bilaterally Motor exam (neuro): 5/5 motor strength present throughout Sensory Exam: No Sensory deficit (Neuro) Extrem: General: Yes normal to inspection Psych: Appearance: grossly normal Course Reevaluation(s) Reevaluation #1: shortness of breath most likely secondary to infection will start ceftriaxone and admit Time: 15:49 Reevaluation #2: patients vitals improved he is breathing much easier, will start pyridium Time: 15:53 MDM - SOB/Dyspnea Lab Data Result diagrams: 10/03/20 13:46 10/03/20 13:46 Labs: Lab Results 10/03/20 10/03/20 10/03/20 Range/Units 13:46 13:46 13:46 WBC 14.2 H (4.8-10.8) X10*3/uL RBC 4.05 L (4.60-5.80) X10*6/uL Hgb 12.5 L (14.0-18.0) g/dl Hct 37.3 L (42-52) % MCV 92.1 (80-98) fL MCH 30.9 (27.0-33.0) pg MCHC 33.5 (31.0-36.0) g/dl RDW 13.6 (11.0-16.0) % Plt Count 196 D (160-400) X10*3/uL MPV 9.0 L (9.4-12.4) fL Immature Gran % (Auto) 0.4 (0.0-0.4) % Neut % (Auto) 97.5 H (45-73) % Lymph % (Auto) 1.1 L (20-40) % [place] % (Auto) 0.5 L (2-11) % Eos % (Auto) 0.4 (0-4) % Baso % (Auto) 0.1 (0-2) % Lymph # (Auto) 0.2 L (1.2-4.9) X10*3/uL [place] # (Auto) 0.1 (0.1-1.2) X10*3/uL Eos # (Auto) 0.1 (0.0-0.4) X10*3/uL Baso # (Auto) 0.0 (0.0-0.2) X10*3/uL Abs Immat Gran (auto) 0.06 H (0.00-0.03) X10*3/uL Absolute Neuts (auto) 13.9 H (2.0-8.3) X10*3/uL Absolute Nucleated RBC 0.000 (0.0-0.012) X10*3/uL Nucleated RBC % (auto) 0.0 (0.0-0.2) /100WBC Smear Tech's Comments VERIFIED Sodium 138 (135-145) mmol/L Potassium 3.6 (3.3-5.1) mmol/L Chloride 102 (96-108) mmol/L Carbon Dioxide 18 L (22-29) mmol/L Anion Gap 22 H (12-20) BUN 14 (9-16) mg/dL Creatinine 0.84 (0.5-1.4) mg/dL Estim Creat Clear Calc 60.3 Estimated GFR > 60 Random Glucose 100 (60-115) mg/dL Calcium 8.7 (8.4-10.2) mg/dL Troponin I High Sens 12.7 (<3.5-35.0) ng/L Urine Color Urine Appearance Urine pH (5.0-8.0) Ur Specific [place] (1.005-1.025) Urine Protein (NEG-TRACE) MG/DL Urine Glucose (UA) (NEG) MG/DL Urine Ketones (NEG) MG/DL Urine Blood (NEG) Urine Nitrite (NEG) Ur Leukocyte Esterase (NEG) Urine RBC (0) /HPF Urine WBC (0-4) /HPF Ur Squamous Epith Cells /LPF Urine Bacteria /LPF 10/03/20 Range/Units 13:49 WBC (4.8-10.8) X10*3/uL RBC (4.60-5.80) X10*6/uL Hgb (14.0-18.0) g/dl Hct (42-52) % MCV (80-98) fL MCH (27.0-33.0) pg MCHC (31.0-36.0) g/dl RDW (11.0-16.0) % Plt Count (160-400) X10*3/uL MPV (9.4-12.4) fL Immature Gran % (Auto) (0.0-0.4) % Neut % (Auto) (45-73) % Lymph % (Auto) (20-40) % [place] % (Auto) (2-11) % Eos % (Auto) (0-4) % Baso % (Auto) (0-2) % Lymph # (Auto) (1.2-4.9) X10*3/uL [place] # (Auto) (0.1-1.2) X10*3/uL Eos # (Auto) (0.0-0.4) X10*3/uL Baso # (Auto) (0.0-0.2) X10*3/uL Abs Immat Gran (auto) (0.00-0.03) X10*3/uL Absolute Neuts (auto) (2.0-8.3) X10*3/uL Absolute Nucleated RBC (0.0-0.012) X10*3/uL Nucleated RBC % (auto) (0.0-0.2) /100WBC Smear Tech's Comments Sodium (135-145) mmol/L Potassium (3.3-5.1) mmol/L Chloride (96-108) mmol/L Carbon Dioxide (22-29) mmol/L Anion Gap (12-20) BUN (9-16) mg/dL Creatinine (0.5-1.4) mg/dL Estim Creat Clear Calc Estimated GFR Random Glucose (60-115) mg/dL Calcium (8.4-10.2) mg/dL Troponin I High Sens (<3.5-35.0) ng/L Urine Color YELLOW Urine Appearance HAZY Urine pH 6.0 (5.0-8.0) Ur Specific [place] 1.015 (1.005-1.025) Urine Protein NEG (NEG-TRACE) MG/DL Urine Glucose (UA) NEG (NEG) MG/DL Urine Ketones NEG (NEG) MG/DL Urine Blood 1+ H (NEG) Urine Nitrite POS H (NEG) Ur Leukocyte Esterase TRACE H (NEG) Urine RBC 10-14 H (0) /HPF Urine WBC 30-49 H (0-4) /HPF Ur Squamous Epith Cells TRACE /LPF Urine Bacteria 3+ /LPF Imaging Data Chest x-ray: Radiologist's impression: IMPRESSION: Cardiomegaly with CHF. ECG Data Attestation: I personally reviewed and interpreted this ECG as follows: Interpretation: sinus rate of [address] or twave changes. Discharge Plan Discharge Clinical Impression: Urinary tract infection, Hypoxia Patient Disposition: Admitted As Inpatient Prescriptions: No Action atenolol 50 mg Tablet 50 mg PO DAILY RF: 0
[2020-10-03 13:22] VITALS: BP 108/82; PULSE 81; RESP 16; O2SAT 93; BMI 18.0
--- NOTE | 2020-10-03 13:32 | ECG_ITS ---
Test Reason : SHORT OF BREATH Blood Pressure : / mmHG Vent. Rate : 074 BPM Atrial Rate : 074 BPM P-R Int : 140 ms QRS Dur : 078 ms QT Int : 382 ms P-R-T Axes : 041 018 069 degrees QTc Int : 424 ms Normal sinus rhythm Nonspecific ST and T wave abnormality Abnormal ECG When compared with ECG of 09-JUN-2020 13:04, Nonspecific T wave abnormality now evident in Lateral leads Referred By: Isaac Cristobal Electronically Signed By:TATI ALONSO MD
[2020-10-03] MEDS: 0.9 % Sodium Chloride 500 ML 999 ML IV (13:50)
[2020-10-03 13:57] LABS: Basophils Percent Auto 0.1 % (0-2); Eosinophils Absolute Auto 0.1 X10*3/uL (0.0-0.4); Eosinophils Percent Auto 0.4 % (0-4); Hematocrit 37.3 % (42-52); Hemoglobin 12.5 g/dl (14.0-18.0); Imm Gran Abs Auto 0.06 X10*3/uL (0.00-0.03); Imm Gran Pct Auto 0.4 % (0.0-0.4); Lymphocytes Absolute Auto 0.2 X10*3/uL (1.2-4.9); Lymphocytes Percent Auto 1.1 % (20-40); MANUAL DIFF FLAG SCAN; Mean Corpuscular HGB Conc 33.5 g/dl (31.0-36.0); Mean Corpuscular Hemoglobin 30.9 pg (27.0-33.0); Mean Corpuscular Volume 92.1 fL (80-98); Monocytes Absolute Auto 0.1 X10*3/uL (0.1-1.2); Monocytes Percent Auto 0.5 % (2-11); Neutrophils Absolute Auto 13.9 X10*3/uL (2.0-8.3); Neutrophils Percent Auto 97.5 % (45-73); Platelet Count 196 X10*3/uL (160-400); Red Blood Count 4.05 X10*6/uL (4.60-5.80); Red Cell Distribution Width 13.6 % (11.0-16.0); SCAN SMEAR FLAG 1; White Blood Count 14.2 X10*3/uL (4.8-10.8)
[2020-10-03 13:58] LABS: Glucose Urine UA NEG (NEG); Leukocyte Esterase Urine TRACE (NEG); Nitrite Urine POS (NEG); Specific Gravity - Urine 1.015 (1.005-1.025); UACC Culture Trigger YES; Urine Blood 1+ (NEG); Urine Ketones NEG (NEG); Urine Protein NEG (NEG-TRACE)
[2020-10-03 14:03] LABS: Appearance Urine HAZY; Color Urine YELLOW
[2020-10-03 14:17] LABS: Bacteria Urine 3+ /LPF; Squamous Epithelial Cell Urine TRACE /LPF; WBC Urine 30-49 /HPF (0-4)
[2020-10-03 14:21] LABS: Troponin-I High Sensitivity 12.7 ng/L (<3.5-35.0)
[2020-10-03 14:24] LABS: SLIDE REVIEW VERIFIED
[2020-10-03 14:26] LABS: Anion Gap 22 (12-20); Blood Urea Nitrogen 14 mg/dL (9-16); Calcium 8.7 mg/dL (8.4-10.2); Carbon Dioxide 18 mmol/L (22-29); Chloride 102 mmol/L (96-108); Creatinine Clr Calc Pharmacy 60.3; Estimated Glomerular Filt Rate > 60; Glucose Random 100 mg/dL (60-115); Potassium 3.6 mmol/L (3.3-5.1); Sodium 138 mmol/L (135-145)
[2020-10-03 15:02] VITALS: BP 114/50; PULSE 73; RESP 16; O2SAT 93
--- NOTE | 2020-10-03 16:11 | HE.PHANOTE ---
Pharmacy has completed the medication reconciliation and there were no significant medication issues requiring provider attention. Magaly Guardado PharmD
[2020-10-03] MEDS: Phenazopyridine HCL 100 MG TABLET PO (16:22)
[2020-10-03] MEDS: cefTRIAXone sodium 2 GM in 0.9 % Sodium Chloride 50 ML IV (16:22)
[2020-10-03 16:25] VITALS: BP 107/46; PULSE 70; RESP 16; O2SAT 93
[2020-10-03 16:44] LABS: COVID-19 Test Negative (Negative); IDNOW Serial# 9DD0AD1C
[2020-10-03 16:52] LABS: Lactic Acid 1.4 mmol/L (0.5-2.0)
--- NOTE | 2020-10-03 17:46 | P.HPHOSP_ITS ---
History of Present Illness Date of Service: 10/03/20 <Juliane Rubio NP - Last Filed: 10/07/20 14:34> Chief Complaint: dysuria <Juliane Rubio NP - Last Filed: 10/07/20 14:34> 75-year-old man presented to the ER with complaints of dysuria and frequency. Patient has a history of colon cancer and recently had a colostomy reversal, he completed treatment with chemotherapy and radiation. He reports weight loss from this and weakness. More recently he has developed this dysuria and got into his bed yesterday and had chills and felt feverish. His called EMS due to concern for his health. In the ER he was not noted to be febrile but he did have leukocytosis of 14.2. Urinalysis was grossly positive, no electrolyte abnormalities noted. COVID-19 negative. He does have a history of COPD and is oxygen saturation ranged from 91-93, he was placed on 2 L of oxygen. In the ER he was given a dose of ceftriaxone, 500 mL of IV fluid, Lasix for presumed congestive heart failure. He will be admitted for further management and treatment of urinary tract infection. <Juliane Rubio NP - Last Filed: 10/07/20 14:34> Review of Systems Review of Systems: Denies any recent fever chills or decrease in appetite respiratory denies any shortness of breath coverage production cardiovascular denies chest pain gastrointestinal denies any dysphagia abdominal pain nausea vomiting or diarrhea genitourinary See HPI musculoskeletal denies any joint pain or swelling neuropsych denies any weakness or seizures all other systems reviewed are negative <Juliane Rubio NP - Last Filed: 10/07/20 14:34> [facility] Medical History: Medical History Anxiety Bacteremia due to Klebsiella pneumoniae Chronic bronchitis COPD (chronic obstructive pulmonary disease) Family history of radiation exposure History of chemotherapy History of herpes zoster Hx of flexible sigmoidoscopy Hx of melanoma of skin Hypertension Peptic ulcer Rectal cancer Smoker <Juliane Rubio NP - Last Filed: 10/07/20 14:34> Family History: Family History Sister History of breast cancer <Juliane Rubio NP - Last Filed: 10/07/20 14:34> Surgical History: Surgical History H/O colonoscopy History of eye surgery (~1965) History of left inguinal hernia repair History of low anterior resection of rectum History of right inguinal hernia repair (~1971) Hx of bilateral cataract extraction Hx of melanoma excision Status post reversal of ileostomy <Juliane Rubio NP - Last Filed: 10/07/20 14:34> Social History: Social History Household Members: Spouse and Children Housing: House Are you a primary customer care coordinator to a significant other at home: No Do you presently have visiting nurse or other home services: No Patient Tobacco Use Status: Current someday Tobacco user Tobacco use type: Cigarette Cigarette Packs Per Day: 0.75 Cigarettes Per Day: 3 Years Smoked: 60 Second Hand Smoke Exposure: Yes Advance Directives Date on File: 10/04/20 service: Yes Current occupational status: retired <Juliane Rubio NP - Last Filed: 10/07/20 14:34> Meds Allergies/Adverse reactions: Allergies Allergy/AdvReac Type Severity Reaction Status Date / Time No Known Allergies Allergy Verified 09/25/20 15:17 <Juliane Rubio NP - Last Filed: 10/07/20 14:34> Active Medications: Current Medications Generic Name Dose Route Start Last Admin Trade Name Freq PRN Reason Stop Dose Admin Pharmacy Consult 1 each 10/03/20 15:54 Consult Rx Perform Med Rec MISCELLANE ONCE PRN Consult order <Juliane Rubio NP - Last Filed: 10/07/20 14:34> Physical Exam Vital Signs and Narrative: Vital Signs: Last Vital Signs Pulse 70 10/03/20 16:25 Resp 16 10/03/20 16:25 BP 107/46 L 10/03/20 16:25 Pulse Ox 93 10/03/20 16:25 Body Mass Index 18.0 <Juliane Rubio NP - Last Filed: 10/07/20 14:34> Appearing in no acute distress head is normocephalic atraumatic eyes pupils are PERRLA sclera is anicteric mouth throat mucous membranes are intact and moist neck is supple no lymphadenopathy, no JVD noted lung sounds coarse heart regular rate rhythm, clear S1, S2 positive bowel sounds, abdomen is soft, nontender neuro patient is alert x3, no focal deficits <Juliane Rubio NP - Last Filed: 10/07/20 14:34> Results Labs CBC and Chem 7: : 10/05/20 05:59 10/06/20 06:28 <Juliane Rubio NP - Last Filed: 10/07/20 14:34> Labs: Laboratory Results - last 24 hr 10/03/20 10/03/20 10/03/20 13:46 13:46 13:46 MCV 92.1 MCH 30.9 MCHC 33.5 RDW 13.6 Plt Count 196 D MPV 9.0 L Immature Gran % (Auto) 0.4 Neut % (Auto) 97.5 H Lymph % (Auto) 1.1 L [place] % (Auto) 0.5 L Eos % (Auto) 0.4 Baso % (Auto) 0.1 Lymph # (Auto) 0.2 L [place] # (Auto) 0.1 Eos # (Auto) 0.1 Baso # (Auto) 0.0 Abs Immat Gran (auto) 0.06 H Absolute Neuts (auto) 13.9 H Absolute Nucleated RBC 0.000 Nucleated RBC % (auto) 0.0 Smear Tech's Comments VERIFIED Anion Gap 22 H Estim Creat Clear Calc 60.3 Estimated GFR > 60 Random Glucose 100 Lactic Acid Calcium 8.7 Troponin I High Sens 12.7 Urine Color Urine Appearance Urine pH Ur Specific [employer] Urine Protein Urine Glucose (UA) Urine Ketones Urine Blood Urine Nitrite Ur Leukocyte Esterase Urine RBC Urine WBC Ur Squamous Epith Cells Urine Bacteria COVID-19 (GEENA) COVID-19 Clin Com 10/03/20 10/03/20 10/03/20 13:49 16:21 16:21 MCV MCH MCHC RDW Plt Count MPV Immature Gran % (Auto) Neut % (Auto) Lymph % (Auto) [place] % (Auto) Eos % (Auto) Baso % (Auto) Lymph # (Auto) [place] # (Auto) Eos # (Auto) Baso # (Auto) Abs Immat Gran (auto) Absolute Neuts (auto) Absolute Nucleated RBC Nucleated RBC % (auto) Smear Tech's Comments Anion Gap Estim Creat Clear Calc Estimated GFR Random Glucose Lactic Acid 1.4 Calcium Troponin I High Sens Urine Color YELLOW Urine Appearance HAZY Urine pH 6.0 Ur Specific [employer] 1.015 Urine Protein NEG Urine Glucose (UA) NEG Urine Ketones NEG Urine Blood 1+ H Urine Nitrite POS H Ur Leukocyte Esterase TRACE H Urine RBC 10-14 H Urine WBC 30-49 H Ur Squamous Epith Cells TRACE Urine Bacteria 3+ COVID-19 (GEENA) Negative COVID-19 Clin Com See Note <Juliane Rubio NP - Last Filed: 10/07/20 14:34> Imaging Radiologist's Impressions: Impressions Chest X-Ray 10/03/20 13:33 IMPRESSION: Cardiomegaly with CHF. <Juliane Rubio NP - Last Filed: 10/07/20 14:34> Assessment and Plan (1) Urinary tract infection: Qualifiers: Hematuria presence: without hematuria Urinary tract infection type: site unspecified Qualified Code(s): N39.0 - Urinary tract infection, site not specified <Juliane Rubio NP - Last Filed: 10/07/20 14:34> Status: Acute <Juliane Rubio NP - Last Filed: 10/07/20 14:34> 75 year old man admitted with UTI with chills, fever, dysuria and frequency. UTI. Dysuria and frequency Rocepin follow urine and blood cx Hypertension with hypotension Hold atenolol Follow BP closely Possible CHF exacerbation IV lasix once and follow CT scan echocardiogram if noted heart failure Cardio consult daily weights, I&O check BNP COPD. Duo nebs every 4 hours while awake Mucinex for cough Hold off on steroids for now Continue supplemental oxygen as needed DVT prophylaxis with Lovenox Attending Dr. Rey Full code <Juliane Rubio NP - Last Filed: 10/07/20 14:34> Quality Stroke Does the patient have a stroke diagnosis?: No <Juliane Rubio NP - Last Filed: 10/07/20 14:34> VTE Prior VTE?: No <Juliane Rubio NP - Last Filed: 10/07/20 14:34> VTE Risk Level:: Medical - moderate - high <Juliane Rubio NP - Last Filed: 10/07/20 14:34> VTE Device Contraindication: Treatment Not Indicated <Juliane Rubio NP - Last Filed: 10/07/20 14:34> VTE Drug Contraindication: N/A - Med Ordered <Juliane Rubio NP - Last Filed: 10/07/20 14:34>
[2020-10-03] MEDS: Enoxaparin Sodium 40 MG/0.4 ML SYRINGE SUBCUT (19:39)
[2020-10-03] MEDS: Furosemide 40 MG/4 ML VIAL IVPUSH (19:39)
[2020-10-03 19:44] VITALS: BP 100/48; PULSE 81; RESP 16; O2SAT 98
[2020-10-03] MEDS: Albuterol Sulfate (0.083%) 2.5 MG/3 ML VIAL.NEB INHALE (20:32)
[2020-10-03 20:33] VITALS: PULSE 68; O2SAT 98
--- NOTE | 2020-10-03 21:14 | PC.NURSE ---
Patient changed for incontinence stool and urine
[2020-10-03] MEDS: Acetaminophen 325 MG TABLET 650 MG PO (21:40)
--- NOTE | 2020-10-03 22:58 | PC.NURSE ---
Incontinence care provided. patient reporting 10/10 pain with urination. MD texted.
[2020-10-04] VITALS (13 sets, daily range): BP systolic 82–130; BP diastolic 41–59; PULSE 53–85; RESP 15–22; TEMP 36.5–37; O2SAT 90–97; BMI 18.0
--- NOTE | 2020-10-04 00:01 | PC.NURSE ---
care and report from chad at 23:00
[2020-10-04] MEDS: HYDROmorphone HCl 0.5 MG/0.5 ML SYRINGE IVPUSH (02:09)
[2020-10-04] MEDS: 0.9 % Sodium Chloride Flush 3 ML SYRINGE IVFLUSH ×4 (02:10→20:12)
--- NOTE | 2020-10-04 02:35 | PC.NURSE ---
pt was complaining of burning upon urination, requested something stronger that tylenol from hospitalist. pt using urinal to void.
--- NOTE | 2020-10-04 02:47 | PC.NURSE ---
PT'S SYSTOLIC BP 82 FOLLOWING 0.5 MG DILAUDID. PT AWAKE AND ALERT, NO DISTRESS AND ASKED FOR ICE WATER.
[2020-10-04 07:34] LABS: Basophils Percent Auto 0.2 % (0-2); Eosinophils Percent Auto 0.1 % (0-4); Hematocrit 34.9 % (42-52); Hemoglobin 11.7 g/dl (14.0-18.0); Imm Gran Abs Auto 0.06 X10*3/uL (0.00-0.03); Imm Gran Pct Auto 0.3 % (0.0-0.4); Lymphocytes Absolute Auto 0.5 X10*3/uL (1.2-4.9); Lymphocytes Percent Auto 2.3 % (20-40); MANUAL DIFF FLAG SCAN; Mean Corpuscular HGB Conc 33.5 g/dl (31.0-36.0); Mean Corpuscular Hemoglobin 31.2 pg (27.0-33.0); Mean Corpuscular Volume 93.1 fL (80-98); Mean Platelet Volume 9.3 fL (9.4-12.4); Monocytes Absolute Auto 0.1 X10*3/uL (0.1-1.2); Monocytes Percent Auto 0.6 % (2-11); Neutrophils Absolute Auto 18.5 X10*3/uL (2.0-8.3); Neutrophils Percent Auto 96.5 % (45-73); Platelet Count 149 X10*3/uL (160-400); Red Blood Count 3.75 X10*6/uL (4.60-5.80); SCAN SMEAR FLAG 1; White Blood Count 19.2 X10*3/uL (4.8-10.8)
[2020-10-04] MEDS: Albuterol Sulfate (0.083%) 2.5 MG/3 ML VIAL.NEB INHALE ×4 (08:01→18:46)
[2020-10-04 08:24] LABS: Blood Urea Nitrogen 15 mg/dL (9-16); Calcium 8.4 mg/dL (8.4-10.2); Creatinine Clr Calc Pharmacy 58.2; Estimated Glomerular Filt Rate > 60; Glucose Random 85 mg/dL (60-115)
[2020-10-04 08:28] LABS: B Type Natriuretic Peptide 380 pg/mL (<100)
[2020-10-04 08:37] LABS: Anion Gap 16 (12-20); Carbon Dioxide 26 mmol/L (22-29); Chloride 98 mmol/L (96-108); Potassium 2.9 mmol/L (3.3-5.1); Sodium 137 mmol/L (135-145)
[2020-10-04 08:42] LABS: SLIDE REVIEW VERIFIED
[2020-10-04] MEDS: Potassium Chloride ER 20 MEQ TAB.ER.PRT 40 MEQ PO (09:55)
--- NOTE | 2020-10-04 12:20 | HO.PM.IMPN ---
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 Neck supple no JVD. CVS regular rate rhythm, Respiratory no respiratory distress, no wheeze, no rhonchi, no rales. Gastrointestinal abdomen soft, nontender, bowel sounds audible, no guarding , no rigidity. Extremities no edema. Neuro nonfocal ,speech clear. Skin no rash Objective Data Current Medications Generic Name Dose Route Start Last Admin Trade Name Freq PRN Reason Stop Dose Admin Acetaminophen 650 mg 10/03/20 18:08 10/03/20 21:40 Acetaminophen 325 Mg Tablet PO 650 mg Q6H PRN Administration Pain, Mild (Pain Scale 1-3) Albuterol Sulfate 2.5 mg 10/03/20 20:00 10/04/20 11:56 Albuterol Sulfate (0.083%) 2.5 Mg/3 Ml Vial.Neb INHALE 2.5 mg RQ4H WHILE AWAKE TOBY Administration Enoxaparin Sodium 40 mg 10/03/20 20:00 10/03/20 19:39 Enoxaparin Sodium 40 Mg/0.4 Ml Syringe SUBCUT 40 mg Q24H TOBY Administration Guaifenesin 600 mg 10/03/20 18:11 Guaifenesin La 600 Mg Tab.Er.12h PO BID PRN cough Hydromorphone HCl 0.5 mg 10/04/20 01:22 10/04/20 02:09 Hydromorphone Hcl 0.5 Mg/0.5 Ml Syringe IVPUSH 0.5 mg Q4H PRN Administration Breakthrough Pain Ceftriaxone Sodium 1 gm/ 50 mls @ 100 mls/hr 10/04/20 15:00 Sodium Chloride IV Q24H [facility] Ondansetron HCl 4 mg 10/03/20 18:08 Ondansetron Hcl 4 Mg/2 Ml Vial IVPUSH Q8H PRN Nausea and Vomiting Pharmacy Consult 1 each 10/03/20 15:54 Consult Rx Perform Med Rec MISCELLANE ONCE PRN Consult order Sodium Chloride 3 ml 10/04/20 00:00 10/04/20 08:24 0.9 % Sodium Chloride Flush 3 Ml Syringe IVFLUSH 3 ml QSHIFT [facility] Administration Labs CBC & Chem 7: 10/04/20 07:18 10/04/20 07:18 Labs: Laboratory Results - last 24 hr 10/03/20 10/03/20 10/03/20 13:46 13:46 13:46 WBC 14.2 H RBC 4.05 L Hgb 12.5 L Hct 37.3 L MCV 92.1 MCH 30.9 MCHC 33.5 RDW 13.6 Plt Count 196 D MPV 9.0 L Immature Gran % (Auto) 0.4 Neut % (Auto) 97.5 H Lymph % (Auto) 1.1 L [place] % (Auto) 0.5 L Eos % (Auto) 0.4 Baso % (Auto) 0.1 Lymph # (Auto) 0.2 L [place] # (Auto) 0.1 Eos # (Auto) 0.1 Baso # (Auto) 0.0 Abs Immat Gran (auto) 0.06 H Absolute Neuts (auto) 13.9 H Absolute Nucleated RBC 0.000 Nucleated RBC % (auto) 0.0 Smear Tech's Comments VERIFIED Sodium 138 Potassium 3.6 Chloride 102 Carbon Dioxide 18 L Anion Gap 22 H BUN 14 Creatinine 0.84 Estim Creat Clear Calc 60.3 Estimated GFR > 60 Random Glucose 100 Lactic Acid Calcium 8.7 Troponin I High Sens 12.7 B-Natriuretic Peptide Urine Color Urine Appearance Urine pH Ur Specific [place] Urine Protein Urine Glucose (UA) Urine Ketones Urine Blood Urine Nitrite Ur Leukocyte Esterase Urine RBC Urine WBC Ur Squamous Epith Cells Urine Bacteria COVID-19 (GEENA) COVID-19 Clin Com 10/03/20 10/03/20 10/03/20 13:49 16:21 16:21 WBC RBC Hgb Hct MCV MCH MCHC RDW Plt Count MPV Immature Gran % (Auto) Neut % (Auto) Lymph % (Auto) [place] % (Auto) Eos % (Auto) Baso % (Auto) Lymph # (Auto) [place] # (Auto) Eos # (Auto) Baso # (Auto) Abs Immat Gran (auto) Absolute Neuts (auto) Absolute Nucleated RBC Nucleated RBC % (auto) Smear Tech's Comments Sodium Potassium Chloride Carbon Dioxide Anion Gap BUN Creatinine Estim Creat Clear Calc Estimated GFR Random Glucose Lactic Acid 1.4 Calcium Troponin I High Sens B-Natriuretic Peptide Urine Color YELLOW Urine Appearance HAZY Urine pH 6.0 Ur Specific [place] 1.015 Urine Protein NEG Urine Glucose (UA) NEG Urine Ketones NEG Urine Blood 1+ H Urine Nitrite POS H Ur Leukocyte Esterase TRACE H Urine RBC 10-14 H Urine WBC 30-49 H Ur Squamous Epith Cells TRACE Urine Bacteria 3+ COVID-19 (GEENA) Negative COVID-19 Clin Com See Note 10/04/20 10/04/20 10/04/20 07:18 07:18 07:18 WBC 19.2 H RBC 3.75 L Hgb 11.7 L Hct 34.9 L MCV 93.1 MCH 31.2 MCHC 33.5 RDW 14.0 Plt Count 149 L MPV 9.3 L Immature Gran % (Auto) 0.3 Neut % (Auto) 96.5 H Lymph % (Auto) 2.3 L [place] % (Auto) 0.6 L Eos % (Auto) 0.1 Baso % (Auto) 0.2 Lymph # (Auto) 0.5 L [place] # (Auto) 0.1 Eos # (Auto) 0.0 Baso # (Auto) 0.0 Abs Immat Gran (auto) 0.06 H Absolute Neuts (auto) 18.5 H Absolute Nucleated RBC 0.000 Nucleated RBC % (auto) 0.0 Smear Tech's Comments VERIFIED Sodium 137 Potassium 2.9 L Chloride 98 Carbon Dioxide 26 Anion Gap 16 BUN 15 Creatinine 0.87 Estim Creat Clear Calc 58.2 Estimated GFR > 60 Random Glucose 85 Lactic Acid Calcium 8.4 Troponin I High Sens B-Natriuretic Peptide 380 H Urine Color Urine Appearance Urine pH Ur Specific [place] Urine Protein Urine Glucose (UA) Urine Ketones Urine Blood Urine Nitrite Ur Leukocyte Esterase Urine RBC Urine WBC Ur Squamous Epith Cells Urine Bacteria COVID-19 (GEENA) COVID-19 Clin Com Microbiology Microbiology Results: Microbiology 10/03/20 Unknown Urine Culture - Preliminary Urine clean catch - Urine olivares top Gram negative lashay 10/03/20 14:03 Blood Culture - Preliminary Blood - Venous Prelim: GNR Gram Stain only 10/03/20 14:20 Blood Culture - Preliminary Blood - Venous Prelim: GNR Gram Stain only Quality Stroke Does the patient have a stroke diagnosis?: No VTE Prior VTE?: No VTE Risk Level:: Medical - moderate - high VTE Device Contraindication: Treatment Not Indicated VTE Drug Contraindication: N/A - Med Ordered Assessment and Plan (1) Bacteremia: Status: Acute (2) Urinary tract infection: Status: Acute (3) Status post reversal of ileostomy: Status: Acute (4) Congestive heart failure: Status: Acute Assessment and Plan: 75 year old man admitted with UTI with chills, fever, dysuria and frequency. Gram-negative bacteremia likely due to UTI/pneumonia. Sepsis due to tachypnea and leukocytosis Persistent leukocytosis, tachypnea resolved Dysuria improved, no fevers, blood and urine culture growing Gram-negative lashay Chest x-ray showing left base pneumonia,hypoxia improved Will place patient on IV Zosyn, DC Rocephin, follow final urine and blood culture result , follow CBC/ BMP Acute congestive heart failure with preserved EF Initial chest x-ray consistent with CHF with elevated BNP status post IV Lasix, i/os not documented At present appears euvolemic, no prior history of CHF, no JVD, normal troponin, no chest pain, Will hold Lasix and follow clinical course Recent echo August of 2020 showed EF 55-60% indeterminate diastolic function, will repeat BNP at a.m. if recurrent symptoms of shortness of breath or persistent elevated BNP will consult Cardio CHF likely due to sepsis/hypoxia Hypertension with hypotension on arrival Takes atenolol 50 mg at home, will resume atenolol and lower dose to 25 mg daily Follow BP closely COPD. No acute exacerbation, continue Duo nebs every 4 hours while awake Mucinex for cough Continue supplemental oxygen as needed DVT prophylaxis with Lovenox Full code
[2020-10-04] MEDS: Piperacillin Sodium/Tazobactam 3.375 GM in 0.9 % Sodium Chloride 50 ML IV ×2 (13:42→20:10)
[2020-10-04] MEDS: Phenazopyridine HCL 100 MG TABLET PO (17:33)
[2020-10-04] MEDS: Enoxaparin Sodium 40 MG/0.4 ML SYRINGE SUBCUT (20:09)
[2020-10-04] MEDS: Acetaminophen 325 MG TABLET 650 MG PO (20:11)
[2020-10-05] VITALS (10 sets, daily range): BP systolic 100–126; BP diastolic 50–67; PULSE 56–111; RESP 17–18; TEMP 36.4–37.1; O2SAT 90–96; BMI 19.1
[2020-10-05] MEDS: Piperacillin Sodium/Tazobactam 3.375 GM in 0.9 % Sodium Chloride 50 ML IV ×4 (01:35→20:02)
[2020-10-05 07:15] LABS: MANUAL DIFF FLAG NO
[2020-10-05 07:20] LABS: Basophils Percent Auto 0.2 % (0-2); Eosinophils Absolute Auto 0.2 X10*3/uL (0.0-0.4); Eosinophils Percent Auto 1.4 % (0-4); Hematocrit 33.5 % (42-52); Hemoglobin 11.2 g/dl (14.0-18.0); Imm Gran Abs Auto 0.05 X10*3/uL (0.00-0.03); Imm Gran Pct Auto 0.4 % (0.0-0.4); Lymphocytes Absolute Auto 0.8 X10*3/uL (1.2-4.9); Mean Corpuscular HGB Conc 33.4 g/dl (31.0-36.0); Mean Corpuscular Hemoglobin 31.1 pg (27.0-33.0); Mean Corpuscular Volume 93.1 fL (80-98); Mean Platelet Volume 10.1 fL (9.4-12.4); Monocytes Absolute Auto 0.9 X10*3/uL (0.1-1.2); Monocytes Percent Auto 6.8 % (2-11); Neutrophils Absolute Auto 11.3 X10*3/uL (2.0-8.3); Neutrophils Percent Auto 85.2 % (45-73); Platelet Count 125 X10*3/uL (160-400); White Blood Count 13.2 X10*3/uL (4.8-10.8)
[2020-10-05] MEDS: Phenazopyridine HCL 100 MG TABLET PO ×2 (07:32→17:45)
[2020-10-05] MEDS: 0.9 % Sodium Chloride Flush 3 ML SYRINGE IVFLUSH ×3 (07:33→20:05)
[2020-10-05 08:01] LABS: B Type Natriuretic Peptide 128 pg/mL (<100)
[2020-10-05 08:17] LABS: Anion Gap 16 (12-20); Blood Urea Nitrogen 15 mg/dL (9-16); Calcium 8.2 mg/dL (8.4-10.2); Carbon Dioxide 25 mmol/L (22-29); Chloride 101 mmol/L (96-108); Creatinine Clr Calc Pharmacy 63.3; Estimated Glomerular Filt Rate > 60; Glucose Random 98 mg/dL (60-115); Potassium 2.9 mmol/L (3.3-5.1); Sodium 139 mmol/L (135-145)
--- NOTE | 2020-10-05 08:38 | MHC.CM.PN ---
CM spoke with Patient's /HCP/Charline at [phone] (Patient unavailable & very [place]). Patient lives in a house with his and adult Son and he uses a walker and cane to assist with mobility. Home is the goal for dc (open to [facility]NA but will refuse rehab)and CM has initiated and will follow for dc planning. PCP is Dr. Dahiana Villalobos.
[2020-10-05] MEDS: Albuterol Sulfate (0.083%) 2.5 MG/3 ML VIAL.NEB INHALE ×4 (09:05→20:59)
--- NOTE | 2020-10-05 09:06 | HO.PM.IMPN ---
Subjective Subjective Date of Service: 10/05/20 Interval History: UTI/gram-negative bacteremia Review of Systems Patient seems to be improving Denies any chest pain or shortness of breath or abdominal pain or fever chills Physical Exam Vital Signs: Vital Signs: Last Vital Signs Temp 97.9 F 10/05/20 07:26 Pulse 56 10/05/20 07:26 Resp 17 10/05/20 07:26 BP 126/67 10/05/20 07:26 Pulse Ox 92 10/05/20 07:26 Body Mass Index 18.0 Physical exam: Cvs: [id number], [id number] , no murmur res: clear to auscultation ,no rhonchii or wheezing abd: no rebound or guarding ,nt, bs present. ext pulses present , no cyanosis neuro: axo3 , nonfocal. Objective Data Current Medications Generic Name Dose Route Start Last Admin Trade Name Freq PRN Reason Stop Dose Admin Acetaminophen 650 mg 10/03/20 18:08 10/04/20 20:11 Acetaminophen 325 Mg Tablet PO 650 mg Q6H PRN Administration Pain, Mild (Pain Scale 1-3) Albuterol Sulfate 2.5 mg 10/04/20 16:00 10/05/20 09:05 Albuterol Sulfate (0.083%) 2.5 Mg/3 Ml Vial.Neb INHALE 2.5 mg RQID TOBY Administration Enoxaparin Sodium 40 mg 10/03/20 20:00 10/04/20 20:09 Enoxaparin Sodium 40 Mg/0.4 Ml Syringe SUBCUT 40 mg Q24H TOBY Administration Guaifenesin 600 mg 10/03/20 18:11 Guaifenesin La 600 Mg Tab.Er.12h PO BID PRN cough Hydromorphone HCl 0.5 mg 10/04/20 01:22 10/04/20 02:09 Hydromorphone Hcl 0.5 Mg/0.5 Ml Syringe IVPUSH 0.5 mg Q4H PRN Administration Breakthrough Pain Piperacillin Sod/Tazobactam 50 mls @ 100 mls/hr 10/04/20 14:00 10/05/20 08:27 Sod 3.375 gm/ Sodium Chloride IV Infused Q6H TOBY Infusion Ondansetron HCl 4 mg 10/03/20 18:08 Ondansetron Hcl 4 Mg/2 Ml Vial IVPUSH Q8H PRN Nausea and Vomiting Pharmacy Consult 1 each 10/03/20 15:54 Consult Rx Perform Med Rec MISCELLANE ONCE PRN Consult order Phenazopyridine HCl 100 mg 10/04/20 18:00 10/05/20 07:32 Phenazopyridine Hcl 100 Mg Tablet PO 10/06/20 08:01 100 mg BIDWM TOBY Administration Sodium Chloride 3 ml 10/04/20 00:00 10/05/20 07:33 0.9 % Sodium Chloride Flush 3 Ml Syringe IVFLUSH 3 ml QSHIFT TOBY Administration Labs CBC & Chem 7: 10/05/20 05:59 10/05/20 05:59 Labs: Laboratory Results - last 24 hr 10/05/20 10/05/20 10/05/20 05:59 05:59 05:59 WBC 13.2 H RBC 3.60 L Hgb 11.2 L Hct 33.5 L MCV 93.1 MCH 31.1 MCHC 33.4 RDW 14.0 Plt Count 125 L MPV 10.1 Immature Gran % (Auto) 0.4 Neut % (Auto) 85.2 H Lymph % (Auto) 6.0 L [place] % (Auto) 6.8 Eos % (Auto) 1.4 Baso % (Auto) 0.2 Lymph # (Auto) 0.8 L [place] # (Auto) 0.9 Eos # (Auto) 0.2 Baso # (Auto) 0.0 Abs Immat Gran (auto) 0.05 H Absolute Neuts (auto) 11.3 H Absolute Nucleated RBC 0.000 Nucleated RBC % (auto) 0.0 Sodium 139 Potassium 2.9 L Chloride 101 Carbon Dioxide 25 Anion Gap 16 BUN 15 Creatinine 0.80 Estim Creat Clear Calc 63.3 Estimated GFR > 60 Random Glucose 98 Calcium 8.2 L B-Natriuretic Peptide 128 H Microbiology Microbiology Results: Microbiology 10/03/20 14:20 Blood Culture - Preliminary Blood - Venous Gram negative lashay 10/03/20 14:03 Blood Culture - Preliminary Blood - Venous Gram negative lashay 10/03/20 Unknown Urine Culture - Final Urine clean catch - Urine olivares top Klebsiella pneumoniae Quality Stroke Does the patient have a stroke diagnosis?: No VTE Prior VTE?: No VTE Risk Level:: Medical - moderate - high VTE Device Contraindication: Treatment Not Indicated VTE Drug Contraindication: N/A - Med Ordered Assessment and Plan (1) Bacteremia: Status: Acute (2) Urinary tract infection: Status: Acute Assessment and Plan: 75 year old man admitted with UTI with chills, fever, dysuria and frequency. 1.Gram-negative bacteremia likely due to UTI/pneumonia. Sepsis due to tachypnea and leukocytosis Persistent leukocytosis, tachypnea resolved Dysuria improved, no fevers, blood and urine culture growing Gram-negative lashay Chest x-ray showing left base pneumonia,hypoxia improved Will place patient on IV Zosyn, DC Rocephin, follow final urine and blood culture result , follow CBC/ BMP Acute congestive heart failure with preserved EF Initial chest x-ray consistent with CHF with elevated BNP status post IV Lasix, i/os not documented At present appears euvolemic, no prior history of CHF, no JVD, normal troponin, no chest pain, Will hold Lasix and follow clinical course Recent echo August of 2020 showed EF 55-60% indeterminate diastolic function, will repeat BNP at a.m. if recurrent symptoms of shortness of breath or persistent elevated BNP will consult Cardio CHF likely due to sepsis/hypoxia Hypertension with hypotension on arrival Takes atenolol 50 mg at home, will resume atenolol and lower dose to 25 mg daily Follow BP closely COPD. No acute exacerbation, continue Duo nebs every 4 hours while awake Mucinex for cough Continue supplemental oxygen as needed hypokalemia: added po potassium DVT prophylaxis with Lovenox
[2020-10-05 11:44] LABS: Magnesium 1.6 mg/dL (1.6-2.6)
[2020-10-05] MEDS: Potassium Chloride Packet 20 MEQ PACKET 40 MEQ PO (12:19)
--- NOTE | 2020-10-05 12:43 | MHC.CLN ---
PT IS MODERATELY MALNOURISHED PT WITH MILD DEPLETION OF MUSCLE MASS AND PT REPORTS WT LOSS R/T CHEMO/RAD TX WITH CHRONIC POOR PO INTAKE. PT UNABLE TO QUANTIFY WT LOSS WITH TIMEFRAME. PREVIOUS WT HX REVEALS 134# (11/2019) NO SIGNIFICANT WT LOSS AT THIS TIME, BUT PT IS HIGH RISK NUTRITION DUE TO CHRONIC POOR PO WITH PROLONGED CATABOLIC ILLNESS DIET RX: CARDIAC-PT MAY BENEFIT FROM LIBERALIZED DIET PT RECEPTIVE TO TRIAL OF ENSURE TID ([employer]) SUPPLEMENT TO PROVIDE 1050KCALS, 60G PROTEIN MONITOR PO INTAKE CLOSELY SEE ALSO CLINICAL NUTRITION ASSESSMENT
[2020-10-05] MEDS: Enoxaparin Sodium 40 MG/0.4 ML SYRINGE SUBCUT (20:04)
--- NOTE | 2020-10-06 | ECG_ITS ---
Test Reason : ?afib Blood Pressure : / mmHG Vent. Rate : 086 BPM Atrial Rate : 086 BPM P-R Int : 120 ms QRS Dur : 092 ms QT Int : 360 ms P-R-T Axes : 000 025 032 degrees QTc Int : 430 ms Normal sinus rhythm Nonspecific ST abnormality Abnormal ECG When compared to the previous EKG of No significant changes when compared with the previous EKG of Referred By: Pastor Rae Electronically Signed By:TATI ALONSO MD
[2020-10-06] MEDS: Piperacillin Sodium/Tazobactam 3.375 GM in 0.9 % Sodium Chloride 50 ML IV ×2 (02:46→07:39)
[2020-10-06] MEDS: HYDROmorphone HCl 0.5 MG/0.5 ML SYRINGE IVPUSH (03:03)
[2020-10-06 05:18] VITALS: BP 117/59; PULSE 88; RESP 18; TEMP 36.8; O2SAT 90
[2020-10-06] MEDS: Albuterol Sulfate (0.083%) 2.5 MG/3 ML VIAL.NEB INHALE ×3 (07:37→15:08)
[2020-10-06 07:38] VITALS: PULSE 96; O2SAT 93
[2020-10-06] MEDS: 0.9 % Sodium Chloride Flush 3 ML SYRINGE IVFLUSH (07:40)
[2020-10-06] MEDS: Phenazopyridine HCL 100 MG TABLET PO (07:40)
[2020-10-06 07:46] VITALS: BP 126/67; PULSE 76; RESP 20; O2SAT 100
[2020-10-06 08:14] LABS: Anion Gap 15 (12-20); Blood Urea Nitrogen 11 mg/dL (9-16); Calcium 8.5 mg/dL (8.4-10.2); Carbon Dioxide 24 mmol/L (22-29); Chloride 104 mmol/L (96-108); Creatinine Clr Calc Pharmacy 69.4; Estimated Glomerular Filt Rate > 60; Glucose Random 104 mg/dL (60-115); Potassium 3.5 mmol/L (3.3-5.1); Sodium 139 mmol/L (135-145)
[2020-10-06 11:31] VITALS: BP 149/74; PULSE 85; RESP 20; TEMP 36.6; O2SAT 94
[2020-10-06 11:34] VITALS: O2SAT 94
--- NOTE | 2020-10-06 12:28 | MHC.CLN ---
FOLLOW UP GOOD INTAKE RECORDED AT RECENT MEALS, 50-100%. CONTINUE ENSURE SUPPLEMENT 240 CC TID TO PROVIDE 1050 KCAL AND 60 G PROTEIN.
[2020-10-06 15:09] VITALS: O2SAT 94
--- NOTE | 2020-10-06 15:34 | W.PM.IDCN ---
History of Present Illness Data of Consult Service Date: 10/06/20 Requesting physician: Allie Morrison Primary Care Provider: Dahiana Encinas MD [facility] Reason for consult: bacteremia,Klebsiella pneumonia He presents with fever and dysuria for a day He has no nausea or vomiting Blood and urine cultures show Klebsiella pneumonia He has finished chemotherapy for colon cancer Review of Systems Review of Systems: Yes all other systems are reviewed and are negative PMFSH Past Medical History Medical History Anxiety Bacteremia due to Klebsiella pneumoniae Chronic bronchitis COPD (chronic obstructive pulmonary disease) Family history of radiation exposure History of chemotherapy History of herpes zoster Hx of flexible sigmoidoscopy Hx of melanoma of skin Hypertension Peptic ulcer Rectal cancer Smoker Family History Family History Sister History of breast cancer Family history: reviewed and not pertinent Surgical History Surgical History H/O colonoscopy History of eye surgery (~1965) History of left inguinal hernia repair History of low anterior resection of rectum History of right inguinal hernia repair (~1971) Hx of bilateral cataract extraction Hx of melanoma excision Status post reversal of ileostomy Social History Social History Household Members: Spouse and Children Housing: House Are you a primary home visit field care manager to a significant other at home: No Do you presently have visiting nurse or other home services: No Patient Tobacco Use Status: Current someday Tobacco user Tobacco use type: Cigarette Cigarette Packs Per Day: 0.75 Cigarettes Per Day: 3 Years Smoked: 60 Second Hand Smoke Exposure: Yes Advance Directives Date on File: 10/04/20 service: Yes Current occupational status: retired [employer] Allergies Allergy/AdvReac Type Severity Reaction Status Date / Time No Known Allergies Allergy Verified 09/25/20 15:17 Active Medications: Current Medications Generic Name Dose Route Start Last Admin Trade Name Freq PRN Reason Stop Dose Admin Acetaminophen 650 mg 10/03/20 18:08 10/04/20 20:11 Acetaminophen 325 Mg Tablet PO 650 mg Q6H PRN Administration Pain, Mild (Pain Scale 1-3) Albuterol Sulfate 2.5 mg 10/04/20 16:00 10/06/20 15:08 Albuterol Sulfate (0.083%) 2.5 Mg/3 Ml Vial.Neb INHALE 2.5 mg RQID TOBY Administration Enoxaparin Sodium 40 mg 10/03/20 20:00 10/05/20 20:04 Enoxaparin Sodium 40 Mg/0.4 Ml Syringe SUBCUT 40 mg Q24H TOBY Administration Guaifenesin 600 mg 10/03/20 18:11 Guaifenesin La 600 Mg Tab.Er.12h PO BID PRN cough Hydromorphone HCl 0.5 mg 10/04/20 01:22 10/06/20 03:03 Hydromorphone Hcl 0.5 Mg/0.5 Ml Syringe IVPUSH 0.5 mg Q4H PRN Administration Breakthrough Pain Piperacillin Sod/Tazobactam 50 mls @ 100 mls/hr 10/04/20 14:00 10/06/20 08:21 Sod 3.375 gm/ Sodium Chloride IV Infused Q6H TOBY Infusion Ondansetron HCl 4 mg 10/03/20 18:08 Ondansetron Hcl 4 Mg/2 Ml Vial IVPUSH Q8H PRN Nausea and Vomiting Pharmacy Consult 1 each 10/03/20 15:54 Consult Rx Perform Med Rec MISCELLANE ONCE PRN Consult order Sodium Chloride 3 ml 10/04/20 00:00 10/06/20 07:40 0.9 % Sodium Chloride Flush 3 Ml Syringe IVFLUSH 3 ml QSHIFT TOBY Administration Home Medications Medication Instructions Recorded Confirmed Last Taken Type atenolol 50 mg PO DAILY 10/03/20 10/03/20 10/03/20 History Physical Exam Vital Signs: Vital Signs: Last Vital Signs Temp 97.8 F 10/06/20 11:31 Pulse 85 10/06/20 11:31 Resp 20 10/06/20 11:31 BP 149/74 H 10/06/20 11:31 Pulse Ox 94 10/06/20 11:31 Body Mass Index 19.1 Const: General: cooperative HENMT: Head: Yes normal to inspection Mouth: Normal oral and palatal mucosa present Resp: Effort & Inspection: normal respiratory effort Cardio: Rate: regular rate Rhythm: regular rhythm GI: Palpation (GI): Soft to palpation and nontender Skin: General skin exam: no rashes or lesions noted Results Labs CBC & Chem 7: 10/05/20 05:59 10/06/20 06:28 Labs: BMP 10/06/20 06:28 Sodium 139 Potassium 3.5 D Chloride 104 Carbon Dioxide 24 BUN 11 Creatinine 0.73 Calcium 8.5 Microbiology Microbiology Results: Microbiology 10/03/20 14:20 Blood - Venous Blood Culture - Final Klebsiella pneumoniae 10/03/20 14:03 Blood - Venous Blood Culture - Final Klebsiella pneumoniae 10/03/20 Unknown Urine clean catch - Urine olivares top Urine Culture - Final Klebsiella pneumoniae Assessment and Plan (1) Bacteremia due to Klebsiella pneumoniae: Status: Acute He has bacteremia now feeling better The organism is Klebsiella pneumonia Urine is the source There is no obstruction or signs of osteomyelitis Suggest Would discharge on po Ceftin 500 mg bid for 14 day total antibiotics
--- NOTE | 2020-10-06 16:26 | PM.DS ---
DS: Providers Provider Date of Service: 10/06/20 Date of admission: 10/04/20 01:17 Primary care physician: Dahiana Encinas MD Consults: 10/04/20 13:19 Consult to Infectious Diseases Stat Consulting Provider: Alicia Ulloa Reason for consultation: bacteremia Has provider been notified: No DS: Diagnosis Discharge Diagnosis (1) Bacteremia due to Klebsiella pneumoniae: Status: Acute DS: Medications Discharge Medications Home Medications: Previous Rx's Medication Instructions Recorded atenolol 25 mg PO DAILY #30 tab 10/06/20 cefuroxime axetil 500 mg PO BID #22 tab 10/06/20 DS: Summary Hospital Course Hospital Course: 75-year-old man presented to the ER with complaints of dysuria and frequency. Patient has a history of colon cancer and recently had a colostomy reversal, he completed treatment with chemotherapy and radiation. He reports weight loss from this and weakness. More recently he has developed this dysuria and got into his bed yesterday and had chills and felt feverish. His called EMS due to concern for his health. In the ER he was not noted to be febrile but he did have leukocytosis of 14.2. Urinalysis was grossly positive, no electrolyte abnormalities noted. COVID-19 negative. He does have a history of COPD and is oxygen saturation ranged from 91-93, he was placed on 2 L of oxygen. In the ER he was given a dose of ceftriaxone, 500 mL of IV fluid, Lasix for presumed congestive heart failure. He will be admitted for further management and treatment of urinary tract infection. Hospital course: Patient will admitted secondary to UTI/pneumonia: Subsequently started on IV Zosyn antibiotics seems to be improving, patient was seen by infectious disease -patient has Klebsiella bacteremia probably related to urinary source. Seems to be improved now we will switch antibiotic to p.o. Ceftin. Please complete the antibiotic course.. Patient initially has low blood pressures so we will can decrease his atenolol to 25 mg p.o. daily. Hypokalemia repleted and resolved. follow up cbc and bmp -with PCP outpatient. Above management discussed with the patient in detail length he understand and in agreement with the above plan, time spent 50 minutes and 50% time spent on counseling. Significant findings: As above. Procedures performed: None. Treatment and response: As above. Complications: None. Time Spent with Patient Time attestation: Total time spent providing and/or coordinating discharge services: Discharge coordination time: Greater than 30 minutes Quality: Stroke Does the patient have a stroke diagnosis?: No Physical Exam Vital Signs: Vital Signs: Last Vital Signs Temp 97.8 F 10/06/20 11:31 Pulse 85 10/06/20 11:31 Resp 20 10/06/20 11:31 BP 149/74 H 10/06/20 11:31 Pulse Ox 94 10/06/20 11:31 Body Mass Index 19.1 Appearing in no acute distress head is normocephalic atraumatic eyes pupils are PERRLA sclera is anicteric mouth throat mucous membranes are intact and moist neck is supple no lymphadenopathy, no JVD noted lung sounds coarse heart regular rate rhythm, clear S1, S2 positive bowel sounds, abdomen is soft, nontender neuro patient is alert x3, no focal deficits DS: Data Data Completed and Pending Completed studies during hospitalization [Text1]: Procedures Bypass Ileum to Cutaneous, Open Approach (06/13/20) Excision of Ileum, Open Approach (09/12/20) Excision of Sigmoid Colon, Open Approach (06/13/20) Labs on day of discharge: Laboratory Results - last 24 hr 10/06/20 06:28 Sodium 139 Potassium 3.5 D Chloride 104 Carbon Dioxide 24 Anion Gap 15 BUN 11 Creatinine 0.73 Estim Creat Clear Calc 69.4 Estimated GFR > 60 Random Glucose 104 Calcium 8.5 Discharge Plan Discharge Patient Disposition: Home Health Service Discharge Diagnosis: uti Referrals: Dahiana Encinas MD [Primary Care Provider] - 1 Week Discharge Medications: New cefuroxime axetil 500 mg tablet 500 mg PO BID Qty: 22 RF: 0 Changed atenolol 50 mg Tablet 25 mg PO DAILY Qty: 30 RF: 0 Discharge Orders: Discharge Order (Routine); Ordered 10/06/20 Ordered By: Allie Morrison Diet: advance to usual diet, low fat, low cholesterol and low salt diet Activity on Discharge: As tolerated Stand Alone Forms: Patient Portal Discharge page Care Plan Goals: Patient will admitted secondary to UTI/pneumonia: Subsequently started on IV Zosyn antibiotics seems to be improving, patient was seen by infectious disease -patient has Klebsiella bacteremia probably related to urinary source. Seems to be improved now we will switch antibiotic to p.o. Ceftin. Please complete the antibiotic course.. Patient initially has low blood pressures so we will can decrease his atenolol to 25 mg p.o. daily. Hypokalemia repleted and resolved. follow up cbc and bmp -with PCP outpatient. Health Concerns: As above. Plan of Treatment: As above. Assessment: As above.
--- NOTE | 2020-10-06 16:29 | P.F2F_ITS ---
Service Date Service Date: 10/06/20 Encounter Date of encounter: 10/06/20 Encounter: UTI: Klebsiella bacteremia, hypokalemia. Reasons for Services Homebound: Leaving the home is medically contraindicated at this time without the asist of a device and/or another person due th the listed conditions above and below. Homebound supporting statement: Patient is generalized weak, need help with going to appointments. Certification: Based on the above findings, I certify that this patient is confined to the home and needs intermittent nursing home care, physical therapy and/or speech therapy, or continues to need occupational therapy. The patient is under my care, and I have initiated the establishment of the plan of care. The patient will be followed by a physician who will periodically review the plan of care.
== END 2020-10-06 17:39 | disposition home health service (06) | DRG 193 ==
LOC: HO.ED 16:19 → HO.EDOVER 10-04 01:57 → HO.IMC 10-04 14:04
PROVIDERS: Hospitalist; Nurse Practitioner Acute Care; Admitting Provider Hospitalist; Emergency Provider Emergency Medicine; PCP Internal Medicine; Visit Provider Internal Medicine
DX: J18.9 Pneumonia, unspecified organism (principal); I50.31 Acute diastolic (congestive) heart failure; N39.0 Urinary tract infection, site not specified; R78.81 Bacteremia; J44.0 Chronic obstructive pulmonary disease with (acute) lower respiratory infection; F41.9 Anxiety disorder, unspecified; F17.210 Nicotine dependence, cigarettes, uncomplicated; B96.1 Klebsiella pneumoniae [K. pneumoniae] as the cause of diseases classified elsewhere; Z85.038 Personal history of other malignant neoplasm of large intestine; I95.9 Hypotension, unspecified; E87.6 Hypokalemia; Z71.6 Tobacco abuse counseling; Z20.822 Contact with and (suspected) exposure to COVID-19; Z79.899 Other long term (current) drug therapy
CPT/HCPCS: 36415; 71046; 71250; 80048; 81001; 81003; 83605; 83735; 83880; 84484; 85025; 87040; 87077; 87086; 87088; 87186; 87205; 87635; 93005; 94640; 94664; 99285; J0696; J1170; J1650; J1940; J2543

== ENCOUNTER 2020-11-07 09:19 | Outpatient (REF) | payer MEDICARE, SELFPAY ==
[2020-11-07 11:52] LABS: MANUAL DIFF FLAG NO
[2020-11-07 11:56] LABS: Basophils Absolute Auto 0.1 X10*3/uL (0.0-0.2); Basophils Percent Auto 0.9 % (0-2); Eosinophils Absolute Auto 0.2 X10*3/uL (0.0-0.4); Hematocrit 41.5 % (42-52); Hemoglobin 13.5 g/dl (14.0-18.0); Imm Gran Abs Auto 0.03 X10*3/uL (0.00-0.03); Imm Gran Pct Auto 0.4 % (0.0-0.4); Lymphocytes Absolute Auto 1.1 X10*3/uL (1.2-4.9); Lymphocytes Percent Auto 13.5 % (20-40); Mean Corpuscular HGB Conc 32.5 g/dl (31.0-36.0); Mean Corpuscular Hemoglobin 30.2 pg (27.0-33.0); Mean Corpuscular Volume 92.8 fL (80-98); Mean Platelet Volume 9.8 fL (9.4-12.4); Monocytes Absolute Auto 0.6 X10*3/uL (0.1-1.2); Monocytes Percent Auto 7.6 % (2-11); Neutrophils Absolute Auto 5.8 X10*3/uL (2.0-8.3); Neutrophils Percent Auto 74.6 % (45-73); Platelet Count 203 X10*3/uL (160-400); Red Blood Count 4.47 X10*6/uL (4.60-5.80); Red Cell Distribution Width 15.1 % (11.0-16.0); White Blood Count 7.8 X10*3/uL (4.8-10.8)
[2020-11-07 12:23] LABS: Anion Gap 13 (12-20); Blood Urea Nitrogen 17 mg/dL (9-16); Calcium 9.4 mg/dL (8.4-10.2); Carbon Dioxide 25 mmol/L (22-29); Chloride 101 mmol/L (96-108); Estimated Glomerular Filt Rate > 60; Glucose Fasting 105 mg/dL (60-99); Sodium 135 mmol/L (135-145)
== END 2020-11-07 09:20 | disposition home or self-care (01) ==
LOC: HO.HMGCLDS 09:19
PROVIDERS: PCP Internal Medicine; Visit Provider Internal Medicine
DX: I10 Essential (primary) hypertension (principal); Z87.440 Personal history of urinary (tract) infections; Z87.898 Personal history of other specified conditions
CPT/HCPCS: 36415; 80048; 85025

== ENCOUNTER 2021-02-12 10:40 | Outpatient (REF) | payer MEDICARE, SELFPAY ==
[2021-02-12 13:52] LABS: MANUAL DIFF FLAG NO
[2021-02-12 13:57] LABS: Basophils Absolute Auto 0.1 X10*3/uL (0.0-0.2); Basophils Percent Auto 0.8 % (0-2); Eosinophils Absolute Auto 0.2 X10*3/uL (0.0-0.4); Hematocrit 45.9 % (42.0-52.0); Hemoglobin 15.2 g/dl (14.0-18.0); Imm Gran Abs Auto 0.04 X10*3/uL (0.00-0.03); Imm Gran Pct Auto 0.5 % (0.0-0.4); Lymphocytes Absolute Auto 1.4 X10*3/uL (1.2-4.9); Lymphocytes Percent Auto 19.3 % (20-40); Mean Corpuscular HGB Conc 33.1 g/dl (31.0-36.0); Mean Corpuscular Hemoglobin 31.1 pg (27.0-33.0); Mean Corpuscular Volume 94.1 fL (80.0-98.0); Monocytes Absolute Auto 0.6 X10*3/uL (0.1-1.2); Monocytes Percent Auto 8.2 % (2-11); Neutrophils Absolute Auto 5.2 x10*3/uL (2.0-8.3); Neutrophils Percent Auto 69.2 % (45-73); Platelet Count 158 X10*3/uL (160-400); Red Blood Count 4.88 X10*6/uL (4.60-5.80); Red Cell Distribution Width 14.5 % (11.0-16.0); White Blood Count 7.5 X10*3/uL (4.8-10.8)
[2021-02-12 14:11] LABS: Alanine Aminotransferase 19 U/L (0-40); Albumin Level 4.1 g/dL (3.5-5.0); Alkaline Phosphatase 93 U/L (39-117); Anion Gap 16 (12-20); Aspartate Amino Transferase 21 U/L (5-37); Bilirubin Total 0.7 mg/dL (0.0-1.0); Blood Urea Nitrogen 14 mg/dL (9-16); Calcium 9.4 mg/dL (8.4-10.2); Carbon Dioxide 24 mmol/L (22-29); Chloride 102 mmol/L (96-108); Cholesterol 230 mg/dL; Estimated Glomerular Filt Rate > 60; Glucose Fasting 104 mg/dL (60-99); HDL Cholesterol 48 mg/dL; LDL Cholesterol Calculated 152 mg/dl; Sodium 138 mmol/L (135-145); Total Protein 7.4 g/dL (6.5-8.0); Triglycerides 153 mg/dL
[2021-02-12 14:34] LABS: PSA,Total (Free>4and<10) 0.93 ng/mL (0.00-4.00)
[2021-02-12 14:52] LABS: Vitamin B12 234 pg/mL (200-900)
== END 2021-02-12 10:41 | disposition home or self-care (01) ==
LOC: HO.HMGCLDS 10:40
PROVIDERS: Visit Provider Internal Medicine
DX: D64.9 Anemia, unspecified (principal); I10 Essential (primary) hypertension; Z66 Do not resuscitate; Z12.5 Encounter for screening for malignant neoplasm of prostate; Z85.048 Personal history of other malignant neoplasm of rectum, rectosigmoid junction, and anus
CPT/HCPCS: 36415; 80053; 80061; 82306; 82607; 82746; 84153; 85025

== ENCOUNTER 2021-03-08 09:35 | Inpatient (IN) | payer MEDICARE, SELFPAY ==
--- NOTE | ~2021-03-08 | XR_ITS ---
EXAMINATION: XR CHEST CLINICAL INFORMATION: SOB COMPARISON: Chest x-ray 10/03/[address] chest 10/04/2020 TECHNIQUE: Frontal view of the chest was obtained. FINDINGS: There is diffuse emphysematous lungs with left lower lobe patchy opacity question atelectasis versus infiltrate. In addition there is increase interstitial markings throughout both upper and lower lobes likely chronic interstitial lung disease. The heart size and pulmonary vascularity is normal. No gross bony abnormality seen. XR/XR chest 1V IMPRESSION: Left lower lobe retrocardiac area patchy opacity question infiltrate versus chronic atelectasis. Diffuse increased interstitial changes throughout both lungs likely chronic interstitial lung disease. There is underlying emphysema
[2021-03-08 09:51] VITALS: BP 134/86; BP 139/70; PULSE 71; PULSE 73; RESP 20; TEMP 37.3; O2SAT 92; BMI 19.5
--- NOTE | 2021-03-08 09:58 | ECG_ITS ---
Test Reason : SOB Blood Pressure : / mmHG Vent. Rate : 069 BPM Atrial Rate : 069 BPM P-R Int : 142 ms QRS Dur : 092 ms QT Int : 390 ms P-R-T Axes : -13 -05 046 degrees QTc Int : 417 ms Normal sinus rhythm cannot exclude old Inferior infarct , age undetermined Abnormal ECG When compared with ECG of 06-OCT-2020 00:26, Inferior infarct is now Present Referred By: Vianey Nova Electronically Signed By:CA RUTHERFORD
--- NOTE | 2021-03-08 09:59 | ED.SOB ---
HPI - SOB/Dyspnea General Chief Complaint: Dyspnea Stated Complaint: SOB 88% RA, 92% 2L,EXP TO COVID IN THE HOME,-VACC Time Seen by Provider: 03/08/21 09:58 Source: patient, EMS and old records reviewed Mode of arrival: EMS Limitations: no limitations History of Present Illness HPI Narrative: 75 y/o male with history of COPD (not on home O2), active smoker, CHF, HTN, hx rectal cancer s/p resection w/ colostomy and reversal s/p chemo/radiation, hx Klebsiella UTI and bacteremia who presents to the ER with reports not feeling well and a cough. He is not vaccinated for COVID-19 and had a known exposure at home. He is a vague historian. He reports a new productive cough but cannot say when it started. He denies fever or chills. No chest pain. He denies increased WOB and states his lungs are always bad. He has had episodes of nonbloody diarrhea per family. EMS found him hypoxic to 80% on room air at home. He was placed on 2L NC with improvement in saturations. MD elicited complaint: shortness of breath Pertinent past history: COPD Onset (ago): unknown Context: recent illness Timing: constant Severity: moderate Exacerbating factors: coughing Relieving factors: oxygen Known history of: COPD Associated symptoms: cough, wheezing, sputum production and other (diarrhea) Treatment prior to arrival: oxygen Related Data Home oxygen amount: none Home Medications Medication Instructions Recorded Confirmed cholecalciferol (vitamin D3) 50 50 mcg PO DAILY 02/12/21 03/08/21 mcg (2,000 unit) capsule loperamide 2 mg capsule (Imodium 2 mg PO Q6H PRN 03/08/21 03/08/21 A-D) Previous Rx's Medication Instructions Recorded atenolol 25 mg tablet 25 mg PO DAILY #90 tab 11/03/20 Allergies Allergy/AdvReac Type Severity Reaction Status Date / Time No Known Allergies Allergy Verified 02/12/21 10:21 Review of Systems Review of Systems: Constitutional: No Fever, No Chills ENT/Mouth: No sore throat, No Rhinorrhea, No Swallowing Difficulty Eyes: No Eye Pain, No Swelling, No Redness Cardiovascular: No Chest Pain, + SOB, No Orthopnea, No Edema Respiratory: + Cough, + Sputum, No Wheezing, + dyspnea Gastrointestinal: No Nausea, No Vomiting, + Diarrhea, No abdominal Pain Genitourinary: No Dysuria, No Urinary Frequency, No Hematuria Musculoskeletal: No joint pain, No Myalgias Skin: No Skin Lesions, No rash Neuro: No Weakness, No Numbness, No Dizziness, No Headache Psych: No Anxiety/Panic, No Depression Heme/Lymph: No Bruising, No Lymphadenopathy Endocrine: No Polyuria, No Polydipsia PMFSH Past Medical History Medical History Anemia Anxiety Bacteremia Bacteremia due to Klebsiella pneumoniae Chronic bronchitis Colostomy in place COPD (chronic obstructive pulmonary disease) Family history of radiation exposure History of chemotherapy History of herpes zoster Hx of bacteremia Hx of flexible sigmoidoscopy Hx of malignant neoplasm of rectum Hx of melanoma of skin Hx: UTI (urinary tract infection) Hypertension Peptic ulcer Rectal cancer Smoker Surgical History H/O colonoscopy History of eye surgery (~1965) History of left inguinal hernia repair History of low anterior resection of rectum History of right inguinal hernia repair (~1971) Hx of bilateral cataract extraction Hx of melanoma excision Status post reversal of ileostomy Family History Family History Sister History of breast cancer Social History Social History Household Members: Spouse and Children Housing: House Are you a primary rn transitional care to a significant other at home: No Do you presently have visiting nurse or other home services: No Alcohol intake: never Patient Tobacco Use Status: Former Tobacco user Tobacco use type: Cigarette Cigarette Packs Per Day: 0 Cigarettes Per Day: 0 Years Smoked: 60 Second Hand Smoke Exposure: Yes Use of substances other than those prescribed or required for medical reasons: No Advance Directives: Yes Advance Directives on File: Yes Advance Directives Date on File: 10/04/20 service: Yes Current occupational status: retired Physical Exam Vital Signs: Vital Signs: Last Vital Signs Temp 98.2 F 03/08/21 12:22 Pulse 70 03/08/21 12:22 Resp 24 H 03/08/21 12:22 BP 127/64 03/08/21 12:22 Pulse Ox 90 L 03/08/21 12:22 Oxygen Flow Rate 2 03/08/21 09:51 BMI result Body Mass Index 19.5 Appearance: Alert elderly male sitting up on the stretcher. Oriented X3. No acute distress. Eyes: Pupils equal, round and reactive to light. ENT: Pharynx normal. Neck: Normal inspection. Neck supple. CVS: Normal heart rate and rhythm. Pulses normal. Respiratory: No respiratory distress. Breath sounds coarse throughout with scattered rhonchi Abdomen: Soft and nontender. No rebound or guarding. +BS x4 Skin: Skin warm and dry. Normal skin color. Poor skin turgor. No rashes. Extremities: No lower extremity edema. Frail, thin Neuro: Oriented X 3. No motor deficit. No sensory deficit. Course Course Course Narrative: 75-year-old male with a history of advanced COPD (not on oxygen), CHF, rectal cancer status post resection chemotherapy and radiation who presents to the ER with cough, shortness of breath, diarrhea and hypoxia in the setting of known COVID exposure to his at home. He is on vaccinated. He does not believe in it because he does not trust the government. He was hypoxic to 80s for EMS, on room air here he was saturating 88% improved with 2 L supplemental oxygen. He has rhonchi and a junky cough with no respiratory distress. Will get sepsis/COVID workup, EKG. Anticipate admission. Reevaluation(s) Reevaluation #1: elevated inflammatory markers - DDIMER 900 with CRP 10. Patient is refusing a CTA, he states he has bad COPD and has always had bad COPD, explained the concern for possible clots in his lungs however he states it is ?in God's hands. ? He confirmed that he is a DNR DNI and would like no invasive procedures or treatments. He is agreeable to oxygen, antibiotics, and steroids. He would like to be discharged home with oxygen as soon as possible but does not want palliative/hospice care at this time. Spoke with the patient's son and who are also in agreement with this treatment plan. Will plan for admission. hospitalist has been Tigertexted. MDM - SOB/Dyspnea Lab Data Attestation: I reviewed the patient's lab results. Result diagrams: 03/08/21 10:26 03/08/21 10:26 Labs: Lab Results 03/08/21 03/08/21 03/08/21 Range/Units 10:12 10:26 10:26 WBC 4.0 L (4.8-10.8) X10*3/uL RBC 4.86 (4.60-5.80) X10*6/uL Hgb 15.3 (14.0-18.0) g/dl Hct 44.8 (42.0-52.0) % MCV 92.2 (80.0-98.0) fL MCH 31.5 (27.0-33.0) pg MCHC 34.2 (31.0-36.0) g/dl RDW 13.7 (11.0-16.0) % Plt Count 104 L D (160-400) X10*3/uL MPV 9.3 L (9.4-12.4) fL Immature Gran % (Auto) 0.3 (0.0-0.4) % Neut % (Auto) 80.2 H (45-73) % Lymph % (Auto) 10.4 L (20-40) % [place] % (Auto) 9.1 (2-11) % Eos % (Auto) 0.0 (0-4) % Baso % (Auto) 0.0 (0-2) % Lymph # (Auto) 0.4 L (1.2-4.9) X10*3/uL [place] # (Auto) 0.4 (0.1-1.2) X10*3/uL Eos # (Auto) 0.0 (0.0-0.4) X10*3/uL Baso # (Auto) 0.0 (0.0-0.2) X10*3/uL Abs Immat Gran (auto) 0.01 (0.00-0.03) X10*3/uL Absolute Neuts (auto) 3.2 (2.0-8.3) x10*3/uL Absolute Nucleated RBC 0.000 (0.0-0.012) X10*3/uL Nucleated RBC % (auto) 0.0 (0.0-0.2) /100WBC PT (9.9-13.0) SEC INR (0.9-1.1) APTT (24.1-38.0) SEC D-Dimer High Sensitivty NG/ML Sodium 137 (135-145) mmol/L Potassium 3.6 (3.3-5.1) mmol/L Chloride 99 (96-108) mmol/L Carbon Dioxide 25 (22-29) mmol/L Anion Gap 17 (12-20) BUN 30 H (9-16) mg/dL Creatinine 1.26 (0.5-1.4) mg/dL Estim Creat Clear Calc 42.2 Estimated GFR 56 Random Glucose 124 H (60-115) mg/dL Lactic Acid (0.5-2.0) mmol/L Calcium 9.1 (8.4-10.2) mg/dL Magnesium 2.1 (1.6-2.6) mg/dL Ferritin 1334 H (20-250) ng/mL Total Bilirubin 1.6 H (0.0-1.0) mg/dL Direct Bilirubin 0.8 H (0.0-0.5) mg/dL AST 46 H D (5-37) U/L ALT 31 (0-40) U/L Alkaline Phosphatase 75 (39-117) U/L Lactate Dehydrogenase 382 H (118-273) U/L Troponin I High Sens (<3.5-35.0) ng/L C-Reactive Protein 10.47 H (< or = 0.50) mg/dL B-Natriuretic Peptide (<100) pg/mL Total Protein 7.4 (6.5-8.0) g/dL Albumin 4.0 (3.5-5.0) g/dL Procalcitonin ng/mL COVID-19 (GEENA) Positive A (Negative) COVID-19 Clin Com See Note 03/08/21 03/08/21 03/08/21 Range/Units 10:26 10:26 10:26 WBC (4.8-10.8) X10*3/uL RBC (4.60-5.80) X10*6/uL Hgb (14.0-18.0) g/dl Hct (42.0-52.0) % MCV (80.0-98.0) fL MCH (27.0-33.0) pg MCHC (31.0-36.0) g/dl RDW (11.0-16.0) % Plt Count (160-400) X10*3/uL MPV (9.4-12.4) fL Immature Gran % (Auto) (0.0-0.4) % Neut % (Auto) (45-73) % Lymph % (Auto) (20-40) % [place] % (Auto) (2-11) % Eos % (Auto) (0-4) % Baso % (Auto) (0-2) % Lymph # (Auto) (1.2-4.9) X10*3/uL [place] # (Auto) (0.1-1.2) X10*3/uL Eos # (Auto) (0.0-0.4) X10*3/uL Baso # (Auto) (0.0-0.2) X10*3/uL Abs Immat Gran (auto) (0.00-0.03) X10*3/uL Absolute Neuts (auto) (2.0-8.3) x10*3/uL Absolute Nucleated RBC (0.0-0.012) X10*3/uL Nucleated RBC % (auto) (0.0-0.2) /100WBC PT 12.5 (9.9-13.0) SEC INR 1.1 (0.9-1.1) APTT 24.8 (24.1-38.0) SEC D-Dimer High Sensitivty 901 NG/ML Sodium (135-145) mmol/L Potassium (3.3-5.1) mmol/L Chloride (96-108) mmol/L Carbon Dioxide (22-29) mmol/L Anion Gap (12-20) BUN (9-16) mg/dL Creatinine (0.5-1.4) mg/dL Estim Creat Clear Calc Estimated GFR Random Glucose (60-115) mg/dL Lactic Acid 2.1 H* (0.5-2.0) mmol/L Calcium (8.4-10.2) mg/dL Magnesium (1.6-2.6) mg/dL Ferritin (20-250) ng/mL Total Bilirubin (0.0-1.0) mg/dL Direct Bilirubin (0.0-0.5) mg/dL AST (5-37) U/L ALT (0-40) U/L Alkaline Phosphatase (39-117) U/L Lactate Dehydrogenase (118-273) U/L Troponin I High Sens 27.2 (<3.5-35.0) ng/L C-Reactive Protein (< or = 0.50) mg/dL B-Natriuretic Peptide (<100) pg/mL Total Protein (6.5-8.0) g/dL Albumin (3.5-5.0) g/dL Procalcitonin ng/mL COVID-19 ([facility]EENA) (Negative) COVID-19 Clin Com 03/08/21 03/08/21 Range/Units 10:26 10:26 WBC (4.8-10.8) X10*3/uL RBC (4.60-5.80) X10*6/uL Hgb (14.0-18.0) g/dl Hct (42.0-52.0) % MCV (80.0-98.0) fL MCH (27.0-33.0) pg MCHC (31.0-36.0) g/dl RDW (11.0-16.0) % Plt Count (160-400) X10*3/uL MPV (9.4-12.4) fL Immature Gran % (Auto) (0.0-0.4) % Neut % (Auto) (45-73) % Lymph % (Auto) (20-40) % [place] % (Auto) (2-11) % Eos % (Auto) (0-4) % Baso % (Auto) (0-2) % Lymph # (Auto) (1.2-4.9) X10*3/uL [place] # (Auto) (0.1-1.2) X10*3/uL Eos # (Auto) (0.0-0.4) X10*3/uL Baso # (Auto) (0.0-0.2) X10*3/uL Abs Immat Gran (auto) (0.00-0.03) X10*3/uL Absolute Neuts (auto) (2.0-8.3) x10*3/uL Absolute Nucleated RBC (0.0-0.012) X10*3/uL Nucleated RBC % (auto) (0.0-0.2) /100WBC PT (9.9-13.0) SEC INR (0.9-1.1) APTT (24.1-38.0) SEC D-Dimer High Sensitivty NG/ML Sodium (135-145) mmol/L Potassium (3.3-5.1) mmol/L Chloride (96-108) mmol/L Carbon Dioxide (22-29) mmol/L Anion Gap (12-20) BUN (9-16) mg/dL Creatinine (0.5-1.4) mg/dL Estim Creat Clear Calc Estimated GFR Random Glucose (60-115) mg/dL Lactic Acid (0.5-2.0) mmol/L Calcium (8.4-10.2) mg/dL Magnesium (1.6-2.6) mg/dL Ferritin (20-250) ng/mL Total Bilirubin (0.0-1.0) mg/dL Direct Bilirubin (0.0-0.5) mg/dL AST (5-37) U/L ALT (0-40) U/L Alkaline Phosphatase (39-117) U/L Lactate Dehydrogenase (118-273) U/L Troponin I High Sens (<3.5-35.0) ng/L C-Reactive Protein (< or = 0.50) mg/dL B-Natriuretic Peptide 41 (<100) pg/mL Total Protein (6.5-8.0) g/dL Albumin (3.5-5.0) g/dL Procalcitonin 0.33 ng/mL COVID-19 ([facility]EENA) (Negative) COVID-19 Clin Com ECG Data Attestation: I personally reviewed and interpreted this ECG as follows: ECG interpretation date: 03/08/21 Interpretation: Normal sinus rhythm, heart rate 69 beats per minute, artifact present in V3. Normal TX interval. No ST segment elevations or depressions. Critical Care Time Critical Care Time Critical Care Time: Yes Total Critical Care Time: 46 Attestation: I have personally provided critical care time exclusive of time spent on separately billable procedures. Time includes review of lab data, radiology results, discussion with consultants, and monitoring for potential decompensation. Intervention performed as documented. Discharge Plan Discharge Clinical Impression: COVID-19, Acute respiratory failure with hypoxia Patient Disposition: Admitted As Inpatient
[2021-03-08 10:09] VITALS: O2SAT 89
[2021-03-08 10:32] LABS: MANUAL DIFF FLAG NO
[2021-03-08 10:33] LABS: Hematocrit 44.8 % (42.0-52.0); Hemoglobin 15.3 g/dl (14.0-18.0); Imm Gran Abs Auto 0.01 X10*3/uL (0.00-0.03); Imm Gran Pct Auto 0.3 % (0.0-0.4); Lymphocytes Absolute Auto 0.4 X10*3/uL (1.2-4.9); Lymphocytes Percent Auto 10.4 % (20-40); Mean Corpuscular HGB Conc 34.2 g/dl (31.0-36.0); Mean Corpuscular Hemoglobin 31.5 pg (27.0-33.0); Mean Corpuscular Volume 92.2 fL (80.0-98.0); Mean Platelet Volume 9.3 fL (9.4-12.4); Monocytes Absolute Auto 0.4 X10*3/uL (0.1-1.2); Monocytes Percent Auto 9.1 % (2-11); Neutrophils Absolute Auto 3.2 x10*3/uL (2.0-8.3); Neutrophils Percent Auto 80.2 % (45-73); Platelet Count 104 X10*3/uL (160-400); Red Blood Count 4.86 X10*6/uL (4.60-5.80); Red Cell Distribution Width 13.7 % (11.0-16.0)
[2021-03-08 10:41] LABS: INTERNATIONAL NORM RATIO 1.1 (0.9-1.1); Prothrombin Time 12.5 SEC (9.9-13.0)
[2021-03-08 10:42] LABS: COVID-19 Test Positive (Negative)
[2021-03-08 10:43] LABS: D Dimer High Sensitivity 901 NG/ML
[2021-03-08 10:44] LABS: Partial Thromboplastin Time 24.8 SEC (24.1-38.0)
[2021-03-08 10:49] LABS: Alanine Aminotransferase 31 U/L (0-40); Alkaline Phosphatase 75 U/L (39-117); Anion Gap 17 (12-20); Aspartate Amino Transferase 46 U/L (5-37); Bilirubin Direct 0.8 mg/dL (0.0-0.5); Bilirubin Total 1.6 mg/dL (0.0-1.0); Blood Urea Nitrogen 30 mg/dL (9-16); C Reactive Protein 10.47 mg/dL (< or = 0.50); Calcium 9.1 mg/dL (8.4-10.2); Carbon Dioxide 25 mmol/L (22-29); Chloride 99 mmol/L (96-108); Creatinine Clr Calc Pharmacy 42.2; Estimated Glomerular Filt Rate 56; Glucose Random 124 mg/dL (60-115); Lactate Dehydrogenase 382 U/L (118-273); Magnesium 2.1 mg/dL (1.6-2.6); Potassium 3.6 mmol/L (3.3-5.1); Sodium 137 mmol/L (135-145); Total Protein 7.4 g/dL (6.5-8.0)
[2021-03-08 10:51] LABS: Lactic Acid 2.1 mmol/L (0.5-2.0)
[2021-03-08 10:52] LABS: B Type Natriuretic Peptide 41 pg/mL (<100); Troponin-I High Sensitivity 27.2 ng/L (<3.5-35.0)
[2021-03-08] MEDS: 0.9 % Sodium Chloride 500 ML IV (11:02)
[2021-03-08] MEDS: dexAMETHasone sod phosphate 4 MG/ML VIAL 6 MG IVPUSH (11:02)
[2021-03-08 11:10] LABS: Ferritin 1334 ng/mL (20-250)
[2021-03-08 11:11] LABS: Procalcitonin 0.33 ng/mL
--- NOTE | 2021-03-08 12:20 | PC.NURSE ---
patient son called. tells rn that family/patient do not wish to receive remdesivir or mechanical ventilation.
[2021-03-08 12:22] VITALS: BP 127/64; PULSE 70; RESP 24; TEMP 36.8; O2SAT 90
[2021-03-08 12:30] LABS: Reflex Lactate? Lactic Acid Added
--- NOTE | 2021-03-08 13:55 | P.HPHOSP_ITS ---
History of Present Illness Date of Service: 03/08/21 Chief Complaint: myalgias 75-year-old male presented with fatigue, myalgias, decreased appetite. Patient's recently diagnosed with COVID. He patient reports that he has 4- 5 days of increasing symptoms, denies shortness of breath or fevers does report poor appetite, body aches, tiredness. Denies chest pain. In ED COVID positive, chest x-ray with bilateral opacities, hypoxic. Review of Systems Review of Systems: Constitutional: Denies fever, denies Chills Eyes: denies blurry vision ENT: denies sore throat CVS: denies chest pain Respiratory: Denies dyspnea GI: no abdominal pain : denies dysuria MSK: denies neck pain Skin: denies rash Neuro: denies specific motor weakness Psych: denies suicidal ideation Endocrine: denies heat/cold intolerance Hematologic: denies easy bleeding Allergy: denies hives PMFSH Medical History Anemia Anxiety Bacteremia Bacteremia due to Klebsiella pneumoniae Chronic bronchitis Colostomy in place COPD (chronic obstructive pulmonary disease) Family history of radiation exposure History of chemotherapy History of herpes zoster Hx of bacteremia Hx of flexible sigmoidoscopy Hx of malignant neoplasm of rectum Hx of melanoma of skin Hx: UTI (urinary tract infection) Hypertension Peptic ulcer Rectal cancer Smoker Family History Sister History of breast cancer Surgical History H/O colonoscopy History of eye surgery (~1965) History of left inguinal hernia repair History of low anterior resection of rectum History of right inguinal hernia repair (~1971) Hx of bilateral cataract extraction Hx of melanoma excision Status post reversal of ileostomy Social History Household Members: Spouse and Children Housing: House Are you a primary child care teacher to a significant other at home: No Do you presently have visiting nurse or other home services: No Alcohol intake: never Patient Tobacco Use Status: Former Tobacco user Tobacco use type: Cigarette Cigarette Packs Per Day: 0 Cigarettes Per Day: 0 Years Smoked: 60 Second Hand Smoke Exposure: Yes Use of substances other than those prescribed or required for medical reasons: No Advance Directives: Yes Advance Directives on File: Yes Advance Directives Date on File: 10/04/20 service: Yes Current occupational status: retired Meds Allergies Allergy/AdvReac Type Severity Reaction Status Date / Time No Known Allergies Allergy Verified 02/12/21 10:21 Active Medications: Current Medications Acetaminophen (Acetaminophen 325 Mg Tablet) 650 mg PO Q6H PRN PRN Reason: Pain, Mild (Pain Scale 1-3) Enoxaparin Sodium (Enoxaparin Sodium 40 Mg/0.4 Ml Syringe) 40 mg SUBCUT Q24H [facility] Pharmacy Consult (Consult Rx Perform Med Rec) 1 each MISCELLANE ONCE PRN PRN Reason: Consult order Sodium Chloride (0.9 % Sodium Chloride Flush 3 Ml Syringe) 3 ml IVFLUSH QSHIFT [facility] Home Medications Medication Instructions Recorded Confirmed Last Taken Type cholecalciferol (vitamin D3) 50 50 mcg PO DAILY 02/12/21 02/12/21 Unknown History mcg (2,000 unit) capsule loperamide 2 mg capsule (Imodium 2 mg PO Q6H PRN 03/08/21 03/08/21 03/08/21 History A-D) Physical Exam Vital Signs and Narrative: Vital Signs: Last Vital Signs Temp 98.2 F 03/08/21 12:22 Pulse 70 03/08/21 12:22 Resp 24 H 03/08/21 12:22 BP 127/64 03/08/21 12:22 Pulse Ox 90 L 03/08/21 12:22 Oxygen Flow Rate 2 03/08/21 09:51 BMI result Body Mass Index 19.5 General: no acute distress, frail, agitated HEENT: atraumatic Neck: normal to visual inspection CVS: S1, S2, RRR Resp: diminished Chest: non tender GI: soft, non tender, non distended : no CVA tenderness Skin: no rashes Extremities: no edema Neuro: Oriented X3, grossly intact Psych: cooperative Results Labs CBC and Chem 7: 03/08/21 10:26 03/08/21 10:26 Labs: Laboratory Results - last 24 hr 03/08/21 03/08/21 03/08/21 10:12 10:26 10:26 MCV 92.2 MCH 31.5 MCHC 34.2 RDW 13.7 Plt Count 104 L D MPV 9.3 L Immature Gran % (Auto) 0.3 Neut % (Auto) 80.2 H Lymph % (Auto) 10.4 L [place] % (Auto) 9.1 Eos % (Auto) 0.0 Baso % (Auto) 0.0 Lymph # (Auto) 0.4 L [place] # (Auto) 0.4 Eos # (Auto) 0.0 Baso # (Auto) 0.0 Abs Immat Gran (auto) 0.01 Absolute Neuts (auto) 3.2 Absolute Nucleated RBC 0.000 Nucleated RBC % (auto) 0.0 PT INR APTT D-Dimer High Sensitivty Anion Gap 17 Estim Creat Clear Calc 42.2 Estimated GFR 56 Random Glucose 124 H Lactic Acid Calcium 9.1 Magnesium 2.1 Ferritin 1334 H Total Bilirubin 1.6 H Direct Bilirubin 0.8 H AST 46 H D ALT 31 Alkaline Phosphatase 75 Lactate Dehydrogenase 382 H Troponin I High Sens C-Reactive Protein 10.47 H B-Natriuretic Peptide Total Protein 7.4 Albumin 4.0 Procalcitonin COVID-19 (GEENA) Positive A COVID-19 Clin Com See Note 03/08/21 03/08/21 03/08/21 10:26 10:26 10:26 MCV MCH MCHC RDW Plt Count MPV Immature Gran % (Auto) Neut % (Auto) Lymph % (Auto) [place] % (Auto) Eos % (Auto) Baso % (Auto) Lymph # (Auto) [place] # (Auto) Eos # (Auto) Baso # (Auto) Abs Immat Gran (auto) Absolute Neuts (auto) Absolute Nucleated RBC Nucleated RBC % (auto) PT 12.5 INR 1.1 APTT 24.8 D-Dimer High Sensitivty 901 Anion Gap Estim Creat Clear Calc Estimated GFR Random Glucose Lactic Acid 2.1 H* Calcium Magnesium Ferritin Total Bilirubin Direct Bilirubin AST ALT Alkaline Phosphatase Lactate Dehydrogenase Troponin I High Sens 27.2 C-Reactive Protein B-Natriuretic Peptide Total Protein Albumin Procalcitonin COVID-19 (GEENA) COVID-19 Clin Com 03/08/21 03/08/21 10:26 10:26 MCV MCH MCHC RDW Plt Count MPV Immature Gran % (Auto) Neut % (Auto) Lymph % (Auto) [place] % (Auto) Eos % (Auto) Baso % (Auto) Lymph # (Auto) [place] # (Auto) Eos # (Auto) Baso # (Auto) Abs Immat Gran (auto) Absolute Neuts (auto) Absolute Nucleated RBC Nucleated RBC % (auto) PT INR APTT D-Dimer High Sensitivty Anion Gap Estim Creat Clear Calc Estimated GFR Random Glucose Lactic Acid Calcium Magnesium Ferritin Total Bilirubin Direct Bilirubin AST ALT Alkaline Phosphatase Lactate Dehydrogenase Troponin I High Sens C-Reactive Protein B-Natriuretic Peptide 41 Total Protein Albumin Procalcitonin 0.33 COVID-19 (GEENA) COVID-19 Clin Com Imaging Radiologist's Impressions: Impressions Chest X-Ray 03/08/21 11:00 IMPRESSION: Left lower lobe retrocardiac area patchy opacity question infiltrate versus chronic atelectasis. Diffuse increased interstitial changes throughout both lungs likely chronic interstitial lung disease. There is underlying emphysema Assessment and Plan (1) COVID-19: Status: Acute 75M presented with fatigue found to have covid Acute hypoxic respiratory failure secondary to COVID pneumonia complicated by acute decompensation of COPD Dexamethasone Wean O2 as tolerated Patient high risk due to age, COPD, unvaccinated status, elevated inflammatory markers monitor inflammatory markers Hypertension Continue atenolol DVT prophylaxis Lovenox DNR/DNI Quality Stroke Does the patient have a stroke diagnosis?: No VTE Prior VTE?: No VTE Risk Level:: Medical - moderate - high VTE Device Contraindication: Treatment Not Indicated VTE Drug Contraindication: N/A - Med Ordered
--- NOTE | 2021-03-08 13:57 | PHA.MEDREC ---
Pharmacy Consult ? Medication Reconciliation Pharmacy has completed the medication reconciliation. Pt states that he doesn't like taking medications so only takes things when necessary, aside from his daily atenolol that he is adherent to. Susan Bloom, [facility]
[2021-03-08 14:50] VITALS: BP 125/68; PULSE 65; RESP 26; TEMP 37; O2SAT 94
[2021-03-08] MEDS: Enoxaparin Sodium 40 MG/0.4 ML SYRINGE SUBCUT (15:03)
[2021-03-08 15:06] LABS: Appearance Urine CLEAR; Color Urine YELLOW; Glucose Urine UA NEG (NEG); Leukocyte Esterase Urine NEG (NEG); Nitrite Urine NEG (NEG); Specific Gravity - Urine 1.025 (1.005-1.025); UACC Culture Trigger NO; Urine Blood TRACE (NEG); Urine Ketones 5 MG/DL (NEG); Urine Protein 2+ MG/DL (NEG-TRACE)
[2021-03-08 15:16] LABS: Bacteria Urine TRACE /LPF; RBC Urine 0-2 /HPF (0); Squamous Epithelial Cell Urine TRACE /LPF; WBC Urine 0 /HPF (0-4)
--- NOTE | 2021-03-08 19:26 | PC.NURSE ---
Report called to inpt RN. Pt to be transferred upstairs pending clean room
[2021-03-08 20:00] VITALS: BP 142/63; PULSE 86; RESP 18; TEMP 36.6; O2SAT 94
--- NOTE | 2021-03-08 20:15 | PC.NURSE ---
Pt to floor in stable condition w/ all belongings
[2021-03-08 21:07] VITALS: BMI 19.1
[2021-03-09] VITALS (7 sets, daily range): BP systolic 110–156; BP diastolic 57–72; PULSE 55–88; RESP 18–22; TEMP 36.4–37.1; O2SAT 90–93; BMI 19.1
[2021-03-09 06:42] LABS: Hematocrit 41.9 % (42.0-52.0); Hemoglobin 14.3 g/dl (14.0-18.0); Mean Corpuscular HGB Conc 34.1 g/dl (31.0-36.0); Mean Corpuscular Hemoglobin 31.6 pg (27.0-33.0); Mean Corpuscular Volume 92.5 fL (80.0-98.0); Mean Platelet Volume 9.6 fL (9.4-12.4); Platelet Count 114 X10*3/uL (160-400); Red Blood Count 4.53 X10*6/uL (4.60-5.80); Red Cell Distribution Width 13.6 % (11.0-16.0); White Blood Count 2.7 X10*3/uL (4.8-10.8)
[2021-03-09 07:14] LABS: Anion Gap 15 (12-20); Blood Urea Nitrogen 32 mg/dL (9-16); Calcium 8.5 mg/dL (8.4-10.2); Carbon Dioxide 25 mmol/L (22-29); Chloride 103 mmol/L (96-108); Creatinine Clr Calc Pharmacy 52.6; Estimated Glomerular Filt Rate > 60; Glucose Fasting 133 mg/dL (60-99); Potassium 3.9 mmol/L (3.3-5.1); Sodium 139 mmol/L (135-145)
--- NOTE | 2021-03-09 10:16 | P.PNIM_ITS ---
Subjective Subjective Date of Service: 03/09/21 Interval History: cc: myalgias interval history: karen did not want to discuss Cardiovascular Cardiovascular: Reports no additional cardiovascular complaints Gastrointestinal Gastrointestinal: Reports no additional gastrointestinal complaints Physical Exam Vital Signs: Vital Signs: Last Vital Signs Temp 98.0 F 03/09/21 08:00 Pulse 63 03/09/21 08:00 Resp 21 H 03/09/21 08:00 BP 132/70 03/09/21 08:00 Pulse Ox 92 03/09/21 08:00 Oxygen Flow Rate 2 03/08/21 09:51 BMI result Body Mass Index 19.1 General: AO X 3, no acute distress Resp: diminished no accessory muscles used CVS: S1,S2,RRR GI: soft, non tender, non distended Neuro: motor grossly intact, alert Psych: agitated affect, paranoid, impaired insight Objective Data Active Medications Acetaminophen (Acetaminophen 325 Mg Tablet) 650 mg PO Q6H PRN PRN Reason: Pain, Mild (Pain Scale 1-3) Atenolol (Atenolol 25 Mg Tablet) 25 mg PO DAILY [facility]; Protocol Dexamethasone Sodium Phosphate (Dexamethasone Sod Phosphate 4 Mg/Ml Vial) 6 mg IVPUSH DAILY [facility] Enoxaparin Sodium (Enoxaparin Sodium 40 Mg/0.4 Ml Syringe) 40 mg SUBCUT Q24H [facility] Last Admin: 03/08/21 15:03 Dose: 40 mg Documented by: ALMA Pharmacy Consult (Consult Rx Perform Med Rec) 1 each MISCELLANE ONCE PRN PRN Reason: Consult order Sodium Chloride (0.9 % Sodium Chloride Flush 3 Ml Syringe) 3 ml IVFLUSH QSHIFT [facility] Last Admin: 03/09/21 01:37 Dose: Not Given Documented by: LINDA Non-Admin Reason: Previously Administered Vitamin D (Cholecalciferol (Vitamin D3) 25 Mcg Tablet) 50 mcg PO DAILY [facility] Labs CBC & Chem 7: 03/09/21 06:17 03/09/21 06:17 Labs: Laboratory Results - last 24 hr 03/08/21 03/08/21 03/08/21 10:12 10:26 10:26 MCV 92.2 MCH 31.5 MCHC 34.2 RDW 13.7 Plt Count 104 L D MPV 9.3 L Immature Gran % (Auto) 0.3 Neut % (Auto) 80.2 H Lymph % (Auto) 10.4 L [place] % (Auto) 9.1 Eos % (Auto) 0.0 Baso % (Auto) 0.0 Lymph # (Auto) 0.4 L [place] # (Auto) 0.4 Eos # (Auto) 0.0 Baso # (Auto) 0.0 Abs Immat Gran (auto) 0.01 Absolute Neuts (auto) 3.2 Absolute Nucleated RBC 0.000 Nucleated RBC % (auto) 0.0 PT INR APTT D-Dimer High Sensitivty Anion Gap 17 Estim Creat Clear Calc 42.2 Estimated GFR 56 Random Glucose 124 H Fasting Glucose Lactic Acid Lactic Acid F/U @ 2Hr Calcium 9.1 Magnesium 2.1 Ferritin 1334 H Total Bilirubin 1.6 H Direct Bilirubin 0.8 H AST 46 H D ALT 31 Alkaline Phosphatase 75 Lactate Dehydrogenase 382 H Troponin I High Sens C-Reactive Protein 10.47 H B-Natriuretic Peptide Total Protein 7.4 Albumin 4.0 Procalcitonin Urine Color Urine Appearance Urine pH Ur Specific [place] Urine Protein Urine Glucose (UA) Urine Ketones Urine Blood Urine Nitrite Ur Leukocyte Esterase Urine RBC Urine WBC Ur Squamous Epith Cells Urine Bacteria COVID-19 (GEENA) Positive A COVID-19 Clin Com See Note 03/08/21 03/08/21 03/08/21 10:26 10:26 10:26 MCV MCH MCHC RDW Plt Count MPV Immature Gran % (Auto) Neut % (Auto) Lymph % (Auto) [place] % (Auto) Eos % (Auto) Baso % (Auto) Lymph # (Auto) [place] # (Auto) Eos # (Auto) Baso # (Auto) Abs Immat Gran (auto) Absolute Neuts (auto) Absolute Nucleated RBC Nucleated RBC % (auto) PT 12.5 INR 1.1 APTT 24.8 D-Dimer High Sensitivty 901 Anion Gap Estim Creat Clear Calc Estimated GFR Random Glucose Fasting Glucose Lactic Acid 2.1 H* Lactic Acid F/U @ 2Hr Calcium Magnesium Ferritin Total Bilirubin Direct Bilirubin AST ALT Alkaline Phosphatase Lactate Dehydrogenase Troponin I High Sens 27.2 C-Reactive Protein B-Natriuretic Peptide Total Protein Albumin Procalcitonin Urine Color Urine Appearance Urine pH Ur Specific [place] Urine Protein Urine Glucose (UA) Urine Ketones Urine Blood Urine Nitrite Ur Leukocyte Esterase Urine RBC Urine WBC Ur Squamous Epith Cells Urine Bacteria COVID-19 (GEENA) COVID-19 [employer] Com 03/08/21 03/08/21 03/08/21 10:26 10:26 14:33 MCV MCH MCHC RDW Plt Count MPV Immature Gran % (Auto) Neut % (Auto) Lymph % (Auto) [place] % (Auto) Eos % (Auto) Baso % (Auto) Lymph # (Auto) [place] # (Auto) Eos # (Auto) Baso # (Auto) Abs Immat Gran (auto) Absolute Neuts (auto) Absolute Nucleated RBC Nucleated RBC % (auto) PT INR APTT D-Dimer High Sensitivty Anion Gap Estim Creat Clear Calc Estimated GFR Random Glucose Fasting Glucose Lactic Acid Lactic Acid F/U @ 2Hr 1.0 Calcium Magnesium Ferritin Total Bilirubin Direct Bilirubin AST ALT Alkaline Phosphatase Lactate Dehydrogenase Troponin I High Sens C-Reactive Protein B-Natriuretic Peptide 41 Total Protein Albumin Procalcitonin 0.33 Urine Color Urine Appearance Urine pH Ur Specific [place] Urine Protein Urine Glucose (UA) Urine Ketones Urine Blood Urine Nitrite Ur Leukocyte Esterase Urine RBC Urine WBC Ur Squamous Epith Cells Urine Bacteria COVID-19 (GEENA) COVID-19 [employer] Com 03/08/21 03/09/21 03/09/21 14:58 06:17 06:17 MCV 92.5 MCH 31.6 MCHC 34.1 RDW 13.6 Plt Count 114 L MPV 9.6 Immature Gran % (Auto) Neut % (Auto) Lymph % (Auto) [place] % (Auto) Eos % (Auto) Baso % (Auto) Lymph # (Auto) [place] # (Auto) Eos # (Auto) Baso # (Auto) Abs Immat Gran (auto) Absolute Neuts (auto) Absolute Nucleated RBC 0.000 Nucleated RBC % (auto) 0.0 PT INR APTT D-Dimer High Sensitivty Anion Gap 15 Estim Creat Clear Calc 52.6 Estimated GFR > 60 Random Glucose Fasting Glucose 133 H Lactic Acid Lactic Acid F/U @ 2Hr Calcium 8.5 D Magnesium Ferritin Total Bilirubin Direct Bilirubin AST ALT Alkaline Phosphatase Lactate Dehydrogenase Troponin I High Sens C-Reactive Protein B-Natriuretic Peptide Total Protein Albumin Procalcitonin Urine Color YELLOW Urine Appearance CLEAR Urine pH 6.0 Ur Specific [place] 1.025 Urine Protein 2+ H Urine Glucose (UA) NEG Urine Ketones 5 Urine Blood TRACE Urine Nitrite NEG Ur Leukocyte Esterase NEG Urine RBC 0-2 Urine WBC 0 Ur Squamous Epith Cells TRACE Urine Bacteria TRACE COVID-19 (GEENA) COVID-19 Clin Com Assessment and Plan (1) COVID-19: Status: Acute Assessment and Plan: ?? 75M presented with fatigue found to have covid Acute hypoxic respiratory failure secondary to COVID pneumonia complicated by acute decompensation of COPD Dexamethasone day 2 Wean O2 as tolerated monitor inflammatory markers Hypertension Continue atenolol DVT prophylaxis Lovenox DNR/DNI Quality Stroke Does the patient have a stroke diagnosis?: No VTE Prior VTE?: No VTE Risk Level:: Medical - moderate - high VTE Device Contraindication: Treatment Not Indicated VTE Drug Contraindication: N/A - Med Ordered
[2021-03-09] MEDS: dexAMETHasone sod phosphate 4 MG/ML VIAL 6 MG IVPUSH (10:24)
[2021-03-09] MEDS: atenoloL 25 MG TABLET PO (10:25)
[2021-03-09] MEDS: Cholecalciferol (Vitamin D3) 25 MCG TABLET 50 MCG PO (10:25)
[2021-03-09] MEDS: 0.9 % Sodium Chloride Flush 3 ML SYRINGE IVFLUSH ×2 (10:25→17:33)
[2021-03-09] MEDS: Enoxaparin Sodium 40 MG/0.4 ML SYRINGE SUBCUT (17:33)
[2021-03-10 03:25] VITALS: BP 110/54; PULSE 55; RESP 20; TEMP 36.2; O2SAT 92
[2021-03-10 07:07] VITALS: BP 125/67; PULSE 50; RESP 19; TEMP 36.4; O2SAT 95
[2021-03-10 08:21] LABS: Hematocrit 42.8 % (42.0-52.0); Hemoglobin 14.5 g/dl (14.0-18.0); Mean Corpuscular HGB Conc 33.9 g/dl (31.0-36.0); Mean Corpuscular Hemoglobin 31.1 pg (27.0-33.0); Mean Corpuscular Volume 91.8 fL (80.0-98.0); Red Blood Count 4.66 X10*6/uL (4.60-5.80); Red Cell Distribution Width 13.7 % (11.0-16.0); White Blood Count 5.4 X10*3/uL (4.8-10.8)
[2021-03-10 08:38] LABS: D Dimer High Sensitivity 901 NG/ML
[2021-03-10 08:40] LABS: Platelet Count 167 X10*3/uL (160-400)
[2021-03-10 08:44] LABS: Lactate Dehydrogenase 351 U/L (118-273)
[2021-03-10 08:47] LABS: Anion Gap 14 (12-20); Blood Urea Nitrogen 39 mg/dL (9-16); C Reactive Protein 4.11 mg/dL (< or = 0.50); Calcium 9.1 mg/dL (8.4-10.2); Carbon Dioxide 27 mmol/L (22-29); Chloride 103 mmol/L (96-108); Creatinine Clr Calc Pharmacy 54.8; Estimated Glomerular Filt Rate > 60; Glucose Fasting 130 mg/dL (60-99); Potassium 3.9 mmol/L (3.3-5.1); Sodium 140 mmol/L (135-145)
--- NOTE | 2021-03-10 08:52 | MHC.CM.PN ---
Patient is Covid (+) ; CM spoke with /HCP/Charline @ [phone]. Patient lives in a house with his and adult Son and used no DME nor services [employer]. The goal for dc is home no services VS new [facility] (? new home O2)and CM has initiated and will follow for dc planning. IMM addressed with Charline and the original will be mailed certified letter to her and a copy has been placed on the chart. PCP is Dr. Encinas.
[2021-03-10] MEDS: Cholecalciferol (Vitamin D3) 25 MCG TABLET 50 MCG PO (09:50)
[2021-03-10] MEDS: dexAMETHasone sod phosphate 4 MG/ML VIAL 6 MG IVPUSH (09:51)
[2021-03-10] MEDS: 0.9 % Sodium Chloride Flush 3 ML SYRINGE IVFLUSH ×3 (09:51→15:28)
--- NOTE | 2021-03-10 10:15 | HO.PM.IMPN ---
Subjective Subjective Date of Service: 03/10/21 Interval History: cc: myalgias interval history: feeling much better Cardiovascular Cardiovascular: Reports no additional cardiovascular complaints Respiratory Respiratory: Reports no additional respiratory complaints Physical Exam Vital Signs: Vital Signs: Last Vital Signs Temp 97.5 F 03/10/21 07:07 Pulse 50 03/10/21 07:07 Resp 19 03/10/21 07:07 BP 125/67 03/10/21 07:07 Pulse Ox 95 03/10/21 07:07 Oxygen Flow Rate 2 03/08/21 09:51 BMI result Body Mass Index 19.1 General: AO X 3, no acute distress Resp:? diminished no accessory muscles used CVS: S1,S2,RRR GI: soft, non tender, non distended Neuro:? motor grossly intact, alert Psych: agitated affect, paranoid, impaired insight? Objective Data Active Medications Acetaminophen (Acetaminophen 325 Mg Tablet) 650 mg PO Q6H PRN PRN Reason: Pain, Mild (Pain Scale 1-3) Atenolol (Atenolol 25 Mg Tablet) 25 mg PO DAILY [facility]; Protocol Last Admin: 03/10/21 09:51 Dose: Not Given Documented by: SRINIVASA Non-Admin Reason: Decreased Heart Rate Dexamethasone Sodium Phosphate (Dexamethasone Sod Phosphate 4 Mg/Ml Vial) 6 mg IVPUSH DAILY [facility] Last Admin: 03/10/21 09:51 Dose: 6 mg Documented by: SRINIVASA Enoxaparin Sodium (Enoxaparin Sodium 40 Mg/0.4 Ml Syringe) 40 mg SUBCUT Q24H [facility] Last Admin: 03/09/21 17:33 Dose: 40 mg Documented by: MARY Pharmacy Consult (Consult Rx Perform Med Rec) 1 each MISCELLANE ONCE PRN PRN Reason: Consult order Sodium Chloride (0.9 % Sodium Chloride Flush 3 Ml Syringe) 3 ml IVFLUSH QSHIFT [facility] Last Admin: 03/10/21 09:51 Dose: 3 ml Documented by: SRINIVASA Vitamin D (Cholecalciferol (Vitamin D3) 25 Mcg Tablet) 50 mcg PO DAILY [facility] Last Admin: 03/10/21 09:50 Dose: 50 mcg Documented by: SRINIVASA Labs CBC & Chem 7: 03/10/21 07:48 03/10/21 07:48 Labs: Laboratory Results - last 24 hr 03/10/21 03/10/21 03/10/21 07:48 07:48 07:48 MCV 91.8 MCH 31.1 MCHC 33.9 RDW 13.7 Plt Count 167 D MPV 10.0 Absolute Nucleated RBC 0.000 Nucleated RBC % (auto) 0.0 D-Dimer High Sensitivty 901 Anion Gap 14 Estim Creat Clear Calc 54.8 Estimated GFR > 60 Fasting Glucose 130 H Calcium 9.1 D Lactate Dehydrogenase 351 H C-Reactive Protein 4.11 H Microbiology Microbiology Results: Microbiology 03/08/21 10:36 Blood Culture - Preliminary Blood - Venous No growth after 24 hours. 03/08/21 10:35 Blood Culture - Preliminary Blood - Venous No growth after 24 hours. Assessment and Plan (1) COVID-19: Status: Acute Assessment and Plan: ?? 75M presented with fatigue found to have covid Acute hypoxic respiratory failure secondary to COVID pneumonia complicated by acute decompensation of COPD Dexamethasone day 3 Wean O2 as tolerated monitor inflammatory markers - decreasing may have component of chronic hypoxic respiratory failure due to copd, if still feeling well in a couple days, but unable to wean, will plan for home O2 eval Hypertension Continue atenolol DVT prophylaxis Lovenox DNR/DNI Quality Stroke Does the patient have a stroke diagnosis?: No VTE Prior VTE?: No VTE Risk Level:: Medical - moderate - high VTE Device Contraindication: Treatment Not Indicated VTE Drug Contraindication: N/A - Med Ordered
[2021-03-10 11:16] VITALS: BP 128/69; PULSE 58; RESP 18; TEMP 36.6; O2SAT 95
[2021-03-10 15:13] VITALS: BP 108/64; PULSE 79; RESP 20; TEMP 36.8; O2SAT 96
[2021-03-10] MEDS: Enoxaparin Sodium 40 MG/0.4 ML SYRINGE SUBCUT (15:28)
[2021-03-10 19:20] VITALS: BP 125/71; PULSE 66; RESP 20; TEMP 36.1; O2SAT 93
[2021-03-10 23:19] VITALS: BP 123/65; PULSE 78; RESP 20; TEMP 36.7; O2SAT 95
[2021-03-11 02:48] VITALS: BP 155/61; PULSE 54; RESP 20; TEMP 36.4; O2SAT 93
[2021-03-11 08:00] VITALS: BP 164/69; PULSE 58; RESP 16; TEMP 37; O2SAT 94
[2021-03-11 08:55] VITALS: PULSE 60
[2021-03-11] MEDS: 0.9 % Sodium Chloride Flush 3 ML SYRINGE IVFLUSH ×3 (08:55→15:19)
[2021-03-11] MEDS: atenoloL 25 MG TABLET PO (08:55)
[2021-03-11] MEDS: Cholecalciferol (Vitamin D3) 25 MCG TABLET 50 MCG PO (08:55)
[2021-03-11] MEDS: dexAMETHasone sod phosphate 4 MG/ML VIAL 6 MG IVPUSH (08:56)
--- NOTE | 2021-03-11 09:50 | P.PNIM_ITS ---
Subjective Subjective Date of Service: 03/11/21 Interval History: cc: myalgias interval history: feeling much better Cardiovascular Cardiovascular: Reports no additional cardiovascular complaints Gastrointestinal Gastrointestinal: Reports no additional gastrointestinal complaints Physical Exam Vital Signs: Vital Signs: Last Vital Signs Temp 98.6 F 03/11/21 08:00 Pulse 60 03/11/21 08:55 Resp 16 03/11/21 08:00 BP 164/69 H 03/11/21 08:00 Pulse Ox 94 03/11/21 08:00 Oxygen Flow Rate 2 03/08/21 09:51 BMI result Body Mass Index 19.1 General: AO X 3, no acute distress Resp:? diminished no accessory muscles used CVS: S1,S2,RRR GI: soft, non tender, non distended Neuro:? motor grossly intact, alert Psych: agitated affect, paranoid, impaired insight? Objective Data Active Medications Acetaminophen (Acetaminophen 325 Mg Tablet) 650 mg PO Q6H PRN PRN Reason: Pain, Mild (Pain Scale 1-3) Atenolol (Atenolol 25 Mg Tablet) 25 mg PO DAILY [facility]; Protocol Last Admin: 03/11/21 08:55 Dose: 25 mg Documented by: SRINIVASA Dexamethasone Sodium Phosphate (Dexamethasone Sod Phosphate 4 Mg/Ml Vial) 6 mg IVPUSH DAILY [facility] Last Admin: 03/11/21 08:56 Dose: 6 mg Documented by: SRINIVASA Enoxaparin Sodium (Enoxaparin Sodium 40 Mg/0.4 Ml Syringe) 40 mg SUBCUT Q24H [facility] Last Admin: 03/10/21 15:28 Dose: 40 mg Documented by: SRINIVASA Pharmacy Consult (Consult Rx Perform Med Rec) 1 each MISCELLANE ONCE PRN PRN Reason: Consult order Sodium Chloride (0.9 % Sodium Chloride Flush 3 Ml Syringe) 3 ml IVFLUSH QSHIFT [facility] Last Admin: 03/11/21 08:55 Dose: 3 ml Documented by: SRINIVASA Vitamin D (Cholecalciferol (Vitamin D3) 25 Mcg Tablet) 50 mcg PO DAILY [facility] Last Admin: 03/11/21 08:55 Dose: 50 mcg Documented by: SRINIVASA Labs CBC & Chem 7: 03/10/21 07:48 03/10/21 07:48 Microbiology Microbiology Results: Microbiology 03/08/21 10:36 Blood Culture - Preliminary Blood - Venous No growth after 48 hours. 03/08/21 10:35 Blood Culture - Preliminary Blood - Venous No growth after 48 hours. Assessment and Plan (1) COVID-19: Status: Acute Assessment and Plan: ?? 75M presented with fatigue found to have covid Acute hypoxic respiratory failure secondary to COVID pneumonia complicated by acute decompensation of COPD Dexamethasone day 5 Wean O2 as tolerated monitor inflammatory markers - decreasing may have component of chronic hypoxic respiratory failure due to copd, if still feeling well 03/12, but unable to wean, will plan for home O2 eval Hypertension Continue atenolol DVT prophylaxis Lovenox DNR/DNI Quality Stroke Does the patient have a stroke diagnosis?: No VTE Prior VTE?: No VTE Risk Level:: Medical - moderate - high VTE Device Contraindication: Treatment Not Indicated VTE Drug Contraindication: N/A - Med Ordered
[2021-03-11 11:21] VITALS: BP 147/66; PULSE 52; RESP 16; TEMP 36.6; O2SAT 93
[2021-03-11 15:07] VITALS: BP 138/72; PULSE 55; RESP 21; TEMP 36.3; O2SAT 94
[2021-03-11] MEDS: Enoxaparin Sodium 40 MG/0.4 ML SYRINGE SUBCUT (15:19)
[2021-03-11 19:03] VITALS: BP 148/79; PULSE 56; RESP 20; TEMP 36.4; O2SAT 94
[2021-03-12] VITALS: BP 153/70; PULSE 52; RESP 17; TEMP 36.6; O2SAT 97
[2021-03-12] MEDS: 0.9 % Sodium Chloride Flush 3 ML SYRINGE IVFLUSH ×2 (00:15→08:59)
[2021-03-12 04:00] VITALS: BP 141/71; PULSE 53; RESP 17; TEMP 36.7; O2SAT 96
[2021-03-12 06:52] LABS: Mean Corpuscular HGB Conc 34.1 g/dl (31.0-36.0); Mean Corpuscular Hemoglobin 31.5 pg (27.0-33.0); Mean Corpuscular Volume 92.3 fL (80.0-98.0); Mean Platelet Volume 10.1 fL (9.4-12.4); Platelet Count 212 X10*3/uL (160-400); Red Blood Count 4.44 X10*6/uL (4.60-5.80); Red Cell Distribution Width 13.5 % (11.0-16.0); White Blood Count 8.6 X10*3/uL (4.8-10.8)
[2021-03-12 07:08] LABS: Anion Gap 11 (12-20); Blood Urea Nitrogen 29 mg/dL (9-16); Calcium 8.9 mg/dL (8.4-10.2); Carbon Dioxide 27 mmol/L (22-29); Chloride 106 mmol/L (96-108); Creatinine Clr Calc Pharmacy 64.3; Estimated Glomerular Filt Rate > 60; Glucose Fasting 101 mg/dL (60-99); Lactate Dehydrogenase 254 U/L (118-273); Potassium 3.8 mmol/L (3.3-5.1); Sodium 140 mmol/L (135-145)
[2021-03-12 07:52] VITALS: BP 160/84; PULSE 54; RESP 20; TEMP 36.8; O2SAT 93
[2021-03-12] MEDS: atenoloL 25 MG TABLET PO (08:59)
[2021-03-12] MEDS: dexAMETHasone sod phosphate 4 MG/ML VIAL 6 MG IVPUSH (08:59)
[2021-03-12] MEDS: Cholecalciferol (Vitamin D3) 25 MCG TABLET 50 MCG PO (08:59)
[2021-03-12 11:26] VITALS: BP 108/67; PULSE 54; RESP 20; TEMP 36.6; O2SAT 97
--- NOTE | 2021-03-12 11:37 | MHC.CM.PN ---
Per ROUNDS discussion, Patient is not yet medically cleared for dc (IV [facility]ad[facility], 4LO2); Home is the goal for dc and CM will follow for possible need to adjust the plan.
--- NOTE | 2021-03-12 13:27 | PM.DS ---
DS: Providers Provider Date of Service: 03/12/21 Date of admission: 03/08/21 13:54 Primary care physician: Felix Tejeda MD DS: Diagnosis Discharge Diagnosis (1) COVID-19: Status: Acute DS: Summary Hospital Course Hospital Course: patient was admitted for acute hypoxic respiratory failure secondary to COVID pneumonia complicated by acute decompensation of COPD. He was treated with IV Decadron and symptoms significantly improved. He is now stating that he feels at his baseline. Inflammatory markers decreased. but was unable to be weaned off o2, therefore, will be discharged home on 4L home oxygen. He will be discharged home on 5 more days of prednisone. Time Spent with Patient Time attestation: Total time spent providing and/or coordinating discharge services: Discharge coordination time: Greater than 30 minutes Quality: Stroke Does the patient have a stroke diagnosis?: No Physical Exam Vital Signs: Vital Signs: Last Vital Signs Temp 97.9 F 03/12/21 11:26 Pulse 54 03/12/21 11:26 Resp 20 03/12/21 11:26 BP 108/67 03/12/21 11:26 Pulse Ox 97 03/12/21 11:26 Oxygen Flow Rate 2 03/08/21 09:51 BMI result Body Mass Index 19.1 General: AO X 3, no acute distress Resp: CTA bilateral, no accessory muscles used CVS: S1,S2,RRR GI: soft, non tender, non distended Neuro: motor grossly intact, alert Psych: appropriate affect, appropriate insight DS: Data Data Completed and Pending Completed studies during hospitalization [Text1]: Procedures Bypass Ileum to Cutaneous, Open Approach (06/13/20) Excision of Ileum, Open Approach (09/12/20) Excision of Sigmoid Colon, Open Approach (06/13/20) Labs on day of discharge: Laboratory Results - last 24 hr 03/12/21 03/12/21 06:17 06:17 WBC 8.6 RBC 4.44 L Hgb 14.0 Hct 41.0 L MCV 92.3 MCH 31.5 MCHC 34.1 RDW 13.5 Plt Count 212 D MPV 10.1 Absolute Nucleated RBC 0.000 Nucleated RBC % (auto) 0.0 Sodium 140 Potassium 3.8 Chloride 106 Carbon Dioxide 27 Anion Gap 11 L BUN 29 H Creatinine 0.81 Estim Creat Clear Calc 64.3 Estimated GFR > 60 Fasting Glucose 101 H Calcium 8.9 Lactate Dehydrogenase 254 C-Reactive Protein 1.10 H Preliminary micro results at discharge 03/08/21 10:36 Blood Culture - Preliminary Blood - Venous No growth after 48 hours. 03/08/21 10:35 Blood Culture - Preliminary Blood - Venous No growth after 48 hours. Discharge Plan Discharge Patient Disposition: Home, Self-Care Discharge Diagnosis: covid Referrals: Felix Tejeda MD [Primary Care Provider] - 1 Week Discharge Medications: New prednisone 20 mg tablet 40 mg PO DAILY Qty: 10 RF: 0 Continued loperamide [Imodium A-D] 2 mg Capsule 2 mg PO Q6H PRN (Reason: Diarrhea) RF: 0 cholecalciferol (vitamin D3) 50 mcg (2,000 unit) capsule 50 mcg PO DAILY RF: 0 atenolol 25 mg tablet 25 mg PO DAILY Qty: 90 RF: 2 Discharge Orders: Discharge Order (Routine); Ordered 03/12/21 Ordered By: Major Mehta Diet: advance to usual diet Activity on Discharge: As tolerated Stand Alone Forms: Patient Portal Discharge page Care Plan Goals: recovery Health Concerns: covid Plan of Treatment: predniosne, isolation until 10 days after symptom onset Assessment: see above
[2021-03-12 13:29] VITALS: PULSE 54; PULSE 56; PULSE 58; PULSE 65; PULSE 88; O2SAT 88; O2SAT 90
--- NOTE | 2021-03-12 15:35 | MHC.CLN ---
F/U APPEARS TO BE EATING WELL, WITH MOST MEALS 50-100%. DIET=2 GRAM SODIUM. NO NEW NUTRITION INTERVENTIONS.
--- NOTE | 2021-03-12 15:50 | MHC.CM.PN ---
Patient has been medically cleared for dc to home today, self care. Last IMM addressed on 03/10/21.
--- NOTE | 2021-03-13 13:52 | MHC.CM.ED ---
Received call from CM infertility medical assistant: pts spouse called to state pt has run out of the portable O2 he was sent home with and has not had any delivered. Spouse states pt is 'sleepy' but rousable. He is also very cantankerous and is refusing to return to ED for care which she said is his baseline. Call placed to [facility]: they confirmed Kristy had the order for O2 and will deliver dione. Call placed to pt's to inform her of O2 delivery. Message sent to NA to confirm RN visit start up per original referral. Awaiting response.
== END 2021-03-12 13:35 | disposition home or self-care (01) | DRG 177 ==
LOC: HO.ED 13:15 → HO.EDOVER 14:09 → HO.IMC 18:39
PROVIDERS: Physician Assistant; Admitting Provider Internal Medicine; Emergency Provider Emergency Medicine; PCP Internal Medicine Medical Oncology; Visit Provider Internal Medicine
DX: U07.1 COVID-19 (principal); J12.82 Pneumonia due to coronavirus disease 2019; J96.01 Acute respiratory failure with hypoxia; J44.0 Chronic obstructive pulmonary disease with (acute) lower respiratory infection; J44.1 Chronic obstructive pulmonary disease with (acute) exacerbation; I10 Essential (primary) hypertension; Z87.891 Personal history of nicotine dependence; Z79.899 Other long term (current) drug therapy; Z66 Do not resuscitate
CPT/HCPCS: 36415; 71045; 80048; 80076; 81001; 82728; 83605; 83615; 83735; 83880; 84145; 84484; 85025; 85027; 85379; 85610; 85730; 86140; 87040; 87635; 93005; 99284; J1100; J1650

== ENCOUNTER 2021-03-23 10:07 | Outpatient (REF) | payer MEDICARE, SELFPAY ==
--- NOTE | ~2021-03-23 | XR_ITS ---
EXAMINATION: XR CHEST CLINICAL INFORMATION: Personal history of Covid COMPARISON: 03/08/2021 TECHNIQUE: 2 views of the chest were obtained. FINDINGS: Once again interstitial coarse pattern is noted. Left lung is felt to be unchanged. There is some increased density at the right base which may be superimposed acute infiltrate. The cardiac silhouette is comparable. XR/XR chest 2V IMPRESSION: Stable markings when compared to most recent previous however there is some mild increase at the right base which may be acute infiltrate superimposed on chronic disease
== END 2021-03-23 10:08 | disposition home or self-care (01) ==
LOC: HO.HMGCX 10:07
PROVIDERS: PCP Internal Medicine; Visit Provider Internal Medicine
DX: R06.02 Shortness of breath (principal); R93.89 Abnormal findings on diagnostic imaging of other specified body structures; J96.10 Chronic respiratory failure, unspecified whether with hypoxia or hypercapnia; Z86.16 Personal history of COVID-19
CPT/HCPCS: 71046

== ENCOUNTER → 2021-03-28 09:15 | Outpatient (BNVA) | payer MEDICARE, SELFPAY | PROVIDERS: PCP Internal Medicine; Referring Provider Internal Medicine; Visit Provider Surgery | DX: Z48.815 Encounter for surgical aftercare following surgery on the digestive system (principal); Z85.048 Personal history of other malignant neoplasm of rectum, rectosigmoid junction, and anus | CPT/HCPCS: 99212 ==

== ENCOUNTER → 2021-04-09 13:42 | Outpatient (BNVA) | payer MEDICARE, SELFPAY | PROVIDERS: PCP Internal Medicine; Visit Provider Hospitalist | DX: J43.2 Centrilobular emphysema (principal); J96.11 Chronic respiratory failure with hypoxia; R53.81 Other malaise; R93.89 Abnormal findings on diagnostic imaging of other specified body structures; Z86.16 Personal history of COVID-19 | CPT/HCPCS: 94618; 99202 ==

== ENCOUNTER 2021-07-19 07:51 | Outpatient (REF) | payer MEDICARE, SELFPAY ==
[2021-07-19 11:07] LABS: MANUAL DIFF FLAG NO
[2021-07-19 11:18] LABS: Basophils Absolute Auto 0.1 X10*3/uL (0.0-0.2); Basophils Percent Auto 0.6 % (0-2); Eosinophils Absolute Auto 0.3 X10*3/uL (0.0-0.4); Eosinophils Percent Auto 3.9 % (0-4); Hematocrit 47.4 % (42.0-52.0); Hemoglobin 15.4 g/dl (14.0-18.0); Imm Gran Abs Auto 0.03 X10*3/uL (0.00-0.03); Imm Gran Pct Auto 0.3 % (0.0-0.4); Lymphocytes Absolute Auto 1.2 X10*3/uL (1.2-4.9); Mean Corpuscular HGB Conc 32.5 g/dl (31.0-36.0); Mean Corpuscular Hemoglobin 30.8 pg (27.0-33.0); Mean Corpuscular Volume 94.8 fL (80.0-98.0); Mean Platelet Volume 9.9 fL (9.4-12.4); Monocytes Absolute Auto 0.7 X10*3/uL (0.1-1.2); Monocytes Percent Auto 8.1 % (2-11); Neutrophils Absolute Auto 6.4 x10*3/uL (2.0-8.3); Neutrophils Percent Auto 73.1 % (45-73); Platelet Count 182 X10*3/uL (160-400); Red Cell Distribution Width 13.8 % (11.0-16.0); White Blood Count 8.8 X10*3/uL (4.8-10.8)
[2021-07-19 11:35] LABS: Alanine Aminotransferase 10 U/L (0-40); Albumin Level 4.1 g/dL (3.5-5.0); Alkaline Phosphatase 148 U/L (39-117); Anion Gap 14 (12-20); Aspartate Amino Transferase 17 U/L (5-37); Bilirubin Total 0.7 mg/dL (0.0-1.0); Blood Urea Nitrogen 20 mg/dL (9-16); Calcium 9.4 mg/dL (8.4-10.2); Carbon Dioxide 26 mmol/L (22-29); Chloride 104 mmol/L (96-108); Cholesterol 198 mg/dL; Estimated Glomerular Filt Rate > 60; Glucose Fasting 95 mg/dL (60-99); HDL Cholesterol 43 mg/dL; LDL Cholesterol Calculated 129 mg/dl; Potassium 3.7 mmol/L (3.3-5.1); Sodium 140 mmol/L (135-145); Total Protein 7.4 g/dL (6.5-8.0); Triglycerides 133 mg/dL
[2021-07-19 11:57] LABS: Thyroid Stimulating Hormone 1.36 uIU/mL (0.32-4.0)
== END 2021-07-19 07:52 | disposition home or self-care (01) ==
LOC: HO.HMGCLDS 07:51
PROVIDERS: Visit Provider Internal Medicine
DX: D64.9 Anemia, unspecified (principal); I10 Essential (primary) hypertension
CPT/HCPCS: 36415; 80053; 80061; 84443; 85025

== ENCOUNTER 2021-08-19 13:50 | Emergency (ER) | payer MEDICARE, SELFPAY ==
--- NOTE | ~2021-08-19 | CT_ITS ---
EXAMINATION: CT LUMBAR SPINE WITHOUT CONTRAST CLINICAL INFORMATION: Pain with step-off. Suspected compression fracture. COMPARISON: CT abdomen and pelvis 05/12/2020 TECHNIQUE: Axial images were obtained through the lumbar spine without the administration of intravenous contrast. Coronal and sagittal reformatted images were generated. This CT examination was performed using dose optimization techniques as appropriate, variously including the following: *Automated exposure control *Adjustment of mA and/or kV according to patient size (this includes techniques or standardized protocols for targeted exams where dose is matched to indication/reason for exam; i.e. extremities or head) *Use of iterative reconstruction technique DLP; 581 mGy-cm FINDINGS: No subluxation. Sacrum biconcave compression fracture of L1 with approximately 70-75% maximal vertebral body height loss centrally. Trabecular sclerosis related to trabecular impaction. Mild buckling of the posterior superior corner of L1 without significant retropulsion. Unchanged chronic biconcave endplate compression deformity of L3. Suspected mild superior endplate compression deformity of T12 at the margin of the [id number], new since prior as well. Vertebral body heights are otherwise maintained. No other fracture. Moderate disc height loss with vacuum disc phenomenon, endplate sclerosis and proliferative change at L5-S1. Otherwise, mild multilevel degenerative disc disease in the lumbar spine. Vacuum disc phenomena at T12-L1. Mild bilateral lower lumbar facet arthrosis at L4-L5 and L5-S1. Extensive atherosclerotic vascular calcifications. No abdominal aortic aneurysm. No retroperitoneal lymphadenopathy. No hydronephrosis. Mild degenerative changes of the SI joints. Rectosigmoid anastomotic suture. CT/CT lumbar spine wo con IMPRESSION: 1. Biconcave compression fracture deformity of L1 involving 2 columns with buckling of the posterior superior cortex of the L1 vertebral body and approximately 70-75% vertebral body height loss centrally. Finding is new since prior CT of 05/12/2020. 2. Suspected mild superior plate compression deformity of T12 at the margin of the [id number]. 3. Unchanged chronic biconcave compression deformity of L3. 4. Multilevel degenerative disc disease in lower lumbar facet arthrosis.
[2021-08-19 14:27] VITALS: BP 148/78; PULSE 86; RESP 18; TEMP 36.7; O2SAT 93; BMI 19.2
--- NOTE | 2021-08-19 16:38 | ED.BACK ---
HPI - Back Pain/Injury General Chief Complaint: Back Pain/Injury Stated Complaint: back pain Time Seen by Provider: 08/19/21 16:33 Source: patient and family Mode of arrival: ambulatory History of Present Illness HPI Narrative: 76-year-old male presents with severe L spine pain after he was attempting to move a bedside table. This is not been associated with any numbness/tingling/weakness into either lower extremity and patient denies any bowel or bladder dysfunction. Patient states he has follow-up with primary care provider who provided pain medication, which he did receive good results from but then when the medication ran out he continued to have severe back pain. Otherwise, he denies any fever, chills, shortness of breath, chest pain/palpitations. Related Data Home Medications Medication Instructions Recorded Confirmed cholecalciferol (vitamin D3) 50 50 mcg PO DAILY 02/12/21 03/28/21 mcg (2,000 unit) capsule Previous Rx's Medication Instructions Recorded atenolol 25 mg tablet 25 mg PO DAILY #90 tab 08/01/21 oxycodone 5 mg tablet 5 mg PO BID PRN #20 tab 08/07/21 Allergies Allergy/AdvReac Type Severity Reaction Status Date / Time No Known Allergies Allergy Verified 08/19/21 14:27 Review of Systems Review of Systems: Pertinent positives and negatives as stated in HPI 10 point review of systems is otherwise negative. [facility] Past Medical History Source: nursing notes reviewed Medical History Acute anxiety Acute respiratory failure with hypoxia Anemia Bacteremia Bacteremia due to Klebsiella pneumoniae Chronic bronchitis Chronic respiratory failure Colostomy in place Congestive heart failure COPD (chronic obstructive pulmonary disease) COVID-19 vaccination declined Family history of radiation exposure Fecal urgency History of chemotherapy History of COVID-19 History of herpes zoster History of rectal cancer Hx of bacteremia Hx of flexible sigmoidoscopy Hx of malignant neoplasm of rectum Hx of melanoma of skin Hx: UTI (urinary tract infection) Hypertension New abnormality on chest x-ray Peptic ulcer Physical deconditioning Rectal cancer Refused influenza vaccine Smoker Strain of lumbar paraspinal muscle Surgical History H/O colonoscopy History of eye surgery (~1965) History of left inguinal hernia repair History of low anterior resection of rectum History of right inguinal hernia repair (~1971) Hx of bilateral cataract extraction Hx of melanoma excision Status post reversal of ileostomy Family History Family History Sister History of breast cancer Social History Social History Household Members: Spouse and Children Housing: House Are you a primary critical care registered nurse to a significant other at home: No Do you presently have visiting nurse or other home services: No Alcohol intake: never Patient Tobacco Use Status: Former Tobacco user Tobacco use type: Cigarette Cigarette Packs Per Day: 0 Cigarettes Per Day: 0 Years Smoked: 60 e-Cigarette/Vaping Use: Never Used Second Hand Smoke Exposure: Yes Advance Directives: Yes Advance Directives Information Provided: No Advance Directives on File: No Advance Directives Date on File: 10/04/20 service: Yes Current occupational status: disabled Cognitive needs: No Hearing needs: Yes Vision needs: No Physical Exam Vital Signs: Vital Signs: Last Vital Signs Temp 98.1 F 08/19/21 14:27 Pulse 86 08/19/21 14:27 Resp 18 08/19/21 14:27 BP 148/78 H 08/19/21 14:27 Pulse Ox 93 08/19/21 14:27 BMI result Body Mass Index 19.2 VITAL SIGNS: Reviewed. GENERAL: Elderly, chronically ill, frail, in no acute distress. HEAD: Normocephalic/atraumatic EYES: PERRLA, EOMI EARS: Ext canals without abnormality OROPHARYNX: no oral lesions noted, posterior pharynx clear LUNGS: Normal breath sounds. No adventitious sounds or accessory muscle use. SpO2<93> CARDIOVASCULAR: Regular rate and rhythm without noted murmurs ABDOMEN: Soft, non-tender, non-distended with bowel sounds. BACK: There is point tenderness along the L1-2 3 distribution with noted step-off, there is surrounding skin discoloration MUSCULOSKELETAL: No tenderness, deformities, or effusions noted on gross inspection. EXTREMITIES: No cyanosis, clubbing or edema. SKIN: Inspection of the skin reveals no rashes NEUROLOGIC: Alert and oriented x 4. Strength and sensation to light touch were grossly intact x 4. Course Course Course Narrative: This is a 76-year-old male with history and clinical presentation most consistent with compression fracture and no concern for cauda equina. Patient received multiple pain medication modalities and will undergo CT scan for lumbar spine. Patient will be unlikely to require short-term rehab. Signed out to Dr. Malagon Discharge Plan Discharge Clinical Impression: Back pain, COPD (chronic obstructive pulmonary disease) Patient Disposition: Still a Patient Prescriptions: No Action oxycodone 5 mg tablet 5 mg PO BID PRN (Reason: pain) Qty: 20 0RF cholecalciferol (vitamin D3) 50 mcg (2,000 unit) capsule 50 mcg PO DAILY 0RF atenolol 25 mg tablet 25 mg PO DAILY Qty: 90 2RF
[2021-08-19] MEDS: Lidocaine 4 % Patch ADH..PATCH 1 PATCH TRANSDERMA (16:44)
[2021-08-19] MEDS: Acetaminophen 325 MG TABLET 975 MG PO (16:45)
[2021-08-19] MEDS: oxyCODONE HCl Immed Release 5 MG TABLET PO (16:45)
[2021-08-19] MEDS: Ketorolac Tromethamine 15 MG/ML VIAL IM (16:45)
[2021-08-19 16:46] VITALS: BP 140/92; PULSE 93; RESP 18; O2SAT 93
[2021-08-19 20:29] VITALS: BP 140/84; PULSE 90; RESP 18; TEMP 36.6; O2SAT 94
== END 2021-08-19 20:31 | disposition home or self-care (01) ==
PROVIDERS: Emergency Provider Internal Medicine; PCP Internal Medicine
DX: S32.010A Wedge compression fracture of first lumbar vertebra, initial encounter for closed fracture (principal); S32.030A Wedge compression fracture of third lumbar vertebra, initial encounter for closed fracture; X50.0XXA Overexertion from strenuous movement or load, initial encounter; M54.50 Low back pain, unspecified; J44.9 Chronic obstructive pulmonary disease, unspecified; I10 Essential (primary) hypertension; Z85.048 Personal history of other malignant neoplasm of rectum, rectosigmoid junction, and anus; Y93.9 Activity, unspecified; Y92.019 Unspecified place in single-family (private) house as the place of occurrence of the external cause; Y99.9 Unspecified external cause status
CPT/HCPCS: 72131; 96372; 99284; J1885

== ENCOUNTER 2021-08-24 09:05 | Outpatient (REF) | payer MEDICARE, SELFPAY ==
--- NOTE | ~2021-08-24 | MM_ITS ---
EXAMINATION: BONE DENSITOMETRY CLINICAL INDICATION: Wedge compression fracture of unspecified lumbar vertebra. COMPARISON: This is the patient's baseline examination. TECHNIQUE: Using a [facility] DXA System (software version: 13.1) manufactured by [employer], dual-energy x-ray absorptiometry was performed of the lumbar spine and left hip. The images are of good technical quality. Summary results are attached. FINDINGS: AP SPINE L1-L4: BMD 1.041 g/cm2, Z-score -0.3, T-score -1.5, osteopenia. LEFT FEMUR, NECK: BMD 0.596 g/cm2, Z-score -1.8, T-score -3.6, osteoporosis. LEFT FEMUR, TOTAL: BMD 0.607 g/cm2, Z-score -2.1, T-score -3.4, osteoporosis. IDENTIFIED RISK FACTORS: Height loss. HISTORY OF FRACTURE: Spine. MEDICATIONS: Vitamin D. MM/XR DEXA axial skeleton IMPRESSION: 1. DIAGNOSIS: Severe osteoporosis based on the lowest T-score value of -3.6 in the femoral neck and fracture history applying World Health Organization criteria. 2. 10-YEAR FRACTURE RISK PREDICTION, FRAX: Major osteoporotic fracture (clinical spine, forearm, hip or shoulder) 15.8%. Hip fracture 8.6%. 3. Treatment Recommendations: NOF guidelines recommend consideration for treatment in postmenopausal women and men age 50 and older presenting with the following: -A hip or vertebral (clinical or morphometric) fracture. -T-score less than or equal to -2.5 at the femoral neck or spine after appropriate evaluation to exclude secondary causes. -Low bone mass at the hip or spine and a 10-year fracture probability by FRAX of greater than or equal to 3% for hip fracture or greater than or equal to 20% for major osteoporotic fracture based on the [place] adapted WHO algorithm. 4. Other Recommendations: All treatment decisions require clinical judgment and consideration of individual patient factors, including patient preferences, comorbidities, previous drug use, risk factors not captured in the FRAX model (e.g. frailty, falls, vitamin D deficiency, increased bone turnover, interval significant decline in bone density) and possible under or overestimation of fracture risk by FRAX. Additional medical evaluation for secondary cause of low bone mineral density may be appropriate. FUTURE SCAN RECOMMENDATION: People with diagnosed cases of osteoporosis or at high risk for fracture should have regular bone mineral density tests. For patients eligible for Medicare, routine testing is allowed once every 2 years. The testing frequency can be increased to one year for patients who have rapidly progressing disease, those who are receiving or discontinuing medical therapy to restore bone mass, or have additional risk factors.
[2021-08-24 10:46] LABS: Calcium 9.6 mg/dL (8.4-10.2)
[2021-08-24 11:02] LABS: Vitamin D 25-OH Total 41.2 ng/mL (>30)
== END 2021-08-24 09:06 | disposition home or self-care (01) ==
LOC: HO.MAMMO 09:05
PROVIDERS: Visit Provider Internal Medicine
DX: Z13.820 Encounter for screening for osteoporosis (principal); R53.81 Other malaise; M81.0 Age-related osteoporosis without current pathological fracture; S32.000A Wedge compression fracture of unspecified lumbar vertebra, initial encounter for closed fracture; Z85.048 Personal history of other malignant neoplasm of rectum, rectosigmoid junction, and anus
CPT/HCPCS: 36415; 77080; 82306; 82310

== ENCOUNTER 2021-09-06 08:47 | Day surgery (SDC) | payer MEDICARE, SELFPAY ==
--- NOTE | 2021-09-05 09:46 | HO.ANESPROP2 ---
HPI - Anesthesia Eval Consult details Narrative: 76yo M for Kyphoplasty 02/2021 acute respiratory failure with COVID pna PMFSH Active Problems Active Problems: All Active Problems (Updated 08/20/21 @ 15:08 by Dahiana Encinas MD) Compression fx, lumbar spine (Acute) Strain of lumbar paraspinal muscle (Acute) New abnormality on chest x-ray (Acute) Physical deconditioning (Acute) Chronic respiratory failure (Acute) History of rectal cancer (Acute) COVID-19 vaccination declined (Acute) Refused influenza vaccine (Acute) Acute anxiety (Acute) Fecal urgency (Acute) History of COVID-19 (Acute) Anemia (Acute) Hx of malignant neoplasm of rectum (Acute) COPD (chronic obstructive pulmonary disease) (Acute) Status post reversal of ileostomy (Acute) Hypertension (Acute) Past Medical History Medical History Acute respiratory failure with hypoxia Bacteremia Bacteremia due to Klebsiella pneumoniae Chronic bronchitis Colostomy in place Congestive heart failure Family history of radiation exposure History of chemotherapy History of herpes zoster Hx of bacteremia Hx of flexible sigmoidoscopy Hx of melanoma of skin Hx: UTI (urinary tract infection) Peptic ulcer Rectal cancer Smoker Family History Family History Sister History of breast cancer Family history of problems with anesthesia: No Surgical History Surgical History H/O colonoscopy History of eye surgery (~1965) History of left inguinal hernia repair History of low anterior resection of rectum History of right inguinal hernia repair (~1971) Hx of bilateral cataract extraction Hx of melanoma excision Status post reversal of ileostomy History of Problems with Anesthesia: No Social History Social History Household Members: Spouse and Children Housing: House Are you a primary cattle care worker to a significant other at home: No Do you presently have visiting nurse or other home services: No Alcohol intake: never Patient Tobacco Use Status: Former Tobacco user Tobacco use type: Cigarette Cigarette Packs Per Day: 0 Cigarettes Per Day: 0 Years Smoked: 60 e-Cigarette/Vaping Use: Never Used Second Hand Smoke Exposure: Yes Advance Directives: No Advance Directives Information Provided: Yes Advance Directives Date on File: 10/04/20 service: Yes Current occupational status: disabled Cognitive needs: No Hearing needs: Yes Vision needs: No Meds Allergies Allergy/AdvReac Type Severity Reaction Status Date / Time No Known Allergies Allergy Verified 08/26/21 01:48 Home Medications Medication Instructions Recorded Confirmed Last Taken Type cholecalciferol (vitamin D3) 50 50 mcg PO DAILY 02/12/21 08/23/21 03/07/21 History mcg (2,000 unit) capsule lorazepam 0.5 mg tablet 1 tab PO DAILY PRN anxiety attack 08/23/21 08/23/21 Unknown History Exam Exam Date and Time: September 05, 2021 0946 Pertinent Lab Results Pertinent Lab Results: Laboratory Tests 07/19/21 07/19/21 08:00 08:00 WBC 8.8 Hgb 15.4 Hct 47.4 Plt Count 182 Sodium 140 Potassium 3.7 Chloride 104 Carbon Dioxide 26 BUN 20 H Creatinine 1.03 Narrative Narrative: CT lumbar spine wo con 08/2021 IMPRESSION: ? 1. Biconcave compression fracture deformity of L1 involving 2 columns with buckling of the posterior superior cortex of the L1 vertebral body and approximately 70-75% vertebral body height loss centrally. Finding is new since prior CT of 05/12/2020. 2. Suspected mild superior plate compression deformity of T12 at the margin of the [id number]. 3. Unchanged chronic biconcave compression deformity of L3. 4. Multilevel degenerative disc disease in lower lumbar facet arthrosis.? EKG 02/2021 Vent. Rate : 069 BPM ? ? Atrial Rate : 069 BPM ?? P-R Int : 142 ms? QRS Dur : 092 ms ? ? QT Int : 390 ms ? ? ? P-R-T Axes : -13 -05 046 degrees ?? QTc Int : 417 ms ? Normal sinus rhythm cannot exclude old? Inferior infarct , age undetermined Abnormal ECG When compared with ECG of 06-OCT-2020 00:26, Inferior infarct is now Present ECHO 2020 Conclusions: - Normal left ventricular size, thickness, and systolic function. - Diastolic function is indeterminate on the basis of available? data.? - Normal right ventricular cavity size and systolic function.? ? - There is no evidence of pulmonary hypertension.? Findings Left Ventricle Normal left ventricular size, thickness, and systolic function. The visually estimated ejection fraction is between 55-60%.? Regional wall motion abnormalities can not be excluded due to suboptimal endocardial definition. Diastolic function is indeterminate on the basis of available data.? Spectral Doppler is indicative of an impaired relaxation filling pattern.? E/E prime ratio is <8, consistent with normal filling pressures. Assessment and Plan Assessment Anesthesia Assessment: Chart Reviewed Final Anesthetic Review Family History of Problems with Anesthesia: No History of Problems with Anesthesia: No
[2021-09-06] VITALS (8 sets, daily range): BP systolic 92–142; BP diastolic 57–85; PULSE 74–98; RESP 16–21; TEMP 36.1; O2SAT 95–100; BMI 19.9
--- NOTE | ~2021-09-06 | CT_ITS ---
EXAMINATION: CT LUMBAR SPINE WITHOUT CONTRAST CLINICAL INFORMATION: 76-year-old undergoing pre-kyphoplasty evaluation for L1 fracture. COMPARISON: None. TECHNIQUE: Small [id number] limited CT imaging of the thoracolumbar junction was done to include T12, L1 and L2 with multiplanar reformatted reconstructions. This CT examination was performed using dose optimization techniques as appropriate, variously including the following: *Automated exposure control *Adjustment of mA and/or kV according to patient size (this includes techniques or standardized protocols for targeted exams where dose is matched to indication/reason for exam; i.e. extremities or head) *Use of iterative reconstruction technique DLP; 336 mGy-cm. FINDINGS: Redemonstrated is a biconcave compression fracture deformity of the L1 vertebral body, with approximately 70% loss of height and increased density within the marrow space likely reflecting compressed trabeculae. Pre-existing Schmorl's nodes suspected along the inferior and superior endplates. Slight retropulsion of the superior endplate with mild flattening of the ventral dural sac noted. Additionally, there is a mild probably nonhealed superior endplate compression fracture at the T12 level with less than 50% loss of height. L2 is maintained. Osteoporotic changes are suspected. There is intradiscal vacuum disc phenomenon partially imaged at T11-T12 and at L1-L2. SPINAL LEVELS: T12-L1: Partially imaged. No significant canal stenosis. Neural foramina are not visualized. L1-L2: Mildly retropulsed superior endplate of L1 with mild flattening of the ventral dural sac. No significant canal stenosis. No significant facet arthrosis or neural foraminal stenosis. L2-L3: Partially imaged. There are atelectatic and/or fibrotic changes at the right lung base with irregular pleural thickening the posterior aspect of the right costophrenic angle. These findings are similar to a previous CT of the chest from 10/04/2020. There is nodularity of both adrenal glands which is stable. No paraspinal hematoma or soft tissue mass. Atheromatous calcifications of the abdominal aorta and its branches. CT/CT lumbar spine wo con IMPRESSION: 1. Compression fractures of L1 and T12 as described above with mild retropulsion of the superior endplate of L1 and minimally of T12 with no significant canal compromise. 2. Osteoporosis and discogenic degenerative changes. 3. No paraspinal hematomata or soft tissue masses. 4. Pulmonary findings on the right similar to previous CT chest. 5. Nodularity to both adrenal glands stable from previous study, likely benign findings.
--- NOTE | ~2021-09-06 | IR_ITS ---
EXAMINATION: IR LUMBAR VERTEBROPLASTY CLINICAL INFORMATION: Acute compression fracture T12 and L1 vertebrae on recent CT lumbar spine exam 09/04/2020. Patient has diffuse osteopenia. COMPARISON: CT lumbar spine 08/19/2021. TECHNIQUE: Following explaining fluoroscopy-guided bipedicle approach T12 and L1 kyphoplasty procedure, benefits and risks, a written consent was obtained. Patient was placed prone on the fluoroscopy table and low back area was cleaned and draped in usual sterile manner. 1% lidocaine was injected following localization of right T12 pedicle on the skin. A 22-gauge spinal needle was then advanced from the skin to the level of pedicle and through the pedicle into posterior one-third of T12 vertebra. A second needle was inserted in a similar fashion through the left pedicle into posterior one-third of T12 vertebra. A third and fourth needle were inserted in similar fashion through the right and left pedicle in a similar fashion. Subsequently the stylets were withdrawn and a hand drill was injected and a tract created through all 4 needles. Freshly prepared polymethyl methacrylate was injected from left T12, right T12 left L1 and right L1 pedicles and needles under continuous AP, oblique and lateral fluoroscopy monitoring. After achieving adequate amount of cement all 4 needles were withdrawn and complete hemostasis achieved at approximately 10 minutes post cement injection. Simple dressing applied postprocedure. Patient tolerated the procedure extremely well. Sedation was provided by anesthesia department. FINDINGS: There is an acute compression deformity T12 and L1 vertebrae on plain films. Also seen is mild depression of T11 superior endplate. There is adequate amount of cement occupying the T12 compression fracture with no cement extravasation seen. There is adequate cement seen occupying the L1 fracture with small cement extravasation along the inferior endplate into the superior disc. Patient has a known Schmorl's node along the inferior endplate through which cement might have leaked. FLUOROSCOPY TIME: 16.9 minutes. DOSE AREA PRODUCT: 4632 uGy-m2 (microgray-meter squared) IR/IR kyphoplasty each add IMPRESSION: Successful bipedicle approach fluoroscopy-guided T12 and L2 kyphoplasty.
--- NOTE | ~2021-09-06 | CT_ITS ---
EXAMINATION: CT LUMBAR SPINE CLINICAL INFORMATION: Post T12 kyphoplasty. COMPARISON: Pre-kyphoplasty CT lumbar spine 09/06/[address] lumbar spine 08/19/2021. TECHNIQUE: Axial 2 mm thin and reformatted 2 mm thin sagittal and coronal images of the dorsal spine were obtained without contrast. This CT examination was performed using dose optimization techniques as appropriate, variously including the following: *Automated exposure control *Adjustment of mA and/or kV according to patient size (this includes techniques or standardized protocols for targeted exams where dose is matched to indication/reason for exam; i.e. extremities or head) *Use of iterative reconstruction technique DLP: 395 mGy-cm. FINDINGS: On sagittal reconstructed images, there is an adequate amount of cement occupying the T12 and L1 vertebrae with minimal extravasation of cement through the inferior endplate Schmorl's node at the L1 vertebra in the superior disc L1-L2 disc level. There is no posterior extravasation of cement at these 2 disc levels. There is no change in loss of T12 and L1 vertebral heights compared to pre-kyphoplasty CT. There is mild loss of T11 vertebral height which could be an acute fracture as well. There is no spinal canal stenosis. No disc bulge or herniation seen at T10-T11, T11-T12, T12-L1 or L1-L2 disc levels. CT/CT lumbar spine post vert IMPRESSION: Compression fractures T12 and L1 vertebrae with cement augmentation. There is minimal inferior cement migration at the L1 vertebra of no clinical consequence. There is a T11 compression fracture superior endplate which is not included on the [id number] on CT lumbar spine 08/19/2021. If patient has persistent low back pain, a bone scan is recommended to evaluate the T11 and any other fracture present. Patient is severely osteopenic.
[2021-09-06 09:19] LABS: MANUAL DIFF FLAG NO
[2021-09-06 09:32] LABS: Basophils Absolute Auto 0.1 X10*3/uL (0.0-0.2); Basophils Percent Auto 0.8 % (0-2); Eosinophils Absolute Auto 0.2 X10*3/uL (0.0-0.4); Eosinophils Percent Auto 2.3 % (0-4); Hematocrit 46.7 % (42.0-52.0); Hemoglobin 15.6 g/dl (14.0-18.0); Imm Gran Abs Auto 0.03 X10*3/uL (0.00-0.03); Imm Gran Pct Auto 0.3 % (0.0-0.4); Lymphocytes Absolute Auto 1.6 X10*3/uL (1.2-4.9); Lymphocytes Percent Auto 18.4 % (20-40); Mean Corpuscular HGB Conc 33.4 g/dl (31.0-36.0); Mean Corpuscular Hemoglobin 31.5 pg (27.0-33.0); Mean Corpuscular Volume 94.3 fL (80.0-98.0); Monocytes Absolute Auto 0.6 X10*3/uL (0.1-1.2); Monocytes Percent Auto 7.3 % (2-11); Neutrophils Absolute Auto 6.1 x10*3/uL (2.0-8.3); Neutrophils Percent Auto 70.9 % (45-73); Platelet Count 206 X10*3/uL (160-400); Red Blood Count 4.95 X10*6/uL (4.60-5.80); Red Cell Distribution Width 14.3 % (11.0-16.0); White Blood Count 8.6 X10*3/uL (4.8-10.8)
[2021-09-06 09:37] LABS: Prothrombin Time 11.9 SEC (9.9-13.0)
[2021-09-06 09:40] LABS: Partial Thromboplastin Time 31.4 SEC (24.1-38.0)
[2021-09-06] MEDS: Lidocaine HCl 1 % MPF 5 ML VIAL SUBCUT (12:58)
== END 2021-09-06 17:06 | disposition home or self-care (01) ==
PROVIDERS: Radiology Diagnostic Radiology; PCP Internal Medicine; Visit Provider Radiology Diagnostic Radiology
DX: S22.080A Wedge compression fracture of T11-T12 vertebra, initial encounter for closed fracture (principal); S32.010A Wedge compression fracture of first lumbar vertebra, initial encounter for closed fracture; M80.08XA Age-related osteoporosis with current pathological fracture, vertebra(e), initial encounter for fracture; M51.46 Schmorl's nodes, lumbar region
CPT/HCPCS: 22514; 22515; 36415; 72131; 85025; 85610; 85730; J0690; J2250; J2405; J3010; Q9967

== ENCOUNTER → 2021-10-15 10:46 | Outpatient (BNVA) | payer MEDICARE, SELFPAY | PROVIDERS: PCP Internal Medicine; Visit Provider Internal Medicine | DX: M47.816 Spondylosis without myelopathy or radiculopathy, lumbar region (principal); M51.9 Unspecified thoracic, thoracolumbar and lumbosacral intervertebral disc disorder; Z87.81 Personal history of (healed) traumatic fracture; Z98.890 Other specified postprocedural states | CPT/HCPCS: 99202 ==

== ENCOUNTER 2021-11-28 06:24 | Outpatient (REF) | payer MEDICARE, SELFPAY ==
--- NOTE | ~2021-11-28 | FL_ITS ---
EXAMINATION: XR FLUOROSCOPY WITH IMAGES CLINICAL INFORMATION: M47.816 - Spondylosis without myelopathy or radiculopathy, lumbar region COMPARISON: CT lumbar spine 09/06/2021, 08/19/2021. TECHNIQUE: Fluoroscopy performed by Dr. Prasanna Shell. Fluoroscopy time: 0.1 minutes. Cumulative Dose: 1.58 mGy. DAP: 0.270 Gy-cm2. Images: 1. FINDINGS: There are spinal needles overlying the outer right L3, L4, and L5 neural foramen. There is a known compression deformity vertebral body L3. FL/FL guidance in treatment room IMPRESSION: Fluoroscopy for pain management procedures.
== END 2021-11-28 06:25 | disposition home or self-care (01) ==
LOC: HO.RADIR 06:24
PROVIDERS: Visit Provider Internal Medicine
DX: M47.816 Spondylosis without myelopathy or radiculopathy, lumbar region (principal)
CPT/HCPCS: 64493; 64494

== ENCOUNTER → 2021-11-30 11:38 | Outpatient (BNVA) | payer MEDICARE, SELFPAY | PROVIDERS: PCP Internal Medicine; Visit Provider Internal Medicine | DX: M47.816 Spondylosis without myelopathy or radiculopathy, lumbar region (principal) | CPT/HCPCS: Q3014 ==

== ENCOUNTER 2021-12-19 12:51 | Day surgery (SDC) | payer MEDICARE, SELFPAY ==
--- NOTE | ~2021-12-19 | FL_ITS ---
EXAMINATION: XR FLUOROSCOPY WITH IMAGES CLINICAL INFORMATION: RFA right side. COMPARISON: None. TECHNIQUE: Fluoroscopy performed by Dr. Aquino. Fluoroscopy time: 0.5 minutes. Cumulative Dose: 8.85 mGy. DAP: 1.55 Gycm2. Images: 3. FINDINGS: There are 3 digital images obtained during the procedure. Needle positioned adjacent to L5, L4 and L3 right lateral pedicles for RF ablation. Visualized bones are grossly unremarkable. There is loss of L5/S1 disc height. FL/FL guidance in OR IMPRESSION: Fluoroscopy guidance was provided to referring physician for pain management.
[2021-12-19 13:25] VITALS: BP 158/94; PULSE 83; RESP 18; TEMP 36.6; O2SAT 93; BMI 19.9
[2021-12-19] MEDS: oxyCODONE HCl Immed Release 5 MG TABLET PO (14:06)
--- NOTE | 2021-12-19 14:33 | MHC.SHP ---
Pre-Procedural Eval Section A Date of Service: 12/19/21 The patient is an INPATIENT: No Changes since office visit: Yes Patient answered all questions The History & Physical has been completed within 30 days and I have reviewed it.: No Section B Chief Complaint: Spondylosis without myelopathy or radiculopathy Relevant Family History (Specify if Yes): No Relevant Social History: None Present Medications: see Short Stay Collaborative assessment Medical History: No relevant PMH History of Previous Operations: No relevant previous surgery Allergies: Allergies Allergy/AdvReac Type Severity Reaction Status Date / Time No Known Allergies Allergy Verified 11/28/21 08:33 Review of Systems Sugical H&P ROS: Negative: Constitution, Cardiovascular and Respiratory Exam Surgical H&P Exam: Normal: HEENT, Normal: Heart and Normal: Lungs Plan Diagnosis/Plan: Unchanged I have reviewed the history and physical and performed a pertinent physical examination on my patient. No changes have occurred unless specified.
--- NOTE | 2021-12-19 14:34 | PM.OP ---
Brief Operative Note Date of Service: 12/19/21 Pre-op diagnosis: Lumbar spondylosis Post-op diagnosis: same Procedure: Radiofrequency ablation of the medial branches L2, L3 and L4 Surgeon: Prasanna Shell MD Anesthesia: local Was an [place] Program Coordinator used for this Procedure?: No Estimated blood loss (mL): 4 Pathology: none sent Condition: stable Disposition: same day
--- NOTE | 2021-12-19 14:35 | W.PM.OPN ---
Operative Note Operative Note Date of Service: 12/19/21 Narrative: Radiofrequency lesioning medial branch nerves, Right L2, L3, L4 medial branches (L3/4, L4/5) (2 levels, 3 nerves) After obtaining written consent, pre-procedure blood pressure and heart rate were stable and recorded in the nursing record. Standard monitors were applied. The patient was placed in the prone position. The lumbar area was prepped with chloraprep and draped in sterile fashion. The skin over the target for each medial branch nerve was anesthetized with 0.5% lidocaine. An 18 gauge radiofrequency cannula was advanced to each target site under fluoroscopic guidance. No paresthesias were elicited with needle placement and aspiration was negative for heme and CSF. Impedences were verified under 600 ohms. Sensory testing (50 Hz) and then motor testing (2 Hz) confirmed needle placement at each site within the appropriate voltage thresholds. Each site was injected with 0.5 ml 2% preservative-free lidocaine. Radiofrequency lesioning was performed for 90 seconds at 80 deg Celcius. Each site was then injected with 0.5ml 2% lidocaine. The needle was removed, skin cleansed and a sterile bandage was applied. The patient tolerated the procedure well and no complications were encountered. Following the procedure the patient's vital signs were stable. The patient was discharged home in good condition with post-procedural instructions. Time Out: Immediately prior to the procedure, the following was verbally confirmed that there is a signed consent form and that the correct patient, planned procedure, site and side are consistent with documentation and that necessary equipment and/or blood products are available prior to the start of the case. Complications: none EBL: <5 cc
[2021-12-19 15:28] VITALS: BP 164/91; PULSE 78; RESP 18; TEMP 37.1; O2SAT 93
== END 2021-12-19 15:45 | disposition home or self-care (01) ==
PROVIDERS: PCP Internal Medicine; Visit Provider Internal Medicine
PROC: (CPT 64635; principal; 2021-12-19 14:10)
DX: M47.816 Spondylosis without myelopathy or radiculopathy, lumbar region (principal); I11.0 Hypertensive heart disease with heart failure; I50.9 Heart failure, unspecified; J44.9 Chronic obstructive pulmonary disease, unspecified; J96.11 Chronic respiratory failure with hypoxia; D64.9 Anemia, unspecified; F41.1 Generalized anxiety disorder; Z85.048 Personal history of other malignant neoplasm of rectum, rectosigmoid junction, and anus; Z93.3 Colostomy status; Z90.49 Acquired absence of other specified parts of digestive tract; Z85.820 Personal history of malignant melanoma of skin; Z92.21 Personal history of antineoplastic chemotherapy; Z87.440 Personal history of urinary (tract) infections; Z86.16 Personal history of COVID-19; Z79.899 Other long term (current) drug therapy
CPT/HCPCS: 64635; 64636

== ENCOUNTER → 2022-01-14 10:02 | Outpatient (BNVA) | payer MEDICARE, SELFPAY | PROVIDERS: PCP Internal Medicine; Visit Provider Internal Medicine | DX: M47.816 Spondylosis without myelopathy or radiculopathy, lumbar region (principal) | CPT/HCPCS: 99212 ==

== ENCOUNTER → 2022-01-28 09:19 | Outpatient (BNVA) | payer MEDICARE, SELFPAY | PROVIDERS: PCP Internal Medicine; Visit Provider Hospitalist | DX: J43.2 Centrilobular emphysema (principal); J96.11 Chronic respiratory failure with hypoxia; R53.81 Other malaise; R93.89 Abnormal findings on diagnostic imaging of other specified body structures; Z86.16 Personal history of COVID-19 | CPT/HCPCS: 99212 ==

== ENCOUNTER 2022-07-17 07:49 | Outpatient (REF) | payer MEDICARE, SELFPAY ==
[2022-07-17 11:58] LABS: Alanine Aminotransferase 16 U/L (0-40); Anion Gap 16 (12-20); Aspartate Amino Transferase 22 U/L (5-37); Blood Urea Nitrogen 26 mg/dL (9-16); Calcium 9.3 mg/dL (8.4-10.2); Carbon Dioxide 26 mmol/L (22-29); Chloride 105 mmol/L (96-108); Cholesterol 178 mg/dL; Estimated Glomerular Filt Rate > 60; Glucose Fasting 97 mg/dL (60-99); HDL Cholesterol 40 mg/dL; LDL Cholesterol Calculated 119 mg/dl; Sodium 143 mmol/L (135-145); Triglycerides 97 mg/dL
[2022-07-17 12:14] LABS: Vitamin D 25-OH Total 46.8 ng/mL (>30)
== END 2022-07-17 07:50 | disposition home or self-care (01) ==
LOC: HO.HMGCLDS 07:49
PROVIDERS: PCP Internal Medicine; Visit Provider Internal Medicine
DX: I10 Essential (primary) hypertension (principal); Z86.39 Personal history of other endocrine, nutritional and metabolic disease
CPT/HCPCS: 36415; 80048; 80061; 82306; 84450; 84460

== ENCOUNTER 2022-11-15 09:37 | Outpatient (AMB) | payer MEDICARE, SELFPAY ==
[2022-11-15 09:40] VITALS: BP 116/60; PULSE 70; O2SAT 94; BMI 18.7
--- NOTE | 2022-11-15 09:40 | MHC.OFFVIS ---
Intake Vital Signs 11/15/22 09:40 Height 5 ft 9 in Weight 126 lb 12.253 oz BMI 18.7 BP 116/60 Blood Pressure Location Rt brachial Position Sitting Pulse 70 Pulse Source Doppler Pulse Oximetry (%) 94 Oxygen Delivery Method Room Air Intake Visit Reasons: copd Allergies No Known Allergies Allergy (Verified 11/15/22 09:44) HPI HPI Comments History of Present Illness Details The patient is a 76-year-old gentleman former smoker with a extensive history of emphysema who apparently was in his usual state health until back in February when he ended up with COVID-19. He was briefly hospitalized requiring oxygen. He was able to be discharged home on oxygen. However, he is reluctant on using the oxygen if he does needed. During the office visit we did go for 6 minutes walk test. The patient did desaturate down to 86% and was visibly dyspneic with a dyspnea score of 8/10. The patient did ambulate about 200 yd. Initially the patient 1 at the oxygen taking out of the house. Although he agreed to continue having the oxygen there in to uses specially when he is moving in exercising and trying to build up some loss she endurance and exercise capacity. The patient is also status post surgery for colon cancer and he has been tired of having to go in and out of hospitals having dizzy different specialists. He would like to continue recovering at home performing physical therapy and respiratory therapy at home. The patient does not have any inhalers. However, he would like to hold off on any respiratory medications. Will make an appointment for him to follow-up in 6 months. Although he will call if any other issues arise. 01/28/2022 the patient is here for a pulmonary follow-up visit. He is feeling better after having severe COVID. He was discharged on oxygen. I did evaluate him after the fact. He was to continue using the oxygen. Although since we last evaluated him he probably use that about 4 times and is no longer using it. He does not want in the house any further. She wants it to be discontinued when picked up by the [employer]. Explained to the patient that we can always have a discontinued specially if he is not using it. If however condition worsens we may have to retest him to see if he qualifies again in the future he is not using any inhalers at this time. Therefore I will give him a script to have a short-acting beta agonist that he can use as needed. He was supposed to have a chest x-ray and also a pulmonary function study but he did not have them as of yet. 11/15/2022 the patient is here for pulmonary follow-up visit. Overall he is about the same. Still complaining of dyspnea on exertion. He no longer has the oxygen. His shortness of breath is moderate severity primarily when he goes up a flight of stairs. He is also noticed increased weight gain. Does have some lower extremity edema. The short-acting beta agonist is not effective. Will go ahead and start him on a maintenance inhaler to see if this is helpful. Patient also appears to be volume overloaded. Will request a chest x-ray and also start him on Lasix for the 3 day weekend. I am hopeful that with the fluid removal he will feel better. The patient needs to do better with his low-sodium diet. [facility] Medical History (Updated 11/15/22 @ 14:24 by Reyna Murrieta PA-C) Acute anxiety Acute respiratory failure with hypoxia Anemia Chest crackles Chronic bronchitis Chronic respiratory failure Congestive heart failure COPD (chronic obstructive pulmonary disease) COVID-19 vaccination declined Fecal urgency History of chemotherapy (~2019) History of COVID-19 History of herpes zoster History of radiation therapy (~2019) History of rectal cancer (~2019) Hx of bacteremia Hx of compression fracture of spine Hx of melanoma of skin Hx: UTI (urinary tract infection) Hypertension New abnormality on chest x-ray Peptic ulcer Personal history of nicotine dependence Physical deconditioning Refused influenza vaccine Strain of lumbar paraspinal muscle Surgical History (Updated 11/15/22 @ 14:24 by Reyna Murrieta PA-C) History of cataract surgery History of colonoscopy History of eye surgery (~1965) History of left inguinal hernia repair History of low anterior resection of rectum History of reversal of ileostomy History of right inguinal hernia repair (~1971) Hx of kyphoplasty Hx of melanoma excision Family History Sister History of breast cancer Social History Household Members: Spouse and Children Housing: House Are you a primary critical care unit nurse to a significant other at home: No Do you presently have visiting nurse or other home services: No Alcohol intake: never Patient Tobacco Use Status: Never used Tobacco Tobacco use type: Cigarette Cigarette Packs Per Day: 0 Cigarettes Per Day: 0 Years Smoked: 60 e-Cigarette/Vaping Use: Never Used Second Hand Smoke Exposure: Yes Advance Directives Date on File: 10/04/20 service: Yes Current occupational status: disabled Cognitive needs: No Hearing needs: Yes Vision needs: No Review of Systems Const Reports fatigue, Denies night sweats and Reports weight loss ENT Denies change in voice, Denies lip swelling, Denies mouth pain, Reports nasal congestion, Reports nasal discharge and Denies tongue swelling Card Denies chest pain, Denies dyspnea and Reports dyspnea on exertion Resp Reports cough, Denies dyspnea and Reports dyspnea on exertion GI Denies abdominal pain Musc Denies no additional complaints Neuro Denies Neuro-related abnormal movements Psych Denies no additional complaints Endo Reports fatigue Kaden/Lymph Denies easy bleeding and Denies lymphadenopathy Aller/Immun Denies lip swelling and Denies tongue swelling Physical Exam Vital Signs: Last Vital Signs Pulse 70 11/15/22 09:40 BP 116/60 11/15/22 09:40 Pulse Ox 94 11/15/22 09:40 Oxygen Delivery Method Room Air 11/15/22 09:40 BMI result Body Mass Index 18.7 Const General: alert Neck Neck: Yes normal visual inspection, Yes full ROM and Yes no lymphadenopathy Chest Chest palpation & inspection: normal inspection of the chest Resp Auscultation: diminished lung sounds Cardio Rate: regular rate Rhythm: regular rhythm Heart sounds: S1 normal heart sound present and S2 normal heart sound present GI Palpation (GI): Soft to palpation and nontender Auscultation: normal bowel sounds Skin General skin exam: rashes and/or lesions noted Assessment & Plan Assessment & Plan (1) COPD (chronic obstructive pulmonary disease): Comment: smoker X 60 years Code(s): J44.9 - Chronic obstructive pulmonary disease, unspecified Qualifiers: COPD type: emphysema Emphysema type: centrilobular Qualified Code(s): J43.2 - Centrilobular emphysema (2) Chronic respiratory failure: Code(s): J96.10 - Chronic respiratory failure, unspecified whether with hypoxia or hypercapnia Qualifiers: Respiratory failure complication: hypoxia Qualified Code(s): J96.11 - Chronic respiratory failure with hypoxia Plan start Advair HFA start Lasix x 3 days, then stop RIDGE as needed CXR F/U 6 months Orders: Orders XR chest 2V 11/15/22 R09.89 - Other specified symptoms and signs involving the circulatory and respiratory systems Medications: New furosemide (Lasix) 20 mg PO DAILY 5 tabs 0RF fluticasone propion-salmeterol 115-21 mcg/actuation (Advair HFA) 2 puffs inhalation Q12H 30 days 12 grams 11RF Coding Level of Care Code Est Pt Level 4 (71979) Diagnoses COPD (chronic obstructive pulmonary disease) J43.2 COPD type: emphysema Emphysema type: centrilobular Chronic respiratory failure J96.11 Respiratory failure complication: hypoxia Time Spent (min) 17
== END 2022-11-15 10:00 | disposition home or self-care (01) ==
PROVIDERS: PCP Internal Medicine; Visit Provider Hospitalist
DX: J43.2 Centrilobular emphysema (principal); J96.11 Chronic respiratory failure with hypoxia
CPT/HCPCS: 99214

== ENCOUNTER → 2022-11-15 09:37 | Outpatient (BNVA) | payer MEDICARE, SELFPAY | PROVIDERS: PCP Internal Medicine; Visit Provider Hospitalist | DX: J43.2 Centrilobular emphysema (principal); J96.11 Chronic respiratory failure with hypoxia | CPT/HCPCS: 99212 ==

== ENCOUNTER 2022-12-24 08:16 | Outpatient (REF) | payer MEDICARE, SELFPAY ==
[2022-12-24 12:40] LABS: Anion Gap 16 (12-20); Blood Urea Nitrogen 25 mg/dL (9-16); Calcium 9.2 mg/dL (8.4-10.2); Carbon Dioxide 23 mmol/L (22-29); Chloride 105 mmol/L (96-108); Estimated Glomerular Filt Rate > 60; Glucose Fasting 87 mg/dL (60-99); Potassium 3.9 mmol/L (3.3-5.1); Sodium 140 mmol/L (135-145)
[2022-12-24 12:59] LABS: Vitamin D 25-OH Total 52.9 ng/mL (>30)
== END 2022-12-24 08:17 | disposition home or self-care (01) ==
LOC: HO.HMGCLDS 08:16
PROVIDERS: PCP Internal Medicine; Visit Provider Internal Medicine
DX: I10 Essential (primary) hypertension (principal); Z85.048 Personal history of other malignant neoplasm of rectum, rectosigmoid junction, and anus; Z87.81 Personal history of (healed) traumatic fracture
CPT/HCPCS: 36415; 80048; 82306; 85014; 85018

== ENCOUNTER 2023-01-03 10:30 | Outpatient (AMB) | payer MEDICARE, SELFPAY ==
--- NOTE | 2023-01-03 10:43 | A.OFFPC_ITS ---
Vital Signs 01/03/23 10:45 Height 5 ft 9 in Weight 126 lb 2 oz BMI 18.6 BP 120/70 Blood Pressure Location Rt brachial Position Sitting Pulse 75 Pulse Source Pulse Oximeter Pulse Oximetry (%) 95 Oxygen Delivery Method Room Air Intake Visit Reasons: 6m follow up Intake Note: pt is here for 6 month follow up for HTN and to get lab results Allergies No Known Allergies Allergy (Verified 01/03/23 10:47) Tobacco use date assessed: 01/03/23 Last assessed Fall Risk: 01/03/23 Dental Screening Dental Screen Date: 01/03/23 Did you have a dental visit in the last 12 months?: No Did you have a dental problem in the last 6 months where you did not have access to dental care?: No Was dental information given to patient?: No PFSH Medical History (Updated 11/15/22 @ 14:24 by Reyna Murrieta PA-C) Personal history of nicotine dependence History of radiation therapy (~2019) History of rectal cancer (~2019) Chest crackles Hx of compression fracture of spine Strain of lumbar paraspinal muscle New abnormality on chest x-ray Physical deconditioning Chronic respiratory failure COVID-19 vaccination declined Refused influenza vaccine Acute anxiety Fecal urgency History of COVID-19 Acute respiratory failure with hypoxia Anemia Hx of bacteremia Hx: UTI (urinary tract infection) Congestive heart failure History of chemotherapy (~2019) Hx of melanoma of skin Peptic ulcer COPD (chronic obstructive pulmonary disease) Chronic bronchitis History of herpes zoster Hypertension Surgical History (Updated 11/15/22 @ 14:24 by Reyna Murrieta PA-C) History of reversal of ileostomy History of cataract surgery History of colonoscopy Hx of kyphoplasty Hx of melanoma excision History of low anterior resection of rectum History of left inguinal hernia repair History of right inguinal hernia repair (~1971) History of eye surgery (~1965) Family History Sister History of breast cancer Social History Household Members: Spouse and Children Housing: House Are you a primary healthcare management to a significant other at home: No Do you presently have visiting nurse or other home services: No Alcohol intake: never Patient Tobacco Use Status: Never used Tobacco Tobacco use type: Cigarette Cigarette Packs Per Day: 0 Cigarettes Per Day: 0 Years Smoked: 60 Packs Per Year: 0 Packs per year/per ci.00 e-Cigarette/Vaping Use: Never Used Second Hand Smoke Exposure: Yes Advance Directives Date on File: 10/04/20 service: Yes Current occupational status: disabled Cognitive needs: No Hearing needs: Yes Vision needs: No Questionnaire Thrive Questionnaire Date Thrive assessed: 02/12/21 TRACEE-7 AMB Questionnaire TRACEE-7 Date TRACEE - 7 assessed: 02/12/21 Source: Developed by Drs. Felix Reyes, Argelia Tapia, Gene Crawford and colleagues, with an educational javier from [employer]. Physical exam (Primary Care) Vital Signs: Last Vital Signs Pulse 75 01/03/23 10:45 BP 120/70 01/03/23 10:45 Pulse Ox 95 01/03/23 10:45 Oxygen Delivery Method Room Air 01/03/23 10:45 BMI result Body Mass Index 18.6 Tobacco/Smoking Status: Tobacco use Status Tobacco use date assessed 01/03/23 01/03/23 10:50 Patient Tobacco Use Status Never used Tobacco 01/03/23 10:44 Tobacco use type Cigarette 01/03/23 10:44 e-Cigarette/Vaping Use Never Used 01/03/23 10:44 Thrive Assessment: Date of Thrive Assessment Date Thrive assessed 02/12/21 01/03/23 10:44 Office Procedures Flu Questionnaire Does the patient have a severe egg allergy?: No Does the patient have severe life threatening allergies?: No Does the patient have a fever or illness today?: No Has the patient ever had Guillain-[place] Syndrome?: No Has the patient ever had any past reaction to a flu shot?: No Immunizations flu vacc [id number] 6mos up(PF) 60 mcg(15 mcgx4)/0.5 mL IM syringe Performing Provider: Dahiana Encinas MD Performing Location: [facility] Administered by: Cat Giraldo CMA on 01/03/23 11:22 Dose Route Admin Location Dispensed Lot Number Expiration Date NDC [employer] 0.5 mL IM Right Deltoid 0.5 mL [id number] 09/14/23 53541-496-28 [facility] VIS Given Date VIS Provided VIS Publication Date 01/03/23 Single Vaccine 20 Eligibility Eligibility Date Funding Source Not VF Eligible 01/03/23 Private Results Reviewed Results Reviewed: SPEC : [id number] LEOBARDO: 12/24/22 STATUS: COMP REQ : [id number] RECD: 12/24/[address]: Dahiana Encinas MD COMP: 12/24/22 ENTERED: 12/24/[address]: ORDERED: Met Prof Fast, Vitamin D 25-OH Test Result Flag Reference Site Sodium 140 135-145 mmol/L Potassium 3.9 3.3-5.1 mmol/L CL 105 96-108 mmol/L CO2 23 22-29 mmol/L Gap 16 12-20 BUN 25 H 9-16 mg/dL Creat 0.90 0.5-1.4 mg/dL EGFR > 60 NOTE: For -Citizen Of [place] individuals, multiply the result by 1.210. Chronic Kidney Disease: Estimated GFR < 60 mL/min/1.73m2 Severe Kidney Disease: Estimated GFR < 15 mL/min/1.73m2 FBS 87 60-99 mg/dL CA 9.2 8.4-10.2 mg/dL Vit D 25-OH Tot 52.9 >30 ng/mL Health Based Reference Values* < 20 ng/mL Deficient 20-30 ng/mL Insufficient > 30 ng/mL Sufficient Laboratory Tests 11/07/20 12/24/22 09:30 08:21 Hgb 13.5 L D 16.5 Hct 41.5 L D 48.5 Assessment and Plan Assessment & Plan Orders: Orders Influenza [id number] Immunization Today Z23 - Encounter for immunization Coding
[2023-01-03 10:45] VITALS: BP 120/70; PULSE 75; O2SAT 95; BMI 18.6
== END 2023-01-03 11:32 | disposition home or self-care (01) ==
PROVIDERS: Visit Provider Internal Medicine
DX: Z23 Encounter for immunization (principal)
CPT/HCPCS: 90471; 90686

== ENCOUNTER 2023-05-21 09:46 | Outpatient (AMB) | payer MEDICARE, SELFPAY ==
--- NOTE | 2023-05-21 09:59 | A.OFFVIS_ITS ---
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 He was briefly hospitalized requiring oxygen. He was able to be discharged home on oxygen. However, he is reluctant on using the oxygen if he does needed. During the office visit we did go for 6 minutes walk test. The patient did desaturate down to 86% and was visibly dyspneic with a dyspnea score of 8/10. The patient did ambulate about 200 yd. Initially the patient 1 at the oxygen taking out of the house. Although he agreed to continue having the oxygen there in to uses specially when he is moving in exercising and trying to build up some loss she endurance and exercise capacity. The patient is also status post surgery for colon cancer and he has been tired of having to go in and out of hospitals having dizzy different specialists. He would like to continue recovering at home performing physical therapy and respiratory therapy at home. The patient does not have any inhalers. However, he would like to hold off on any respiratory medications. Will make an appointment for him to follow-up in 6 months. Although he will call if any other issues arise. 01/28/2022 the patient is here for a pul monary follow-up visit. He is feeling better after having severe COVID. He was discharged on oxygen. I did evaluate him after the fact. He was to continue using the oxygen. Although since we last evaluated him he probably use that about 4 times and is no longer using it. He does not want in the house any further. She wants it to be discontinued when picked up by the [facility]. Explained to the patient that we can always have a discontinued specially if he is not using it. If however condition worsens we may have to retest him to see if he qualifies again in the future he is not using any inhalers at this time. Therefore I will give him a script to have a short-acting beta agonist that he can use as needed. He was supposed to have a chest x-ray and also a pulmonary function study but he did not have them as of yet. 11/15/2022 the patient is here for pulmonary follow-up visit. Overall he is about the same. Still complaining of dyspnea on exertion. He no longer has the oxygen. His shortness of breath is moderate severity primarily when he goes up a flight of stairs. He is also noticed increased weight gain. Does have some lower extremity edema. The short-acting beta agonist is not effective. Will go ahead and start him on a maintenance inhaler to see if this is helpful. Patient also appears to be volume overloaded. Will request a chest x-ray and also start him on Lasix for the 3 day weekend. I am hopeful that with the fluid removal he will feel better. The patient needs to do better with his low-sodium diet. 05/21/2023 the patient is here for pulmona ry follow-up visit. Overall he is feeling better. We did send him a maintenance inhaler in initially he was going to be on Advair HFA but now apparently was in the [place]. He will be switched over to Wixela inhaler. Seems to be working well for him. His shortness of breath and cough improved. He is no longer using the oxygen that was taken out of the house. Right now he does not feel like he needed. He will let me know whenever he is ready to look into it further. At this point he would like to not pursue too many medical interventions. He did not have a chest x-ray for the same reason. He is well aware that at any point that he needs anything which is call the office so we can help him with any acute issues. So for now he will continue with current respiratory therapy. He will call if he would like to be assessed for oxygen again and will get an x-ray he thinks he needs 1 otherwise will follow-up in a year's time. [facility] Medical History (Updated 11/15/22 @ 14:24 by Reyna Murrieta PA-C) Personal history of nicotine dependence History of radiation therapy (~2019) History of rectal cancer (~2019) Chest crackles Hx of compression fracture of spine Strain of lumbar paraspinal muscle New abnormality on chest x-ray Physical deconditioning Chronic respiratory failure COVID-19 vaccination declined Refused influenza vaccine Acute anxiety Fecal urgency History of COVID-19 Acute respiratory failure with hypoxia Anemia Hx of bacteremia Hx: UTI (urinary tract infection) Congestive heart failure History of chemotherapy (~2019) Hx of melanoma of skin Peptic ulcer COPD (chronic obstructive pulmonary disease) Chronic bronchitis History of herpes zoster Hypertension Surgical History (Updated 11/15/22 @ 14:24 by Reyna Murrieta PA-C) History of reversal of ileostomy History of cataract surgery History of colonoscopy Hx of kyphoplasty Hx of melanoma excision History of low anterior resection of rectum History of left inguinal hernia repair History of right inguinal hernia repair (~1971) History of eye surgery (~1965) Family History Sister History of breast cancer Social History Household Members: Spouse and Children Housing: House Are you a primary long term care pharmacist to a significant other at home: No Do you presently have visiting nurse or other home services: No Alcohol intake: never Comment: soreness Patient Tobacco Use Status: Never used Tobacco Tobacco use type: Cigarette Cigarette Packs Per Day: 0 Cigarettes Per Day: 0 Years Smoked: 60 e-Cigarette/Vaping Use: Never Used Second Hand Smoke Exposure: Yes Advance Directives Date on File: 10/04/20 service: Yes Current occupational status: disabled Cognitive needs: No Hearing needs: Yes Vision needs: No Review of Systems Const Reports fatigue, Denies night sweats and Reports weight loss ENT Denies change in voice, Denies lip swelling, Denies mouth pain, Reports nasal congestion, Reports nasal discharge and Denies tongue swelling Card Denies chest pain, Denies dyspnea and Reports dyspnea on exertion Resp Reports cough, Denies dyspnea and Reports dyspnea on exertion GI Denies abdominal pain Musc Denies no additional complaints Neuro Denies Neuro-related abnormal movements Psych Denies no additional complaints Endo Reports fatigue Kaden/Lymph Denies easy bleeding and Denies lymphadenopathy Aller/Immun Denies lip swelling and Denies tongue swelling Physical Exam Vital Signs: Last Vital Signs Pulse 58 05/21/23 10:01 BP 120/60 05/21/23 10:01 Pulse Ox 91 L 05/21/23 10:01 Oxygen Delivery Method Room Air 05/21/23 10:01 BMI result Body Mass Index 18.6 Const General: alert Neck Neck: Yes normal visual inspection, Yes full ROM and Yes no lymphadenopathy Chest Chest palpation & inspection: normal inspection of the chest Resp Auscultation: diminished lung sounds Cardio Rate: regular rate Rhythm: regular rhythm Heart sounds: S1 normal heart sound present and S2 normal heart sound present GI Palpation (GI): Soft to palpation and nontender Auscultation: normal bowel sounds Skin General skin exam: rashes and/or lesions noted Assessment & Plan Assessment & Plan (1) COPD (chronic obstructive pulmonary disease): Comment: smoker X 60 years Code(s): J44.9 - Chronic obstructive pulmonary disease, unspecified Qualifiers: COPD type: emphysema Emphysema type: centrilobular Qualified Code(s): J43.2 - Centrilobular emphysema (2) Chronic respiratory failure: Code(s): J96.10 - Chronic respiratory failure, unspecified whether with hypoxia or hypercapnia Qualifiers: Respiratory failure complication: hypoxia Qualified Code(s): J96.11 - Chronic respiratory failure with hypoxia Plan continue Advair->Wixela RIDGE as needed consider CXR consider overnight oximetry F/U 12 months Medications: New fluticasone propion-salmeterol 250-50 mcg/dose (Wixela Inhub) 1 inh inhalation Q12H 30 days 60 ea 11RF Discontinued fluticasone propion-salmeterol 115-21 mcg/actuation (Advair HFA) Discontinued Reason: Doctor's Order 2 puffs inhalation Q12H 30 days 12 grams 11RF Coding Level of Care Code Est Pt Level 4 (60169) Diagnoses Centrilobular emphysema J43.2 COPD type: emphysema Emphysema type: centrilobular Chronic respiratory failure with hypoxia J96.11 Respiratory failure complication: hypoxia Time Spent (min) 16
[2023-05-21 10:01] VITALS: BP 120/60; PULSE 58; O2SAT 91; BMI 18.6
== END 2023-05-21 10:32 | disposition home or self-care (01) ==
PROVIDERS: PCP Internal Medicine; Visit Provider Hospitalist
DX: J43.2 Centrilobular emphysema (principal); J96.11 Chronic respiratory failure with hypoxia
CPT/HCPCS: 99214

== ENCOUNTER → 2023-05-21 09:46 | Outpatient (BNVA) | payer MEDICARE, SELFPAY | PROVIDERS: PCP Internal Medicine; Visit Provider Hospitalist | DX: J43.2 Centrilobular emphysema (principal); J96.11 Chronic respiratory failure with hypoxia | CPT/HCPCS: 99212 ==

== ENCOUNTER 2023-07-15 08:01 | Outpatient (REF) | payer MEDICARE, SELFPAY ==
[2023-07-15 10:42] LABS: Hematocrit 46.9 % (42.0-52.0); Hemoglobin 15.9 g/dl (14.0-18.0)
[2023-07-15 11:08] LABS: Alanine Aminotransferase 18 U/L (0-40); Anion Gap 14 (12-20); Aspartate Amino Transferase 26 U/L (5-37); Blood Urea Nitrogen 25 mg/dL (9-16); Calcium 9.2 mg/dL (8.4-10.2); Carbon Dioxide 25 mmol/L (22-29); Chloride 103 mmol/L (96-108); Cholesterol 172 mg/dL (<200); Estimated Glomerular Filt Rate > 60; Glucose Fasting 91 mg/dL (60-99); HDL Cholesterol 44 mg/dL (>40); LDL Cholesterol Calculated 108 mg/dL (<100); Potassium 4.4 mmol/L (3.3-5.1); Sodium 138 mmol/L (135-145); Triglycerides 102 mg/dL (<150)
[2023-07-15 11:12] LABS: Vitamin D 25-OH Total 43.8 ng/mL (>30)
== END 2023-07-15 08:02 | disposition home or self-care (01) ==
LOC: HO.HMGCLDS 08:01
PROVIDERS: PCP Internal Medicine; Visit Provider Internal Medicine
DX: I10 Essential (primary) hypertension (principal); Z86.2 Personal history of diseases of the blood and blood-forming organs and certain disorders involving the immune mechanism; Z87.81 Personal history of (healed) traumatic fracture; Z13.220 Encounter for screening for lipoid disorders
CPT/HCPCS: 36415; 80048; 80061; 82306; 84450; 84460; 85014; 85018

== ENCOUNTER 2023-08-12 14:47 | Outpatient (AMB) | payer MEDICARE, SELFPAY ==
[2023-08-12 14:51] VITALS: BP 110/68; PULSE 61; O2SAT 92; BMI 18.0
--- NOTE | 2023-08-12 14:51 | A.OFFVIS_ITS ---
Intake Vital Signs 08/12/23 14:51 Height 5 ft 9 in Weight 122 lb BMI 18.0 BP 110/68 Blood Pressure Location Lt brachial Position Sitting Pulse 61 Pulse Source Pulse Oximeter Pulse Oximetry (%) 92 Oxygen Delivery Method Room Air Intake Visit Reasons: SWV Intake Note: Pt is here today for his SWV Allergies No Known Allergies Allergy (Verified 08/12/23 15:15) Medication List - Last Reconciled 08/12/23 by Dahiana Encinas MD atenolol 25 mg PO DAILY omqdrja-fqluljoma-yhca 333-133-8.3 mg tabs PO cholecalciferol (vitamin D3) 50 mcg PO DAILY fluticasone propion-salmeterol 250-50 mcg/dose (Wixela Inhub) 1 inh inhalation Q12H 30 days HPI SWV HPI Details SWV ? 78 year old with history of COPD, hypertension, history of rectal cancer status post surgery, presents for his ? Annual Wellness Visit, subsequent visit.? He had a colonoscopy done [place] [address] Keller, no further testing needed. Had his PSA level checked in 2020, which came back within normal limits, a fasting lipid panel was done in 07/05/2023 as well as fasting blood sugar both of which came back within normal limits. He had a bone density scan done August of 2021 which showed presence of osteoporosis in left femoral neck and left femur osteopenia in lumbar spine. Patient declined further treatment or repeat testing done. He declines getting flu COVID vaccine or Shingrix vaccine, up-to-date with his pneumonia vaccination and Tdap. ? Medical / Social History Reviewed? Past Medical History ?Yes . ? [place] of Care / Care Team list updated ?Yes . ? Surgical/Hospitalization History ?Yes . ? Current Medications (including OTC and supplements) ?Yes . ? Family History ?Yes . ? Tobacco Control form ?Yes . ? AUDIT-C (Alcohol use) form ?Yes . ? Illicit drug use in Social History ?Yes . ? Current diagnosis of depression? ?No ? Appropriate PHQ2/PHQ9 completed ?Yes . ? Data entered by ?Nitroglycerin Supervisor and reviewed by provider ? Fall Risk ? Fall History? Have you had any falls with injury in the past year? ?No . ? Have you had two or more falls in the past year? ?No . ? Fall Risk Assessment: ?No falls in the past year . ? HRA filled out by the patient, reviewed by Provider and scanned. ?SWV ? Balance? Romberg ?Yes . ? Tandem walk unable ? Walk and Turn ?Yes . ? Rise from sit to stand ?Yes . ?Vision? Corrective lens ?Yes ? Vision screen ? Up-to-date, sees Dr. Sifuentes ?Hearing? Whisper test ?fail, wears bilateral hearing aids ?Written Plan?Completed. See Patient Documents.? [facility] Medical History (Updated 08/12/23 @ 17:15 by Dahiana Encinas MD) Personal history of nicotine dependence History of radiation therapy (~2019) History of rectal cancer (~2019) Hx of compression fracture of spine COVID-19 vaccination declined Refused influenza vaccine History of COVID-19 Acute respiratory failure with hypoxia Anemia Hx of bacteremia Hx: UTI (urinary tract infection) Congestive heart failure History of chemotherapy (~2019) Hx of melanoma of skin Peptic ulcer COPD (chronic obstructive pulmonary disease) Chronic bronchitis History of herpes zoster Hypertension Surgical History History of reversal of ileostomy History of cataract surgery History of colonoscopy Hx of kyphoplasty Hx of melanoma excision History of low anterior resection of rectum History of left inguinal hernia repair History of right inguinal hernia repair (~1971) History of eye surgery (~1965) Family History Sister History of breast cancer Social History Household Members: Spouse and Children Housing: House Are you a primary healthcare or medical to a significant other at home: No Do you presently have visiting nurse or other home services: No Alcohol intake: never Comment: soreness Patient Tobacco Use Status: Never used Tobacco Tobacco use type: Cigarette Cigarette Packs Per Day: 0 Cigarettes Per Day: 0 Years Smoked: 60 e-Cigarette/Vaping Use: Never Used Second Hand Smoke Exposure: Yes Advance Directives Date on File: 10/04/20 service: Yes Current occupational status: disabled Cognitive needs: No Hearing needs: Yes Vision needs: No Questionnaire Medicare Wellness Checkup [age] What gender do you identify with?: male During the past 4 weeks, how much have you been bothered by emotional problems such as feeling anxious, depressed, irritable, sad or downhearted, and blue?: not at all During the past 4 weeks, has your physical & emotional health limited your social activities with family, friends, neighbors, or groups?: not at all During the past 4 weeks, how much bodily pain have you generally had?: no pain During the past 4 weeks, was someone available to help you if you needed & wanted help?: yes, as much as I wanted During the past 4 weeks, what was the hardest physical activity you could do for at least 2 minutes?: moderate Can you get to places out of walking distance without help? (For eg., can you travel alone on buses, taxis or drive your car?): Yes Can you go shopping for groceries or clothes without someone's help?: No Can you prepare your own meals?: Yes Can you do your housework without help?: Yes Because of any health problems, do you need the help of another person with your personal care needs such as eating, bathing, dressing or getting around the house?: No Can you handle your own money without help?: Yes During the past 4 weeks, how would you rate your health in general?: fair During the past 4 weeks how have things been going for you?: pretty well Are you having difficulties driving your car?: no Do you always fasten your seat belt when you are in a car?: yes, usually During past 4 weeks, have you been bothered by the following: never: Falling or dizzy when standing up, Sexual problems?, Trouble eating well? and Teeth or denture problems? and sometimes: Problems using the telephone? and Tiredness or fatigue? Have you fallen 2 or more times in the past year?: No Are you afraid of falling?: No Are you a smoker?: no During the past 4 weeks, how many drinks of wine, beer, or other alcoholic beverages did you have?: no alcohol at all Do you exercise for about 20 minutes 3 or more times a week?: no, I usually do not exercise this much Have you been given information to help with the following?: no: Hazards in your house that might hurt you? and no: Keeping track of your medications? How often do you have trouble taking medicines the way you have been told to take them?: I do not have to take medicine How confident are you that you can control & manage most of your health problems?: very confident What is your race?: White Mini Mental State Exam (MMSE) Orientation What is the (year) (season) (date) (day) (month)?: year (2023), season (Spring), date (08/12/2023), day (Friday) and month (July) Where are we (state) (county) (town or city) (hospital) (floor)?: state ([place]), county ([place]), town or city ([place]) and hospital/clinic ([facility]) Score Score: 9 Activity of Daily Living Bathing - sponge bath, tub bath or shower: receives no assistance (gets in/out by self, if usual bathing means Dressing - getting clothes from closets & drawers, including inner/outer garments & fasteners.: gets clothes & gets completely dressed without help Toileting - going to the 'toilet room' for urine/bowel elimination & cleaning self/arranging clothes: goes to toilet room, cleans self, arranges clothes without help Transfer: moves in & out of bed and chair without help (may use support object) Continence: controls urination/bowel movements completely by self Feeding: feeds self without help Total Score: 0 Information obtained from: patient Using telephone: independent Traveling: dependent Shopping: dependent Preparing meals: independent Housework: needs assistance Taking medicine: independent Managing money: independent PHQ-9 Over the last 2 weeks, how often have you been bothered by any of the following problems? 1. Little interest or pleasure in doing things: not at all 2. Feeling down, depressed, or hopeless: not at all 3. Trouble falling or staying asleep, or sleeping too much: not at all 4. Feeling tired or having little energy: several days 5. Poor appetite or overeating: not at all 6. Feeling bad about yourself - or that you are a failure or have let yourself or your family down: not at all 7. Trouble concentrating on things, such as reading the newspaper or watching television: not at all 8. Moving or speaking so slowly that other people could have noticed. Or the opposite - being so fidgety or restless that you have been moving around a lot more than usual: not at all 9. Thoughts that you would be better off or of hurting yourself in some way: not at all Total score: 1 Depression Screening Interpretation: Negative Depression Screening Done: Yes 53616 - PHQ-9 Billing: Yes Source: Developed by Drs. Felix Reyes, Argelia Tapia, Gene Crawford and colleagues, with an educational javier from [employer]. Physical Exam Vital Signs: Last Vital Signs Pulse 61 08/12/23 14:51 BP 110/68 08/12/23 14:51 Pulse Ox 92 08/12/23 14:51 Oxygen Delivery Method Room Air 08/12/23 14:51 BMI result Body Mass Index 18.0 Assessment & Plan Assessment & Plan (1) Encounter for subsequent annual wellness visit (AWV) in Medicare patient: Code(s): Z00.00 - Encounter for general adult medical examination without abnormal findings Plan: Medical wellness checklist reviewed, discussed with patient and updated. Copy given (2) Hypertension: Code(s): I10 - Essential (primary) hypertension Qualifiers: Hypertension type: primary hypertension Qualified Code(s): I10 - Essential (primary) hypertension Plan: Takes atenolol 25 mg daily with blood pressure stable and controlled (3) COPD (chronic obstructive pulmonary disease): Comment: smoker X 60 years Code(s): J44.9 - Chronic obstructive pulmonary disease, unspecified Qualifiers: COPD type: emphysema Emphysema type: centrilobular Qualified Code(s): J43.2 - Centrilobular emphysema Plan: Followed by Dr. Rubio currently on Wixela (4) History of rectal cancer: Onset Date: ~2019 Comment: (Adenocarcinoma dx 11/2019 - s/p Chemo/RAD, s/p resection 05/2020) Code(s): Z85.048 - Personal history of other malignant neoplasm of rectum, rectosigmoid junction, and anus Plan: Followed by Dr. Tejeda (5) Advanced directives, counseling/discussion: Code(s): Z71.89 - Other specified counseling Plan: Initiated the conversation about Advanced Directives. Advanced Directives help patients prepare for current and future decisions about their medical treatment and place of care. Discussed with patient that it is a process where a patients current condition and prognosis are reviewed, their wishes for information regarding their illness are elicited, and likely medical dilemmas are presented and options discussed. Healthcare proxy form completed today, MOLST form already in place. These forms can be amended as needed, reviewed yearly and make changes as needed Orders: Orders Basic Metabolic Panel Fasting 01/16/24 I10 - Essential (primary) hypertension, J43.2 - Centrilobular emphysema, Z85.048 - Personal history of other malignant neoplasm of rectum, rectosigmoid junction, and anus, Z87.81 - Personal history of (healed) traumatic fracture Alanine Aminotransferase 01/16/24 I10 - Essential (primary) hypertension, J43.2 - Centrilobular emphysema, Z85.048 - Personal history of other malignant neoplasm of rectum, rectosigmoid junction, and anus, Z87.81 - Personal history of (healed) traumatic fracture Aspartate Amino Transferase 01/16/24 I10 - Essential (primary) hypertension, J43.2 - Centrilobular emphysema, Z85.048 - Personal history of other malignant neoplasm of rectum, rectosigmoid junction, and anus, Z87.81 - Personal history of (healed) traumatic fracture Lipid Panel 01/16/24 I10 - Essential (primary) hypertension, J43.2 - Centrilobular emphysema, Z85.048 - Personal history of other malignant neoplasm of rectum, rectosigmoid junction, and anus, Z87.81 - Personal history of (healed) traumatic fracture Vitamin D 25-OH Total 01/16/24 I10 - Essential (primary) hypertension, J43.2 - Centrilobular emphysema, Z85.048 - Personal history of other malignant neoplasm of rectum, rectosigmoid junction, and anus, Z87.81 - Personal history of (healed) traumatic fracture Quality Reporting (2019) Depression/Bipolar (159/160/161/177) PHQ-9: Total score: 1 Coding Level of Care Code Medicare Subsequent (G0439) Diagnoses Encounter for subsequent annual wellness visit (AWV) in Medicare patient Z00.00 Primary hypertension I10 Hypertension type: primary hypertension Centrilobular emphysema J43.2 COPD type: emphysema Emphysema type: centrilobular History of rectal cancer Z85.048 Advanced directives, counseling/discussion Z71.89 CPT Codes Advance Care Planning - Time spent: 16-45 minutes ([id number]) Advance Care Planning Advance Care Planning discussion: Completed/Scanned Date of discussion: 08/12/23 Who was present: Patient and Forms completed: Health Care Proxy Time spent: 16-45 minutes Actual minutes spent: 16
== END 2023-08-12 15:43 | disposition home or self-care (01) ==
LOC: HO.HMGC 14:47
PROVIDERS: PCP Internal Medicine; Visit Provider Internal Medicine
DX: Z00.00 Encounter for general adult medical examination without abnormal findings (principal); I10 Essential (primary) hypertension; J43.2 Centrilobular emphysema; Z85.048 Personal history of other malignant neoplasm of rectum, rectosigmoid junction, and anus; Z71.89 Other specified counseling
CPT/HCPCS: 99497; G0439

== ENCOUNTER 2024-06-02 10:49 | Outpatient (AMB) | payer MEDICARE, SELFPAY ==
[2024-06-02 10:51] VITALS: BP 142/84; PULSE 66; O2SAT 90; BMI 18.4
--- NOTE | 2024-06-02 10:51 | A.OFFVIS_ITS ---
Vital Signs 06/02/24 10:51 Height 5 ft 9 in Weight 124 lb 8.979 oz BMI 18.4 BP 142/84 H Blood Pressure Location Rt brachial Position Sitting Pulse 66 Pulse Source Pulse Oximeter Pulse Oximetry (%) 90 L Oxygen Delivery Method Room Air Intake Visit Reasons: COPD Allergies No Known Allergies Allergy (Verified 06/02/24 10:56) HPI Comments Details: The patient is a 78-year-old gentleman former smoker with a extensive history of emphysema who apparently was in his usual state health until back in February when he ended up with COVID-19. He was briefly hospitalized requiring oxygen. He was able to be discharged home on oxygen. However, he is reluctant on using the oxygen if he does needed. During the office visit we did go for 6 minutes walk test. The patient did desaturate down to 86% and was visibly dyspneic with a dyspnea score of 8/10. The patient did ambulate about 200 yd. Initially the patient 1 at the oxygen taking out of the house. Although he agreed to continue having the oxygen there in to uses specially when he is moving in exercising and trying to build up some loss she endurance and exercise capacity. The patient is also status post surgery for colon cancer and he has been tired of having to go in and out of hospitals having dizzy different specialists. He would like to continue recovering at home performing physical therapy and respiratory therapy at home. The patient does not have any inhalers. However, he would like to hold off on any respiratory medications. Will make an appointment for him to follow-up in 6 months. Although he will call if any other issues arise. 01/28/2022 the patient is here for a pulmonary follow-up visit. He is feeling better after having severe COVID. He was discharged on oxygen. I did evaluate him after the fact. He was to continue using the oxygen. Although since we last evaluated him he probably use that about 4 times and is no longer using it. He does not want in the house any further. She wants it to be discontinued when picked up by the [facility]. Explained to the patient that we can always have a discontinued specially if he is not using it. If however condition worsens we may have to retest him to see if he qualifies again in the future he is not using any inhalers at this time. Therefore I will give him a script to have a short-acting beta agonist that he can use as needed. He was supposed to have a chest x-ray and also a pulmonary function study but he did not have them as of yet. 11/15/2022 the patient is here for pulmonary follow-up visit. Overall he is about the same. Still complaining of dyspnea on exertion. He no longer has the oxygen. His shortness of breath is moderate severity primarily when he goes up a flight of stairs. He is also noticed increased weight gain. Does have some lower extremity edema. The short-acting beta agonist is not effective. Will go ahead and start him on a maintenance inhaler to see if this is helpful. Patient also appears to be volume overloaded. Will request a chest x-ray and also start him on Lasix for the 3 day weekend. I am hopeful that with the fluid removal he will feel better. The patient needs to do better with his low-sodium diet. 05/21/2023 the patient is here for pulmonary follow-up visit. Overall he is feeling better. We did send him a maintenance inhaler in initially he was going to be on Advair HFA but now apparently was in the [place]. He will be switched over to Wixela inhaler. Seems to be working well for him. His shortness of breath and cough improved. He is no longer using the oxygen that was taken out of the house. Right now he does not feel like he needed. He will let me know whenever he is ready to look into it further. At this point he would like to not pursue too many medical interventions. He did not have a chest x-ray for the same reason. He is well aware that at any point that he needs anything w [facility] is call the office so we can help him with any acute issues. So for now he will continue with current respiratory therapy. He will call if he would like to be assessed for oxygen again and will get an x-ray he thinks he needs 1 otherwise will follow-up in a year's time. 06/02/2024 the patient is here for pulmonary follow-up visit. Overall he is doing okay. Does have issues with powder inhalers. Therefore he has not been using it. He does complaint of some chest congestion some dyspnea. Currently he does not have a rescue inhaler. We did talk about getting an x-ray but the patient opted on not getting any imaging studies at this time. Will go ahead and prescribe him Breztri and he can use it twice a day. We did talk about rinsing. If he has any issues with the inhaler he will call for further recommendations. [facility] Medical History (Updated 08/12/23 @ 17:15 by Dahiana Encinas MD) Personal history of nicotine dependence History of radiation therapy (~2019) History of rectal cancer (~2019) Hx of compression fracture of spine COVID-19 vaccination declined Refused influenza vaccine History of COVID-19 Acute respiratory failure with hypoxia Anemia Hx of bacteremia Hx: UTI (urinary tract infection) Congestive heart failure History of chemotherapy (~2019) Hx of melanoma of skin Peptic ulcer COPD (chronic obstructive pulmonary disease) Chronic bronchitis History of herpes zoster Hypertension Surgical History History of reversal of ileostomy History of cataract surgery History of colonoscopy Hx of kyphoplasty Hx of melanoma excision History of low anterior resection of rectum History of left inguinal hernia repair History of right inguinal hernia repair (~1971) History of eye surgery (~1965) Family History Sister History of breast cancer Social History (Updated 06/02/24 @ 10:56 by Cat Giraldo [facility]) Household Members: Spouse and Children Housing: House Are you a primary attending ambulatory care to a significant other at home: No Do you presently have visiting nurse or other home services: No Alcohol intake: never Comment: soreness Patient Tobacco Use Status: Former Tobacco user Tobacco use type: Cigarette Cigarette Packs Per Day: 0 Cigarettes Per Day: 0 Years Smoked: 60 e-Cigarette/Vaping Use: Never Used Second Hand Smoke Exposure: Yes Advance Directives Date on File: 10/04/20 service: Yes Current occupational status: disabled Cognitive needs: No Hearing needs: Yes Vision needs: No Review of Systems Const Reports fatigue, Denies night sweats and Reports weight loss ENT Denies change in voice, Denies lip swelling, Denies mouth pain, Reports nasal congestion, Reports nasal discharge and Denies tongue swelling Card Denies chest pain, Denies dyspnea and Reports dyspnea on exertion Resp Reports cough, Denies dyspnea and Reports dyspnea on exertion GI Denies abdominal pain Musc Denies no additional complaints Neuro Denies Neuro-related abnormal movements Psych Denies no additional complaints Endo Reports fatigue Kaden/Lymph Denies easy bleeding and Denies lymphadenopathy Aller/Immun Denies lip swelling and Denies tongue swelling Physical Exam Vital Signs: Last Vital Signs Pulse 66 06/02/24 10:51 BP 142/84 H 06/02/24 10:51 Pulse Ox 90 L 06/02/24 10:51 Oxygen Delivery Method Room Air 06/02/24 10:51 BMI result Body Mass Index 18.4 Const General: alert Neck Neck: Yes normal visual inspection, Yes full ROM and Yes no lymphadenopathy Chest Chest palpation & inspection: normal inspection of the chest Resp Auscultation: diminished lung sounds Cardio Rate: regular rate Rhythm: regular rhythm Heart sounds: S1 normal heart sound present and S2 normal heart sound present GI Palpation (GI): Soft to palpation and nontender Auscultation: normal bowel sounds Skin General skin exam: rashes and/or lesions noted Assessment & Plan Assessment & Plan (1) COPD (chronic obstructive pulmonary disease): Comment: smoker X 60 years Code(s): J44.9 - Chronic obstructive pulmonary disease, unspecified Category: Medical Qualifiers: COPD type: emphysema Emphysema type: centrilobular Qualified Code(s): J43.2 - Centrilobular emphysema (2) Chronic respiratory failure: Code(s): J96.10 - Chronic respiratory failure, unspecified whether with hypoxia or hypercapnia Category: Medical Qualifiers: Respiratory failure complication: hypoxia Qualified Code(s): J96.11 - Chronic respiratory failure with hypoxia Plan continue Advair->Wixela-->Breztri RIDGE as needed CXR F/U 12 months Orders: Orders XR chest 2V Today J43.2 - Centrilobular emphysema Medications: New dtdzuenakw-wdlskxrv-padtxdzrli 160-9-4.8 mcg/actuation (Breztri Aerosphere) 2 inhalations inhalation BID 10.7 grams 11RF 30 days Discontinued fluticasone propion-salmeterol 250-50 mcg/dose (Wixela Inhub) Discontinued Reason: Doctor's Order 1 inh inhalation Q12H 30 days 60 ea 11RF Coding Level of Care Code Est Pt Level 4 (97090) Diagnoses Centrilobular emphysema J43.2 COPD type: emphysema Emphysema type: centrilobular Chronic respiratory failure with hypoxia J96.11 Respiratory failure complication: hypoxia Time Spent (min) 16
--- OUTSIDE RECORDS SUMMARY | 2024-06-02 12:59 | XMS_ITS | Patient Health Record ---
Author Organization Felix Tejeda III, MD Address [address] [place] [address] [place] [address] Care Team Providers Care Floral Artist Name Role Phone Huang MOONEY, Dahiana Primary Care Provider Felix Soriano Unavailable [phone] Krishna MOONEY, Derick Unavailable Unavailable Allergies Allergen (clinical drug ingredient) Drug/Non Drug Allergy documented on EMR Reaction Allergy Type Onset Date Status No Known Drug Allergy Unknown Drug Allergy Active Reason For Referral No Information Medications Medication SIG (Take, Route, Frequency, Duration) Notes Start Date End Date Status Calcium Magnesium Ac tive Atenolol 25 MG 1 tablet Orally Once a day 10/17/19 21 Active Vitamin D 400 UNIT 1 capsule Orally Onc e a day Active Advair Diskus 100-50 MCG/ACT 1 puff Inhalation Twice a day Active Social History Tobacco Use: Social History Observation Description Date Details (start date - stop date) Current Smoker NA - NA Sex Assigned At : Social History Observation Description Sex Assigned At Male Tobacco Use/Smoking Question Answer Notes Patient is a current smoker How often do you smoke cigarettes? every day How many cigarettes a day do you smoke? 11-20 How soon after you wake up d o you smoke your first cigarette? 6-30 minutes Are you interested in quitting? Not ready to danae t Additional Findings: Tobacco User Modera te cigarette smoker (10-19 cigs/day) Alcohol Screen Question Answer Notes Did you have a drink containing alcohol in the p ast year? No Points 0 Interpretation Negative Problems Problem Type SNOMED Code ICD Code Onset Dates Problem Status W/U Status Risk Notes Problem 9681247 Former smoker (Z87.891) Active confirmed Problem Hyperlipidemia (49796373) Hyperlipidemia (E78.5) Active confirmed No change in his regimen is needed at this time. I encouraged him to consume a high-protein high-calorie diet. Problem Essential hypertension (47225215) Essential hypertension (I10) Active confirmed His blood pressure is stable at 124/64 and will be followed closely. No changes were made in his regimen. Problem COPD - Chronic obstructive pulmonary disease (68833737) COPD (chronic obstructive pulmonary disease) (J44.9) Active confirmed He continue s to smoke cigarettes and has a nonproductive cough. He is able to conduct all of the activities of daily living. He is short of breath with moderate exertion. He has had no hemoptysis. Problem Rectal cancer (894658989) Rectal cancer (C20) Active confirmed There is no sign of recurrent disease. The colostomy is closed. He continues to have mild diarrhea from the radiation therapy. I have discussed weight gain with him. Problem Right inguinal hernia (374763855) Right inguinal hernia (K40.90) Active confirmed This is asymptomatic at this time. Problem Left inguinal hernia (951640600) Left inguinal hernia (K40.90) Active confirmed He has occasional twinges of discomfort but the symptoms are minor. Vital Signs Heart Rate 57 /min 10/28/2023 Temperature 98.1 degrees Fahrenheit 10/28/2023 Blood pressure diastolic 75 mm Hg 10/28/2023 Height 67 in 10/28/2023 Blood pressure systolic 132 mm Hg 10/28/2023 Weight 120 lbs 10/28/2023 BMI 18.79 kg/m2 10/28/2023 Encounters Encounter Location Date Provider Diagnosis Felix Tejeda III, MD [address] [place] [address] [place] [address] 10/28/2023 Felix Tejeda Underweight R63.6 ; Rectal cancer C20 ; COPD (chronic obstructive pulmonary disease) J44.9 ; Essential hypertension I10 ; Hyperlipidemia E78.5 ; Left inguinal hernia K40.90 and Right inguinal hernia K40.90 Felix Tejeda III, MD [address] [place] [address] [place] [address] 02/02/2024 Felix Tejeda Assessments Encounter Date Diagnosis (ICD Code) Assessment Notes Treat ment Notes Treatment Clinical Notes 10/28/2023 Underweight (ICD-10 - R63.6) His body mass index is 18. He weighs 120 pounds. History of every 8 140 pounds. His appetite is poor. There was no sign of recurrent malignancy on today's examination. 10/28/2023 Rectal cancer (ICD-1 0 - C20) There is no sign of recurrent disease. The colostomy is closed. He continues to have mild diarrhea from the radiation therapy. I have discussed weight gain with him. 10/28/2023 COPD (chronic obstructive pulmonary disease) (ICD-10 - J44.9) He continues to smoke cigarettes and has a nonproductive cough. He is able to conduct all of the activities of daily living. He is short of breath with moderate exertion. He has had no hemoptysis. 10/28/2023 Essential hypertension (ICD-10 - I10) His blood pressure is stable at 124/64 and will be followed closely. No changes were made in his regimen. 10/28/2023 Hyperlipidemia (ICD-10 - E78.5) No change in his regimen is needed at this time. I encouraged him to consume a high-protein high-calorie diet. 10/28/2023 Left inguinal hernia (ICD-10 - K40.90) He has occasional twinges of discomfort but the symptoms are minor. 10/28/2023 Right inguinal herni a (ICD-10 - K40.90) This is asymptomatic at this time. Plan Of Treatment Pending Test Test Name Order Date PROFILE, RANDOM (COMPREHENSIVE METABOLIC ) 12/21/2019 PROFILE, RANDOM (COMPREHENSIVE METABOLIC ) 06/28/2020 CBC w DIFF 12/21/2019 CBC w DIFF 06/28/2020 CT ABD & PELVIS WWO CONTRAST 12/21/[address] SKULL TO THIGHS 12/29/2019 XR ORBITS 4 VIEWS 12/22/2019 XR ORBITS FOR FOREIGN BODY 12/22/2019 Next Appt Details Provider Name:Felix Lozane, 10/27/2024 10:30:00 AM, [address] [place] [address] JUSTIN GARNETT, [place], [address], Insurance Providers Payer Name Payer Address Payer Phone Subscriber Number Group Number Insured Name Patient Relationship to Insured Coverage Start Date Coverage End Date MEDICARE NGS [address] [place] [phone] [id number] EUSEBIO PALOMO Self - patient is the insured [facility] [address] [place], [place] [phone] [phone] [id number] EUSEBIO PALOMO Self - patient is the insured Medical (General) History Medical History History ICD Code adenocarcinoma of the rectum, M MR brinda walton, [id number] COPD (chronic obstructive pulmonary dise ase) J44.9 Hypertension I10 Hyperlipidemia E78.5 former smoker, smoker for 60 pack-years history of left inguinal hernia repaired July 07, 2019 history of right inguinal hernia 1979 shrapnel injury right eye family history of breast cancer Vertebral body compression fracture Surgical History Surgery Date(Month/Year) Vertebral plasty 2022 Closure of colostomy 09/12/2021 Radical resection of rectum and formatio n of colostomy 05/2021 Spinal surgery 09/2021 Colonoscopy 11/2019 right eye removal of shrapnel right inguinal hernai 1977 left inguinal hernia 06/2019
--- OUTSIDE RECORDS SUMMARY | 2024-06-02 12:59 | XMS_ITS ---
Author Organization Felix Tejeda III, MD Address [address] [place] [address] Care Team Providers Care Carpenter Mate Name Role Phone Huang MOONEY, Dahiana Primary Care Provider Felix Soriano Unavailable [phone] Krishna MOONEY, Derick Unavailable Unavailable Allergies Allergen (clinical drug ingredient) Drug/Non Drug Allergy documented on EMR Reaction Allergy Type Onset Date Status No Known Drug Allergy Unknown Drug Allergy Active REASON FOR VISIT History of rectal cancer, Recent weight loss, COPD, Hyperlipidemia, Bilateral annual hernias Medications Medication SIG (Take, Route, Frequency, Duration) [...] User Modera te cigarette smoker (10-19 cigs/day) Problems Problem Type SNOMED Code ICD Code Onset Dates Problem Status W/U Status Risk Notes Problem 3839978 Former smoker (Z87.891) Active confirmed Vital Signs Temperature 98.1 degrees Fahrenheit 10/28/19 24 Blood pressure systolic 132 mm Hg 10/28/19 24 Blood pressure diastolic 75 mm Hg 024 Heart Rate 57 /min 10/28/2023 Height 67 in 10/28/2023 Weight 120 lbs 10/28/2023 BMI 18.79 kg/m2 10/28/2023 Encounters Encounter Location Date Provider Diagnosis Felix Tejeda III, MD [address] [place] [address] [place] [address] 10/28/2023 Felix Tejeda Underweight R63.6 ; Rectal cancer C20 ; COPD (chronic obstructive pulmonary disease) J44.9 ; Essential hypertension I10 ; Hyperlipidemia E78.5 ; Left inguinal hernia K40.90 and Right inguinal hernia K40.90 Assessments Encounter Date Diagnosis (ICD Code) Assessment [...] asymptomatic at this time. Plan Of Treatment Medication Medication Name Sig Start Date Stop Date Notes Calcium Magnesium Atenolol 25 MG 1 tablet Orally Once a day 10/16/2020 Vitamin D 400 UNIT 1 capsule Orally Once a day Advair Diskus 100-50 MCG/ACT 1 puff Inhalation Twice a day Next Appt Details Follow Up: 1 Year, Reason: O V Provider Name:Felix Tejeda, 10/27/2024 10:30:00 AM, [address] [place] [address] JUSTIN GARNETT [facility], [place], [address], Progress Notes * EUSEBIO ELISEDOB:[birth year] (78 yo M)Acc No.[id number]:10/28/2023 Progress Notes Patient:?EUSEBIO ELISE Provider:?Felix Tejeda MD :1945???Age:78 Y???Sex:Male Herminio e:10/28/2023 Address:[address] [place], [place] [address] Pcp:Dahiana Encinas MD Subjective: * Chief Complaints: * ???History of rectal cancerR ecent weight lossCOPDHyperlipidemiaBilateral annual hernias * HPI: ???COVID-19 Screening:? He returns for followup after treatment of his rectal cancer. He has lost about 20 pounds in the last year. He says his appetite is poor. He denies any localized pain. He denies shortness of breath or cough. He is short of breath with exertion. His blood pressure is stable today. His small bilateral hernias are asymptomatic. There was no sign of recurrent cancer or a new primary on today's examination. Observation will continue. We had a long discussion about caloric intake, Healthy Meals, Not Skipping Food and Exercise. ?Questions?Have you experienced fever, chills, cough, sore throat, shortness of breath, difficulty breathing, muscle aches, loss of taste or smell??No ?Have you been exposed to the virus within the last 10 days??No ?Have you travelled internationally in the last 10 days??No ?Have you been exposed to COVID-19 in the past??Yes * ROS:?General/Constitutional:?pain?only normal aches and pains.?Chills?denies.?Fatigue?admits.?Fever?denies.?ENT:?Decreased hearing?mild.?Respiratory:?Cough?denies.?Cardiovascular:?Chest pain with exertion?denies.?Dyspnea on exertion?with prolonged activity.?Shortness of breath?that is moderate.?Gastrointestinal:?Constipation?denies.?Decreased appetite?denies.?Diarrhea?denies.?Heartburn?denies.?Nausea?denies.?Rectal bleeding?denies.?Vomiting?denies.?Hematology:?bruising?denies.?petechiae?denies.?Swollen glands?none have been noted.?Genitourinary:?Frequent urination?twice a night.?Musculoskeletal:?Muscle aches?denies.?Painful joints?denies.?Sciatica?denies.?Weakness?that is generalized.?Skin:?Itching?denies.?Rash?denies.?Skin lesion(s)?denies.?Neurologic:?Difficulty speaking?denies.?Dizziness?denies.?Headache?denies.?Low back pain?denies.?Psychiatric:?Depressed mood?denies.? * Medical History:? * Surgical History:?left ingui nal hernia 06/2019right inguinal hernai 1977right eye removal of shrapnel Colonoscopy 11/2019Spinal surgery adical resection of rectum and formation of colostomy losure of colostomy 09/12/2021Vertebral plasty 2022 * Hospitalization/Major Diagno stic Procedure:?Denies Past Hospitalization * Family History:?Father: dece ased, No information.?Mother: , Hypertension, diagnosed with HTN.?Siblings: alive, diagnosed with Cancer, HTN.?1 sister(s) . 2 son(s) . .? His sister has numerous moles. She has a history of breast cancer. He is not aware of any family history of mental illness or substance use disorder or addiction. * Social History:?Tobacco Use:?Tobacco Use/Smoking?Patient is a?current smoker ?How often do you smoke cigarettes??every day ?How many cigarettes a day do you smoke??11-20 ?How soon after you wake up do you smoke your first cigarette??6-30 minutes ?Are you interested in quitting??Not ready to quit ?Additional Findings: Tobacco User?Moderate cigarette smoker (10-19 cigs/day) ???He has been to Nichole for 53 years. They have 2 sons, one grand daughter and one grandson. He continues to smoke 1 package of cigarettes per day. * Medications:?TakingAdvair Di skus 100-50 MCG/ACT Aerosol Powder Breath Activated 1 puff Inhalation Twice a dayCalcium Magnesium Atenolol 25 MG Tablet 1 tablet Orally Once a dayVitamin D 400 UNIT Capsule 1 capsule Orally Once a dayMedication List reviewed and reconciled with the patientTaking Advair Diskus 100-50 MCG/ACT Aerosol Powder Breath Activated 1 puff Inhalation Twice a dayTaking Calcium Magnesium Taking Atenolol 25 MG Tablet 1 tablet Orally Once a dayTaking Vitamin D 400 UNIT Capsule 1 capsule Orally Once a dayMedication List reviewed and reconciled with the patient * Allergies:?No Known Drug All ergyno[Allergies Verified] Objective: * Vitals:?Ht: 67, Wt:120, BMI: 18.79, BP:132/75, HR:57, Temp:98.1. * Examination: ???General Examination: ?GENERAL APPEARANCE:?pleasant, well nourished, well developed, in no acute distress, calm and relaxed.?HEAD:?atraumatic, normocephalic.?EYES:?eomi, perrla, anicteric, conjugate.?EARS:?normal.?NOSE:?septum intact.?ORAL CAVITY:?normal, unremarkable.?NECK/THYROID:?no jugular venous distention, no carotid bruit, thyroid normal.?LYMPH NODES:?no enlarged lymph nodes,spleen normal.?SKIN:?no suspicious lesions, anicteric.?HEART:?no clicks, gallops, murmurs, or rubs, regular rhythm, S1, S2 normal, no s3, or vascular bruits.?LUNGS:?clear to auscultation .?BREASTS:??no masses palpable bilaterally.?ABDOMEN:?bowel sounds normal, no ascites, no organomegaly, no mass, All scars field, hernias, not present.?RECTAL EXAM:?not examined.?MUSCULOSKELETAL:?extremities unremarkable, no clubbing, cyanosis or edema.?PERIPHERAL PULSES:?normal.?NEUROLOGIC:?alert and oriented, cranial nerves 2-12 grossly intact, deep tendon reflexes 2+ symmetrical, motor strength normal upper and lower extremities, sensory exam intact.?PSYCH:?alert, oriented , mood depressed.? Assessment: * Assessment: 1.?Rectal cancer - C20, Ther e is no sign of recurrent disease. The colostomy is closed. He continues to have mild diarrhea from the radiation therapy. I have discussed weight gain with him.?2.?Underweight - R63.6, His body mass index is 18. He weighs 120 pounds. History of every 8 140 pounds. His appetite is poor. There was no sign of recurrent malignancy on today's examination. 3.?COPD (chronic obstructive pulmonary disease) - J44.9, He continues to smoke cigarettes and has a nonproductive cough. He is able to conduct all of the activities of daily living. He is short of breath with moderate exertion. He has had no hemoptysis.?4.?Essential hypertension - I10, His blood pressure is stable at 124/64 and will be followed closely. No changes were made in his regimen.?5.?Hyperlipidemia - E78.5, No change in his regimen is needed at this time. I encouraged him to consume a high-protein high-calorie diet.?6.?Left inguinal hernia - K40.90, He has occasional twinges of discomfort but the symptoms are minor.?7.?Right inguinal hernia - K40.90, This is asymptomatic at this time.? Plan: * Treatment: 2.?Others? Continue Advair Diskus Aerosol Powder Breath Activated, 100-50 MCG/ACT, 1 puff, Inhalation, Twice a day;?Continue Calcium Magnesium.?? * Procedure Codes:? * Preventive Medicine:? ??Counseling:?Care goal follow-up plan:?Counseling for abnormal BMI given?Yes ?Above Normal BMI Follow-up?Dietary management education, guidance, and counseling, Dietary needs education, Exercise promotion: strength training, Exercise promotion: stretching, Feeding regime, Giving encouragement to exercise, Lifestyle education regarding diet, Nutrition / feeding management, Nutrition therapy, Prescribed activity/exercise education, Prescribed diet education, Prescribed dietary intake, Special diet education, Weight monitoring , Intervention, Order not done: Medical or Other reason not done ?Smoking/Tobacco Use?Patient counseled on the dangers of tobacco use and urged to quit.?10/28/2023 ??COPD Care Plan:?Patient Lifestyle Goals?Reduce number of ED and hospitalizations, Relieve symptoms and improve quality of life, Be able to be more active with friends and family.?Treatment Goals?Exercise to help whole body, including lungs, Eat a nutritious diet and increase water consumption to 6-8 glasses a day, Eat 4-5 small meals throughout the day.?Barriers?no barriers.?Self-Managment Goals?Get an air purifier for the rooms you are in the most, Eat a healthy diet.? * Follow Up:?1 Year (Reason: O V) * Images: * Sign off status: Completed true * Provider:?Felix Tejeda MD Date:?10/15 Generated for Printi ng/Faxing/eTransmitting on:?06/02/2024 12:59 PM EDT History and Physical Notes * HPI (History of Present Illness) Category Sub-Category Detail Notes COVID-19 Screening Questions Have you had any new onset fever, chills, cough, congestion, sore throat, shortness of breath, muscle aches?: No Have you been exposed to the virus withi n the last 10 days?: No Have you travelled internationally in [facility] last 10 days?: No Have you been exposed to COVID-19 in the past?: Yes Examination Category Sub-Category Detail Notes General Examination GENERAL APPEARANCE: pleasant , well nourished, well developed, in no acute distress, calm and relaxed HEAD: atraumatic, normocep halic EYES: eomi, perrla, anicte joaquin, conjugate EARS: normal NOSE: septum intact NECK/THYROID: no jugular venous di stention, no carotid bruit, thyroid normal HEART: no clicks, gallops, murmurs, or rubs, regular rhythm, S1, S2 normal, no s3, or vascular bruits LUNGS: clear to auscultatio n ABDOMEN: bowel sounds normal, no ascites, no organomegaly, no mass, All scars field, hernias, not present NEUROLOGIC: alert and oriented, cranial nerves 2-12 grossly intact, deep tendon reflexes 2+ symmetrical, motor strength normal upper and lower extremities, sensory exam intact SKIN: no suspicious lesion s, anicteric PERIPHERAL PULSES: normal BREASTS: no masses palpable b ilaterally MUSCULOSKELETAL: extremities unremark able, no clubbing, cyanosis or edema LYMPH NODES: no enlarged lymph no selam,spleen normal RECTAL EXAM: not examined PSYCH: alert, oriented , mo od depressed ORAL CAVITY: normal, unremarkable
--- OUTSIDE RECORDS SUMMARY | 2024-06-02 12:59 | XMS_ITS | Continuity of Care Document ---
Author Name [facility] Organization [facility] Care Team Providers Care Engineering Mgr Name Role Phone [facility] Unavailable Unavailable Problems Combined list of problems from Department of Defense and Veterans [facility] facilities. It does not include entries that were removed or entered in error. Problem Status Onset Date Problem Type Date of Resolution Comments Source Alcohol Abuse (ICD-9-CM 305.00) Active Condition [facility] Allergic reaction caused by bee sting (SNOMED CT 803848788) Active Condition [facility] Anxiety Active Condition [facility] History of shingles Active Condition [facility] Hyperlipidemia (SNOMED CT 24648671) Active Condition [facility] Hypertension (SNOMED CT 75797002) Active Condition [facility] Hyponatremia Active Condition [facility] Macrocytosis Active Condition [facility] Skin Carcinoma Active Condition [facility] Tobacco use (SNOMED CT 786164308) Active Condition [facility] Medications Combined list of outpatient medications from Department of [facility] [place] and [facility] Affairs facilities.Medications provided include 1) outpatient medications from the last 15 months, and 2) patient-reported medications. Medication Details Route Status Patient Instructions Prescription Expires Prescription Number Last Dispense Date Ordering Provider Order Date Order Qty Source ASPIRIN 81MG TAB,EC TAKE ONE TABLET BY MOUTH DAILY ORAL ACTIVE LA NENA WARE S 2007 [facility] Allergies, Adverse Reactions, Alerts Combined list of allergies from Department of Defense and Veterans Affairs facilities. It does not include entries that were removed or entered in error. Substance Category Reaction Severity Reaction type Status Date Reported Comments Source BEE STINGS Propensity to adverse reaction (finding) active 8 [facility] HERBICIDES Propensity to adverse reaction (finding) active 3 [facility] Immunizations Combined list of available immunizations from the Department of Defense and Veterans Affairs facilities. Immunization Series Date Given Administered By Site Reaction Lot Number CVX Code Drug Application Development Director Status Comments Source INFLUENZA, SEASONAL, INJECTABLE 2018 141 complet ed [facility] INFLUENZA, SEASONAL, INJECTABLE 2017 141 complet ed [facility] INFLUENZA, SEASONAL, INJECTABLE 2016 141 complet ed [facility] FLU,3 YRS (HISTORICAL) 2015 88 complet ed community PCP [facility] PNEUMOCOCCAL CONJUGATE PCV 13 2014 133 complet ed [facility] PNEUMOCOCCAL CONJUGATE PCV 13 2014 133 complet ed patient is certain he received pneumococ jose 13 vaccine [facility] FLU,3 YRS (HISTORICAL) 2013 88 complet ed community PCP [facility] ZOSTER (HISTORICAL) 2013 121 complet ed [facility] FLU,3 YRS (HISTORICAL) 2013 88 complet ed [facility] FLU,3 YRS (HISTORICAL) 2007 88 complet ed [facility] FLU,3 YRS (HISTORICAL) 2006 88 complet ed [facility] TD(ADULT) UNSPECIFIED FORMULATION 2002 139 complet ed [facility] Social History Combined list of available smoking, tobacco, and other social history from Department of Defense and Veterans Affairs facilities. 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 09/15/2019 [facility] of [facility] INTEGR[facility] MARKETING MANAGER [facility] History of tobacco use CURRENT SMOKER 10/15/2017 1/2 pk a day [facility] History of tobacco use CURRENT SMOKER 10/02/2016 [facility] [place] History of tobacco use CURRENT SMOKER 10/03/2015 a pack aday [facility] History of tobacco use CURRENT SMOKER 09/28/2014 LIFETIME [facility] History of tobacco use CURRENT SMOKER 08/31/2013 [facility] [place] [facility] History of tobacco use CURRENT SMOKER 09/09/2012 1 ppd, 50+ [facility] [place] [facility] History of tobacco use V1-PT DECLINES TOBACCO CESSATION MEDS 07/18/2011 [facility] [place] [facility] History of tobacco use QUIT TOBACCO USE IN PAST YEAR 12/20/2010 [facility] [place] [facility] History of tobacco use V1-PT DECLINES TOBACCO CESSATION MEDS 05/28/2010 [facility] [place] [facility] History of tobacco use CURRENT SMOKER 11/23/2009 1/2 to 3/4 ppd [facility] History of tobacco use V1-PT DECLINES TOBACCO CESSATION MEDS 04/19/2009 [facility] [place] [facility] History of tobacco use CURRENT SMOKER 09/15/2008 1 ppd [facility] History of tobacco use V1-PT DECLINES TOBACCO CESSATION MEDS 01/20/2008 [facility] [place] [facility] History of tobacco use CURRENT SMOKER 07/17/2007 1 ppd [facility] History [facility] tobacco use CURRENT SMOKER 07/21/2006 [facility] History of tobacco use CURRENT SMOKER 01/17/2005 [facility] History of tobacco use CURRENT SMOKER 01/12/2004 [facility] History of tobacco use CURRENT SMOKER 12/23/2002 [facility] History of tobacco use CURRENT SMOKER 12/21/2001 [facility] History of tobacco use CURRENT SMOKER 12/18/2000 see below [facility]
--- OUTSIDE RECORDS SUMMARY | 2024-06-02 12:59 | XMS_ITS | Patient Health Record ---
Author Organization [facility] Address [address] [place] [address] Care Team Providers Care Medical Office Receptionist Assistant Name Role Phone Huang MOONEY, Dahiana Primary Care Provider Derick Hernandes Jr Unavailable [phone] Reason For Referral No Information Medications Medication SIG (Take, Route, Fr equency, Duration) Notes Start Date End Date Status Atenolol 50 MG 1 tablet Orally Once a day for 30 day(s) Active Immunizations Vaccine Route Administration Date Status Comme nts Influenza Unknown 12/15/2018 Administered Social History Tobacco Use: Social History Observation Description Date Details (start date - stop date) Current Smoker NA - NA Tobacco Use/Smoking Question Answer Notes Patient is a current smoker How often do you smoke cigarettes? every day How many cigarettes a day do you smoke? 11-20 How soon after you wake up d o you smoke your first cigarette? 6-30 minutes Are you interested in quitting? Not ready to danae t Additional Findings: Tobacco User Heavy cigarett e smoker (20-39 cigs/day) Alcohol Screen Question Answer Notes Did you have a drink containing alcohol in the p ast year? 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 Problem 494589713 Rectal mass (K62.89) Active confirmed Plan Of Treatment Future Test Test Name Order Date COLONOSCOPY 11/11/2019 Insurance Providers Payer Name Payer Address Payer Phone Subscriber Number Group Number Insured Name Patient Relationship to Insured Coverage Start Date Coverage End Date MEDICARE OF [place] [address] [place] [address] [id number] EUSEBIO ELISE Self - patient is the insured [employer] ATT[employer] CLAIMS [address] [place] [address] [phone] [id number] EUSEBIO ELISE Self - patient is the insured Medical (General) History Medical History History ICD Code hypertension COPD Surgical History Surgery Date(Month/Year) left inguinal herniorrhaphy 06/2019 right inguinal herniorrhaphy 40 years ag o removal of shrapnel, right eye Colonoscopy 11/2019
--- OUTSIDE RECORDS SUMMARY | 2024-06-02 12:59 | XMS_ITS ---
Author Organization Felix Tejeda III, MD Address [address] [place] [address] Care Team Providers Care Hearing Health Technician Name Role Phone Huang MOONEY, Dahiana Primary Care Provider Felix Soriano Unavailable [phone] Krishna MOONEY, Derick Unavailable Unavailable REASON FOR VISIT ? Rx Social History Sex Assigned At : Social History Observation Description Sex Assigned At Male Encounters Encounter Location Date Provider Diagnosis Felix Tejeda III, MD [address] [place] [address] [place] [address] 02/02/2024 Felix Tejeda Plan Of Treatment Next Appt Details Provider Name:Felix Tejeda, 10/27/2024 10:30:00 AM, [address] [place] [address] [place], [address], Progress Notes * GOSIAEUSEBIODOB:[birth year] (78 yo M)Acc No.[id number]:02/02/2024 Patient:?EUSEBIO PALOMO :1945???Age:78 Y???Sex:Male Address:[address] [place], [place] [address], [address] * true * Date:? Generated for Printi ng/Fasuzetteg/eTransmitting on:?06/02/2024 12:59 PM EDT
--- OUTSIDE RECORDS SUMMARY | 2024-06-02 13:00 | XMS_ITS ---
Author Organization Felix Tejeda III, MD Address [address] [address] Care Team Providers Care Dryer Feeder Name Role Phone Huang MOONEY, Dahiana Primary Care Provider Felix Soriano Unavailable [phone] Krishna MOONEY, Derick Unavailable Unavailable REASON FOR VISIT Cellulitis, left pinna, History of rectal cancer, COPD, Hypertension, Hyperlipidemia, Tobacco dependence Medications Medication SIG (Take, Route, Frequency, Duration) Notes Start Date End Date Status Bactrim DS 800-160 MG 1 tablet Orally Tw ice a day for 7 days 01/20/2023 01/27/2023 Active Atenolol 25 MG 1 tablet Orally Once a day 10/16/2020 Active Vitamin D 400 UNIT 1 capsule Orally Onc e a day Active Calcium Magnesium Ac tive Advair Diskus 100-50 MCG/ACT 1 puff Inhalation [...] User Modera te cigarette smoker (10-19 cigs/day) Vital Signs Temperature 98.1 degrees Fahrenheit 01/21/20 23 Blood pressure systolic 131 mm Hg 01/21/20 23 Blood pressure diastolic 78 mm Hg 023 Heart Rate 88 /min 01/20/2023 Height 67 in 01/20/2023 Weight 123 lbs 01/20/2023 BMI 19.26 kg/m2 01/20/2023 Encounters Encounter Location Date Provider Diagnosis Felix Tejeda III, MD [address] [place] [address] [place] [address] 01/20/2023 Felix Lozane Facial cellulitis L03.211 ; Rectal cancer C20 ; COPD (chronic obstructive pulmonary disease) J44.9 ; Essential hypertension I10 and Tobacco dependence F17.200 Assessments Encounter Date Diagnosis (ICD Code) Assessment Notes Treatment Notes Treatment Clinical Notes 01/20/2023 Facial cellulitis (ICD-10 - L03.211) He was given an antibiotic for a week. The face is unaffected, but there is erythema of the upper cartilage of tthe ear. 01/20/2023 Rectal cancer (ICD-10 - C20) There is no sign of recurrent disease. The colostomy is closed. He continues to have mild diarrhea from the radiation therapy. I have discussed weight gain with him. 01/20/2023 COPD (chronic obstructive pulmonary disease) (ICD-10 - J44.9) He continues to smoke cigarettes and has a nonproductive cough. He is able to conduct all of the activities of daily living. He is short of breath with moderate exertion. He has had no hemoptysis. 01/20/2023 Essential hypertension (ICD-10 - I10) His blood pressure is stable at 124/64 and will be followed closely. No changes were made in his regimen. 01/20/2023 Tobacco dependence (ICD-10 - F17.200) He has resumed smoking by history. We discussed smoking cessation strategies at length today. Plan Of Treatment Medication Medication Name Sig Start Date Stop Date Notes Bactrim DS 800-160 MG 1 tablet Orally Tw ice a day for 7 days 01/20/2023 01/27/2023 Next Appt Details Follow Up: 9M, Reason: OV Provider Name:Felix Tejeda, 10/27/2024 10:30:00 AM, [address] [place] [address] JUSTIN GARNETT, [place]IGUEL [place], [address], Progress Notes * EUSEBIO ELISEDOB:[birth year] (77 yo M)Acc No.[id number]:01/20/2023 Patient:?EUSEBIO ELISE Provider:?Felix Tejeda MD :1945???Age:77 Y???Sex:Male Herminio e:01/20/2023 Address:[address] [place], [place] [address]EL[place] [id number] Pcp:Dahiana Encinas MD Subjective: * Chief Complaints: * ???Cellulitis, left pinnaHis tory of rectal cancerCOPDHypertensionHyperlipidemiaTobacco dependence * HPI: ???COVID-19 Screening:?Questions?Have you experienced fever, chills, cough, sore throat, shortness of breath, difficulty breathing, muscle aches, loss of taste or smell??No ?Have you been exposed to the virus within the last 10 days??No ?Have you travelled internationally in the last 10 days??No ?Have you been exposed to COVID-19 in the past??Yes ? He comes to the office today because of pain in the left side of his face. He was unable to get an appointment with primary care. He told us over the phone that his left ear in the left side of his bright red. He is a nonsmoker since 1986 and rises from sleep once a night to urinate. He has no other symptoms. On examination today, he had mild cellulitis of the upper portion of the pinna but no facial infection. He was given an antibiotic and referred back to primary care. He seems to be free of rectal cancer. * ROS:?General/Constitutional:?pain?Left ear, otherwiseonly normal aches and pains.?Chills?denies.?Fatigue?admits.?Fever?denies.?ENT:?Decreased hearing?denies.?Respiratory:?Cough?non-productive.?Cardiovascular:?Chest pain with exertion?denies.?Dyspnea on exertion?denies.?Shortness of breath?denies.?Gastrointestinal:?Constipation?denies.?Decreased appetite?denies.?Diarrhea?denies.?Heartburn?denies.?Nausea?denies.?Rectal bleeding?denies.?Vomiting?denies.?Hematology:?bruising?denies.?petechiae?denies.?Swollen glands?none have been noted.?Genitourinary:?Frequent urination?once a night.?Musculoskeletal:?Muscle aches?denies.?Painful joints?denies.?Sciatica?denies.?Weakness?denies.?Skin:?Itching?denies.?Rash?denies.?Skin lesion(s)?denies.?Neurologic:?Difficulty speaking?denies.?Dizziness?denies.?Headache?denies.?Low back pain?denies.?Psychiatric:?Depressed mood?denies.? * Medical History:? * Surgical History:?left ingui nal hernia 06/2019right inguinal hernai 1977right eye removal of shrapnel Colonoscopy 11/2019Spinal surgery adical resection of rectum and formation of colostomy losure of colostomy 09/12/2021Vertebral plasty 2022 * Hospitalization/Major Diagno stic Procedure:?No Hospitalization History. * Family History:?Father: dece ased, No information.?Mother: , Hypertension, diagnosed with HTN.?Siblings: alive, diagnosed with HTN, Cancer.?1 sister(s) . 2 son(s) . .? His [...] UNIT Capsule 1 capsule Orally Once a dayTaking Advair Diskus 100-50 MCG/ACT Aerosol Powder Breath Activated 1 puff Inhalation Twice a dayTaking Calcium Magnesium Taking Atenolol 25 MG Tablet 1 tablet Orally Once a dayTaking Vitamin D 400 UNIT Capsule 1 capsule Orally Once a dayDiscontinuedIbuprofen Medication List reviewed and reconciled with the patientDiscontinued Ibuprofen Medication List reviewed and reconciled with the patient * Allergies:?no[Allergies Veri fied] Objective: * Vitals:?Ht: 67, Wt:123, BMI: 19.26, BP:131/78, HR:88, Temp:98.1. * Examination: ???General Examination: ?GENERAL APPEARANCE:?pleasant, well nourished, well developed, in no acute distress, calm and relaxed , underweight , elderly man.?HEAD:?atraumatic, normocephalic.?EYES:?eomi, perrla, anicteric, conjugate.?EARS:?Mild erythema of the left pinna, mild hearing loss.?NOSE:?septum intact.?ORAL CAVITY:?normal, unremarkable.?NECK/THYROID:?no jugular venous distention, no carotid bruit, thyroid normal.?LYMPH NODES:?no enlarged lymph nodes,spleen normal.?SKIN:?no suspicious lesions, anicteric.?HEART:?no clicks, gallops, murmurs, or rubs, regular rhythm, S1, S2 normal, no s3, or vascular bruits.?LUNGS:?clear to auscultation .?BREASTS:??no masses palpable bilaterally.?ABDOMEN:?bowel sounds normal, no ascites, no organomegaly, no mass, Old bilateral herniorrhaphies.?RECTAL EXAM:?not examined.?MUSCULOSKELETAL:?extremities unremarkable, no clubbing, cyanosis or edema.?PERIPHERAL PULSES:?normal.?NEUROLOGIC:?alert and oriented, cranial nerves 2-12 grossly intact, deep tendon reflexes 2+ symmetrical, motor strength normal upper and lower extremities, sensory exam intact.?PSYCH:?alert, oriented.? Assessment: * Assessment: 1.?Facial cellulitis - L03.2 11 (Primary), He was given an antibiotic for a week. The face is unaffected, but there is erythema of the upper cartilage of tthe ear.?2.?Rectal cancer - C20, There is no sign of recurrent disease. The colostomy is closed. He continues to have mild diarrhea from the radiation therapy. I have discussed weight gain with him.?3.?COPD (chronic obstructive pulmonary disease) - J44.9, He continues to smoke cigarettes and has a nonproductive cough. He is able to conduct all of the activities of daily living. He is short of breath with moderate exertion. He has had no hemoptysis.?4.?Essential hypertension - I10, His blood pressure is stable at 124/64 and will be followed closely. No changes were made in his regimen.?5.?Tobacco dependence - F17.200, He has resumed smoking by history. We discussed smoking cessation strategies at length today.? Plan: * Treatment: * Procedure Codes:? * Preventive Medicine:? ??Counseling:?Care goal follow-up plan:?Counseling for abnormal BMI given?Yes ?Below Normal BMI Follow-up?Dietary education for weight gain ?Smoking/Tobacco Use?Patient counseled on the dangers of tobacco use and urged to quit.?12/16/2022 ?Patient Lifestyle Goals?Patient wants to quit ?Treatment Goals?Set a quit date, Cut down by 1 cigarette a week ?Barriers?Social smoker, Stress ?Self-Management Plan?Make a plan to cut down number of cigarettes over time and set a date to work towards quitting * Follow Up:?9M (Reason: OV) * Images: * Sign off status: Completed true * Provider:?Felix Tejeda MD Date:?08/2022 Generated for Printi ng/Anjali/eTransmitting on:?06/02/2024 12:59 PM EDT History and Physical Notes * HPI (History of Present Illness) Category Sub-Category Detail Notes COVID-19 Screening Questions Have you had any new onset fever, chills, cough, congestion, sore throat, shortness of breath, muscle aches?: No Have you been exposed to the virus withi n the last 10 days?: No Have you travelled internationally in [facility] last 10 days?: No Have you been exposed to COVID-19 in the past?: Yes Examination Category Sub-Category Detail Notes General Examination GENERAL APPEARANCE: pleasant , well nourished, well developed, in no acute distress, calm and relaxed , underweight , elderly man HEAD: atraumatic, normocep halic EYES: eomi, perrla, anicte joaquin, conjugate EARS: Mild erythema of the left pinna, mild hearing loss NOSE: septum intact NECK/THYROID: no jugular venous di stention, no carotid bruit, thyroid normal HEART: no clicks, gallops, murmurs, or rubs, regular rhythm, S1, S2 normal, no s3, or vascular bruits LUNGS: clear to auscultatio n ABDOMEN: bowel sounds normal, no ascites, no organomegaly, no mass, Old bilateral herniorrhaphies NEUROLOGIC: alert and oriented, cranial nerves 2-12 grossly intact, deep tendon reflexes 2+ symmetrical, motor strength normal upper and lower extremities, sensory exam intact SKIN: no suspicious lesion s, anicteric PERIPHERAL PULSES: normal BREASTS: no masses palpable b ilaterally MUSCULOSKELETAL: extremities unremark able, no clubbing, cyanosis or edema LYMPH NODES: no enlarged lymph no selam,spleen normal RECTAL EXAM: not examined PSYCH: alert, oriented ORAL CAVITY: normal, unremarkable
== END 2024-06-02 12:00 ==
LOC: HO.HPS 10:50
PROVIDERS: PCP Internal Medicine; Visit Provider Hospitalist
DX: J43.2 Centrilobular emphysema (principal); J96.11 Chronic respiratory failure with hypoxia
CPT/HCPCS: 99214

== ENCOUNTER → 2024-06-02 10:49 | Outpatient (BNVA) | payer MEDICARE, SELFPAY | PROVIDERS: PCP Internal Medicine; Visit Provider Hospitalist | DX: J43.2 Centrilobular emphysema (principal); J96.11 Chronic respiratory failure with hypoxia | CPT/HCPCS: 99212 ==

== ENCOUNTER 2024-07-28 08:49 | Outpatient (REF) | payer MEDICARE, SELFPAY ==
--- OUTSIDE RECORDS SUMMARY | 2024-07-28 09:12 | XMS_ITS | Patient Health Record ---
Author Organization [facility] Address [address] [place] [address] Care Team Providers Care Java J2Ee Application Developer Name Role Phone Huang MOONEY, Dahiana Primary Care Provider Derick Hernandes Jr Unavailable [phone] Reason For Referral No Information Medications [...] Problem Status W/U Status Risk Notes Problem 155570501 Change in bowel habits (R19.4) Active confirmed Problem 235540696629967 general matcher (current) use of aspirin (Z79.82) Active confirmed Problem 506312229 Abnormal finding s in stool (R19.5) Active confirmed Problem 282445378 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 Problem 405800153 Rectal mass (K62.89) Active confirmed Plan Of Treatment Future Test Test Name Order Date COLONOSCOPY 11/11/2019 Insurance Providers Payer Name Payer Address Payer Phone Subscriber Number Group Number Insured Name Patient Relationship to Insured Coverage Start Date Coverage End Date MEDICARE OF [place] [address] [place] [address] [id number] EUSEBIO ELISE Self - patient is the insured [employer] ATT[employer] CLAIMS [address] [place] [address] [phone] [id number] EUSEBIO ELISE Self - patient is the insured Medical (General) History Medical History History ICD Code hypertension COPD Surgical History Surgery Date(Month/Year) left inguinal herniorrhaphy 06/2019 right inguinal herniorrhaphy 40 years ag o removal of shrapnel, right eye Colonoscopy 11/2019
--- OUTSIDE RECORDS SUMMARY | 2024-07-28 09:12 | XMS_ITS | Patient Health Record ---
Author Organization Felix Tejeda III, MD Address [address] [place] [address] [place] [address] Care Team Providers Care Human Resource Officer Name Role Phone Huang MOONEY, Dahiana Primary Care Provider Felix Soriano Unavailable [phone] Krishna MOONEY, Derick Unavailable Unavailable Allergies Allergen [...] Problem Status W/U Status Risk Notes Problem 5147453 Former smoker (Z87.891) Active confirmed Problem Hyperlipidemia (55421338) Hyperlipidemia (E78.5) Active confirmed No change in his regimen is needed at this time. I encouraged him to consume a high-protein high-calorie diet. Problem Essential hypertension (18704476) Essential hypertension (I10) Active confirmed His blood pressure is stable at 124/64 and will be followed closely. No changes were made in his regimen. Problem COPD - Chronic obstructive pulmonary disease (82441530) COPD (chronic obstructive pulmonary disease) (J44.9) Active confirmed He continue s to smoke cigarettes and has a nonproductive cough. He is able to conduct all of the activities of daily living. He is short of breath with moderate exertion. He has had no hemoptysis. Problem Rectal cancer (082276518) Rectal cancer (C20) Active confirmed There is no sign of recurrent disease. The colostomy is closed. He continues to have mild diarrhea from the radiation therapy. I have discussed weight gain with him. Problem Right inguinal hernia (967526664) Right inguinal hernia (K40.90) Active confirmed This is asymptomatic at this time. Problem Left inguinal hernia (522794663) Left inguinal hernia (K40.90) Active confirmed He [...] Date Provider Diagnosis Felix Tejeda III, MD [address] [place] [address] [place] [address] 10/28/2023 Felix Tejeda Underweight R63.6 ; Rectal cancer C20 ; COPD (chronic obstructive pulmonary disease) J44.9 ; Essential hypertension I10 ; Hyperlipidemia E78.5 ; Left inguinal hernia K40.90 and Right inguinal hernia K40.90 Felix Tejeda III, MD [address] [place] [address] [place] [address] 02/02/2024 Felix Tejeda Assessments Encounter Date Diagnosis [...] (COMPREHENSIVE METABOLIC ) 06/28/2020 CBC w DIFF 06/28/2020 CBC w DIFF 12/21/2019 CT ABD & PELVIS WWO CONTRAST 12/21/[address] SKULL TO THIGHS 12/29/2019 XR ORBITS 4 VIEWS 12/22/2019 XR ORBITS FOR FOREIGN BODY 12/22/2019 Next Appt Details Provider Name:Felix Lozane, 10/27/2024 10:30:00 AM, [address] [place] [address] JUSTIN GARNETT, [place], [address], Insurance Providers Payer Name Payer Address Payer Phone Subscriber Number Group Number Insured Name Patient Relationship to Insured Coverage Start Date Coverage End Date MEDICARE [place] [address] [place] [address] [id number] EUSEBIO PALOMO Self - patient is the insured [facility] [address] [place], [place] [phone] [id number] EUSEBIO PALOMO Self - patient is the insured Medical (General) History Medical History History ICD Code adenocarcinoma of the rectum, M MR brinda walton, [id number] COPD (chronic obstructive pulmonary dise ase) J44.9 [...]
--- OUTSIDE RECORDS SUMMARY | 2024-07-28 09:12 | XMS_ITS ---
Author Organization Felix Tejeda III, MD Address [address] [place] [address] Care Team Providers Care Special Events Assistant Name Role Phone Huang MOONEY, Dahiana Primary Care Provider Felix Soriano Unavailable [phone] Krishna MOONEY, Derick Unavailable Unavailable REASON FOR VISIT ? Rx Social History Sex Assigned At : Social History Observation Description Sex Assigned At Male Encounters Encounter Location Date Provider Diagnosis Felix Tejeda III, MD [address] [place] [address] [place] [address] 02/02/2024 Felix Tejeda Plan Of Treatment Next Appt Details Provider Name:Felix Tejeda, 10/27/2024 10:30:00 AM, [address] [place] [address] [place], [address], Progress Notes * GOSIAEUSEBIODOB:[birth year] (78 yo M)Acc No.[id number]:02/02/2024 Patient:?EUSEBIO PALOMO :1945???Age:78 Y???Sex:Male Address:[address] [place], [place] [address], [address] * true * Date:? Generated for Printi ng/Fasuzetteg/eTransmitting on:?07/28/2024 09:12 AM EDT
--- OUTSIDE RECORDS SUMMARY | 2024-07-28 09:13 | XMS_ITS | Continuity of Care Document ---
Author Name [facility] Organization [facility] Care Team Providers Care Bag Turner Name Role Phone [facility] Unavailable Unavailable Problems Combined list of problems from Department of Defense and Veterans Affairs facilities. It does not include entries that were removed or entered in error. Problem Status Onset Date Problem Type Date of Resolution Comments Source Alcohol Abuse (ICD-9-CM 305.00) Active Condition [facility] Allergic reaction caused by bee sting (SNOMED CT 487838031) Active Condition [facility] Anxiety Active Condition [facility] History of shingles Active Condition [facility] Hyperlipidemia (SNOMED CT 06122397) Active Condition [facility] Hypertension (SNOMED CT 46268454) Active Condition [facility] Hyponatremia Active Condition [facility] Macrocytosis Active Condition [facility] Skin Carcinoma Active Condition [facility] Tobacco use (SNOMED CT 675857975) Active Condition [facility] Medications Combined list of outpatient medications from Department of 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 09/15/2019 [facility] of [facility] History of tobacco use CURRENT SMOKER 10/15/2017 1/2 pk a day [place] [facility] History of tobacco use CURRENT SMOKER 10/02/2016 [facility] [place] [facility] History of tobacco use CURRENT SMOKER 10/03/2015 a pack aday [facility] [place] [facility] History of tobacco use CURRENT SMOKER 09/28/2014 LIF[facility] [place] [facility] History of tobacco use CURRENT SMOKER 08/31/2013 [facility] [place] [facility] History of tobacco use CURRENT SMOKER 09/09/2012 1 ppd, 50+ [facility] [place] [facility] History of tobacco use V1-PT DECLINES TOBACCO CESSATION MEDS 07/18/2011 [facility] [place] [facility] History of tobacco use QUIT TOBACCO USE IN PAST YEAR 12/20/2010 [facility] [place] [facility] History of tobacco use V1-PT DECLINES TOBACCO CESSATION MEDS 05/28/2010 [facility] [place] [facility] History of tobacco use CURRENT SMOKER 11/23/2009 1/2 to 3/4 ppd [facility] [place] [facility] History of tobacco use V1-PT DECLINES TOBACCO CESSATION MEDS 04/19/2009 [facility] [place] [facility] History of tobacco use CURRENT SMOKER 09/15/2008 1 ppd [facility] History of tobacco use V1-PT DECLINES TOBACCO CESSATION MEDS 01/20/2008 [facility] [place] [facility] History of tobacco use CURRENT SMOKER 07/17/2007 1 ppd [facility] History of tobacco use CURRENT SMOKER 07/21/2006 [facility] History of tobacco use CURRENT SMOKER 01/17/2005 [facility] History of tobacco use CURRENT SMOKER 01/12/2004 [facility] History of tobacco use CURRENT SMOKER 12/23/2002 [facility] History of tobacco use CURRENT SMOKER 12/21/2001 [facility] [place] History of tobacco use CURRENT SMOKER 12/18/2000 see below [facility]
--- OUTSIDE RECORDS SUMMARY | 2024-07-28 09:13 | XMS_ITS ---
Author Organization Felix Tejeda III, MD Address [address] [place] [address] Care Team Providers Care Resin Filterer Name Role Phone Huang MOONEY, Dahiana Primary Care Provider Felix Soriano Unavailable [phone] Krishna MOONEY, Derick Unavailable Unavailable Allergies Allergen [...] Problem Status W/U Status Risk Notes Problem 1030287 Former smoker (Z87.891) Active confirmed Vital Signs Temperature 98.1 degrees Fahrenheit 10/28/19 24 Blood pressure systolic 132 mm Hg 10/28/19 24 Blood pressure diastolic 75 mm Hg 024 Heart Rate 57 /min 10/28/2023 Height 67 in 10/28/2023 Weight 120 lbs 10/28/2023 BMI 18.79 kg/m2 10/28/2023 Encounters Encounter Location Date Provider Diagnosis Felix Tejeda III, MD [address] [place] [address] [place] [address] 10/28/2023 Felix Tejeda Underweight R63.6 ; Rectal [...] V Provider Name:Felix Tejeda, 10/27/2024 10:30:00 AM, [address] [place] [address] JUSTIN GARNETT [facility], [place], [address], Progress Notes * EUSEBIO ELISEDOB:[birth year] (78 yo M)Acc No.[id number]:10/28/2023 Progress Notes Patient:?EUSEBIO ELISE Provider:?Felix Tejeda MD :1945???Age:78 Y???Sex:Male Herminio e:10/28/2023 Address:[address] [place], [place] [id number] Pcp:Dahiana Encinas MD Subjective: * Chief Complaints: [...] Tejeda MD Date:?10/15 Generated for Printi ng/Faxing/eTransmitting on:?07/28/2024 09:12 AM EDT History and Physical Notes * HPI (History of Present Illness) Category Sub-Category Detail Notes COVID-19 Screening Questions Have you had any new onset fever, chills, cough, congestion, sore throat, shortness of breath, muscle aches?: No Have you been exposed to the virus withi n the last 10 days?: No Have you travelled internationally in [facility] last 10 days?: No Have you [...]
[2024-07-28 10:28] LABS: Alanine Aminotransferase 22 U/L (0-40); Anion Gap 14 (12-20); Aspartate Amino Transferase 31 U/L (5-37); Blood Urea Nitrogen 21 mg/dL (9-16); Calcium 9.6 mg/dL (8.4-10.2); Carbon Dioxide 25 mmol/L (22-29); Chloride 104 mmol/L (96-108); Cholesterol 206 mg/dL (<200); Estimated Glomerular Filt Rate > 60; Glucose Fasting 106 mg/dL (60-99); HDL Cholesterol 58 mg/dL (>40); LDL Cholesterol Calculated 128 mg/dL (<100); Potassium 4.4 mmol/L (3.3-5.1); Sodium 139 mmol/L (135-145); Triglycerides 102 mg/dL (<150)
== END 2024-07-28 08:50 | disposition home or self-care (01) ==
LOC: HO.10HDL 08:49
PROVIDERS: Visit Provider Internal Medicine
DX: I10 Essential (primary) hypertension (principal); Z85.048 Personal history of other malignant neoplasm of rectum, rectosigmoid junction, and anus; J43.2 Centrilobular emphysema; Z87.81 Personal history of (healed) traumatic fracture
CPT/HCPCS: 36415; 80048; 80061; 82306; 84450; 84460

== ENCOUNTER 2024-08-12 10:37 | Outpatient (AMB) | payer MEDICARE, SELFPAY ==
[2024-08-12 10:49] VITALS: BP 120/70; PULSE 59; RESP 20; TEMP 36.4; O2SAT 92; BMI 17.7
--- NOTE | 2024-08-12 10:49 | AM.OFFVISMDC ---
Intake Vital Signs 08/12/24 10:49 Height 5 ft 9 in Weight 120 lb BMI 17.7 BP 120/70 Blood Pressure Location Lt brachial Position Sitting Respiration 20 Pulse 59 Pulse Source Pulse Oximeter Temp 97.5 F Temp Source Oral Pulse Oximetry (%) 92 Oxygen Delivery Method Room Air Intake Visit Reasons: SWV G0439 Intake Note: Pt is here today for his SWV Allergies No Known Allergies Allergy (Verified 08/12/24 11:11) Medication List - Last Reconciled 08/12/24 by Dahiana Encinas MD atenolol 25 mg PO DAILY zwscqckymi-vmzlqtyn-nhyytxxeye 160-9-4.8 mcg/actuation ([employer]reztri Aerosphere) 2 inhalations inhalation BID 30 days cholecalciferol (vitamin D3) 50 mcg PO DAILY HPI SWV G0439 HPI Details SWV ? 79 year old with history of COPD, hypertension, history of rectal cancer status post surgery, presents for his ? Annual Wellness Visit, subsequent visit.? He had a colonoscopy done in [address] Keller, no further testing needed. Had his PSA level checked in 2020, which came back within normal limits and declines further testing, a fasting lipid panel and fasting blood sugar will check 07/28/2024, which showed elevated total cholesterol at 206, LDL cholesterol 128 mg/dL with normal HDL and triglycerides, and fasting glucose was slightly elevated at 1 0 6 mg/dL. He had a bone density scan done August of 2021 which showed presence of osteoporosis in left femoral neck and left femur osteopenia in lumbar spine. History of compression fracture, status post kyphoplasty. Patient declined further treatment or repeat testing done. He declines getting flu COVID vaccine or Shingrix vaccine, up-to-date with his pneumonia vaccination and Tdap and gets yearly flu shots. ? Medical / Social History Reviewed? Past Medical History ?Yes . ? [place] of Care / Care Team list updated ?Yes . ? Surgical/Hospitalization History ?Yes . ? Current Medications (including OTC and supplements) ?Yes . ? Family History ?Yes . ? Tobacco Control form ?Yes . ? AUDIT-C (Alcohol use) form ?Yes . ? Illicit drug use in Social History ?Yes . ? Current diagnosis of depression? ?No ? Appropriate PHQ2/PHQ9 completed ?Yes . ? Data entered by ?[employer]per and reviewed by provider ? Fall Risk ? Fall History? Have you had any falls with injury in the past year? ?No . ? Have you had two or more falls in the past year? ?No . ? Fall Risk Assessment: ?No falls in the past year . ? HRA filled out by the patient, reviewed by Provider and scanned. ?SWV ? Balance? Romberg ?nega . ? Tandem walk unable ? Walk and Turn ?Yes . ? Rise from sit to stand ?Yes . ?Vision? Corrective lens ?Yes ? Vision screen ? Up-to-date, sees Dr. Sifuentes ?Hearing? Whisper test ?fail, wears bilateral hearing aids ?Written Plan?Completed. See Patient Documents.? Patient already completed his MOLST form and healthcare proxy with no changes made [facility] Medical History (Updated 08/12/24 @ 11:30 by Dahiana Encinas MD) Osteoporosis Personal history of nicotine dependence History of radiation therapy (~2019) History of rectal cancer (~2019) Hx of compression fracture of spine COVID-19 vaccination declined Refused influenza vaccine History of COVID-19 Acute respiratory failure with hypoxia Anemia Hx of bacteremia Hx: UTI (urinary tract infection) Congestive heart failure History of chemotherapy (~2019) Hx of melanoma of skin Peptic ulcer COPD (chronic obstructive pulmonary disease) Chronic bronchitis History of herpes zoster Hypertension Surgical History History of reversal of ileostomy History of cataract surgery History of colonoscopy Hx of kyphoplasty Hx of melanoma excision History of low anterior resection of rectum History of left inguinal hernia repair History of right inguinal hernia repair (~1971) History of eye surgery (~1965) Family History Sister History of breast cancer Social History Household Members: Spouse and Children Housing: House Are you a primary primary care physician to a significant other at home: No Do you presently have visiting nurse or other home services: No Alcohol intake: never Comment: soreness Patient Tobacco Use Status: Former Tobacco user Tobacco use type: Cigarette Cigarette Packs Per Day: 0 Cigarettes Per Day: 0 Years Smoked: 60 e-Cigarette/Vaping Use: Never Used Second Hand Smoke Exposure: Yes Advance Directives Date on File: 10/04/20 service: Yes Current occupational status: disabled Cognitive needs: No Hearing needs: Yes Vision needs: No Questionnaire Medicare Wellness Checkup What is your age?: 79 or older What gender do you identify with?: male During the past 4 weeks, how much have you been bothered by emotional problems such as feeling anxious, depressed, irritable, sad or downhearted, and blue?: not at all During the past 4 weeks, has your physical & emotional health limited your social activities with family, friends, neighbors, or groups?: moderately During the past 4 weeks, how much bodily pain have you generally had?: no pain During the past 4 weeks, was someone available to help you if you needed & wanted help?: yes, as much as I wanted During the past 4 weeks, what was the hardest physical activity you could do for at least 2 minutes?: moderate Can you get to places out of walking distance without help? (For eg., can you travel alone on buses, taxis or drive your car?): No Can you go shopping for groceries or clothes without someone's help?: No Can you prepare your own meals?: Yes Can you do your housework without help?: No Because of any health problems, do you need the help of another person with your personal care needs such as eating, bathing, dressing or getting around the house?: No Can you handle your own money without help?: Yes During the past 4 weeks, how would you rate your health in general?: good During the past 4 weeks how have things been going for you?: pretty well Are you having difficulties driving your car?: not applicable, I don't use a car Do you always fasten your seat belt when you are in a car?: yes, usually During past 4 weeks, have you been bothered by the following: never: Falling or dizzy when standing up and Sexual problems?, seldom: Teeth or denture problems? and sometimes: Trouble eating well?, Problems using the telephone? and Tiredness or fatigue? Have you fallen 2 or more times in the past year?: No Are you afraid of falling?: Yes Are you a smoker?: no During the past 4 weeks, how many drinks of wine, beer, or other alcoholic beverages did you have?: no alcohol at all Do you exercise for about 20 minutes 3 or more times a week?: no, I usually do not exercise this much Have you been given information to help with the following?: no: Hazards in your house that might hurt you? and no: Keeping track of your medications? How often do you have trouble taking medicines the way you have been told to take them?: I always take medicine as prescribed How confident are you that you can control & manage most of your health problems?: very confident What is your race?: White Mini Mental State Exam (MMSE) Orientation What is the (year) (season) (date) (day) (month)?: year (2024), season (Spring), date (08/12/2024), day () and month (July) Where are we (state) (county) (town or city) (hospital) (floor)?: state ([place]), county ([place]), town or city ([place]) and hospital/clinic ([facility]) Score Score: 9 Activity of Daily Living Bathing - sponge bath, tub bath or shower: receives no assistance (gets in/out by self, if usual bathing means Dressing - getting clothes from closets & drawers, including inner/outer garments & fasteners.: gets clothes & gets completely dressed without help Toileting - going to the 'toilet room' for urine/bowel elimination & cleaning self/arranging clothes: goes to toilet room, cleans self, arranges clothes without help Transfer: moves in & out of bed and chair without help (may use support object) Continence: controls urination/bowel movements completely by self Feeding: feeds self without help Total Score: 0 Information obtained from: patient Using telephone: independent Traveling: dependent Shopping: dependent Preparing meals: independent Housework: needs assistance Taking medicine: independent Managing money: independent PHQ-9 Over the last 2 weeks, how often have you been bothered by any of the following problems? 1. Little interest or pleasure in doing things: not at all 2. Feeling down, depressed, or hopeless: not at all 3. Trouble falling or staying asleep, or sleeping too much: not at all 4. Feeling tired or having little energy: not at all 5. Poor appetite or overeating: not at all 6. Feeling bad about yourself - or that you are a failure or have let yourself or your family down: not at all 7. Trouble concentrating on things, such as reading the newspaper or watching television: not at all 8. Moving or speaking so slowly that other people could have noticed. Or the opposite - being so fidgety or restless that you have been moving around a lot more than usual: not at all 9. Thoughts that you would be better off or of hurting yourself in some way: not at all Total score: 0 Depression Screening Interpretation: Negative Depression Screening Done: Yes 75748 - PHQ-9 Billing: Yes Source: Developed by Drs. Felix Reyes, Argelia Tapia, Gene Crawford and colleagues, with an educational javier from [employer]. Physical Exam Vital Signs: Last Vital Signs Temp 97.5 F 08/12/24 10:49 Pulse 59 08/12/24 10:49 Resp 20 08/12/24 10:49 BP 120/70 08/12/24 10:49 Pulse Ox 92 08/12/24 10:49 Oxygen Delivery Method Room Air 08/12/24 10:49 BMI result Body Mass Index 17.7 Results Reviewed Results Reviewed: Name: Best Palomo Sr Age/Sex: 79/M : 1945 Unit#: [id number] Attend Dr: Dahiana Encinas MD Re07/28/24 Status: DEP REF Location: [address] Disch: SPEC : [id number] LEOBARDO: 07/28/24 STATUS: COMP REQ : [id number] RECD: 07/28/[address]: Dahiana Encinas MD COMP: 07/28/24 ENTERED: 07/28/[address]: ORDERED: Met Prof Fast, AST, ALT, Lipid Panel, Vitamin D 25-OH Test Result Flag Reference Sodium 139 135-145 mmol/L Potassium 4.4 3.3-5.1 mmol/L CL 104 96-108 mmol/L CO2 25 22-29 mmol/L Gap 14 12-20 BUN 21 H 9-16 mg/dL Creat 1.08 0.5-1.4 mg/dL eGFR > 60 Chronic Kidney Disease: Estimated GFR < 60 mL/min/1.73m2 Severe Kidney Disease: Estimated GFR < 15 mL/min/1.73m2 FBS 106 H 60-99 mg/dL A fasting glucose from 100-125 mg/dl is considered impaired (pre-diabetes). CA 9.6 8.4-10.2 mg/dL AST (GOT) 31 5-37 U/L ALT (GPT) 22 0-40 U/L Triglyceride 102 <150 mg/dL Desirable Triglyceride: less than 150 mg/dL Borderline High Triglyceride 150-199 mg/dL High Triglyceride: 200-499 mg/dL Very High Triglyceride: greater than or equal to 5OO mg/dL Cholesterol 206 H <200 mg/dL Desirable Cholesterol: less than 200 mg/dL Borderline High Cholesterol: 200-239 mg/dL High Cholesterol: greater than 239 mg/dL LDL Calculated 128 H <100 mg/dL Desirable LDL: less than 100 mg/dL Near Optimal/Above Optimal LDL: 110-129 mg/dL Borderline High LDL: 130-159 mg/dL High LDL: 160-189 mg/dL Very High LDL: greater than or equal to 190 mg/dL HDL 58 >40 mg/dL Desirable HDL: greater than 40 mg/dL Note: This HDL assay may give artificially low results in patients with liver disease. Vitamin D 25-OH 41.0 >30 ng/mL Health Based Reference Values* < 20 ng/mL Deficient 20-30 ng/mL Insufficient > 30 ng/mL Sufficient Assessment & Plan Assessment & Plan (1) Encounter for subsequent annual wellness visit (AWV) in Medicare patient: Code(s): Z00.00 - Encounter for general adult medical examination without abnormal findings Plan: Medical wellness checklist reviewed, discussed with patient and updated. (2) History of rectal cancer: Onset Date: ~2019 Comment: (Adenocarcinoma dx 11/2019 - s/p Chemo/RAD, s/p resection 05/2020) Code(s): Z85.048 - Personal history of other malignant neoplasm of rectum, rectosigmoid junction, and anus Plan: No longer sees oncologist, completed treatment and does not want to have any further evaluation or testing done (3) COPD (chronic obstructive pulmonary disease): Comment: smoker X 60 years Code(s): J44.9 - Chronic obstructive pulmonary disease, unspecified Qualifiers: COPD type: emphysema Emphysema type: centrilobular Qualified Code(s): J43.2 - Centrilobular emphysema Plan: Followed by Pulmonary currently on [employer] aerosphere 2 inhalations twice a day (4) Hypertension: Code(s): I10 - Essential (primary) hypertension Qualifiers: Hypertension type: primary hypertension Qualified Code(s): I10 - Essential (primary) hypertension Plan: Stable and controlled on atenolol g daily (5) Osteoporosis: Code(s): M81.0 - Age-related osteoporosis without current pathological fracture Qualifiers: Osteoporosis type: age-related Presence of current pathological fracture: with current pathological fracture Encounter type: subsequent encounter Fracture healing: with routine healing Qualified Code(s): M80.00XD - Age-related osteoporosis with current pathological fracture, unspecified site, subsequent encounter for fracture with routine healing Plan: Status post kyphoplasty, patient declined further bone density scan screening or treatment, currently taking cholecalciferol 50 mcg daily Medications: Refilled atenolol 25 mg PO DAILY 90 tabs 4RF I10 - Essential (primary) hypertension Quality Reporting (2019) Depression/Bipolar (159/160/161/177) PHQ-9: Total score: 0 Coding Level of Care Code Medicare Subsequent (G0439) Diagnoses Encounter for subsequent annual wellness visit (AWV) in Medicare patient Z00.00 History of rectal cancer Z85.048 Centrilobular emphysema J43.2 COPD type: emphysema Emphysema type: centrilobular Primary hypertension I10 Hypertension type: primary hypertension Age-related osteoporosis with current pathological fracture with routine healing, subsequent encounter M80.00XD Osteoporosis type: age-related Presence of current pathological fracture: with current pathological fracture Encounter type: subsequent encounter Fracture healing: with routine healing Additional Codes PHQ-9 - 47430 - PHQ-9 Billing: Yes ([id number])
--- OUTSIDE RECORDS SUMMARY | 2024-08-12 11:05 | XMS_ITS | Patient Health Record ---
Author Organization Felix Tejeda III, MD Address [address] [place] [address] [place] [phone] Care Team Providers Care Design Engineering Specialist Name Role Phone Huang MOONEY, Dahiana Primary Care Provider Felix Soriano Unavailable [phone] Krishna MOONEY, Derick Unavailable Unavailable Allergies Allergen [...] Problem Status W/U Status Risk Notes Problem 7992760 Former smoker (Z87.891) Active confirmed Problem Hyperlipidemia (42755902) Hyperlipidemia (E78.5) Active confirmed No change in his regimen is needed at this time. I encouraged him to consume a high-protein high-calorie diet. Problem Essential hypertension (23566391) Essential hypertension (I10) Active confirmed His blood pressure is stable at 124/64 and will be followed closely. No changes were made in his regimen. Problem COPD - Chronic obstructive pulmonary disease (81641715) COPD (chronic obstructive pulmonary disease) (J44.9) Active confirmed He continue s to smoke cigarettes and has a nonproductive cough. He is able to conduct all of the activities of daily living. He is short of breath with moderate exertion. He has had no hemoptysis. Problem Rectal cancer (061401851) Rectal cancer (C20) Active confirmed There is no sign of recurrent disease. The colostomy is closed. He continues to have mild diarrhea from the radiation therapy. I have discussed weight gain with him. Problem Right inguinal hernia (401736753) Right inguinal hernia (K40.90) Active confirmed This is asymptomatic at this time. Problem Left inguinal hernia (029784318) Left inguinal hernia (K40.90) Active confirmed He [...] Date Provider Diagnosis Felix Tejeda III, MD [address] [place] [address] [place] [phone] 10/28/2023 Felix Tejeda Underweight R63.6 ; Rectal cancer C20 ; COPD (chronic obstructive pulmonary disease) J44.9 ; Essential hypertension I10 ; Hyperlipidemia E78.5 ; Left inguinal hernia K40.90 and Right inguinal hernia K40.90 Felix Tejeda III, MD [address] [place] [address] [place] [phone] 02/02/2024 Felix Tejeda Assessments Encounter Date Diagnosis [...] Details Provider Name:Felix Lozane, 10/27/2024 10:30:00 AM, [address] [place] [address] JUSTIN GARNETT, [place], [address], Insurance Providers Payer Name Payer Address Payer Phone Subscriber Number Group Number Insured Name Patient Relationship to Insured Coverage Start Date Coverage End Date MEDICARE NGS [address] [place] [address] [phone] [id number] EUSEBIO PALOMO Self - patient is the insured [facility] [address] [place], [place] [id number] EUSEBIO PALOMO Self - patient is the insured Medical (General) History Medical History History ICD Code adenocarcinoma of the rectum, M MR brinda walton, [id number] COPD (chronic obstructive pulmonary dise ase) J44.9 [...]
== END 2024-08-12 11:27 | disposition home or self-care (01) ==
LOC: HO.HMCC 10:37
PROVIDERS: PCP Internal Medicine; Visit Provider Internal Medicine
DX: Z00.00 Encounter for general adult medical examination without abnormal findings (principal); J43.2 Centrilobular emphysema; Z85.048 Personal history of other malignant neoplasm of rectum, rectosigmoid junction, and anus; I10 Essential (primary) hypertension; M80.00XD Age-related osteoporosis with current pathological fracture, unspecified site, subsequent encounter for fracture with routine healing

== ENCOUNTER → 2024-08-12 10:37 | Outpatient (BNVA) | payer MEDICARE, SELFPAY | PROVIDERS: PCP Internal Medicine; Visit Provider Internal Medicine | DX: Z00.00 Encounter for general adult medical examination without abnormal findings (principal); J43.2 Centrilobular emphysema; I10 Essential (primary) hypertension; M80.00XD Age-related osteoporosis with current pathological fracture, unspecified site, subsequent encounter for fracture with routine healing; Z85.048 Personal history of other malignant neoplasm of rectum, rectosigmoid junction, and anus | CPT/HCPCS: 96127 ==

== ENCOUNTER 2024-09-10 10:32 | Emergency (ER) | payer MEDICARE, SELFPAY ==
--- OUTSIDE RECORDS SUMMARY | 2024-09-09 07:45 | XMS_ITS ---
Author Organization Felix Tejeda III, MD Address [address] [place] [place] [address] Care Team Providers Care Car Repairman Name Role Phone Huang MOONEY, Dahiana Primary Care Provider Felix Soriano Unavailable [phone] Derick Keller MD Unavailable Unavailable Allergies Allergen (clinical drug ingredient) Drug/Non Drug Allergy documented on EMR Reaction Allergy Type Onset Date Status No Known Drug Allergy Unknown Drug Allergy Active REASON FOR VISIT Telehealth Medications Medication SIG (Take, Route, Frequency, Duration) Notes Start Date End Date Status Vitamin D 400 UNIT 1 capsule Orally Onc e a day Active Calcium Magnesium Ac tive Atenolol 25 MG 1 tablet Orally Once a day 10/17/19 21 Active Advair Diskus 100-50 MCG/ACT 1 puff [...] te cigarette smoker (10-19 cigs/day) Vital Signs Height 67 in 09/09/2024 Weight 120 lbs 09/09/2024 BMI 18.79 kg/m2 09/09/2024 Encounters Encounter Location Date Provider Diagnosis Felix Tejeda III, MD [address] [place] [address] [place] [address] 09/09/2024 Felix Tejeda Underweight R63.6 ; Hyperlipidemia E78.5 ; Essential hypertension I10 and BPH (benign prostatic hypertrophy) N40.0 Assessments Encounter Date Diagnosis (ICD Code) Assessment Notes Treat ment Notes Treatment Clinical Notes 09/09/2024 Underweight (ICD-10 - R63.6) His body mass index is 18. He weighs 120 pounds. History of every 8 140 pounds. His appetite is poor. There was no sign of recurrent malignancy on today's examination. 09/09/2024 Hyperlipidemia (ICD-10 - E78.5) 09/09/2024 Essential hypertension (ICD-10 - I10) 09/09/2024 BPH (benign prostati c hypertrophy) (ICD-10 - N40.0) Plan Of Treatment Medication Medication Name Sig Start Date Stop Date Notes Vitamin D 400 UNIT 1 capsule Orally Once a day Calcium Magnesium Atenolol 25 MG 1 tablet Orally Once a day 10/16/2020 Advair Diskus 100-50 MCG/ACT 1 puff Inhalation Twice a day Pending Test Test Name Order Date PROFILE, FASTING (COMPREHENSIVE METABOLI C) 09/09/2024 PSA, TOTAL 09/09/2024 CBC w DIFF 09/09/2024 Lipid Panel 09/09/2024 Next Appt Details Follow Up: 1 Week, Reason: O V Provider Name:Felix Tejeda, 09/15/2024 03:15:00 PM, [address] [place] [address] [address], [place], [address], Provider Name:Felix Tejeda, 10/27/2024 10:30:00 AM, [address] [place] [address] [address], [place], [address], Progress Notes * EUSEBIO PALOMODOB:[birth year] (79 yo M)Acc No.[id number]:09/09/2024 Patient: EUSEBIO HOANG Provider: Sapna Tejead MD :1945 A ge:79 Y S ex:Male Date:09/09/2024 Address:[address] [place] [address] [id number] Pcp:Dahiana Encinas MD Subjective: * Chief Complaints: * 1 . Telehealth. * HPI: * : Telehealth L ocation of provider rendering services: { ...} [address] [facility] [address] L ocation of patient: tyrone dyer listed in demographics for today's visit P atient identification confirmed using: N donna, T elehealth method: T elephone only. Patient not visible to care provider. C onsent: P atient verbally consented to treatment, Patient verbally consented to billing insurance company, Patient informed of any privacy concerns related to method of visit T otal time spent with patient (mins) 1 5 * ROS: G eneral/Constitutional: pain o nly normal aches and pains. C hills d enies.?Fatigue a dmits. F ever d enies. E NT: Decreased hearing d enies. R espiratory: Cough d enies. C ardiovascular: Chest pain with exertion d enies. D yspnea on exertion?denies. S hortness of breath d enies. G astrointestinal: Constipation d enies. D ecreased appetite d enies.?Diarrhea d enies. H eartburn d enies. N ausea d enies. R ectal bleeding?denies. V omiting d enies. H ematology: bruising d enies. p etechiae d enies. S wollen glands n one have been noted. G enitourinary: Frequent urination d enies. M usculoskeletal: Muscle aches d enies. P ainful joints d enies. S ciatica d enies. W eakness d enies. S kin: Itching d enies. R carlos d enies. S kin lesion(s)?denies. N eurologic: Difficulty speaking d enies. D izziness d enies.?Headache d enies. L ow back pain d enies. P sychiatric: Depressed mood d enies. 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 * Surgical History: l eft inguinal hernia 06/2019, right inguinal hernai 1976, right eye removal of shrapnel , Colonoscopy 11/2019, Spinal surgery 09/2021, Radical resection of rectum and formation of colostomy 05/2021, Closure of colostomy 09/12/2021, Vertebral plasty 2022. * Hospitalization/Major Diagno stic Procedure: D enies Past Hospitalization. * Family History: F ather: , No information. M other: , Hypertension, diagnosed with HTN.?Siblings: alive, diagnosed with Cancer, HTN. 1 sister(s) . 2 son(s) . . His sister has numerous moles. She has a history of breast cancer. He is not aware of any family history of mental illness or substance use disorder or addiction. * Social History: T obacco Use: T obacco Use/Smoking P atient is a c urrent smoker H ow often do you smoke cigarettes? e very day H ow many cigarettes a day do you smoke? 1 1-20 H ow soon after you wake up do you smoke your first cigarette? 6 -30 minutes A re you interested in quitting? N ot ready to quit A dditional Findings: Tobacco User M oderate cigarette smoker (10-19 cigs/day) Conrad yates has been to Nichole for 53 years. They have 2 sons, one grand daughter and one grandson. He continues to smoke 1 package of cigarettes per day. * Medications: T aking Advair Diskus 100-50 MCG/ACT Aerosol Powder Breath Activated 1 puff Inhalation Twice a day , Taking Calcium Magnesium , Taking Atenolol 25 MG Tablet 1 tablet Orally Once a day , Taking Vitamin D 400 UNIT Capsule 1 capsule Orally Once a day , Medication List reviewed and reconciled with the patient * Allergies: N o Known Drug Allergy. Objective: * Vitals: H t: 67, Wt:120, BMI:18.79, Wt-k.43. Assessment: * Assessment: 1. U nderweight - R63.6 N otes :His body mass index is 18. He weighs 120 pounds. History of every 8 140 pounds. His appetite is poor. There was no sign of recurrent malignancy on today's examination. 2 . H yperlipidemia - E78.5 3 . E ssential hypertension - I10 4 . B PH (benign prostatic hypertrophy) - N40.0 Plan: * Treatment: 2. H yperlipidemia L AB: PROFILE, FASTING (COMPREHENSIVE METABOLIC) L AB: PSA, TOTAL L AB: CBC w DIFF L AB: Lipid Panel 3. E ssential hypertension L AB: PROFILE, FASTING (COMPREHENSIVE METABOLIC) L AB: PSA, TOTAL L AB: CBC w DIFF L AB: Lipid Panel 4. B PH (benign prostatic hypertrophy) L AB: PROFILE, FASTING (COMPREHENSIVE METABOLIC) L AB: PSA, TOTAL L AB: CBC w DIFF L AB: Lipid Panel 5. O thers Continue Advair Diskus Aerosol Powder Breath Activated, 100-50 MCG/ACT, 1 puff, Inhalation, Twice a day; C ontinue Calcium Magnesium. * Procedure Codes: 9 8012 SYNCH AUDIO-ONLY EST SF 10 * Preventive Medicine: Counseling: C are goal follow-up plan: Counseling for abnormal BMI given Y es Below Normal BMI Follow-up D ietary education for weight gain, Dietary management education, guidance, and counseling, Feeding regime, Lifestyle education regarding diet, Nutrition / feeding management, Prescribed diet education, Special diet education, Intervention, Order not done: Medical or Other reason not done * Follow Up: 1 Week (Reason: OV) * Images: * The named appointment provid er may or may not be the originator of this progress note, and it is not deemed complete until electronically signed by the appointment provider. Sign off status: Pending * Provider: Sapna Tejeda MD Date: 0 09/09/2024 Generated for Alejandra gomes/Anjali/Johnathanitting on: 0 09/10/2024 12:41 PM EDT History and Physical Notes * HPI (History of Present Illness) Category Sub-Category Detail Notes Telehealth Location of [facility] rendering services:: {...} [address] [place] [address] Location of patient:: address listed in demographics for today's visit Patient identification confirmed using:: Name, Telehealth method:: Telephone only. Esther ent not visible to care provider. Consent:: Patient verbally c onsented to treatment, Patient verbally consented to billing insurance company, Patient informed of any privacy concerns related to method of visit Total time spent with patient (mins): 15
--- NOTE | ~2024-09-10 | XR_ITS ---
EXAMINATION: XR CHEST CLINICAL INFORMATION: hypoxia COMPARISON: March 23, 2021 TECHNIQUE: 2 views of the chest were obtained. FINDINGS: Heart size is within normal limits. Coarse reticular markings are redemonstrated, left greater than right. Lingular opacity present on the prior x-ray has improved. There is also decreased density and improved aeration in the lateral portion of the left mid third lower third lung zone. There is no pleural effusion. Since the prior, there has been kyphoplasty of compression fractures at T12 and L1. There is mild to moderate compression fracture at T8, increased since the prior. There is moderate superior endplate T10 compression fracture, new since the prior. Other compression fractures are stable. XR/XR chest 2V IMPRESSION: Age-indeterminate compression fractures involving T8 and T10, new since 2021 x-ray. Chronic coarse reticular markings in the lungs. Electronically signed by: Inder Murray MD 09/10/2024 11:33 AM EDT
--- NOTE | ~2024-09-10 | CT_ITS ---
EXAMINATION: CT ABDOMEN AND PELVIS WITHOUT AND WITH CONTRAST CLINICAL INFORMATION: Abdominal pain, dark-colored emesis, dark-colored stool DLP: 1055 mGY*cm COMPARISON: May 12, 2020 TECHNIQUE: Multidetector volumetric imaging was performed of the abdomen and pelvis before and after the IV administration of 80 mL of Omnipaque 300 intravenous contrast. Sagittal and coronal reformatted images were obtained on the technologist's workstation. This CT examination was performed using dose optimization techniques as appropriate, variously including the following: *Automated exposure control *Adjustment of mA and/or kV according to patient size (this includes techniques or standardized protocols for targeted exams where dose is matched to indication/reason for exam; i.e. extremities or head) *Use of iterative reconstruction technique FINDINGS: LUNG BASES: There are increased reticular markings, honeycombing, and groundglass densities with paraseptal blebs consistent with emphysema. There is dependent atelectasis on the right. LIVER, GALLBLADDER, AND BILIARY TREE: The liver is normal in size, shape, and attenuation. No focal hepatic lesion or biliary ductal dilatation is present. There is no gallbladder wall thickening or calcified stones. Extra hepatic bile duct is 8 mm diameter which is probably within normal limits for age. PANCREAS: Pancreatic duct is mildly prominent in the pancreatic head to the ampulla. SPLEEN: Unremarkable ADRENAL GLANDS: Unremarkable KIDNEYS AND URETERS: There is no hydronephrosis or nephrolithiasis. There are bilateral simple renal cysts. The largest is is an exophytic 2 cm diameter simple cyst involving the lower right kidney BLADDER: There is a 2.5 cm bladder diverticulum along the posterior left bladder, just anterior to the left ureterovesicular junction. GASTROINTESTINAL TRACT: There is narrowing of the SMA-aortic distance. It measured 5.7 mm (wnl >= 8mm). The duodenum is distended proximal to the aorta and the olmedo are in apposition as it passes between the SMA and aorta. There is a surgical anastomosis at the rectosigmoid junction. Intraluminal fluid content in the proximal jejunum in the left mid abdomen is mildly increased on the unenhanced exam. After contrast, there is further brightening of the intraluminal content on the arterial phase. On the 2 minute delayed imaging, there is slight decrease in density of the intraluminal content (axial CT series 5, 9, 15: Image 31/70 no sigmoid colon. There is presacral fat stranding. ABDOMINAL WALL: No significant hernia is appreciated. LYMPH NODES: Normal VASCULAR: There is severe atherosclerotic changes in the aorta, mesenteric vessels, and iliac arteries. There is extensive mural thrombus. The patent aortic diameter at the hiatus is 2.3 cm. Just before the bifurcation, it decreases to 0.7 cm. There is occlusion of the left common iliac artery. There is occlusion of the left iliac artery. The left external iliac artery is also occluded. There is reconstitution of flow in the proximal right femoral artery. Contrast opacifies the right common iliac artery which demonstrates severe stenosis. There is possible threadlike flow into the right external iliac artery with probable occlusion distally and reconstitution at the femoral artery which also demonstrate hemodynamically significant stenosis. Flow is present in the celiac and SMA. There is questionable flow into the TANIA.. PELVIC VISCERA: Prostate is enlarged. OSSEOUS STRUCTURES: Compression fractures are evident at T11, T12, L1, superior L2, L3, and kyphoplasty has been performed at T12 and L1. There is a healed posterior right 12th rib fracture. CT/CT gi bleed abd pel wo/w IVcon IMPRESSION: There is evidence of an active bleed in the proximal jejunum. Severe atherosclerotic vascular disease. Extensive mural thrombus in the abdominal aorta. Aortic lumen diameter decreases from 2.3 cm to 0.7 cm Bifurcation. There is occlusion of iliac arteries, as detailed above with reconstitution of flow into the femoral arteries which are hemodynamically significantly narrowed. 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 The duodenum proximal to this region appears mildly dilated and fluid-filled. There is dilation of the distal common bile duct and pancreatic duct in head of pancreas to the ampulla of Vater. No ampullary mass was visualized. Consider EGD if clinically indicated. Rectosigmoid anastomosis. Diverticulosis. 2.5 cm left bladder diverticulum, just anterior to the left UVJ. Emphysema. Fleischner guidelines were followed. Tati SALCEDO notified Electronically signed by: Inder Murray MD 09/10/2024 12:49 PM EDT
--- NOTE | 2024-09-10 10:44 | ED_ITS ---
HPI - General Adult General Chief complaint: Nausea/Vomiting/Diarrhea Stated complaint: VOMITING BLOOD,DARK STOOLS,HEARTBURN PER EMS Time Seen by Provider: 09/10/24 10:44 Source: patient, family (patient's son and ) and EMS Mode of arrival: EMS Limitations: no limitations History of Present Illness ED Provider: Tati Sin PA-C HPI narrative: Patient is an 79 year old assigned male at with a history of COPD, HTN, colon cancer s/p surgery in 2019, tobacco use for decades - quit in 2023, presenting to the emergency department today with nausea, vomiting, and diarrhea that is dark in color. Patient states that this morning he began to have diarrhea and vomiting that was dark in color. Patient states that he is not on any anti-coagulation medications. Patient denies any dizziness, lightheadedness, abdominal pain, fever, chills, blurry vision, double vision, loss of vision, chest pain, difficulty breathing, shortness of breath, back pain, night sweats, pain with urination, increased urinary frequency, increased urinary urgency, blood in his urine, syncope or a near syncopal episode, recent trauma or falls, bowel incontinence, bladder incontinence, or any other complaints at this time. Relieving factors: none Exacerbating factors: none Associated symptoms: nausea/vomiting Treatments prior to arrival: none Related Data Home Medications ?Medication ?Instructions ?Recorded ?Confirmed cholecalciferol (vitamin D3) 50 50 mcg PO DAILY 01/14/22 mcg (2,000 unit) capsule Previous Rx's ?Medication ?Instructions ?Recorded budesonide 160 mcg-glycopyr 9 2 inh inhalation BID 30 days #10.7 06/02/24 mcg-formot 4.8 mcg/actuation HFA grams inhaler (Breztri Aerosphere) atenolol 25 mg tablet 25 mg PO DAILY #90 tabs 07/16 12/09 Allergies Allergy/AdvReac Type Severity Reaction Status Date / Time No Known Allergies Allergy Verified 09/10/24 10:49 Review of Systems 2 Constitutional: Constitutional: Reports no additional constitutional complaints, Denies chills, Denies fever(s) and Denies night sweats Eyes: Eyes: Reports no additional eye complaints, Denies blurry vision, Denies change in vision, Denies diplopia, Denies eye discharge, Denies loss of vision and Denies eye pain ENT: Denies dizziness Cardiovascular: Cardiovascular: Reports no additional cardiovascular complaints, Denies chest pain, Denies lightheadedness, Denies Loss of Consciousness and Denies dyspnea Respiratory: Respiratory: Reports no additional respiratory complaints and Denies dyspnea Gastrointestinal: Gastrointestinal: Reports no additional gastrointestinal complaints, Denies abdominal pain, Reports melena, Denies hematochezia, Reports change in bowel habits, Reports change in stool character, Reports vomiting and Reports hematemesis Genitourinary: Genitourinary: Reports no additional male genitourinary complaints, Denies hematuria, Denies oliguria, Denies difficulty urinating, Denies dysuria, Denies urinary frequency, Denies urinary hesitancy, Denies urinary incontinence and Denies urinary urgency Musculoskeletal: Musculoskeletal: Reports no additional musculoskeletal complaints, Denies numbness and Denies tingling Neurologic: Denies dizziness, Denies loss of vision, Denies numbness and Denies tingling Psychiatric: Psychiatric: Reports no additional psychiatric complaints Endocrine: Endocrine: Reports no additional endocrine complaints Hematologic/Lymphatic: Hematologic/Lymphatic: Reports no additional hematologic/lymphatic complaints Allergic/Immunologic: Allergic/Immunologic: Reports no additional allergic/immunologic complaints [facility] Past Medical History Attestation statement: The following information was validated with the patient. (all information validated with the patient's and son) Source: old records reviewed, obtained from family (patient's and son provided additional history and confirmed the history provided by the patient.) and nursing notes reviewed Medical History Dyslipidemia Impaired fasting glucose Osteoporosis Personal history of nicotine dependence History of radiation therapy (~2019) History of rectal cancer (~2019) Hx of compression fracture of spine COVID-19 vaccination declined Refused influenza vaccine History of COVID-19 Acute respiratory failure with hypoxia Anemia Hx of bacteremia Hx: UTI (urinary tract infection) Congestive heart failure History of chemotherapy (~2019) Hx of melanoma of skin Peptic ulcer COPD (chronic obstructive pulmonary disease) Chronic bronchitis History of herpes zoster Hypertension Surgical History History of reversal of ileostomy History of cataract surgery History of colonoscopy Hx of kyphoplasty Hx of melanoma excision History of low anterior resection of rectum History of left inguinal hernia repair History of right inguinal hernia repair (~1971) History of eye surgery (~1965) Family History Family History Sister History of breast cancer Social History Social History Household Members: Spouse and Children Housing: House Are you a primary neurocritical care physician to a significant other at home: No Do you presently have visiting nurse or other home services: No Alcohol intake: never Comment: soreness Patient Tobacco Use Status: Former Tobacco user Tobacco use type: Cigarette Cigarette Packs Per Day: 0 Cigarettes Per Day: 0 Years Smoked: 60 Smoked in Last 30 Days: No e-Cigarette/Vaping Use: Never Used Second Hand Smoke Exposure: Yes Use of substances other than those prescribed or required for medical reasons: No Advance Directives: Yes Advance Directives on File: Yes Advance Directives Date on File: 10/04/20 Do you have a plan to hurt others: No Plan service: Yes Current occupational status: disabled Cognitive needs: No Hearing needs: Yes Vision needs: No Physical Exam ED Vital Signs: Vital Signs - 24 hr 09/10/24 10:45 09/10/24 12:24 09/10/24 14:14 Temperature 97.4 F 97.7 F 98.3 F Pulse Rate 71 67 66 Respiratory Rate 19 14 20 Blood Pressure 137/71 134/69 102/67 Pulse Oximetry 94 94 93 Oxygen Delivery Method Nasal Cannula Room Air Nasal Cannula Oxygen Flow Rate 2 09/10/24 16:05 Temperature 98.6 F Pulse Rate 69 Respiratory Rate 12 Blood Pressure 115/66 Pulse Oximetry 96 Oxygen Delivery Method Nasal Cannula Oxygen Flow Rate 2 BMI result Body Mass Index 19.1 Const General: cooperative, no acute distress, alert and awake Nutritional Appearance: well nourished Orientation/consciousness: patient oriented x3 HENMT Head: Yes normal to inspection and Yes atraumatic Ears: hearing grossly normal bilaterally and external ears normal General nose exam: Normal external nose present, no nasal discharge noted and no epistaxis Face and sinus: Yes normal facial exam, No abrasion and No laceration Mouth: Normal oral and palatal mucosa present, no drooling and no muffled voice Eyes General: appearance normal, both eyes and all related structures Periorbital: periorbital findings normal Eyelids: Yes eyelids normal Conjunctivae: conjunctivae normal Pupils: Equal, round and reactive pupils present EOM: EOMs intact bilaterally Neck Neck: Yes normal visual inspection, Yes full ROM and Yes no lymphadenopathy Resp Effort & Inspection: normal respiratory effort and able to speak in complete sentences GI Palpation (GI): Soft to palpation, not firm, nontender and no guarding Rectal Exam - Male: Yes visual inspection normal and Yes heme positive stool Neuro General: patient oriented x3, moves all extremities and CN's II-XI intact bilaterally Cranial nerves: Yes Equal, round and reactive pupils present Cognition (Neuro): normal cognition Extrem General: Yes normal to inspection, Yes full ROM and Yes capillary refill normal Psych Appearance: grossly normal Mental Status: mental status grossly normal Affect: normal affect Attitude: cooperative Thought process: Normal thought process present Thought content: Normal thought content present Insight: Good insight present (Psych) Course Reevaluation(s) Reevaluation #1: [facility] GI paged. Time: 13:50 Medications Administered Discontinued Medications Generic Name Dose Route Start Last Admin Trade Name Freq PRN Reason Stop Dose Admin Iohexol 100 ml 09/10/24 11:44 09/10/24 11:44 Iohexol 350 Mg/Ml 100 Ml Infus..Btl IV 09/10/24 11:45 80 ml ONCE ONE Administration Ondansetron HCl 4 mg 09/10/24 12:55 09/10/24 13:08 Ondansetron Hcl 4 Mg/2 Ml Vial IVPUSH 09/10/24 12:56 4 mg ONCE ONE Administration Pantoprazole Sodium 40 mg 09/10/24 12:55 09/10/24 13:08 Pantoprazole Sodium 40 Mg/10 Ml Vial IVPUSH 09/10/24 12:56 40 mg ONCE ONE Administration Medical Decision Making Medical Decision Making [facility] Narrative: Patient is an 79 year old assigned male at with a history of COPD, HTN, colon cancer s/p surgery in 2019, tobacco use for decades - quit in 2023, presenting to the emergency department today with nausea, vomiting, and diarrhea that is dark in color. Patient's physical exam was as noted in the physical exam portion of this note. Patient was initially hypoxic however, he states this is his baseline and not a new finding. After resting some, the patient was taken off the supplemental oxygen he was placed on and remained above 93% on RA. Patient's blood work showed a WBC count of 17.4 but otherwise unremarkable. Patient's chest x-ray showed no acute cardiopulmonary process. Patient's CT abd/pelvis GI bleeding protocol showed multiple significant findings including: * Severe atherosclerotic changes in the aorta, mesenteric vessels, and iliac arteries * Extensive mural thrombus * Patent aortic diameter at the hiatus = 2.3 cm, just before the bifurcation it decreases to 0.7 cm * Occlusion of the left common iliac, left iliac, and and left external iliac arteries * Reconstitution of flow in the proximal right femoral artery * Severe stenosis of the right common iliac artery (severe stenosis) * Possible threadlike flow in the right external iliac artery with probable occlusion distally with reconstitution at the femoral artery (significant stenosis) * 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 Samayoa from the GI service who recommended speaking to IR about embolization. I spoke to Dr. Stein from IR who stated the patient's arteries are far too stenosed for emboilization to be performed by IR. States that he does not believe the bleed is significant enough to intervene at this time however, if the patient were to decompensate and intervention would be needed over night or the weekend, [facility] does not have the appropriate coverage. I informed Dr. Samayoa of this and he recommended transfer to a facility with appropriate IR capabilities. I explained my physical exam findings as well as all test results to the patient, the patient's son, and the patient's . I answered all questions asked by the patient, the patient's son, and the patient's . Patient, the patient's , and the patient's son verbalized agreement and understanding with this treatment plan and transfer to an appropriate facility. I originally paged [facility] at 1350 and after approximately 1.5 hours - I was called back with the GI fellow, Dr. Bernstein. He stated that the patient should have a push enteroscope with a peds colonoscope here at [facility] or have IR intervene and if IR here at [facility] was not going to do so - he recommended reaching out to IR at [facility]. I spoke with [facility] IR, Dr. Ramos, who stated the patient is not an appropriate candidate for transcatheter arterial embolization or any kind of angio procedure given his extensive atherosclerotic disease. He recommended speaking with [facility] GI again and believe it is reasonable to have the patient at [facility] given there is no IR coverage at [facility] over the weekend. I spoke with the GI fellow, Dr. Bernstein, again - who recommended explicitly informing the [facility] GI specialist of their recommendations and if he states he is incapable of performing the procedure as they recommend, they will accept the patient as a transfer. I again spoke with Dr. Samayoa, here at [facility] who again confirmed we do not have the appropriate equipment or appropriate additional services (IR) if he were not able to stop the bleeding. [facility] recommended transfer to the [facility] Medical Team. I spoke with the [facility] Medical Team who accepted the patient under Dr. Ortega. Differential Diagnosis Differential Diagnoses: The differential diagnosis associated with the presentation includes Upper GI bleed Lower GI bleed Admission/Observation Consideration of admission/observation: Escalation of care including admission/observation considered Please refer to the [facility] Rationale portion of this note for the patient's disposition course. Consult Healthcare Provider Management of the patient was discussed with: [employer] (spoke to numerous consultants here and at [facility] as noted in the MDM Rationale portion of this note. ) Lab Data [facility] Lab Attestation statement: I reviewed the patient's lab results. My interpretation of these results are in the MDM Rationale portion of this note. 09/10/24 16:53 09/10/24 11:06 Labs: Lab Results 09/10/24 09/10/24 09/10/24 Range/Units 11:06 11:59 14:52 WBC 17.4 H 16.1 H (4.8-10.8) X10*3/uL RBC 5.30 4.89 (4.60-5.80) X10*6/uL Hgb 17.6 16.2 (14.0-18.0) g/dl Hct 49.7 45.9 (42.0-52.0) % MCV 93.8 93.9 (80.0-98.0) fL MCH 33.2 H 33.1 H (27.0-33.0) pg MCHC 35.4 35.3 (31.0-36.0) g/dl RDW 13.3 13.4 (11.0-16.0) % Plt Count 173 155 L (160-400) X10*3/uL MPV 9.7 10.1 (9.4-12.4) fL Immature Gran % (Auto) 0.5 H 0.6 H (0.0-0.4) % Neut % (Auto) 85.0 H 85.1 H (45-73) % Lymph % (Auto) 7.3 L 7.0 L (20-40) % [place] % (Auto) 6.9 7.0 (2-11) % Eos % (Auto) 0.1 0.1 (0-4) % Baso % (Auto) 0.2 0.2 (0-2) % Lymph # (Auto) 1.3 1.1 L (1.2-4.9) X10*3/uL [place] # (Auto) 1.2 1.1 (0.1-1.2) X10*3/uL Eos # (Auto) 0.0 0.0 (0.0-0.4) X10*3/uL Baso # (Auto) 0.0 0.0 (0.0-0.2) X10*3/uL Abs Immat Gran (auto) 0.09 H 0.10 H (0.00-0.03) X10*3/uL Absolute Neuts (auto) 14.7 H 13.7 H (2.0-8.3) x10*3/uL Absolute Nucleated RBC 0.000 0.000 (0.0-0.012) X10*3/uL Nucleated RBC % (auto) 0.0 0.0 (0.0-0.2) /100WBC PT 13.2 H (10.9-12.4) SEC INR 1.2 H (0.9-1.1) Sodium 138 (135-145) mmol/L Potassium 4.2 (3.3-5.1) mmol/L Chloride 102 (96-108) mmol/L Carbon Dioxide 23 (22-29) mmol/L Anion Gap 17 (12-20) BUN 34 H (9-16) mg/dL Creatinine 0.97 (0.5-1.4) mg/dL Estim Creat Clear Calc 49.0 Estimated GFR > 60 Random Glucose 130 H (60-115) mg/dL Calcium 9.2 (8.4-10.2) mg/dL Magnesium 1.7 (1.6-2.6) mg/dL Total Bilirubin 1.4 H (0.0-1.0) mg/dL AST 33 (5-37) U/L ALT 18 (0-40) U/L Alkaline Phosphatase 91 (39-117) U/L Total Protein 7.2 (6.5-8.0) g/dL Albumin 4.2 (3.5-5.0) g/dL Lipase 22 (8-78) U/L Stool Occult Blood POSITIVE (NEGATIVE) Blood Type O Positive Antibody Screen NEGATIVE 09/10/24 Range/Units 16:53 WBC 16.7 H (4.8-10.8) X10*3/uL RBC 4.79 (4.60-5.80) X10*6/uL Hgb 15.9 (14.0-18.0) g/dl Hct 45.5 (42.0-52.0) % MCV 95.0 (80.0-98.0) fL MCH 33.2 H (27.0-33.0) pg MCHC 34.9 (31.0-36.0) g/dl RDW 13.4 (11.0-16.0) % Plt Count 163 (160-400) X10*3/uL MPV 9.6 (9.4-12.4) fL Immature Gran % (Auto) 0.7 H (0.0-0.4) % Neut % (Auto) 83.9 H (45-73) % Lymph % (Auto) 8.4 L (20-40) % [place] % (Auto) 6.7 (2-11) % Eos % (Auto) 0.1 (0-4) % Baso % (Auto) 0.2 (0-2) % Lymph # (Auto) 1.4 (1.2-4.9) X10*3/uL [place] # (Auto) 1.1 (0.1-1.2) X10*3/uL Eos # (Auto) 0.0 (0.0-0.4) X10*3/uL Baso # (Auto) 0.0 (0.0-0.2) X10*3/uL Abs Immat Gran (auto) 0.11 H (0.00-0.03) X10*3/uL Absolute Neuts (auto) 14.0 H (2.0-8.3) x10*3/uL Absolute Nucleated RBC 0.000 (0.0-0.012) X10*3/uL Nucleated RBC % (auto) 0.0 (0.0-0.2) /100WBC PT (10.9-12.4) SEC INR (0.9-1.1) Sodium (135-145) mmol/L Potassium (3.3-5.1) mmol/L Chloride (96-108) mmol/L Carbon Dioxide (22-29) mmol/L Anion Gap (12-20) BUN (9-16) mg/dL Creatinine (0.5-1.4) mg/dL Estim Creat Clear Calc Estimated GFR Random Glucose (60-115) mg/dL Calcium (8.4-10.2) mg/dL Magnesium (1.6-2.6) mg/dL Total Bilirubin (0.0-1.0) mg/dL AST (5-37) U/L ALT (0-40) U/L Alkaline Phosphatase (39-117) U/L Total Protein (6.5-8.0) g/dL Albumin (3.5-5.0) g/dL Lipase (8-78) U/L Stool Occult Blood (NEGATIVE) Blood Type Antibody Screen Independent Interpretation I performed an independent interpretation of an: Plain X-Ray and CT Scan Interpretation: My interpretation is in agreement with the radiologist's impression of these imaging studies. L Report Number: [id number]: Total DLP = 1055.00 mGy-cm EXAMINATION: CT ABDOMEN AND PELVIS WITHOUT AND WITH CONTRAST CLINICAL INFORMATION: Abdominal pain, dark-colored emesis, dark-colored stool DLP: 1055 mGY*cm COMPARISON: May 12, 2020 TECHNIQUE: Multidetector volumetric imaging was performed of the abdomen and pelvis before and after the IV administration of 80 mL of Omnipaque 300 intravenous contrast. Sagittal and coronal reformatted images were obtained on the technologist's workstation. This CT examination was performed using dose optimization techniques as appropriate, variously including the following: *Automated exposure control *Adjustment of mA and/or kV according to patient size (this includes techniques or standardized protocols for targeted exams where dose is matched to indication/reason for exam; i.e. extremities or head) *Use of iterative reconstruction technique FINDINGS: LUNG BASES: There are increased reticular markings, honeycombing, and groundglass densities with paraseptal blebs consistent with emphysema. There is dependent atelectasis on the right. LIVER, GALLBLADDER, AND BILIARY TREE: The liver is normal in size, shape, and attenuation. No focal hepatic lesion or biliary ductal dilatation is present. There is no gallbladder wall thickening or calcified stones. Extra hepatic bile duct is 8 mm diameter which is probably within normal limits for age. PANCREAS: Pancreatic duct is mildly prominent in the pancreatic head to the ampulla. SPLEEN: Unremarkable ADRENAL GLANDS: Unremarkable KIDNEYS AND URETERS: There is no hydronephrosis or nephrolithiasis. There are bilateral simple renal cysts. The largest is is an exophytic 2 cm diameter simple cyst involving the lower right kidney BLADDER: There is a 2.5 cm bladder diverticulum along the posterior left bladder, just anterior to the left ureterovesicular junction. GASTROINTESTINAL TRACT: There is narrowing of the SMA-aortic distance. It measured 5.7 mm (wnl >= 8mm). The duodenum is distended proximal to the aorta and the olmedo are in apposition as it passes between the SMA and aorta. There is a surgical anastomosis at the rectosigmoid junction. Intraluminal fluid content in the proximal jejunum in the left mid abdomen is mildly increased on the unenhanced exam. After contrast, there is further brightening of the intraluminal content on the arterial phase. On the 2 minute delayed imaging, there is slight decrease in density of the intraluminal content (axial CT series 5, 9, 15: Image 31/70 no sigmoid colon. There is presacral fat stranding. ABDOMINAL WALL: No significant hernia is appreciated. LYMPH NODES: Normal VASCULAR: There is severe atherosclerotic changes in the aorta, mesenteric vessels, and iliac arteries. There is extensive mural thrombus. The patent aortic diameter at the hiatus is 2.3 cm. Just before the bifurcation, it decreases to 0.7 cm. There is occlusion of the left common iliac artery. There is occlusion of the left iliac artery. The left external iliac artery is also occluded. There is reconstitution of flow in the proximal right femoral artery. Contrast opacifies the right common iliac artery which demonstrates severe stenosis. There is possible threadlike flow into the right external iliac artery with probable occlusion distally and reconstitution at the femoral artery which also demonstrate hemodynamically significant stenosis. Flow is present in the celiac and SMA. There is questionable flow into the TANIA.. PELVIC VISCERA: Prostate is enlarged. OSSEOUS STRUCTURES: Compression fractures are evident at T11, T12, L1, superior L2, L3, and kyphoplasty has been performed at T12 and L1. There is a healed posterior right 12th rib fracture. CT/CT gi bleed abd pel wo/w IVcon IMPRESSION: There is evidence of an active bleed in the proximal jejunum. Severe atherosclerotic vascular disease. Extensive mural thrombus in the abdominal aorta. Aortic lumen diameter decreases from 2.3 cm to 0.7 cm Bifurcation. There is occlusion of iliac arteries, as detailed above with reconstitution of flow into the femoral arteries which are hemodynamically significantly narrowed. 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 The duodenum proximal to this region appears mildly dilated and fluid-filled. There is dilation of the distal common bile duct and pancreatic duct in head of pancreas to the ampulla of Vater. No ampullary mass was visualized. Consider EGD if clinically indicated. Rectosigmoid anastomosis. Diverticulosis. 2.5 cm left bladder diverticulum, just anterior to the left UVJ. Emphysema. Fleischner guidelines were followed. Tati SALCEDO notified Electronically signed by: Inder Murray MD 09/10/2024 12:49 PM EDT RP Dictated By: Inder Murray MD Signed By: Electronically signed by Inder Murray MD 09/10/24 1249 EXAMINATION: XR CHEST CLINICAL INFORMATION: hypoxia COMPARISON: March 23, 2021 TECHNIQUE: 2 views of the chest were obtained. FINDINGS: Heart size is within normal limits. Coarse reticular markings are redemonstrated, left greater than right. Lingular opacity present on the prior x-ray has improved. There is also decreased density and improved aeration in the lateral portion of the left mid third lower third lung zone. There is no pleural effusion. Since the prior, there has been kyphoplasty of compression fractures at T12 and L1. There is mild to moderate compression fracture at T8, increased since the prior. There is moderate superior endplate T10 compression fracture, new since the prior. Other compression fractures are stable. XR/XR chest 2V IMPRESSION: Age-indeterminate compression fractures involving T8 and T10, new since 2021 x- ray. Chronic coarse reticular markings in the lungs. Electronically signed by: Inder Murray MD 09/10/2024 11:33 AM EDT RP Dictated By: Inder Murray MD Signed By: Electronically signed by Inder Murray MD 09/10/24 1133 Radiology Impression Discussion of test interpretation with radiology: I have reviewed the radiologist's reading. Independent Historian Clinical information obtained from an independent historian. History obtained from or confirmed by: Spouse (Patient's provided additional history and confirmed the history provided by the patient. ), EMS (EMS provided additional history and confirmed the history provided by the patient. ) and Other (Patient's son provided additional history and confirmed the history provided by the patient. ) Critical Care Time Critical Care Time Critical Care Time: Yes Total Critical Care Time: 76 Attestation: I spent 76 minutes of Critical Care Time with this patient. This does not include time spent on separately reported billable procedures. Discharge Plan Discharge Clinical Impression: Hemorrhage of jejunum, Iliac artery occlusion, Closed compression fracture of thoracic vertebra, Compression fracture of lumbar vertebra Patient Disposition: [facility] Transfer Details: [facility] - Accepted by Dr. Ortega Prescriptions: No Action cholecalciferol (vitamin D3) 50 mcg (2,000 unit) capsule 50 mcg PO DAILY atenolol 25 mg tablet 25 mg PO DAILY Qty: 90 4RF Breztri Aerosphere 160-9-4.8 mcg/actuation HFA aerosol inhaler 2 inh inhalation BID 30 Days Qty: 10.7 11RF Print Language: Mongolian
[2024-09-10 10:45] VITALS: BP 122/72; BP 137/71; PULSE 71; PULSE 81; RESP 19; TEMP 36.3; O2SAT 92; O2SAT 94; BMI 19.1
[2024-09-10 11:13] LABS: MANUAL DIFF FLAG NO
[2024-09-10 11:15] LABS: Basophils Percent Auto 0.2 % (0-2); Eosinophils Percent Auto 0.1 % (0-4); Hematocrit 49.7 % (42.0-52.0); Hemoglobin 17.6 g/dl (14.0-18.0); Imm Gran Abs Auto 0.09 X10*3/uL (0.00-0.03); Imm Gran Pct Auto 0.5 % (0.0-0.4); Lymphocytes Absolute Auto 1.3 X10*3/uL (1.2-4.9); Lymphocytes Percent Auto 7.3 % (20-40); Mean Corpuscular HGB Conc 35.4 g/dl (31.0-36.0); Mean Corpuscular Hemoglobin 33.2 pg (27.0-33.0); Mean Corpuscular Volume 93.8 fL (80.0-98.0); Mean Platelet Volume 9.7 fL (9.4-12.4); Monocytes Absolute Auto 1.2 X10*3/uL (0.1-1.2); Monocytes Percent Auto 6.9 % (2-11); Neutrophils Absolute Auto 14.7 x10*3/uL (2.0-8.3); Platelet Count 173 X10*3/uL (160-400); Red Cell Distribution Width 13.3 % (11.0-16.0); White Blood Count 17.4 X10*3/uL (4.8-10.8)
[2024-09-10 11:16] LABS: OBS Int Ctl Valid YES; OBS1 POSITIVE (NEGATIVE)
[2024-09-10 11:30] LABS: Alanine Aminotransferase 18 U/L (0-40); Albumin Level 4.2 g/dL (3.5-5.0); Alkaline Phosphatase 91 U/L (39-117); Anion Gap 17 (12-20); Aspartate Amino Transferase 33 U/L (5-37); Bilirubin Total 1.4 mg/dL (0.0-1.0); Blood Urea Nitrogen 34 mg/dL (9-16); Calcium 9.2 mg/dL (8.4-10.2); Carbon Dioxide 23 mmol/L (22-29); Chloride 102 mmol/L (96-108); Estimated Glomerular Filt Rate > 60; Glucose Random 130 mg/dL (60-115); Lipase 22 U/L (8-78); Magnesium 1.7 mg/dL (1.6-2.6); Potassium 4.2 mmol/L (3.3-5.1); Sodium 138 mmol/L (135-145); Total Protein 7.2 g/dL (6.5-8.0)
[2024-09-10] MEDS: iohexoL 350 MG/ML 100 ML INFUS..BTL IV (11:44)
[2024-09-10 12:12] LABS: INTERNATIONAL NORM RATIO 1.2 (0.9-1.1); Prothrombin Time 13.2 SEC (10.9-12.4)
[2024-09-10 12:24] VITALS: BP 134/69; PULSE 67; RESP 14; TEMP 36.5; O2SAT 94
[2024-09-10] MEDS: ondansetron HCL 4 MG/2 ML VIAL IVPUSH (13:08)
[2024-09-10] MEDS: Pantoprazole Sodium 40 MG/10 ML VIAL IVPUSH (13:08)
--- NOTE | 2024-09-10 13:18 | PC.NURSE ---
Patient A&O x 3. IV 20G in left forearm. Independently with ambulation, uses cane when going outdoors. Patient presents to ED c/o vomiting and diarrhea with blood present. Dark stool noted as well. Patient O2 88% RA applied NC 2 L O2 rechecked 92%. Denies pain. Denies SOB. CXR reveals compression fx of t8 and t10. Abdomen CT shows evidence of an active bleed in the proximal jejunum. VSS and up to date. Plan to admit patient.
[2024-09-10 14:14] VITALS: BP 102/67; PULSE 66; RESP 20; TEMP 36.8; O2SAT 93
--- NOTE | 2024-09-10 14:16 | MHC.EDTECH ---
pt emptied 50mL of yellow urine into urinal
[2024-09-10 14:56] LABS: MANUAL DIFF FLAG NO
[2024-09-10 14:58] LABS: Basophils Percent Auto 0.2 % (0-2); Eosinophils Percent Auto 0.1 % (0-4); Hematocrit 45.9 % (42.0-52.0); Hemoglobin 16.2 g/dl (14.0-18.0); Imm Gran Pct Auto 0.6 % (0.0-0.4); Lymphocytes Absolute Auto 1.1 X10*3/uL (1.2-4.9); Mean Corpuscular HGB Conc 35.3 g/dl (31.0-36.0); Mean Corpuscular Hemoglobin 33.1 pg (27.0-33.0); Mean Corpuscular Volume 93.9 fL (80.0-98.0); Mean Platelet Volume 10.1 fL (9.4-12.4); Monocytes Absolute Auto 1.1 X10*3/uL (0.1-1.2); Neutrophils Absolute Auto 13.7 x10*3/uL (2.0-8.3); Neutrophils Percent Auto 85.1 % (45-73); Platelet Count 155 X10*3/uL (160-400); Red Blood Count 4.89 X10*6/uL (4.60-5.80); Red Cell Distribution Width 13.4 % (11.0-16.0); White Blood Count 16.1 X10*3/uL (4.8-10.8)
[2024-09-10 16:05] VITALS: BP 115/66; PULSE 69; RESP 12; TEMP 37; O2SAT 96
[2024-09-10 16:57] LABS: MANUAL DIFF FLAG NO
[2024-09-10 17:04] LABS: Basophils Percent Auto 0.2 % (0-2); Eosinophils Percent Auto 0.1 % (0-4); Hematocrit 45.5 % (42.0-52.0); Hemoglobin 15.9 g/dl (14.0-18.0); Imm Gran Abs Auto 0.11 X10*3/uL (0.00-0.03); Imm Gran Pct Auto 0.7 % (0.0-0.4); Lymphocytes Absolute Auto 1.4 X10*3/uL (1.2-4.9); Lymphocytes Percent Auto 8.4 % (20-40); Mean Corpuscular HGB Conc 34.9 g/dl (31.0-36.0); Mean Corpuscular Hemoglobin 33.2 pg (27.0-33.0); Mean Platelet Volume 9.6 fL (9.4-12.4); Monocytes Absolute Auto 1.1 X10*3/uL (0.1-1.2); Monocytes Percent Auto 6.7 % (2-11); Neutrophils Percent Auto 83.9 % (45-73); Platelet Count 163 X10*3/uL (160-400); Red Blood Count 4.79 X10*6/uL (4.60-5.80); Red Cell Distribution Width 13.4 % (11.0-16.0); White Blood Count 16.7 X10*3/uL (4.8-10.8)
[2024-09-10 18:04] VITALS: BP 107/63; PULSE 64; RESP 16; TEMP 36.8; O2SAT 97
--- NOTE | 2024-09-10 20:04 | PC.NURSE ---
THIS RN ASSUMED CARE OF PT @ 1900. EMS REPORT GIVEN PRIOR TO CAMPAIGN DEVELOPER TO RN REPORT GIVEN TO AMBERLY MCCOY AT [facility] 4. EMS FORGOT PT BELONGINGS IN ROOM HERBERT CONTACTED
[2024-09-10 20:07] VITALS: BP 107/63; PULSE 64; RESP 16; TEMP 36.8; O2SAT 97
== END 2024-09-10 20:15 | disposition short-term general hospital (02) ==
PROVIDERS: Physician Assistant Medical; Emergency Provider Emergency Medicine; PCP Internal Medicine
DX: I74.5 Embolism and thrombosis of iliac artery (principal); K92.2 Gastrointestinal hemorrhage, unspecified; M48.54XA Collapsed vertebra, not elsewhere classified, thoracic region, initial encounter for fracture; M48.56XA Collapsed vertebra, not elsewhere classified, lumbar region, initial encounter for fracture; R11.2 Nausea with vomiting, unspecified; K63.89 Other specified diseases of intestine; I10 Essential (primary) hypertension; E78.5 Hyperlipidemia, unspecified; J44.9 Chronic obstructive pulmonary disease, unspecified; Z87.891 Personal history of nicotine dependence; Z85.048 Personal history of other malignant neoplasm of rectum, rectosigmoid junction, and anus; Z92.21 Personal history of antineoplastic chemotherapy; Z79.899 Other long term (current) drug therapy
CPT/HCPCS: 36415; 71046; 74178; 80053; 82272; 83690; 83735; 85025; 85610; 86850; 86900; 86901; 96374; 96375; 99285; J2405; J2470; Q9967

== ENCOUNTER → 2024-09-10 10:53 | Outpatient (BNV) | payer MEDICARE, SELFPAY | PROVIDERS: PCP Internal Medicine; Visit Provider Radiology Diagnostic Radiology | DX: K57.92 Diverticulitis of intestine, part unspecified, without perforation or abscess without bleeding (principal); N32.3 Diverticulum of bladder; J43.9 Emphysema, unspecified; R09.02 Hypoxemia | CPT/HCPCS: 71046; 74178 ==

== ENCOUNTER 2024-09-15 09:14 | Emergency (ER) | payer MEDICARE, SELFPAY ==
--- OUTSIDE RECORDS SUMMARY | 2024-09-09 07:45 | XMS_ITS ---
Author Organization Felix Tejeda III, MD Address [address] [place] [address] [place] [address] Care Team Providers Care Senior Information Security Engineer Name Role Phone Huang MOONEY, Dahiana Primary Care Provider Felix Soriano Unavailable [phone] Derick Keller MD Unavailable Allergies Allergen (clinical drug ingredient) Drug/Non Drug Allergy documented on EMR Reaction Allergy Type Onset Date Status No Known Drug Allergy Unknown Drug Allergy Active REASON FOR VISIT History of rectal cancer, COPD, Hypertension, Hyperlipidemia, Hernia, Benign prosthetic hypertrophy Medications Medication SIG (Take, Route, Frequency, Duration) [...] Date Provider Diagnosis Felix Tejeda III, MD [address] [place] [address] [place] [address] 09/09/2024 Felix Tejeda Rectal cancer C20 ; COPD (chronic obstructive pulmonary disease) J44.9 ; Essential hypertension I10 ; Left inguinal hernia K40.90 ; Tobacco dependence F17.200 ; Underweight R63.6 and Right inguinal hernia K40.90 Assessments Encounter Date Diagnosis (ICD Code) Assessment Notes Treatment Notes Treatment Clinical Notes 09/09/2024 Rectal cancer (ICD-10 - C20) He has continued to have intermittent diarrhea. They say the colostomy is functioning well without blood. He'll be seen tomorrow for evaluation 09/09/2024 COPD (chronic obstructive pulmonary disease) (ICD-10 - J44.9) He continues to smoke cigarettes and has a nonproductive cough. He is able to conduct all of the activities of daily living. He is short of breath with moderate exertion. He has had no hemoptysis. 09/09/2024 Essential hypertension (ICD-10 - I10) His blood pressure has been stable at 124/64 and will be followed closely. No changes were made in his regimen. 09/09/2024 Left inguinal hernia (ICD-10 - K40.90) He will be reassessed in the office tomorrow. If she deteriorates she will go to the emergency room. 09/09/2024 Tobacco dependence (ICD-10 - F17.200) He has resumed smoking by history. We discussed smoking cessation strategies at length today. 09/09/2024 Underweight (ICD-10 - R63.6) His body mass index is 18. He weighs 120 pounds. History of every 8 140 pounds. His appetite is poor. There was no sign of recurrent malignancy on today's examination. 09/09/2024 Right inguinal hernia (ICD-10 - K40.90) This is asymptomatic at [...] 09/09/2024 Next Appt Details Follow Up: 1 day, Reason: OV Provider Name:Felix Tejeda, 09/15/2024 03:15:00 PM, [address] [place] [address] [address], [place], [address], Provider Name:Felix Tejeda, 10/27/2024 10:30:00 AM, [address] [place] [address] [address], [place], [address], Progress Notes * EUSEBIO ELISEDOB:[birth year] (79 yo M)Acc No.[id number]:09/09/2024 Patient: EUSEBIO HOANG Provider: Sapna Tejeda MD :1945 A ge:79 Y S ex:Male Date:09/09/2024 Address:[address] [place], [place] [id number] Pcp:Dahiana Encinas MD Subjective: * Chief Complaints: * H istory of rectal cancerCOPDHypertensionHyperlipidemiaHerniaBenign prosthetic hypertrophy * HPI: * : This telehealth visit took place over 22 minutes with the patient at home and me in my office. He gave consent for billing.His called me today to say he was not doing well. Is having some lower quadrant abdominal discomfort which is intermittent with some diarrhea. She has not noticed any bleeding. He does not have a fever and he continues to eat. He was given an appointment to come to the office tomorrow morning and to bring all of his medications with him. She was told to take him to the emergency room at once if his condition worsen. He will have comprehensive blood work at the hospital prior to coming to the office. Telehealth L ocation of provider rendering services: { ...} [address] [facility] [address] L ocation of patient: a ddress listed in demographics for today's visit P atient identification confirmed using: N donna, T elehealth method: T elephone only. Patient not visible to care provider. C onsent: P atient verbally consented to treatment, Patient verbally consented to billing insurance company, Patient informed of any privacy concerns related to method of visit Jacquelyn jenkins time spent with patient (mins) 1 5 * ROS: G eneral/Constitutional: pain M ild and intermittent lower quadrant abdominal discomfort not related to eating. C hills d enies. F atigue a dmits. F ever d enies. E NT: Decreased hearing d enies. R espiratory: Cough d enies. C ardiovascular: Chest pain with exertion d enies. D yspnea on exertion?denies. S hortness of breath d enies. G astrointestinal: Constipation o ccasional. D ecreased appetite d enies. D iarrhea t hat is infrequent. H eartburn d enies. N ausea d enies. R ectal bleeding d enies. V omiting d enies. H ematology: bruising d enies. p etechiae d enies. S wollen glands n one have been noted. G enitourinary: Frequent urination d enies. M usculoskeletal: Muscle aches d enies. P ainful joints d enies. S ciatica d enies. W eakness t hat is generalized. S kin: Itching d enies. R carlos d enies. S kin lesion(s)?denies. N eurologic: Difficulty speaking d enies. D izziness d enies.?Headache d enies. L ow back pain d enies. P sychiatric: Depressed mood d enies. * Medical History: * Surgical History: l eft inguinal hernia 06/2019right inguinal hernai 1976right eye removal of shrapnel Colonoscopy 11/2019Spinal surgery 2Radical resection of rectum and formation of colostomy losure of colostomy 09/12/2021Vertebral plasty 2022 * Hospitalization/Major Diagno stic Procedure: D enies Past Hospitalization * Family History: F ather: , No [...] of cigarettes per day. * Medications: T akingAdvair Diskus 100-50 MCG/ACT Aerosol Powder Breath Activated 1 puff Inhalation Twice a day Calcium Magnesium Atenolol 25 MG Tablet 1 tablet Orally Once a day Vitamin D 400 UNIT Capsule 1 capsule Orally Once a day Medication List reviewed and reconciled with the patientTaking Advair Diskus 100-50 MCG/ACT Aerosol Powder Breath Activated 1 puff Inhalation Twice a day Taking Calcium Magnesium Taking Atenolol 25 MG Tablet 1 tablet Orally Once a day Taking Vitamin D 400 UNIT Capsule 1 capsule Orally Once a day Medication List reviewed and reconciled with the patient * Allergies: N o Known Drug Allergyno[Allergies Verified] Objective: * Vitals: H t: 67, Wt:120, BMI:18.79, Wt-k.43. Assessment: * Assessment: 1. R ectal cancer - C20 (Primary) N otes :He has continued to have intermittent diarrhea. They say the colostomy is functioning well without blood. He'll be seen tomorrow for evaluation 2 . C OPD (chronic obstructive pulmonary disease) - J44.9 N otes :He continues to smoke cigarettes and has a nonproductive cough. He is able to conduct all of the activities of daily living. He is short of breath with moderate exertion. He has had no hemoptysis. 3 . E ssential hypertension - I10 N otes :His blood pressure has been stable at 124/64 and will be followed closely. No changes were made in his regimen. 4 . L eft inguinal hernia - K40.90 N otes :He will be reassessed in the office tomorrow. If she deteriorates she will go to the emergency room. 5 . T obacco dependence - F17.200 N otes :He has resumed smoking by history. We discussed smoking cessation strategies at length today. 6 . U nderweight - R63.6 N otes :His body mass index is 18. He weighs 120 pounds. History of every 8 140 pounds. His appetite is poor. There was no sign of recurrent malignancy on today's examination. 7 . R ight inguinal hernia - K40.90 N otes :This is asymptomatic at this time. Plan: * Treatment: * Labs: * L ab: PROFILE, FASTING (COMPREHENSIVE METABOLIC) L ab: PSA, TOTAL L ab: CBC w DIFF L ab: Lipid Panel * Procedure Codes: 9 8012 SYNCH AUDIO-ONLY [...] done: Medical or Other reason not done S moking/Tobacco Use Patient counseled on the dangers of tobacco use and urged to quit. 0 09/09/2024 Patient Lifestyle Goals P atient wants to quit Treatment Goals S et a quit date, Cut down by 1 cigarette a week Barriers S tress, Social smoker Self-Management Plan M steve a plan to cut down number of cigarettes over time and set a date to work towards quitting COPD Care Plan: P atient Lifestyle Goals R elieve symptoms and improve quality of life, Reduce number of ED and hospitalizations, Be able to be more active with friends and family. T reatment Goals Q uit Smoking. B arriers n o barriers. S elf-Managment Goals E at a healthy diet, Get an air purifier for the rooms you are in the most, Make a plan for quitting smoking. * Follow Up: 1 day (Reason: OV) * Images: * Sign off status: Completed true * Provider: Sapna Tejeda MD Date: 0 09/09/2024 Generated for Alejandra gomes/Anjali/eTransmitting on: 0 09/15/2024 10:15 AM EDT History and Physical Notes * HPI (History of Present Illness) Category Sub-Category Detail Notes Telehealth Location of [facility] ider rendering services:: {...} [address] [facility] [address] Location of patient:: address listed in demographics [...]
[2024-09-15] VITALS (8 sets, daily range): BP systolic 146–186; BP diastolic 72–94; PULSE 62–66; RESP 12–17; TEMP 36.3–37.2; O2SAT 86–95; BMI 21.3
--- NOTE | ~2024-09-15 | CT_ITS ---
CLINICAL HISTORY: dyspnea CT angiography chest using contrast. 3-D postprocessing Comparison: None Findings: There is good opacification of the main, right and left pulmonary arteries. No CT evidence of pulmonary embolism. Normal caliber thoracic aorta and great vessels. Mild cardiomegaly. There is dilatation of the right atria and ventricle with reflux of contrast into the hepatic veins possible valvular insufficiency. Shotty mediastinal lymph nodes. No lymphadenopathy. Centrilobular emphysema. Calcified granulomas. Eventration left hemidiaphragm. Bibasilar predominantly interstitial opacities either atelectatic or interstitial pneumonitis. Early honeycombing may be present. No pneumothorax or significant pleural effusion. No mediastinal shift. No thyroid nodules demonstrated. No chest wall masses. No axillary adenopathy. No hepatosplenomegaly. Exophytic renal cortical cyst right kidney can be correlated with ultrasound. No radiopaque gallstones. Lower thoracic vertebroplasties. Moderate wedge compression fracture midthoracic vertebrae of indeterminate age. Biconcave osteoporotic compression fracture L1. Impression: 1. No CT evidence of pulmonary embolus. 2. Normal caliber thoracic aorta. Mild cardiomegaly particularly the right heart chambers. 3. Eventration of the left hemidiaphragm. There is adjacent compressive atelectasis. Centrilobular emphysema. Evidence of old granulomatous disease. Reticular fibrosis and probably mild early honeycombing. Bibasilar subsegmental atelectasis rather than infiltrates. No parapneumonic effusion. This document has been electronically signed by: Damon Francois MD on 09/15/2024 11:49:58
--- NOTE | 2024-09-15 09:24 | ED.GENADULT ---
HPI - General Adult General Chief complaint: Dyspnea Stated complaint: LOW O2 SATS PER EMS,84%RA 94% 2L NC PER EMS Source: patient, family (, son), EMS, RN notes reviewed and old records reviewed Mode of arrival: EMS Limitations: no limitations History of Present Illness ED Provider: [place] HPI narrative: Patient is an 79-year-old male with history of colon cancer in remission, chronic hypoxic respiratory failure in setting of COPD, not on home oxygen, hypertension, erosive esophagitis and gastroduodenal ulcers presenting to the emergency department with reported hypoxia and dyspnea since last night. According to son and , patient was discharged from [facility] yesterday, called EMS last night as he was feeling short of breath, does not have home oxygen, was noted to have oxygen saturation of 74% on room air. EMS provided oxygen but patient refused transport or treatment at that time. This morning he continued to feel short of breath and was still hypoxic. Son and visited patient's executive coach, Dr. Rubio, who advised patient to present to the ED in order to obtain home oxygen. Patient recently admitted at [facility] after he was transferred there from [place] ED for a jejunal bleed, was offered home oxygen upon discharge there which patient declined. He is stating he is now agreeable to home oxygen. He states that he does not want an evaluation, just wants oxygen and to be discharged home, does not wish to be admitted to the hospital. Denies chest pain or palpitations. Denies fevers. complaint: shortness of breath Onset (ago): hour(s) Related Data Home Medications ?Medication ?Instructions ?Recorded ?Confirmed cholecalciferol (vitamin D3) 50 50 mcg PO DAILY 02/12/21 01/14/22 mcg (2,000 unit) capsule Previous Rx's ?Medication ?Instructions ?Recorded budesonide 160 mcg-glycopyr 9 2 inh inhalation BID 30 days #10.7 06/02/24 mcg-formot 4.8 mcg/actuation HFA grams inhaler (Breztri Aerosphere) atenolol 25 mg tablet 25 mg PO DAILY #90 tabs 08/12/24 Allergies Allergy/AdvReac Type Severity Reaction Status Date / Time No Known Allergies Allergy Verified 09/15/24 09:36 Review of Systems Review of Systems: As per HPI Yes all other systems are reviewed and are negative Constitutional: Constitutional: Reports as per HPI [facility] Past Medical History Medical History Dyslipidemia Impaired fasting glucose Osteoporosis Personal history of nicotine dependence History of radiation therapy (~2019) History of rectal cancer (~2019) Hx of compression fracture of spine COVID-19 vaccination declined Refused influenza vaccine History of COVID-19 Acute respiratory failure with hypoxia Anemia Hx of bacteremia Hx: UTI (urinary tract infection) Congestive heart failure History of chemotherapy (~2019) Hx of melanoma of skin Peptic ulcer COPD (chronic obstructive pulmonary disease) Chronic bronchitis History of herpes zoster Hypertension Surgical History History of reversal of ileostomy History of cataract surgery History of colonoscopy Hx of kyphoplasty Hx of melanoma excision History of low anterior resection of rectum History of left inguinal hernia repair History of right inguinal hernia repair (~1971) History of eye surgery (~1965) Family History Family History Sister History of breast cancer Social History Social History Household Members: Spouse and Children Housing: House Are you a primary eye care professional to a significant other at home: No Do you presently have visiting nurse or other home services: No Alcohol intake: never Comment: soreness Patient Tobacco Use Status: Former Tobacco user Tobacco use type: Cigarette Cigarette Packs Per Day: 0 Cigarettes Per Day: 0 Years Smoked: 60 e-Cigarette/Vaping Use: Never Used Second Hand Smoke Exposure: Yes Advance Directives: Yes Advance Directives on File: Yes Advance Directives Date on File: 10/04/20 service: Yes Current occupational status: disabled Cognitive needs: No Hearing needs: Yes Vision needs: No Physical Exam ED Vital Signs: Vital Signs - 24 hr 09/15/24 09:15 09/15/24 09:23 09/15/24 11:50 Temperature 98.9 F Pulse Rate 65 Respiratory Rate 14 17 Blood Pressure 186/94 H Pulse Oximetry 89 L 93 86 L Oxygen Delivery Method Room Air Nasal Cannula Nasal Cannula Oxygen Flow Rate 2 09/15/24 12:00 09/15/24 13:09 Temperature Pulse Rate Respiratory Rate Blood Pressure 156/81 H Pulse Oximetry 93 Oxygen Delivery Method Nasal Cannula Oxygen Flow Rate 3 BMI result Body Mass Index 21.3 Vital signs have been reviewed and appear to be correct. Blood pressure elevated. Heart rate normal. Respiratory rate normal. Temperature normal. Oxygen saturation normal. Const General: cooperative, healthy appearing and no acute distress Orientation/consciousness: oriented to person, oriented to place, oriented to time and patient oriented x3 Limitations: no limitations HENMT Head: Yes normocephalic and Yes atraumatic Ears: external ears normal General nose exam: Normal external nose present Face and sinus: Yes face symmetric Mouth: oropharynx normal and moist mucous membranes Throat: Yes uvula midline Eyes Pupils: Equal, round and reactive pupils present Neck Neck: Yes normal visual inspection and Yes supple Resp Effort & Inspection: normal respiratory effort Auscultation: diminished lung sounds diffuse Cardio Rate: regular rate Rhythm: regular rhythm Heart sounds: S1 normal heart sound present and S2 normal heart sound present GI Palpation (GI): Soft to palpation and nontender Auscultation: normoactive bowel sounds General: Yes no CVA tenderness Back/Spine/Pelvis Back: no CVA tenderness Skin General skin exam: elasticity normal and turgor normal Neuro General: oriented to person, oriented to place, oriented to time, patient oriented x3, moves all extremities, no focal motor deficits and CN's II-XI intact bilaterally Cranial nerves: Yes Equal, round and reactive pupils present Cognition (Neuro): normal cognition Extrem General: Yes full ROM, Yes no pedal edema and Yes no calf tenderness Psych Mental Status: mental status grossly normal Affect: normal affect Thought process: Normal thought process present Medications Administered Discontinued Medications Generic Name Dose Route Start Last Admin Trade Name Freq PRN Reason Stop Dose Admin Furosemide 20 mg 09/15/24 12:57 09/15/24 13:09 Furosemide 20 Mg/2 Ml Vial IVPUSH 09/15/24 12:58 20 mg ONCE ONE Administration Protocol Iohexol 100 ml 09/15/24 11:12 09/15/24 11:12 Iohexol 350 Mg/Ml 100 Ml Infus..Btl IV 09/15/24 11:13 65 ml ONCE ONE Administration Medical Decision Making Medical Decision Making [facility] Narrative: Patient is an 79-year-old male with history of colon cancer in remission, chronic hypoxic respiratory failure in setting of COPD, not on home oxygen, hypertension, erosive esophagitis and gastroduodenal ulcers presenting to the emergency department with reported hypoxia and dyspnea since last night. On exam patient is awake, A+Ox3, hypertensive, VS otherwise WNL, afebrile, normal neurological exam without focal deficits, physical exam findings as above. Given reported symptoms and physical exam findings, initial differential includes but is not limited to COPD exacerbation, chronic hypoxic respiratory failure, ACS. Given recent CT abdomen on 09/10 which showed extensive mural thrombus in abdominal aorta, also concern for PE. Discussed this concern with patient who is agreeable to CTA chest. EKG shows ST depression and T wave inversion in leads V1-V3, most recent prior for comparison is from 2020. Labs notable for no leukocytosis, no anemia, slightly elevated troponin which was down trending on repeat, elevated BNP. 1+ pedal edema noted, will give small dose of Lasix. CTA chest notable for no evidence of PE, no large effusions. My interpretation is in agreement with the radiologist's interpretation. Dr. Tejeda stopped into the ED to see patient and was updated on results of today's visit and plan for discharge home with O2, he is agreeable to this. Patient's notified nursing staff that a company is coming to their house to set up oxygen today, apparently this was established by [facility] even though patient declined this at the time of discharge. confirmed that oxygen has been delivered and patient agreeable to transport home via ambulance for oxygen. Return precautions discussed at bedside. Dr. Tejeda will see patient in the office next week. Patient and verbalized understanding of and agreement with plan. Differential Diagnosis Differential Diagnoses: The differential diagnosis associated with the presentation includes As per [facility] Admission/Observation Consideration of admission/observation: Escalation of care including admission/observation considered Patient would have been admitted to the hospital had their work up had any findings where hospital admission was appropriate and their clinical presentation warranted hospital admission. Consult Healthcare Provider Management of the patient was discussed with: Hydraulic Technician (Dr. Rubio notified that home O2 delivery was set up by [facility]) Lab Data [facility] Lab Attestation statement: I reviewed the patient's lab results. as per mMD 09/15/24 10:03 09/15/24 10:04 Labs: Lab Results 09/15/24 09/15/24 09/15/24 Range/Units 10:03 10:04 10:21 WBC 10.6 (4.8-10.8) X10*3/uL RBC 4.62 (4.60-5.80) X10*6/uL Hgb 15.5 (14.0-18.0) g/dl Hct 43.9 (42.0-52.0) % MCV 95.0 (80.0-98.0) fL MCH 33.5 H (27.0-33.0) pg MCHC 35.3 (31.0-36.0) g/dl RDW 13.4 (11.0-16.0) % Plt Count 184 (160-400) X10*3/uL MPV 9.6 (9.4-12.4) fL Immature Gran % (Auto) 2.0 H (0.0-0.4) % Neut % (Auto) 79.6 H (45-73) % Lymph % (Auto) 10.0 L (20-40) % [place] % (Auto) 7.0 (2-11) % Eos % (Auto) 0.7 (0-4) % Baso % (Auto) 0.7 (0-2) % Lymph # (Auto) 1.1 L (1.2-4.9) X10*3/uL [place] # (Auto) 0.7 (0.1-1.2) X10*3/uL Eos # (Auto) 0.1 (0.0-0.4) X10*3/uL Baso # (Auto) 0.1 (0.0-0.2) X10*3/uL Abs Immat Gran (auto) 0.21 H (0.00-0.03) X10*3/uL Absolute Neuts (auto) 8.5 H (2.0-8.3) x10*3/uL Absolute Nucleated RBC 0.000 (0.0-0.012) X10*3/uL Nucleated RBC % (auto) 0.0 (0.0-0.2) /100WBC PT 13.3 H (10.9-12.4) SEC INR 1.2 H (0.9-1.1) Sodium 136 (135-145) mmol/L Potassium 3.7 (3.3-5.1) mmol/L Chloride 99 (96-108) mmol/L Carbon Dioxide 24 (22-29) mmol/L Anion Gap 17 (12-20) BUN 19 H (9-16) mg/dL Creatinine 1.05 (0.5-1.4) mg/dL Estim Creat Clear Calc 43.3 Estimated GFR > 60 Random Glucose 124 H (60-115) mg/dL Calcium 9.1 (8.4-10.2) mg/dL Magnesium 1.7 (1.6-2.6) mg/dL Total Bilirubin 1.4 H (0.0-1.0) mg/dL AST 35 (5-37) U/L ALT 24 (0-40) U/L Alkaline Phosphatase 85 (39-117) U/L Troponin I High Sens 28.0 (<3.5-35.0) ng/L B-Natriuretic Peptide 1023 H (<100) pg/mL Total Protein 6.8 (6.5-8.0) g/dL Albumin 4.0 (3.5-5.0) g/dL Influenza Type A (PCR) NEGATIVE (Negative) Influenza Type B (PCR) NEGATIVE (Negative) RSV RNA Qual (PCR) NEGATIVE (Negative) SARS-CoV-2 RNA (RT-PCR) NEGATIVE (Negative) 09/15/24 Range/Units 12:17 WBC (4.8-10.8) X10*3/uL RBC (4.60-5.80) X10*6/uL Hgb (14.0-18.0) g/dl Hct (42.0-52.0) % MCV (80.0-98.0) fL MCH (27.0-33.0) pg MCHC (31.0-36.0) g/dl RDW (11.0-16.0) % Plt Count (160-400) X10*3/uL MPV (9.4-12.4) fL Immature Gran % (Auto) (0.0-0.4) % Neut % (Auto) (45-73) % Lymph % (Auto) (20-40) % [place] % (Auto) (2-11) % Eos % (Auto) (0-4) % Baso % (Auto) (0-2) % Lymph # (Auto) (1.2-4.9) X10*3/uL [place] # (Auto) (0.1-1.2) X10*3/uL Eos # (Auto) (0.0-0.4) X10*3/uL Baso # (Auto) (0.0-0.2) X10*3/uL Abs Immat Gran (auto) (0.00-0.03) X10*3/uL Absolute Neuts (auto) (2.0-8.3) x10*3/uL Absolute Nucleated RBC (0.0-0.012) X10*3/uL Nucleated RBC % (auto) (0.0-0.2) /100WBC PT (10.9-12.4) SEC INR (0.9-1.1) Sodium (135-145) mmol/L Potassium (3.3-5.1) mmol/L Chloride (96-108) mmol/L Carbon Dioxide (22-29) mmol/L Anion Gap (12-20) BUN (9-16) mg/dL Creatinine (0.5-1.4) mg/dL Estim Creat Clear Calc Estimated GFR Random Glucose (60-115) mg/dL Calcium (8.4-10.2) mg/dL Magnesium (1.6-2.6) mg/dL Total Bilirubin (0.0-1.0) mg/dL AST (5-37) U/L ALT (0-40) U/L Alkaline Phosphatase (39-117) U/L Troponin I High Sens 26.8 (<3.5-35.0) ng/L B-Natriuretic Peptide (<100) pg/mL Total Protein (6.5-8.0) g/dL Albumin (3.5-5.0) g/dL Influenza Type A (PCR) (Negative) Influenza Type B (PCR) (Negative) RSV RNA Qual (PCR) (Negative) SARS-CoV-2 RNA (RT-PCR) (Negative) Independent Interpretation I performed an independent interpretation of an: EKG (sinus bradycardia, rate 59 bpm, normal [place] interval, slightly prolonged QTc, ST depression and T wave inversion in V1-V3, most recent EKG for comparison from 2020) and CT Scan Interpretation: CTA chest notable for no evidence of PE, no large effusions. Radiology Impression Discussion of test interpretation with radiology: I have reviewed the radiologist's reading. Radiologist Impression: Impression: 1. No CT evidence of pulmonary embolus. 2. Normal caliber thoracic aorta. Mild cardiomegaly particularly the right heart chambers. 3. Eventration of the left hemidiaphragm. There is adjacent compressive atelectasis. Centrilobular emphysema. Evidence of old granulomatous disease. Reticular fibrosis and probably mild early honeycombing. Bibasilar subsegmental atelectasis rather than infiltrates. No parapneumonic effusion. Independent Historian Clinical information obtained from an independent historian. History obtained from or confirmed by: Spouse and Other (son) External Record Review External record reviewed: Inpatient record, Office record and Outpatient record Critical Care Time Critical Care Time Critical Care Time: Yes Total Critical Care Time: 47 Attestation: I have personally provided critical care time exclusive of time spent on separately billable procedures. Time includes review of lab data, radiology results, discussion with consultants, and monitoring for potential decompensation. Intervention performed as documented. Discharge Plan Discharge Clinical Impression: Chronic hypoxic respiratory failure COPD (chronic obstructive pulmonary disease) Qualifiers: COPD type: emphysema Emphysema type: centrilobular Qualified Code(s): J43.2 - Centrilobular emphysema Patient Disposition: Home, Self-Care Instructions: Using Oxygen at Home (ED), COPD (Chronic Obstructive Pulmonary Disease) (DC), Chronic Respiratory Failure (DC) Additional Instructions: You were evaluated in the emergency department today for shortness of breath and low oxygen levels. Your symptoms improved with oxygen and you had oxygen set up at home while you were in the ED. Please follow up with Dr. Rubio and take all medications as prescribed. You will have an appointment with Dr. Tejeda next week, their office will call you with the appointment date and time. Return to the emergency department if you develop chest pain, palpitations, increased difficulty breathing or any other new or concerning symptoms. Prescriptions: No Action cholecalciferol (vitamin D3) 50 mcg (2,000 unit) capsule 50 mcg PO DAILY atenolol 25 mg tablet 25 mg PO DAILY Qty: 90 4RF Breztri Aerosphere 160-9-4.8 mcg/actuation HFA aerosol inhaler 2 inh inhalation BID 30 Days Qty: 10.7 11RF Print Language: Polish
--- NOTE | 2024-09-15 09:25 | ECG_ITS ---
Test Reason : sob Blood Pressure : */* mmHG Vent. Rate : 59 BPM Atrial Rate : 59 BPM P-R Int : 156 ms QRS Dur : 88 ms QT Int : 474 ms P-R-T Axes : 55 -3 -44 degrees QTcB Int : [address] & T wave abnormality, consider inferior ischemia ST & T wave abnormality, consider anterior ischemia Prolonged QT Abnormal ECG When compared with ECG of 08-Mar-2021 10:10, ST now depressed in Inferior leads T wave inversion now evident in Inferior leads T wave inversion now evident in Anterior leads QT has lengthened Referred By: Jocelyne Rossi Electronically Signed By: TATI ALONSO MD
[2024-09-15 10:09] LABS: MANUAL DIFF FLAG NO
[2024-09-15 10:14] LABS: Hematocrit 43.9 % (42.0-52.0); Hemoglobin 15.5 g/dl (14.0-18.0); Imm Gran Abs Auto 0.21 X10*3/uL (0.00-0.03); Imm Gran Pct Auto 2.0 % (0.0-0.4); Lymphocytes Absolute Auto 1.1 X10*3/uL (1.2-4.9); Mean Corpuscular HGB Conc 35.3 g/dl (31.0-36.0); Mean Corpuscular Hemoglobin 33.5 pg (27.0-33.0); Mean Corpuscular Volume 95.0 fL (80.0-98.0); NRBC Abs Auto 0.000 X10*3/uL (0.0-0.012); NRBC Pct Auto 0.0 /100WBC (0.0-0.2); Platelet Count 184 X10*3/uL (160-400); Red Blood Count 4.62 X10*6/uL (4.60-5.80); White Blood Count 10.6 X10*3/uL (4.8-10.8)
--- OUTSIDE RECORDS SUMMARY | 2024-09-15 10:15 | XMS_ITS | Patient Health Record ---
Author Organization [facility] Address [address] [place] [address] Care Team Providers Care Senior Oracle Soa Developer Name Role Phone Huang MOONEY, Dahiana Primary Care Provider Derick Hernandes Jr Unavailable Reason For Referral No Information Medications Medication [...] Problem Status W/U Status Risk Notes Problem [id number] Change in bowel habits (R19.4) Active confirmed Problem 030156936944427 plane tender (current) use of aspirin (Z79.82) Active confirmed Problem 372000879 Abnormal finding s in stool (R19.5) Active confirmed Problem 498589546 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 Problem 739695126 Rectal mass (K62.89) Active confirmed Plan Of Treatment Future Test Test Name Order Date COLONOSCOPY 11/11/2019 Insurance Providers Payer Name Payer Address Payer Phone Subscriber Number Group Number Insured Name Patient Relationship to Insured Coverage Start Date Coverage End Date MEDICARE OF [place] [address] [place] [address] [id number] EUSEBIO ELISE Self - patient is the insured MEDEX ATTN CLAIMS [address] [place] [address] [id number] EUSEBIO ELISE Self - patient is the insured Medical (General) History Medical History History ICD Code hypertension COPD Surgical History Surgery Date(Month/Year) left inguinal herniorrhaphy 06/2019 right inguinal herniorrhaphy 40 years ag o removal of shrapnel, right eye Colonoscopy 11/2019
[2024-09-15 10:16] LABS: INTERNATIONAL NORM RATIO 1.2 (0.9-1.1); Prothrombin Time 13.3 SEC (10.9-12.4)
--- NOTE | 2024-09-15 10:22 | PC.NURSE ---
pt with family at bedside, continues to report that he was informed he could present to the ED be given oxygen and can return home with said O2. Education provided but not necessarily received well as the patient is noted to occasionally get frustrated with staff as he believes that he [place] all these tests [place] [facility] [place] staff educated the patient on the tests and the focus of [facility] being his abdomen which leaves a question for PE due to the abdominal clots that were found. The pt and family have been updated, the pt is agreeable to blood work and imaging. he remains on the 2lpm via [place] and is conversing freely with family at bedside
[2024-09-15 10:28] LABS: Alanine Aminotransferase 24 U/L (0-40); Albumin Level 4.0 g/dL (3.5-5.0); Alkaline Phosphatase 85 U/L (39-117); Anion Gap 17 (12-20); Aspartate Amino Transferase 35 U/L (5-37); Blood Urea Nitrogen 19 mg/dL (9-16); Calcium 9.1 mg/dL (8.4-10.2); Carbon Dioxide 24 mmol/L (22-29); Chloride 99 mmol/L (96-108); Creatinine Clr Calc Pharmacy 43.3; Estimated Glomerular Filt Rate > 60; Magnesium 1.7 mg/dL (1.6-2.6); Potassium 3.7 mmol/L (3.3-5.1); Sodium 136 mmol/L (135-145); Total Protein 6.8 g/dL (6.5-8.0)
[2024-09-15 10:33] LABS: B Type Natriuretic Peptide 1023 pg/mL (<100)
[2024-09-15 10:35] LABS: Troponin-I High Sensitivity 28.0 ng/L (<3.5-35.0)
[2024-09-15 11:04] LABS: Resp Syncy Virus RNA Qual PCR NEGATIVE (Negative); SARS COV2 PCR INHOUSE NEGATIVE (Negative)
[2024-09-15] MEDS: iohexoL 350 MG/ML 100 ML INFUS..BTL IV (11:12)
[2024-09-15 12:42] LABS: Troponin-I High Sensitivity 26.8 ng/L (<3.5-35.0)
[2024-09-15] MEDS: Furosemide 20 MG/2 ML VIAL IVPUSH (13:09)
== END 2024-09-15 15:44 | disposition home or self-care (01) ==
PROVIDERS: Registered Nurse Emergency; Emergency Provider Emergency Medicine Emergency Medical Services; PCP Internal Medicine
DX: J43.2 Centrilobular emphysema (principal); J96.11 Chronic respiratory failure with hypoxia; R06.02 Shortness of breath; I11.0 Hypertensive heart disease with heart failure; I50.9 Heart failure, unspecified; E78.5 Hyperlipidemia, unspecified; J44.9 Chronic obstructive pulmonary disease, unspecified; Z85.038 Personal history of other malignant neoplasm of large intestine; Z92.3 Personal history of irradiation; Z92.21 Personal history of antineoplastic chemotherapy; Z87.891 Personal history of nicotine dependence; Z03.818 Encounter for observation for suspected exposure to other biological agents ruled out
CPT/HCPCS: 36415; 71275; 80053; 83735; 83880; 84484; 85025; 85610; 87637; 93005; 96374; 99285; 99291; J1938; Q9967

== ENCOUNTER → 2024-09-15 09:25 | Outpatient (BNV) | payer MEDICARE, SELFPAY | PROVIDERS: Emergency Provider Emergency Medicine Emergency Medical Services; PCP Internal Medicine; Visit Provider Internal Medicine Cardiovascular Disease | DX: R00.1 Bradycardia, unspecified (principal) | CPT/HCPCS: 93010 ==

== ENCOUNTER 2024-09-16 13:44 | Outpatient (AMB) | payer MEDICARE, SELFPAY ==
--- OUTSIDE RECORDS SUMMARY | 2024-09-09 07:45 | XMS_ITS ---
Author Organization Felix Tejeda III, MD Address [address] [place] [address] [place] [address] Care Team Providers Care Waist Presser Name Role Phone Huang MOONEY, Dahiana Primary Care Provider Felix Soriano Unavailable [phone] Derick Keller MD Unavailable Allergies Allergen (clinical [...] Date Provider Diagnosis Felix Tejeda III, MD [address] [place] [address] [place] [address] 09/09/2024 Felix Tejeda Rectal cancer C20 ; [...] 1 day, Reason: OV Provider Name:Felix Tejeda, 09/20/2024 01:00:00 PM, [address] [place] [address] [address], [place], [address], Provider Name:Felix Teejda, 10/27/2024 10:30:00 AM, [address] [place] [address] [address], [place], [address], Progress Notes * EUSEBIO ELISEDOB:[birth year] (79 yo M)Acc No.[id number]:09/09/2024 Patient: EUSEBIO HOANG Provider: Sapna Tejeda MD :1945 A ge:79 Y S ex:Male Date:09/09/2024 Address:[address] [place], [place] [id number] Pcp:Dahiana Encinas MD Subjective: * Chief Complaints: [...] of provider rendering services: { ...} [address] [facility] [address] L ocation of patient: a ddress listed [...] 09/09/2024 Generated for Alejandra gomes/Anjali/eTransmitting on: 0 09/16/2024 01:48 PM EDT History and Physical Notes * HPI (History of Present Illness) Category Sub-Category Detail Notes Telehealth Location of [facility] ider rendering services:: {...} [address] [facility] [address] Location of patient:: address listed in demographics [...]
--- OUTSIDE RECORDS SUMMARY | 2024-09-16 13:48 | XMS_ITS | Patient Health Record ---
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.82) Active confirmed Problem 591739560 Abnormal finding s in stool (R19.5) Active confirmed Problem 078865764 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 Problem 662863946 Rectal mass (K62.89) Active confirmed Plan Of Treatment Future Test Test Name Order Date COLONOSCOPY 11/11/2019 Insurance Providers Payer Name Payer Address Payer Phone Subscriber Number Group Number Insured Name Patient Relationship to Insured Coverage Start Date Coverage End Date MEDICARE OF [place] [address] [place] [address] [id number] EUSEBIO ELISE Self - patient is the insured MEDEX ATTN CLAIMS [address] [place] [address] [id number] EUSEBIO ELISE Self - patient is the insured Medical (General) History Medical History History ICD Code hypertension COPD Surgical History Surgery Date(Month/Year) left inguinal herniorrhaphy 06/2019 right inguinal herniorrhaphy 40 years ag o removal of shrapnel, right eye Colonoscopy 11/2019
--- NOTE | 2024-09-16 13:51 | A.OFFVIS_ITS ---
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 He was briefly hospitalized requiring oxygen. He was able to be discharged home on oxygen. However, he is reluctant on using the oxygen if he does needed. During the office visit we did go for 6 minutes walk test. The patient did desaturate down to 86% and was visibly dyspneic with a dyspnea score of 8/10. The patient did ambulate about 200 yd. Initially the patient 1 at the oxygen taking out of the house. Although he agreed to continue having the oxygen there in to uses specially when he is moving in exercising and trying to build up some loss she endurance and exercise capacity. The patient is also status post surgery for colon cancer and he has been tired of having to go in and out of hospitals having dizzy different specialists. He would like to continue recovering at home performing physical therapy and respiratory therapy at home. The patient does not have any inhalers. However, he would like to hold off on any respiratory medications. Will make an appointment for him to follow-up in 6 months. Although he will call if any other issues arise. 01/28/2022 the patient is here for a pulmonary follow-up visit. He is feeling better after having severe COVID. He was discharged on oxygen. I did evaluate him after the fact. He was to continue using the oxygen. Although since we last evaluated him he probably use that about 4 times and is no longer using it. He does not want in the house any further. She wants it to be discontinued when picked up by the [facility]. Explained to the patient that we can always have a discontinued specially if he is not using it. If however condition worsens we may have to retest him to see if he qualifies again in the future he is not using any inhalers at this time. Therefore I will give him a script to have a short-acting beta agonist that he can use as needed. He was supposed to have a chest x-ray and also a pulmonary function study but he did not have them as of yet. 11/15/2022 the patient is here for pulmonary follow-up visit. Overall he is about the same. Still complaining of dyspnea on exertion. He no longer has the oxygen. His shortness of breath is moderate severity primarily when he goes up a flight of stairs. He is also noticed increased weight gain. Does have some lower extremity edema. The short-acting beta agonist is not effective. Will go ahead and start him on a maintenance inhaler to see if this is helpful. Patient also appears to be volume overloaded. Will request a chest x-ray and also start him on Lasix for the 3 day weekend. I am hopeful that with the fluid removal he will feel better. The patient needs to do better with his low-sodium diet. 05/21/2023 the patient is here for pulmonary follow-up visit. Overall he is feeling better. We did send him a maintenance inhaler in initially he was going to be on Advair HFA but now apparently was in the [place]. He will be switched over to Wixela inhaler. Seems to be working well for him. His shortness of breath and cough improved. He is no longer using the oxygen that was taken out of the house. Right now he does not feel like he needed. He will let me know whenever he is ready to look into it further. At this point he would like to not pursue too many medical interventions. He did not have a chest x-ray for the same reason. He is well aware that at any point that he needs anything which is call the office so we can help him with any acute issues. So for now he will continue with current respiratory therapy. He will call if he would like to be assessed for oxygen again and will get an x-ray he thinks he needs 1 otherwise will follow-up in a year's time. 06/02/2024 the patient is here for pulmonary follow-up visit. Overall he is doing okay. Does have issues with powder inhalers. Therefore he has not been using it. He does complaint of some chest congestion some dyspnea. Currently he does not have a rescue inhaler. We did talk about getting an x-ray but the patient opted on not getting any imaging studies at this time. Will go ahead and prescribe him Breztri and he can use it twice a day. We did talk about rinsing. If he has any issues with the inhaler he will call for further recommendations. 09/16/2024 The patient is here for a hospital follow up visit. He developed respiratory failure and admitted [place] [facility] and then [place] [facility] due to a GIB. He stopped bleeding. He did have a CT abdomen demonstrating pneumonia in the LLL. Likely affected his gas exchange. He initially left [facility] from [facility] and refused oxygen. But then his oxygen pox dropped to the 70's while at home. Rainer did bring the oxygen. Now he is feeling better. Has been using the oxygen during the day.We will request the overnight oximetryon RA. WILLS Medical History Dyslipidemia Impaired fasting glucose Osteoporosis Personal history of nicotine dependence History of radiation therapy (~2019) History of rectal cancer (~2019) Hx of compression fracture of spine COVID-19 vaccination declined Refused influenza vaccine History of COVID-19 Acute respiratory failure with hypoxia Anemia Hx of bacteremia Hx: UTI (urinary tract infection) Congestive heart failure History of chemotherapy (~2019) Hx of melanoma of skin Peptic ulcer COPD (chronic obstructive pulmonary disease) Chronic bronchitis History of herpes zoster Hypertension Surgical History History of reversal of ileostomy History of cataract surgery History of colonoscopy Hx of kyphoplasty Hx of melanoma excision History of low anterior resection of rectum History of left inguinal hernia repair History of right inguinal hernia repair (~1971) History of eye surgery (~1965) Family History Sister History of breast cancer Social History Household Members: Spouse and Children Housing: House Are you a primary animal caretaker supervisor to a significant other at home: No Do you presently have visiting nurse or other home services: No Alcohol intake: never Comment: soreness Patient Tobacco Use Status: Former Tobacco user Tobacco use type: Cigarette Cigarette Packs Per Day: 0 Cigarettes Per Day: 0 Years Smoked: 60 e-Cigarette/Vaping Use: Never Used Second Hand Smoke Exposure: Yes Advance Directives Date on File: 10/04/20 service: Yes Current occupational status: disabled Cognitive needs: No Hearing needs: Yes Vision needs: No Review of Systems Const Reports fatigue, Denies night sweats and Reports weight loss ENT Denies change in voice, Denies lip swelling, Denies mouth pain, Reports nasal congestion, Reports nasal discharge and Denies tongue swelling Card Denies chest pain, Denies dyspnea and Reports dyspnea on exertion Resp Reports cough, Denies dyspnea and Reports dyspnea on exertion GI Denies abdominal pain Musc Denies no additional complaints Neuro Denies Neuro-related abnormal movements Psych Denies no additional complaints Endo Reports fatigue Kaden/Lymph Denies easy bleeding and Denies lymphadenopathy Aller/Immun Denies lip swelling and Denies tongue swelling Physical Exam Vital Signs: Last Vital Signs Pulse 73 09/16/24 13:52 BP 100/60 09/16/24 13:52 Pulse Ox 98 09/16/24 13:52 Oxygen Delivery Method Nasal Cannula 09/16/24 13:52 Oxygen Flow Rate 4 09/16/24 13:52 Const General: alert Neck Neck: Yes normal visual inspection, Yes full ROM and Yes no lymphadenopathy Chest Chest palpation & inspection: normal inspection of the chest Resp Auscultation: diminished lung sounds Cardio Rate: regular rate Rhythm: regular rhythm Heart sounds: S1 normal heart sound present and S2 normal heart sound present GI Palpation (GI): Soft to palpation and nontender Auscultation: normal bowel sounds Skin General skin exam: rashes and/or lesions noted Assessment & Plan Assessment & Plan (1) COPD (chronic obstructive pulmonary disease): Comment: smoker X 60 years Code(s): J44.9 - Chronic obstructive pulmonary disease, unspecified Category: Medical Qualifiers: COPD type: emphysema Emphysema type: centrilobular Qualified Code(s): J43.2 - Centrilobular emphysema (2) Chronic respiratory failure: Code(s): J96.10 - Chronic respiratory failure, unspecified whether with hypoxia or hypercapnia Category: Medical Qualifiers: Respiratory failure complication: hypoxia Qualified Code(s): J96.11 - Chronic respiratory failure with hypoxia Plan continue Advair->Wixela-->Breztri RIDGE as needed Overnight oximetry Start Doxycycline F/U 3-4 months Orders: Orders Overnight Pulse Oximetry 09/16/24 J43.2 - Centrilobular emphysema Medications: New doxycycline hyclate 100 mg PO BID 20 caps 0RF 10 days Coding Level of Care Code Est Pt Level 4 (04797) Complex EM visit Add On G2211 Diagnoses Centrilobular emphysema J43.2 COPD type: emphysema Emphysema type: centrilobular Chronic respiratory failure with hypoxia J96.11 Respiratory failure complication: hypoxia Time Spent (min) 17
[2024-09-16 13:52] VITALS: BP 100/60; PULSE 73; O2SAT 98
== END 2024-09-16 14:38 | disposition home or self-care (01) ==
LOC: HO.HPS 13:45
PROVIDERS: PCP Internal Medicine; Visit Provider Hospitalist
DX: J43.2 Centrilobular emphysema (principal); J96.11 Chronic respiratory failure with hypoxia
CPT/HCPCS: 99214; G2211

== ENCOUNTER → 2024-09-16 13:44 | Outpatient (BNVA) | payer MEDICARE, SELFPAY | PROVIDERS: PCP Internal Medicine; Visit Provider Hospitalist | DX: J43.2 Centrilobular emphysema (principal); J96.11 Chronic respiratory failure with hypoxia | CPT/HCPCS: 99212 ==

== ENCOUNTER 2024-10-27 09:17 | Outpatient (REF) | payer MEDICARE, SELFPAY ==
[2024-10-27 09:32] LABS: MANUAL DIFF FLAG NO
[2024-10-27 09:47] LABS: Hematocrit 42.3 % (42.0-52.0); Hemoglobin 14.8 g/dl (14.0-18.0); Imm Gran Abs Auto 0.05 X10*3/uL (0.00-0.03); Imm Gran Pct Auto 0.7 % (0.0-0.4); Lymphocytes Absolute Auto 1.3 X10*3/uL (1.2-4.9); Mean Corpuscular HGB Conc 35.0 g/dl (31.0-36.0); Mean Corpuscular Hemoglobin 33.3 pg (27.0-33.0); Mean Corpuscular Volume 95.1 fL (80.0-98.0); NRBC Abs Auto 0.000 X10*3/uL (0.0-0.012); NRBC Pct Auto 0.0 /100WBC (0.0-0.2); Platelet Count 164 X10*3/uL (160-400); Red Blood Count 4.45 X10*6/uL (4.60-5.80); White Blood Count 7.6 X10*3/uL (4.8-10.8)
[2024-10-27 10:44] LABS: Alanine Aminotransferase 18 U/L (0-40); Albumin Level 4.0 g/dL (3.5-5.0); Alkaline Phosphatase 104 U/L (39-117); Anion Gap 16 (12-20); Aspartate Amino Transferase 33 U/L (5-37); Blood Urea Nitrogen 17 mg/dL (9-16); Calcium 9.3 mg/dL (8.4-10.2); Carbon Dioxide 28 mmol/L (22-29); Chloride 103 mmol/L (96-108); Estimated Glomerular Filt Rate > 60; Potassium 3.7 mmol/L (3.3-5.1); Sodium 143 mmol/L (135-145); Total Protein 7.2 g/dL (6.5-8.0)
== END 2024-10-27 09:18 | disposition home or self-care (01) ==
LOC: HO.LAB 09:17
PROVIDERS: PCP Internal Medicine; Visit Provider Internal Medicine Medical Oncology
DX: R53.83 Other fatigue (principal); E78.5 Hyperlipidemia, unspecified; J44.9 Chronic obstructive pulmonary disease, unspecified
CPT/HCPCS: 36415; 80053; 82306; 85025

== ENCOUNTER 2024-11-18 13:18 | Outpatient (AMB) | payer MEDICARE, SELFPAY ==
--- OUTSIDE RECORDS SUMMARY | 2024-10-05 07:24 | XMS_ITS ---
Author Organization Felix Tejeda III, MD Address [address] [facility] [address] Care Team Providers Care Coal Inspector Name Role Phone Huang MOONEY, Dahiana Primary Care Provider Felix Soriano Unavailable [phone] Krishna MOONEY, Derick Unavailable Unavailable REASON FOR VISIT Regarding Rx Social History Sex Assigned At : Social History Observation Description Sex Assigned At Male Encounters Encounter Location Date Provider Diagnosis Felix Tejeda III, MD [address] [place] [address] [place] [address] 10/05/2024 Felix Tejeda Plan Of Treatment Next Appt Details Provider Name:Felix Tejeda, 05/03/2025 11:00:00 AM, [address] [place] [address] [place], [address], Progress Notes * EUSEBIO PALOMODOB:[birth year] (79 yo M)Acc No.[id number]:10/05/2024 Patient: Claire DOROTHYEUSEBIO DOWNING :1945 A ge:79 Y S ex:Male Address:[address] [place] [address] [place], [address] * true * Date: Generated for Alejandra gomes/Anjali/eTransmitting on: 0 11/18/2024 02:33 PM EDT
--- OUTSIDE RECORDS SUMMARY | 2024-10-05 11:29 | XMS_ITS ---
Author Organization Felix Tejeda III, MD Address [address] [place] [address] Care Team Providers Care Recreation Aide Name Role Phone Huang MOONEY, Dahiana Primary Care Provider Felix Soriano Unavailable [phone] Krishna MOONEY, Derick Unavailable Unavailable Medications Medication SIG (Take, Route, Fr equency, Duration) Notes Start Date End Date Status Celecoxib 50 MG 1 capsule Orally Onc e a day for 14 days 10/05/2024 11/02/2024 Active Social History Sex Assigned At : Social History Observation Description Sex Assigned At Male Encounters Encounter Location Date Provider Diagnosis Felix Tejeda III, MD [address] [place] [address] [place] [address] 10/05/2024 Felix Tejeda Plan Of Treatment Medication Medication Name Sig Start Date Stop Date Notes Celecoxib 50 MG 1 capsule Orally Once a day for 14 days 11/02/2024 Next Appt Details Provider Name:Felix Tejeda, 05/03/2025 11:00:00 AM, [address] [place] [address] [place], [address], Progress Notes * EUSEBIO PALOMODOB:[birth year] (79 yo M)Acc No.[id number]:10/05/2024 Patient: EUSEBIO HOANG :1945 A ge:79 Y S ex:Male Address:[address] [place] [address], [address] * Refills Start Celecoxib Capsule, 50 MG, Orally, 14 Capsule, 1 capsule, Once a day, 14 days, Refills=1 * true * Date: Generated for Alejandra gomes/Anjali/Johnathanitting on: 0 11/18/2024 02:33 PM EDT
--- OUTSIDE RECORDS SUMMARY | 2024-10-06 06:47 | XMS_ITS ---
Author Organization Felix Tejeda III, MD Address [address] [place] [address] [place] [address] Care Team Providers Care Imaging Center Manager Name Role Phone Huang MOONEY, Dahiana Primary Care Provider Felix Soriano Unavailable [phone] Krishna MOONEY, Derick Unavailable Unavailable Medications Medication SIG (Take, Route, Frequency, Duration) Notes Start Date End Date Status Potassium Chloride 20 MEQ/15ML (10%) 15 mL with food Orally Once a day for 14 days 10/06/2024 11/03/2024 Active Social History Sex Assigned At : Social History Observation Description Sex Assigned At Male Encounters Encounter Location Date Provider Diagnosis Felix Tejeda III, MD [address] [place] [address] [address] [facility] [place] [address] 10/06/2024 Felix Tejeda Plan Of Treatment Medication Medication Name Sig Start Date Stop Date Notes Potassium Chloride 20 MEQ/15 ML (10%) 15 mL with food Orally Once a day for 14 days 10/06/2024 11/03/2024 Next Appt Details Provider Name:Felix Tejeda, 05/03/2025 11:00:00 AM, [address] [place] [address] [place], [address], Progress Notes * EUSEBIO PALOMODOB:[birth year] (79 yo M)Acc No.[id number]:10/06/2024 Patient: EUSEBIO HOANG :1945 A ge:79 Y S ex:Male Address:[address] [place] [address] [place], [address] * Refills Start Potassium Chloride Solution, 20 MEQ/15ML (10%), Orally, 210 ML, 15 mL with food, Once a day, 14 days, Refills=1 * true * Date: Generated for Alejandra gomes/Anjali/Yanira on: 0 11/18/2024 02:33 PM EDT
--- OUTSIDE RECORDS SUMMARY | 2024-10-27 13:00 | XMS_ITS ---
Author Organization Felix Tejeda III, MD Address [address] [place] [facility] [place] [address] Care Team Providers Care Door And Arrival Attendant Name Role Phone Hunag MOONEY, Dahiana Primary Care Provider Felix Soriano Unavailable [phone] Krishna MOONEY, Derick Unavailable Unavailable REASON FOR VISIT follow up Social History Sex Assigned At : Social History Observation Description Sex Assigned At Male Encounters Encounter Location Date Provider Diagnosis Felix Tejeda III, MD [address] [place] [address] [address] [place] [address] 10/27/2024 Felix Tejeda Plan Of Treatment Next Appt Details Provider Name:Felix Tejeda, 05/03/2025 11:00:00 AM, [address] [place] [address] [place], [address], Progress Notes * EUSEBIO ELISEDOB:[birth year] (79 yo M)Acc No.[id number]:10/27/2024 Progress Notes Patient: EUSEBIO HOANG Provider: Sapna Tejeda MD :1945 A ge:79 Y S ex:Male Date:10/27/2024 Address:[address] [place], [place] [id number] Pcp:Dahiana Encinas MD Subjective: * Chief Complaints: * 1 . Follow up. * Medical History: Objective: * Vitals: Assessment: Plan: * Treatment: * Images: * The named appointment provid er may or may not be the originator of this progress note, and it is not deemed complete until electronically signed by the appointment provider. Sign off status: Pending * Provider: Sapna Tejeda MD Date: 0 10/27/2024 Generated for Alejandra gomes/Anjali/Yanira on: 0 11/18/2024 02:34 PM EDT
--- OUTSIDE RECORDS SUMMARY | 2024-10-29 10:00 | XMS_ITS ---
Author Organization Felix Tejeda III, MD Address [address] [place] [address] Care Team Providers Care Counsellors Name Role Phone Huang MOONEY, Dahiana Primary Care Provider Felix Soriano Unavailable [phone] Krishna MOONEY, Derick Unavailable Unavailable Allergies Allergen (clinical drug ingredient) Drug/Non Drug Allergy documented on EMR Reaction Allergy Type Onset Date Status No Known Drug Allergy Unknown Drug Allergy Active REASON FOR VISIT History of rectal cancer, COPD, Hypertension, Benign prostatic hypertrophy, Peripheral edema Medications Medication SIG (Take, Route, Frequency, Duration) Notes Start Date End Date Status Potassium Chloride 20 MEQ/15ML (10%) 15 mL with food Orally Once a day 10/06/2024 Active Furosemide 20 MG 1 tablet Orally Once a day 10/04/2024 Active Celecoxib 50 MG 1 capsule Orally Onc e a day 10/05/2024 Active Atenolol 25 MG 1 tablet Orally Once a day 10/16/2020 Active Vitamin D3 25 MCG (1000 UT) 1 tablet Ora lly Once a day Active Breztri Aerosphere 160-9-4.8 MCG/ACT Inhalation Active Pantoprazole Sodium 40 MG Oral Active Cyclobenzaprine HCl 10 MG 1 tablet Orall y three times a day 09/20/2024 Active Social History Tobacco Use: Social History Observation Description Date Details (start date - stop date) Former Smoker NA - NA Sex Assigned At : Social History Observation Description Sex Assigned At Male Tobacco Control (Standard) Question Answer Notes Tobacco use: Former smoker Problems Problem Type SNOMED Code ICD Code Onset Dates Problem Status W/U Status Risk Notes Problem 328182636 Underweight (R63.6) Active confirmed He has lost 5 pounds since his last visit and the peripheral edema has resolved. We discussed low-sodium nutrition today. I have recommended a high protein high-calorie diet low in sodium. Vital Signs Temperature 98.1 degrees Fahrenheit 10/30/19 25 Blood pressure systolic 128 mm Hg 10/30/19 25 Blood pressure diastolic 61 mm Hg 025 Heart Rate 64 /min 10/29/2024 Height 67 in 10/29/2024 Weight 112 lbs 10/29/2024 BMI 17.54 kg/m2 10/29/2024 Encounters Encounter Location Date Provider Diagnosis Felix Tejeda III, MD [address] [place] [address] [place] [address] 10/29/2024 Felix Tejeda Peripheral edema R60 .0 ; Rectal cancer C20 ; COPD (chronic obstructive pulmonary disease) J44.9 ; Essential hypertension I10 ; BPH (benign prostatic hypertrophy) N40.0 ; Former smoker Z87.891 and Underweight R63.6 Assessments Encounter Date Diagnosis (ICD Code) Assessment Notes Treatment Notes Treatment Clinical Notes 10/29/2024 Peripheral edema (ICD-10 - R60.0) His peripheral edema has resolved. He has lost 5 pounds. His body mass index is 17. We discussed low-sodium nutrition today. 10/29/2024 Rectal cancer (ICD-10 - C20) The colostomy has been closed. There was no sign of recurrent disease or new primary today although he is severely underweight. If he loses more weight and evaluation for recurrence will be undertaken. 10/29/2024 COPD (chronic obstructive pulmonary disease) (ICD-10 - J44.9) He continues to smoke cigarettes and has a nonproductive cough. He is able to conduct all of the activities of daily living. He is short of breath with moderate exertion. He has had no hemoptysis.He was recently hospitalized at [facility] and is now using home oxygen. I encouraged him in the strongest terms to wear the oxygen at night. 10/29/2024 Essential hypertension (ICD-10 - I10) His blood pressure has been stable and will be followed closely. No changes were made in his regimen. 10/29/2024 BPH (benign prostatic hypertrophy) (ICD-10 - N40.0) He admits to arising from sleep once or twice a nigght to urinate. We have reviewed lifestyle modifications he could make to reduce nocturia. 10/29/2024 Former smoker (ICD-10 - Z87.891) He is no longer smoking and is wearing home oxygen. 10/29/2024 Underweight (ICD-10 - R63.6) He has lost 5 pounds since his last visit and the peripheral edema has resolved. We discussed low-sodium nutrition today. I have recommended a high protein high-calorie diet low in sodium. Plan Of Treatment Medication Medication Name Sig Start Date Stop Date Notes Potassium Chloride 20 MEQ/15 ML (10%) 15 mL with food Orally Once a day 10/06/2024 Furosemide 20 MG 1 tablet Orally Once a day 10/04/2024 Celecoxib 50 MG 1 capsule Orally Onc e a day 10/05/2024 Atenolol 25 MG 1 tablet Orally Once a day 10/16/2020 Vitamin D3 25 MCG (1000 UT) 1 tablet Orally Once a day Breztri Aerosphere 160-9-4.8 MCG/ACT Inhalation Pantoprazole Sodium 40 MG Oral Cyclobenzaprine HCl 10 MG 1 tablet Orall y three times a day 09/20/2024 Next Appt Details Follow Up: 2 Months, Reason: OV Provider Name:Felix Tejeda, 05/03/2025 11:00:00 AM, [address] [place] [address] [address] [place] [address], [place], [address], Progress Notes * EUSEBIO ELISEDOB:[birth year] (79 yo M)Acc No.[id number]:10/29/2024 Progress Notes Patient: EUSEBIO HOANG Provider: Sapna Tejeda MD :1945 A ge:79 Y S ex:Male Date:10/29/2024 Address:[address] [place], [place] [id number] Pcp:Dahiana Encinas MD Subjective: * Chief Complaints: * H istory of rectal cancerCOPDHypertensionBenign prostatic hypertrophyPeripheral edema * HPI: C OVID-19 Screening: Questions H ave you had any new onset fever, chills, cough, congestion, sore throat, shortness of breath, muscle aches? N o * ROS: G eneral/Constitutional: pain o nly normal aches and pains. C hills d enies.?Fatigue a dmits. F ever d enies. E NT: Decreased hearing m ild. R espiratory: Cough d enies. C ardiovascular: Chest pain with exertion d enies. D yspnea on exertion?with moderate activity. S hortness of breath w ith exertion. G astrointestinal: Constipation o ccasional. D ecreased appetite d enies. D iarrhea d enies. H eartburn d enies. N ausea d enies. R ectal bleeding d enies. V omiting d enies. H ematology: bruising d enies. p etechiae d enies. S wollen glands n one have been noted. G enitourinary: Frequent urination o nce a night. M usculoskeletal: Muscle aches d enies. P [...] l eft inguinal hernia 06/2019right inguinal hernai 1977right eye removal [...] Social History: T obacco Use: T obacco Control (Standard) T obacco use: F ormer smoker H e has been to Nichole for 53 years. They have 2 sons, one grand daughter and one grandson. He continues to smoke 1 package of cigarettes per day. * Medications: T akingVitamin D3 25 MCG (1000 UT) Tablet 1 tablet Orally Once a day Atenolol 25 MG Tablet 1 tablet Orally Once a day Pantoprazole Sodium 40 MG Tablet Delayed Release Oral Breztri Aerosphere 160-9-4.8 MCG/ACT Aerosol Inhalation Furosemide 20 MG Tablet 1 tablet Orally Once a day , stop date 09/29/2025yclobenzaprine HCl 10 MG Tablet 1 tablet Orally three times a day Celecoxib 50 MG Capsule 1 capsule Orally Once a day , stop date 11/02/2024Potassium Chloride 20 MEQ/15ML (10%) Solution 15 mL with food Orally Once a day , stop date 11/03/2024Medication List reviewed and reconciled with the patientTaking Vitamin D3 25 MCG (1000 UT) Tablet 1 tablet Orally Once a day Taking Atenolol 25 MG Tablet 1 tablet Orally Once a day Taking Pantoprazole Sodium 40 MG Tablet Delayed Release Oral Taking Breztri Aerosphere 160-9-4.8 MCG/ACT Aerosol Inhalation Taking Furosemide 20 MG Tablet 1 tablet Orally Once a day , stop date 09/29/2025Taking Cyclobenzaprine HCl 10 MG Tablet 1 tablet Orally three times a day Taking Celecoxib 50 MG Capsule 1 capsule Orally Once a day , stop date 11/02/2024Taking Potassium Chloride 20 MEQ/15ML (10%) Solution 15 mL with food Orally Once a day , stop date 11/03/2024Medication List reviewed and reconciled with the patient * Allergies: N o Known Drug Allergyno[Allergies Verified] Objective: * Vitals: H t: 67, Wt:112, BMI:17.54, BP:128/61, HR:64, Temp:98.1, Wt-k.8. * Examination: G eneral Examination: GENERAL APPEARANCE: p leasant, well nourished, well developed, in no acute distress, calm and relaxed: underweight: elderly man. HEAD: a traumatic, normocephalic. EYES: e lucien, perrla, anicteric, conjugate. EARS: n ormal. NOSE: s eptum intact. ORAL CAVITY: n ormal, unremarkable. NECK/THYROID: n o jugular venous distention, no carotid bruit, thyroid normal. LYMPH NODES: n o enlarged lymph nodes,spleen normal. SKIN: n o suspicious lesions, anicteric. HEART: n o clicks, gallops, murmurs, or rubs, regular rhythm, S1, S2 normal, no s3, or vascular bruits. LUNGS: : diminished breath sounds throughout: rhonchi on the RIGHT: rhonchi on the LEFT. BREASTS: no masses palpable bilaterally. ABDOMEN: b owel sounds normal, no ascites, no organomegaly, no mass, Underweight. RECTAL EXAM: n ot examined. MUSCULOSKELETAL: e xtremities unremarkable, no clubbing, cyanosis or edema. PERIPHERAL PULSES: n ormal. NEUROLOGIC: a lert and oriented, cranial nerves 2-12 grossly intact, deep tendon reflexes 2+ symmetrical, motor strength normal upper and lower extremities, sensory exam intact, Generalized musculoskeletal weakness. PSYCH: a lert, oriented. Assessment: * Assessment: 1. R ectal cancer - C20 (Primary) N otes :The colostomy has been closed. There was no sign of recurrent disease or new primary today although he is severely underweight. If he loses more weight and evaluation for recurrence will be undertaken. 2 . P eripheral edema - R60.0 N otes :His peripheral edema has resolved. He has lost 5 pounds. His body mass index is 17.? We discussed low-sodium nutrition today. 3 . C OPD (chronic obstructive pulmonary disease) - J44.9 N otes :He continues to smoke cigarettes and has a nonproductive cough. He is able to conduct all of the activities of daily living. He is short of breath with moderate exertion. He has had no hemoptysis.He was recently hospitalized at [facility] and is now using home oxygen. I encouraged him in the strongest terms to wear the oxygen at night. 4 . E ssential hypertension - I10 N otes :His blood pressure has been stable and will be followed closely. No changes were made in his regimen. 5 . B PH (benign prostatic hypertrophy) - N40.0 N otes :He admits to arising from sleep once or twice a nigght to urinate. We have reviewed lifestyle modifications he could make to reduce nocturia. 6 . F ormer smoker - Z87.891 N otes :He is no longer smoking and is wearing home oxygen. 7 . U nderweight - R63.6 N otes :He has lost 5 pounds since his last visit and the peripheral edema has resolved. We discussed low-sodium nutrition today. I have recommended a high protein high-calorie diet low in sodium. Plan: * Treatment: 2. O thers Continue Potassium Chloride Solution, 20 MEQ/15ML (10%), 15 mL with food, Orally, Once a day; C ontinue Celecoxib Capsule, 50 MG, 1 capsule, Orally, Once a day; C ontinue Vitamin D3 Tablet, 25 MCG (1000 UT), 1 tablet, Orally, Once a day; C ontinue Atenolol Tablet, 25 MG, 1 tablet, Orally, Once a day; C ontinue Pantoprazole Sodium Tablet Delayed Release, 40 MG, Oral; C ontinue Breztri Aerosphere Aerosol, 160-9-4.8 MCG/ACT, Inhalation; C ontinue Furosemide Tablet, 20 MG, 1 tablet, Orally, Once a day. * Procedure Codes: * Preventive Medicine: Counseling: C are goal follow-up plan: Counseling for abnormal BMI given Y es Below Normal BMI Follow-up D ietary education for weight gain S moking/Tobacco Use Patient counseled on the dangers of tobacco use and urged to quit. 0 10/29/2024 COPD Care Plan: P atient Lifestyle Goals B e able to be more active with friends and family, Reduce number of ED and hospitalizations, Relieve symptoms and improve quality of life. T reatment Goals E xercise to help whole body, including lungs, Eat a nutritious diet and increase water consumption to 6-8 glasses a day. B arriers n o barriers. S elf-Managment Goals G et an air purifier for the rooms you are in the most, Eat a healthy diet. * Follow Up: 2 Months (Reason: OV) * Images: * Sign off status: Completed true * Provider: Sapna Tejeda MD Date: 10/29/2024 Generated for Alejandra gomes/Anjali/eTransmitting on: 11/18/2024 02:33 PM EDT History and Physical Notes * HPI (History of Present Illness) Category Sub-Category Detail Notes COVID-19 Screening Questions Have you had any new onset fever, chills, cough, congestion, sore throat, shortness of breath, muscle aches?: No Examination Category Sub-Category Detail Notes General Examination GENERAL APPEARANCE: pleasant , well nourished, well developed, in no acute distress, calm and relaxed: underweight: elderly man HEAD: atraumatic, normocep halic EYES: eomi, perrla, anicte joaquin, conjugate EARS: normal NOSE: septum intact NECK/THYROID: no jugular venous di stention, no carotid bruit, thyroid normal HEART: no clicks, gallops, murmurs, or rubs, regular rhythm, S1, S2 normal, no s3, or vascular bruits LUNGS: : diminished breath sounds throughout: rhonchi on the RIGHT: rhonchi on the LEFT ABDOMEN: bowel sounds normal, no ascites, no organomegaly, no mass, Underweight NEUROLOGIC: alert and oriented, cranial nerves 2-12 grossly intact, deep tendon reflexes 2+ symmetrical, motor strength normal upper and lower extremities, sensory exam intact, Generalized musculoskeletal weakness SKIN: no suspicious lesion s, anicteric PERIPHERAL PULSES: normal BREASTS: no masses palpable b ilaterally MUSCULOSKELETAL: extremities unremark able, no clubbing, cyanosis or edema LYMPH NODES: no enlarged lymph no selam,spleen normal RECTAL EXAM: not examined PSYCH: alert, oriented ORAL CAVITY: normal, unremarkable
--- NOTE | 2024-11-18 13:41 | MHC.OFFVIS ---
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 He was briefly hospitalized requiring oxygen. He was able to be discharged home on oxygen. However, he is reluctant on using the oxygen if he does needed. During the office visit we did go for 6 minutes walk test. The patient did desaturate down to 86% and was visibly dyspneic with a dyspnea score of 8/10. The patient did ambulate about 200 yd. Initially the patient 1 at the oxygen taking out of the house. Although he agreed to continue having the oxygen there in to uses specially when he is moving in exercising and trying to build up some loss she endurance and exercise capacity. The patient is also status post surgery for colon cancer and he has been tired of having to go in and out of hospitals having dizzy different specialists. He would like to continue recovering at home performing physical therapy and respiratory therapy at home. The patient does not have any inhalers. However, he would like to hold off on any respiratory medications. Will make an appointment for him to follow-up in 6 months. Although he will call if any other issues arise. 01/28/2022 the patient is here for a pulmonary follow-up visit. He is feeling better after having severe COVID. He was discharged on oxygen. I did evaluate him after the fact. He was to continue using the oxygen. Although since we last evaluated him he probably use that about 4 times and is no longer using it. He does not want in the house any further. She wants it to be discontinued when picked up by the [email or web address]. Explained to the patient that we can always have a discontinued specially if he is not using it. If however condition worsens we may have to retest him to see if he qualifies again in the future he is not using any inhalers at this time. Therefore I will give him a script to have a short-acting beta agonist that he can use as needed. He was supposed to have a chest x-ray and also a pulmonary function study but he did not have them as of yet. 11/15/2022 the patient is here for pulmonary follow-up visit. Overall he is about the same. Still complaining of dyspnea on exertion. He no longer has the oxygen. His shortness of breath is moderate severity primarily when he goes up a flight of stairs. He is also noticed increased weight gain. Does have some lower extremity edema. The short-acting beta agonist is not effective. Will go ahead and start him on a maintenance inhaler to see if this is helpful. Patient also appears to be volume overloaded. Will request a chest x-ray and also start him on Lasix for the 3 day weekend. I am hopeful that with the fluid removal he will feel better. The patient needs to do better with his low-sodium diet. 05/21/2023 the patient is here for pulmonary follow-up visit. Overall he is feeling better. We did send him a maintenance inhaler in initially he was going to be on Advair HFA but now apparently was in the [place]. He will be switched over to Wixela inhaler. Seems to be working well for him. His shortness of breath and cough improved. He is no longer using the oxygen that was taken out of the house. Right now he does not feel like he needed. He will let me know whenever he is ready to look into it further. At this point he would like to not pursue too many medical interventions. He did not have a chest x-ray for the same reason. He is well aware that at any point that he needs anything which is call the office so we can help him with any acute issues. So for now he will continue with current respiratory therapy. He will call if he would like to be assessed for oxygen again and will get an x-ray he thinks he needs 1 otherwise will follow-up in a year's time. 06/02/2024 the patient is here for pulmonary follow-up visit. Overall he is doing okay. Does have issues with powder inhalers. Therefore he has not been using it. He does complaint of some chest congestion some dyspnea. Currently he does not have a rescue inhaler. We did talk about getting an x-ray but the patient opted on not getting any imaging studies at this time. Will go ahead and prescribe him Breztri and he can use it twice a day. We did talk about rinsing. If he has any issues with the inhaler he will call for further recommendations. 09/16/2024 The patient is here for a hospital follow up visit. He developed respiratory failure and admitted to [facility] and then transferred [place] [facility] [place] to a [place]. He stopped bleeding. He did have a CT abdomen demonstrating pneumonia in the LLL. Likely affected his gas exchange. He initially left [facility] [place] [facility] and refused oxygen. But then his oxygen pox dropped to the 70's while at home. Rainer did bring the oxygen. Now he is feeling better. Has been using the oxygen during the day.We will request the overnight oximetryon RA. 11/18/2024 the patient is here for pulmonary follow-up visit. Overall he is doing well. He is using the oxygen with good effect although is very hard for him to carry the oxygen tanks specially with his mobility issues. also has a hard time with her mobility issues as well. The patient did come in with his oxygen. He has been using the Breztri inhaler that has been very effective for him. During the visit we did wean him off the oxygen and we were able to assess his oxygen at rest which was overall 89 %. Therefore placed him on 2 L to improve his numbers at least to the low 90s of 93%. The patient there was ambulated on a portable oxygen concentrator up to 4 L pulse maintaining a pulse ox of 92%. The therefore couple switch over his gas tanks to a POC for better portability outside of the home. He continues uses inhalers as prescribed will follow-up in 6 months. [facility] Medical History Dyslipidemia Impaired fasting glucose Osteoporosis Personal history of nicotine dependence History of radiation therapy (~2019) History of rectal cancer (~2019) Hx of compression fracture of spine COVID-19 vaccination declined Refused influenza vaccine History of COVID-19 Acute respiratory failure with hypoxia Anemia Hx of bacteremia Hx: UTI (urinary tract infection) Congestive heart failure History of chemotherapy (~2019) Hx of melanoma of skin Peptic ulcer COPD (chronic obstructive pulmonary disease) Chronic bronchitis History of herpes zoster Hypertension Surgical History History of reversal of ileostomy History of cataract surgery History of colonoscopy Hx of kyphoplasty Hx of melanoma excision History of low anterior resection of rectum History of left inguinal hernia repair History of right inguinal hernia repair (~1971) History of eye surgery (~1965) Family History Sister History of breast cancer Social History Household Members: Spouse and Children Housing: House Are you a primary careers counsellor to a significant other at home: No Do you presently have visiting nurse or other home services: No Alcohol intake: never Comment: soreness Patient Tobacco Use Status: Former Tobacco user Tobacco use type: Cigarette Cigarette Packs Per Day: 0 Cigarettes Per Day: 0 Years Smoked: 60 e-Cigarette/Vaping Use: Never Used Second Hand Smoke Exposure: Yes Advance Directives Date on File: 10/04/20 service: Yes Current occupational status: disabled Cognitive needs: No Hearing needs: Yes Vision needs: No Review of Systems Const Reports fatigue, Denies night sweats and Reports weight loss ENT Denies change in voice, Denies lip swelling, Denies mouth pain, Reports nasal congestion, Reports nasal discharge and Denies tongue swelling Card Denies chest pain, Denies dyspnea and Reports dyspnea on exertion Resp Reports cough, Denies dyspnea and Reports dyspnea on exertion GI Denies abdominal pain Musc Denies no additional complaints Neuro Denies Neuro-related abnormal movements Psych Denies no additional complaints Endo Reports fatigue Kaden/Lymph Denies easy bleeding and Denies lymphadenopathy Aller/Immun Denies lip swelling and Denies tongue swelling Physical Exam Vital Signs: Last Vital Signs Pulse 89 11/18/24 13:42 BP 140/78 H 11/18/24 13:42 Pulse Ox 94 11/18/24 13:42 Oxygen Delivery Method Nasal Cannula 11/18/24 13:42 Oxygen Flow Rate 4 11/18/24 13:42 BMI result Body Mass Index 20.3 Const General: alert Neck Neck: Yes normal visual inspection, Yes full ROM and Yes no lymphadenopathy Chest Chest palpation & inspection: normal inspection of the chest Resp Auscultation: diminished lung sounds Cardio Rate: regular rate Rhythm: regular rhythm Heart sounds: S1 normal heart sound present and S2 normal heart sound present GI Palpation (GI): Soft to palpation and nontender Auscultation: normal bowel sounds Skin General skin exam: rashes and/or lesions noted Office Procedures 6 Minute Walk Time:: 15:24 SPO2 % at rest: 89 Pulse at rest: 63 SPO2 % during excercise: 85 Pulse during excercise: 89 6 Minute Walk (with oxygen) Distance in yards walked:: 100 Jaquelin Score:: 5 Supplemental Oxygen: The patient is placed on 2 L pulse at rest and then increase to 4 L pulse to maintain a pulse ox of 92% with activity [id number] - 6 Minute Walk Assessment & Plan Assessment & Plan (1) COPD (chronic obstructive pulmonary disease): Comment: smoker X 60 years Code(s): J44.9 - Chronic obstructive pulmonary disease, unspecified Category: Medical Qualifiers: COPD type: emphysema Emphysema type: centrilobular Qualified Code(s): J43.2 - Centrilobular emphysema (2) Chronic respiratory failure: Code(s): J96.10 - Chronic respiratory failure, unspecified whether with hypoxia or hypercapnia Category: Medical Qualifiers: Respiratory failure complication: hypoxia Qualified Code(s): J96.11 - Chronic respiratory failure with hypoxia Plan continue Breztri RIDGE as needed Continue oxygen: Requesitng POC for portability outside of the home: 2L/pulse at rest and 4l/pulse with activity. Will continue nocturnal oxygen 2L/min while sleeping F/U 5-6 months Coding Level of Care Code Est Pt Level 4 (02878) Complex EM visit Add On G2211 Diagnoses Centrilobular emphysema J43.2 COPD type: emphysema Emphysema type: centrilobular Chronic respiratory failure with hypoxia J96.11 Respiratory failure complication: hypoxia CPT Codes Coding ([id number]) Time Spent (min) 18
[2024-11-18 13:42] VITALS: BP 140/78; PULSE 89; O2SAT 94; BMI 20.3
--- OUTSIDE RECORDS SUMMARY | 2024-11-18 14:33 | XMS_ITS | Patient Health Record ---
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 Role Phone Huang MOONEY, Dahiana Primary [...] Problem Status W/U Status Risk Notes Problem 411527411 Change in bowel habits (R19.4) Active confirmed Problem [id number] custodial (current) use of aspirin (Z79.82) Active confirmed Problem 763668101 Abnormal finding s in stool (R19.5) Active confirmed Problem [id number] 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 Problem [id number] Rectal mass (K62.89) Active confirmed Plan Of Treatment Future Test Test Name Order Date COLONOSCOPY 11/11/2019 Insurance Providers Payer Name Payer Address Payer Phone Subscriber Number Group Number Insured Name Patient Relationship to Insured Coverage Start Date Coverage End Date MEDICARE OF [place] [address] [place] [id number] [id number] [employer] ELISE Self - patient is the insured [employer] ATTN CLAIMS [address] [place] [address] [phone] [id number] [employer] ELISE Self - patient is the insured Medical (General) History Medical History History ICD Code hypertension COPD Surgical History Surgery Date(Month/Year) left inguinal herniorrhaphy 06/2019 right inguinal herniorrhaphy 40 years ag o removal of shrapnel, right eye Colonoscopy 11/2019
--- OUTSIDE RECORDS SUMMARY | 2024-11-18 14:33 | XMS_ITS | Patient Health Record ---
Author Organization Felix Tejeda III, MD Address [address] [place] [address] Care Team Providers Care Line Tender Flakeboard Name Role Phone Huang MOONEY, Dahiana Primary Care Provider Felix Soriano Unavailable [phone] Krishna MOONEY, Derick Unavailable Unavailable Allergies Allergen (clinical drug ingredient) Drug/Non Drug Allergy documented on EMR Reaction Allergy Type Onset Date Status No Known Drug Allergy Unknown Drug Allergy Active Results Component Value Reference Range Notes Complete Blood Count Auto Di ff (Not yet reviewed by provider) Interpretation: Performing Lab:[facility], [address] [place] [phone] Notes/Report: White Blood Count 7.6 4.8-10.8 X10*3/uL Red Blood Count 4.45 4.60-5.80 X10*6/uL Hemoglobin 14.8 14.0-18.0 g/dl Hematocrit 42.3 42.0-52.0 % Mean Corpuscular Volume 95.1 80.0-98.0 fL Mean Corpuscular Hemoglobin 33.3 27.0-33.0 pg Mean Corpuscular HGB Conc 35.0 31.0-36.0 g/dl Red Cell Distribution Width 14.3 11.0-16.0 % Platelet Count 164 160-400 X10*3/uL Mean Platelet Volume 9.3 9.4-12.4 fL Neutrophils Percent Auto 70.3 45-73 % Imm Gran Pct Auto 0.7 0.0-0.4 % Lymphocytes Percent Auto 17.0 20-40 % Monocytes Percent Auto 7.9 2-11 % Eosinophils Percent Auto 2.9 0-4 % Basophils Percent Auto 1.2 0-2 % NRBC Pct Auto 0.0 0.0-0.2 /100WBC Neutrophils Absolute Auto 5.3 2.0-8.3 x10*3/u L Imm Gran Abs Auto 0.05 0.00-0.03 X10*3/uL Lymphocytes Absolute Auto 1.3 1.2-4.9 X10*3/u L Monocytes Absolute Auto 0.6 0.1-1.2 X10*3/uL Eosinophils Absolute Auto 0.2 0.0-0.4 X10*3/u L Basophils Absolute Auto 0.1 0.0-0.2 X10*3/uL NRBC Abs Auto 0.000 0.0-0.012 X10*3/uL Comprehensive Met. Panel (No t yet reviewed by provider) Interpretation: Performing Lab:[facility], [address] [place] [phone] Notes/Report: Sodium 143 135-145 mmol/L Potassium 3.7 3.3-5.1 mmol/L Chloride 103 96-108 mmol/L Carbon Dioxide 28 22-29 mmol/L Anion Gap 16 12-20 Blood Urea Nitrogen 17 9-16 mg/dL Creatinine 0.93 0.5-1.4 mg/dL Estimated Glomerular Filt Rate > 60 Chronic Kidney Disease: Estimated GFR < 60 mL/min/1.73m2 Severe Kidney Disease: Estimated GFR < 15 mL/min/1.73m2 Glucose Random 116 60-115 mg/dL Calcium 9.3 8.4-10.2 mg/dL Bilirubin Total 1.1 0.0-1.0 mg/dL Aspartate Amino Transferase 33 5-37 U/L Alanine Aminotransferase 18 0-40 U/L Total Protein 7.2 6.5-8.0 g/dL Albumin Level 4.0 3.5-5.0 g/dL Alkaline Phosphatase 104 39-117 U/L Vitamin D 25-OH Total (Not y et reviewed by provider) Interpretation: Performing Lab:[facility], [address] [place] [phone] Notes/Report: Vitamin D 25-OH Total 46.0 >30 ng/mL Health Based Reference Values* < 20 ng/mL Deficient 20-30 ng/mL Insufficient > 30 ng/mL Sufficient *Elisa HORTON. N Engl J Med. 2007;357:266-280 There is no well-established upper level of normal vitamin D levels. Some laboratories use 50 ng/mL as an upper limit of normal. However, toxicity is patient-dependent and may occur at any level. Careful correlation with the patient's presentation is necessary and, if there is concern for vitamin D toxicity, treatment should be considered irrespective of the serum level. Care must be taken in interpreting Vitamin D results from different laboratories and methodologies. Published data demonstrated that results from patients undergoing hemodialysis may show a negative bias when tested with various automated 25-OH vitamin D assays when compared to LC-MS/MS. When testing samples from patients whose predominant form of Vitamin D is Vitamin D2, such as patients receiving Vitamin D2 supplementation, results that are subtherapeutic should be confirmed with another method such as LC-MS/MS. Reason For Referral No Information Medications Medication SIG (Take, Route, Frequency, Duration) Notes Start Date End Date Status Potassium Chloride 20 MEQ/15ML (10%) 15 mL with food Orally Once a day 10/06/2024 Active Breztri Aerosphere 160-9-4.8 MCG/ACT Inhalation Active Pantoprazole Sodium 40 MG Oral Active Furosemide 20 MG 1 tablet Orally Once a day 10/04/2024 Active Cyclobenzaprine HCl 10 MG 1 tablet Orall y three times a day 09/20/2024 Active Celecoxib 50 MG 1 capsule Orally Onc e a day 10/05/2024 Active Atenolol 25 MG 1 tablet Orally Once a day 10/16/2020 Active Vitamin D3 25 MCG (1000 UT) 1 tablet Ora lly Once a day Active Social History Tobacco Use: Social History Observation Description Date Details (start date - stop date) Former Smoker NA - NA Sex Assigned At : Social History Observation Description Sex Assigned At Male Alcohol Screen Question Answer Notes Did you have a drink containing alcohol in the p ast year? No Points 0 Interpretation Negative Tobacco Control (Standard) Question Answer Notes Tobacco use: Former smoker Problems Problem Type SNOMED Code ICD Code Onset Dates Problem Status W/U Status Risk Notes Problem 7003368 Former smoker (Z87.891) Active confirmed He is no longer smoking and is wearing home oxygen. Problem Hyperlipidemia (76776678) Hyperlipidemia (E78.5) Active confirmed No change in hi s regimen is needed at this time. I encouraged him to consume a high-protein high-calorie diet. Problem 229838025 Underweight (R63.6) Active confirmed He has lost 5 pounds since his last visit and the peripheral edema has resolved. We discussed low-sodium nutrition today. I have recommended a high protein high-calorie diet low in sodium. Problem Benign prostatic hypertrophy without outflow obstruction (629945595) BPH (benign prostatic hypertrophy) (N40.0) Active confirmed He admits to arising from sleep once or twice a nigght to urinate. We have reviewed lifestyle modifications he could make to reduce nocturia. Problem Essential hypertension (99137932) Essential hypertension (I10) Active confirmed His blood pressure has been stable and will be followed closely. No changes were made in his regimen. Problem COPD - Chronic obstructive pulmonary disease (25772655) COPD (chronic obstructive pulmonary disease) (J44.9) Active confirmed He continues to smoke cigarettes and has a nonproductive cough. He is able to conduct all of the activities of daily living. He is short of breath with moderate exertion. He has had no hemoptysis.He was recently hospitalized at [facility] and is now using home oxygen. I encouraged him in the strongest terms to wear the oxygen at night. Problem Rectal cancer (487302218) Rectal cancer (C20) Active confirmed The colostomy has been closed. There was no sign of recurrent disease or new primary today although he is severely underweight. If he loses more weight and evaluation for recurrence will be undertaken. Problem Right inguinal hernia (879379406) Right inguinal hernia (K40.90) Active confirmed This is asymptomatic at this time. Problem Left inguinal hernia (048500605) Left inguinal hernia (K40.90) Active confirmed He will be reassessed in the office tomorrow. If she deteriorates she will go to the emergency room. Problem 770289962 Acute right-sided low back pain without sciatica (M54.50) Active confirmed The cyclobenzaprine relieved the pain very well what made him too sleepy. The pain is 95% resolved at this point. He will avoid heavy lifting. A follow-up visit was arranged. Problem 682596756 Peripheral edema (R60.0) Active confirmed His peripheral edema has resolved. He has lost 5 pounds. His body mass index is 17. We discussed low-sodium nutrition today. Vital Signs Heart Rate 64 /min 10/29/2024 Temperature 98.1 degrees Fahrenheit 10/29/2024 Blood pressure diastolic 61 mm Hg 10/29/2024 Height 67 in 10/29/2024 Blood pressure systolic 128 mm Hg 10/29/2024 Weight 112 lbs 10/29/2024 BMI 17.54 kg/m2 10/29/2024 Encounters Encounter Location Date Provider Diagnosis Felix Tejeda III, MD [address] [place] [address] [place] [phone] 09/09/2024 Felix Tejeda Rectal cancer C20 ; COPD (chronic obstructive pulmonary disease) J44.9 ; Essential hypertension I10 ; Left inguinal hernia K40.90 ; Tobacco dependence F17.200 ; Underweight R63.6 and Right inguinal hernia K40.90 Felix Tejeda III, MD [address] [place] [address] [place] [phone] 09/20/2024 Felix Tejeda Rectal cancer C20 ; COPD (chronic obstructive pulmonary disease) J44.9 ; Essential hypertension I10 ; Former smoker Z87.891 ; BPH (benign prostatic hypertrophy) N40.0 and Underweight R63.6 Felix Tejeda III, MD [address] [place] [address] [place] [phone] 10/04/2024 Felxi Tejeda Peripheral edema R60 .0 ; Acute right-sided low back pain without sciatica M54.50 ; Rectal cancer C20 ; COPD (chronic obstructive pulmonary disease) J44.9 ; Essential hypertension I10 ; Hyperlipidemia E78.5 ; Former smoker Z87.891 and Underweight R63.6 Felix Tejeda III, MD [address] [place] [address] [place] [phone] 10/29/2024 Felix Tejeda Peripheral edema R60 .0 ; Rectal cancer C20 ; COPD (chronic obstructive pulmonary disease) J44.9 ; Essential hypertension I10 ; BPH (benign prostatic hypertrophy) N40.0 ; Former smoker Z87.891 and Underweight R63.6 Felix Tejeda III, MD [address] [place] [address] [place] [phone] 02/02/2024 Felix Tejeda III, MD [address] [place] [address] [place] [phone] 09/10/2024 Felix Tejeda III, MD [address] [place] [address] [place] [phone] 10/01/2024 Felix Tejeda III, MD [address] [place] [address] [address] [place] [phone] 10/05/2024 Felix Tejeda III, MD [address] [place] [address] [address] [place] [phone] 10/05/2024 Felix Tejeda III, MD [address] [place] [address] [address] [place] [phone] 10/06/2024 Felix Tejeda Assessments Encounter Date Diagnosis (ICD Code) Assessment Notes Treat ment Notes Treatment Clinical Notes 09/09/2024 COPD (chronic obstructive pulmonary disease) (ICD-10 - J44.9) He continues to smoke cigarettes and has a nonproductive cough. He is able to conduct all of the activities of daily living. He is short of breath with moderate exertion. He has had no hemoptysis. 09/09/2024 Rectal cancer (ICD-10 - C20) He has continued to have intermittent diarrhea. They say the colostomy is functioning well without blood. He'll be seen tomorrow for evaluation 09/20/2024 COPD (chronic obstructive pulmonary disease) (ICD-10 - J44.9) He continues to smoke cigarettes and has a nonproductive cough. He is able to conduct all of the activities of daily living. He is short of breath with moderate exertion. He has had no hemoptysis.He was recently hospitalized at [facility] and is now using home oxygen. I encouraged him in the strongest terms to wear the oxygen at night. 09/20/2024 Rectal cancer (ICD-10 - C20) He has continued to have intermittent diarrhea. They say the colostomy is functioning well without blood. He'll be seen tomorrow for evaluation 10/04/2024 Acute right-sided low back pain without sciatica (ICD-10 - M54.50) The cyclobenzaprine relieved the pain very well what made him too sleepy. The pain is 95% resolved at this point. He will avoid heavy lifting. A follow-up visit was arranged. 10/04/2024 Peripheral edema (ICD-10 - R60.0) He will resume wearing his compression hose. He will elevate his legs. He will avoid consuming sodium. I have put him on furosemide 20 mg daily and potassium chloride 20 mEq daily. His most recent renal function was normal. Comprehensive blood work was ordered. 10/29/2024 Rectal cancer (ICD-10 - C20) The colostomy has been closed. There was no sign of recurrent disease or new primary today although he is severely underweight. If he loses more weight and evaluation for recurrence will be undertaken. 10/29/2024 Peripheral edema (ICD-10 - R60.0) His peripheral edema has resolved. He has lost 5 pounds. His body mass index is 17. We discussed low-sodium nutrition today. 09/09/2024 Essential hypertension (ICD-10 - I10) His blood pressure has been stable at 124/64 and will be followed closely. No changes were made in his regimen. 09/20/2024 Essential hypertension (ICD-10 - I10) His blood pressure has been stable at 124/64 and will be followed closely. No changes were made in his regimen. 10/04/2024 Rectal cancer (ICD-10 - C20) He has continued to have intermittent diarrhea. They say the colostomy is functioning well without blood. He'll be seen tomorrow for evaluation 10/29/2024 COPD (chronic obstructive pulmonary disease) (ICD-10 - J44.9) He continues to smoke cigarettes and has a nonproductive cough. He is able to conduct all of the activities of daily living. He is short of breath with moderate exertion. He has had no hemoptysis.He was recently hospitalized at [facility] and is now using home oxygen. I encouraged him in the strongest terms to wear the oxygen at night. 09/09/2024 Left inguinal hernia (ICD-10 - K40.90) He will be reassessed in the office tomorrow. If she deteriorates she will go to the emergency room. 09/20/2024 Former smoker (ICD-10 - Z87.891) He is no longer smoking and is wearing home oxygen. 10/04/2024 COPD (chronic obstructive pulmonary disease) (ICD-10 - J44.9) He continues to smoke cigarettes and has a nonproductive cough. He is able to conduct all of the activities of daily living. He is short of breath with moderate exertion. He has had no hemoptysis.He was recently hospitalized at [facility] and is now using home oxygen. I encouraged him in the strongest terms to wear the oxygen at night. 10/29/2024 Essential hypertension (ICD-10 - I10) His blood pressure has been stable and will be followed closely. No changes were made in his regimen. 09/09/2024 Tobacco dependence (ICD-10 - F17.200) He has resumed smoking by history. We discussed smoking cessation strategies at length today. 09/20/2024 BPH (benign prostatic hypertrophy) (ICD-10 - N40.0) He admits to arising from sleep once or twice a nigght to urinate. We have reviewed lifestyle modifications he could make to reduce nocturia. 10/04/2024 Essential hypertension (ICD-10 - I10) His blood pressure has been stable at 124/64 and will be followed closely. No changes were made in his regimen. 10/29/2024 BPH (benign prostatic hypertrophy) (ICD-10 - N40.0) He admits to arising from sleep once or twice a nigght to urinate. We have reviewed lifestyle modifications he could make to reduce nocturia. 09/09/2024 Underweight (ICD-10 - R63.6) His body mass index is 18. He weighs 120 pounds. History of every 8 140 pounds. His appetite is poor. There was no sign of recurrent malignancy on today's examination. 09/20/2024 Underweight (ICD-10 - R63.6) His body mass index is 18. He weighs 120 pounds. History of every 8 140 pounds. His appetite is poor. There was no sign of recurrent malignancy on today's examination. 10/04/2024 Hyperlipidemia (ICD-10 - E78.5) No change in his regimen is needed at this time. I encouraged him to consume a high-protein high-calorie diet. 10/29/2024 Former smoker (ICD-10 - Z87.891) He is no longer smoking and is wearing home oxygen. 09/09/2024 Right inguinal hernia (ICD-10 - K40.90) This is asymptomatic at this time. 10/04/2024 Former smoker (ICD-10 - Z87.891) He is no longer smoking and is wearing home oxygen. 10/29/2024 Underweight (ICD-10 - R63.6) He has lost 5 pounds since his last visit and the peripheral edema has resolved. We discussed low-sodium nutrition today. I have recommended a high protein high-calorie diet low in sodium. 10/04/2024 Underweight (ICD-10 - R63.6) His body mass index is 18. He weighs 120 pounds. History of every 8 140 pounds. His appetite is poor. There was no sign of recurrent malignancy on today's examination. Plan Of Treatment Pending Test Test Name Order Date PROFILE, FASTING (COMPREHENSIVE METABOLI C) 09/09/2024 PROFILE, RANDOM (COMPREHENSIVE METABOLIC ) 12/21/2019 PROFILE, RANDOM (COMPREHENSIVE METABOLIC ) 06/28/2020 PROFILE, RANDOM (COMPREHENSIVE METABOLIC ) 10/04/2024 PSA, TOTAL 09/09/2024 CBC w DIFF 09/09/2024 CBC w DIFF 12/21/2019 CBC w DIFF 06/28/2020 CBC w DIFF 10/04/2024 CT ABD & PELVIS WWO CONTRAST 12/21/[address] SKULL TO THIGHS 12/29/2019 XR ORBITS 4 VIEWS 12/22/2019 XR ORBITS FOR FOREIGN BODY 12/22/2019 Complete Blood Count Auto Diff Comprehensive Met. Panel 10/27/2024 Lipid Panel 09/09/2024 Vitamin D 25-OH Total 10/27/2024 Vitamin D 25-OH Total 10/04/2024 Next Appt Details Provider Name:Felix Tejeda, 05/03/2025 11:00:00 AM, [address] [place] [address] [address], [place], [address], Insurance Providers Payer Name Payer Address Payer Phone Subscriber Number Group Number Insured Name Patient Relationship to Insured Coverage Start Date Coverage End Date MEDICARE NGS [address] [facility] [place] [place] [address] [phone] [id number] EUSEBIO ELISE Self - patient is the insured [facility] [address] [place], [place] [id number] EUSEBIO ELISE Self - patient is the insured Medical (General) History Medical History History ICD Code adenocarcinoma of the rectum, MMR negati ve, [id number] COPD (chronic obstructive pulmonary dise ase) J44.9 [...]
[2024-11-18 15:25] VITALS: PULSE 63; O2SAT 89
== END 2024-11-18 14:23 | disposition home or self-care (01) ==
LOC: HO.HPS 13:18
PROVIDERS: PCP Internal Medicine; Visit Provider Hospitalist
DX: J43.2 Centrilobular emphysema (principal); J96.11 Chronic respiratory failure with hypoxia
CPT/HCPCS: 94618; 99214; G2211

== ENCOUNTER → 2024-11-18 13:18 | Outpatient (BNVA) | payer MEDICARE, SELFPAY | PROVIDERS: PCP Internal Medicine; Visit Provider Hospitalist | DX: J43.2 Centrilobular emphysema (principal); J96.11 Chronic respiratory failure with hypoxia; Z99.81 Dependence on supplemental oxygen; Z87.891 Personal history of nicotine dependence | CPT/HCPCS: 94618; 99212 ==

== ENCOUNTER 2024-12-02 06:46 | Emergency (ER) | payer MEDICARE, SELFPAY ==
--- OUTSIDE RECORDS SUMMARY | 2024-10-05 11:29 | XMS_ITS ---
Author Organization Felix Tejeda III, MD Address [address] [place] [address] Care Team Providers Care Manager Analytical Name Role Phone Huang MOONEY, Dahiana Primary Care Provider Felix Soriano Unavailable [phone] Krishna MOONEY, Derick Unavailable Unavailable Medications Medication SIG (Take, Route, Fr equency, Duration) Notes Start Date End Date Status Celecoxib 50 MG 1 capsule Orally Onc e a day for 14 days 10/05/2024 11/02/2024 Active Social History Sex Assigned At : Social History Observation Description Sex Assigned At Male Encounters Encounter Location Date Provider Diagnosis Felix Tejeda III, MD [address] [place] [address] [place] [address] 10/05/2024 Felix Tejeda Plan Of Treatment Medication Medication Name Sig Start Date Stop Date Notes Celecoxib 50 MG 1 capsule Orally Once a day for 14 days 11/02/2024 Next Appt Details Provider Name:Felix Tejeda, 05/03/2025 11:00:00 AM, [address] [place] [address] [place], [address], Progress Notes * EUSEBIO PALOMODOB:[birth year] (79 yo M)Acc No.[id number]:10/05/2024 Patient: EUSEBIO HOANG :1945 A ge:79 Y S ex:Male Address:[address] [place] [address], [address] * Refills Start Celecoxib Capsule, 50 MG, Orally, 14 Capsule, 1 capsule, Once a day, 14 days, Refills=1 * true * Date: Generated for Alejandra gomes/Anjali/Johnathanitting on: 0 12/02/2024 07:42 AM EDT
--- OUTSIDE RECORDS SUMMARY | 2024-10-06 06:47 | XMS_ITS ---
Author Organization Felix Tejeda III, MD Address [address] [place] [address] [place] [address] Care Team Providers Care Core Dipper Name Role Phone Huang MOONEY, Dahiana Primary Care Provider Felix Soriano Unavailable [phone] Krishna MOONEY, Dreick Unavailable Unavailable Medications Medication SIG (Take, Route, Frequency, Duration) Notes Start Date End Date Status Potassium Chloride 20 MEQ/15ML (10%) 15 mL with food Orally Once a day for 14 days 10/06/2024 11/03/2024 Active Social History Sex Assigned At : Social History Observation Description Sex Assigned At Male Encounters Encounter Location Date Provider Diagnosis Felix Tejeda III, MD [address] [place] [address] [address] [facility] [place] [address] 10/06/2024 Felix Tejeda Plan Of Treatment Medication Medication Name Sig Start Date Stop Date Notes Potassium Chloride 20 MEQ/15 ML (10%) 15 mL with food Orally Once a day for 14 days 10/06/2024 11/03/2024 Next Appt Details Provider Name:Felix Tejeda, 05/03/2025 11:00:00 AM, [address] [place] [address] [place], [address], Progress Notes * EUSEBIO PALOMODOB:[birth year] (79 yo M)Acc No.[id number]:10/06/2024 Patient: EUSEBIO HOANG :1945 A ge:79 Y S ex:Male Address:[address] [place] [address] [place], [address] * Refills Start Potassium Chloride Solution, 20 MEQ/15ML (10%), Orally, 210 ML, 15 mL with food, Once a day, 14 days, Refills=1 * true * Date: Generated for Alejandra gomes/Anjali/Yanira on: 0 12/02/2024 07:42 AM EDT
--- OUTSIDE RECORDS SUMMARY | 2024-10-27 13:00 | XMS_ITS ---
Author Organization Felix Tejeda III, MD Address [address] [place] [facility] [place] [address] Care Team Providers Care Tax Adjuster Name Role Phone Huang MOONEY, Dahiana Primary Care Provider Felix Soriano Unavailable [phone] Krishna MOONEY, Derick Unavailable Unavailable REASON FOR VISIT follow up Social History Sex Assigned At : Social History Observation Description Sex Assigned At Male Encounters Encounter Location Date Provider Diagnosis Felix Tejeda III, MD [address] [place] [address] [address] [facility] [facility] [address] 10/27/2024 Felix Tejeda Plan Of Treatment Next Appt Details Provider Name:Felix Tejeda, 05/03/2025 11:00:00 AM, [address] [place] [address] [place], [address], Progress Notes * EUSEBIO ELISEDOB:[birth year] (79 yo M)Acc No.[id number]:10/27/2024 Progress Notes Patient: EUSEBIO HOANG Provider: Sapna Tejeda MD :1945 A ge:79 Y S ex:Male Date:10/27/2024 Address:[address] [place], [place] [id number] Pcp:Dahiana Encinas MD Subjective: * Chief Complaints: [...] 10/27/2024 Generated for Alejandra gomes/Anjali/Yanira on: 0 12/02/2024 07:43 AM EDT
--- OUTSIDE RECORDS SUMMARY | 2024-10-29 10:00 | XMS_ITS ---
Author Organization Felix Tejeda III, MD Address [address] [place] [address] Care Team Providers Care Chief Electrician Name Role Phone Huang MOONEY, Dahiana Primary Care Provider Felix Soriano Unavailable [phone] Krishna MOONEY, Derick Unavailable Unavailable Allergies Allergen [...] Problem Status W/U Status Risk Notes Problem [id number] Underweight (R63.6) Active confirmed He has lost [...] Date Provider Diagnosis Felix Tejeda III, MD [address] [place] [address] [place] [address] 10/29/2024 Felix Tejeda Peripheral edema R60 .0 [...] had no hemoptysis.He was recently hospitalized at [facility] and is now using home oxygen. I [...] OV Provider Name:Felix Tejeda, 05/03/2025 11:00:00 AM, [address] [place] [address] [address] [place] [address], [place], [address], Progress Notes * EUSEBIO PALOMODOB:[birth year] (79 yo M)Acc No.[id number]:10/29/2024 Progress Notes Patient: EUSEBIO HOANG Provider: Sapna Tejeda MD :1945 A ge:79 Y S ex:Male Date:10/29/2024 Address:[address] [place], [place] [id number] Pcp:Dahiana Encinas MD Subjective: * Chief [...] had no hemoptysis.He was recently hospitalized at [facility] and is now using home oxygen. I [...] Date: 10/29/2024 Generated for Alejandra gomes/Anjali/eTransmitting on: 12/02/2024 07:43 AM EDT History and Physical Notes * [...]
--- OUTSIDE RECORDS SUMMARY | 2024-12-01 09:14 | XMS_ITS ---
Author Organization Felix Tejeda III, MD Address [address] [place] [address] Care Team Providers Care Strapping Machine Tender Name Role Phone Huang MOONEY, Dahiana Primary Care Provider Felix Soriano Unavailable [phone] Krishna MOONEY, Derick Unavailable Unavailable REASON FOR VISIT Needs call back from MD Social History Sex Assigned At : Social History Observation Description Sex Assigned At Male Encounters Encounter Location Date Provider Diagnosis Felix Tejeda III, MD [address] [place] [address] [address] [place] [address] 12/01/2024 Felix Tejeda Plan Of Treatment Next Appt Details Provider Name:Felix Tejeda, 05/03/2025 11:00:00 AM, [address] [place] [address] [place], [address], Progress Notes * GOSIA EUSEBIODOB:[birth year] (79 yo M)Acc No.[id number]:12/01/2024 Patient: EUSEBIO HOANG :1945 A ge:79 Y S ex:Male Address:[address] [place], [place] [address], [address] * true * Date: Generated for Printi ng/Faxing/eTransmitting on: 0 12/02/2024 07:42 AM EDT
--- NOTE | ~2024-12-02 | XR_ITS ---
EXAMINATION: XR CHEST 1 VIEW HISTORY: cough, weakness COMPARISON: Comparison is made with the prior examination dated 09/10/2024. FINDINGS: A single AP portable view of the chest performed at 7:53 AM is submitted. The patient's head overlies the lung apices. Again seen are increased interstitial markings throughout both lungs. No focal airspace opacity is seen. There is no pleural effusion, pneumothorax, or pulmonary vascular congestion. The heart is normal in size. There is degenerative disc disease of the spine. The patient is status post multilevel kyphoplasty. XR/XR chest 1V IMPRESSION: Increased interstitial markings. No acute cardiopulmonary abnormality. Electronically signed by: Felix Colon MD 12/02/2024 08:08 AM EDT
--- NOTE | ~2024-12-02 | CT_ITS ---
EXAMINATION: CT ABDOMEN AND PELVIS WITH CONTRAST CLINICAL INFORMATION: Constipation, nausea, history of rectal cancer. COMPARISON: 09/10/2024. TECHNIQUE: Multidetector volumetric images were obtained from the superior aspect of the liver through the pubic symphysis following administration 85 mL of Omnipaque 350 intravenous contrast. Sagittal and coronal reformatted images were obtained on the technologist's workstation. Oral contrast: No This CT examination was performed using dose optimization techniques as appropriate, variously including the following: *Automated exposure control *Adjustment of mA and/or kV according to patient size (this includes techniques or standardized protocols for targeted exams where dose is matched to indication/reason for exam; i.e. extremities or head) *Use of iterative reconstruction technique FINDINGS: LUNG BASES: Emphysematous changes with evidence of subpleural interstitial disease, diffuse bronchiectasis, scarring in the lung bases. There is an elevated left hemidiaphragm. There are no effusions. The heart size is borderline enlarged. There is a partially imaged hiatus hernia. LIVER, GALLBLADDER, AND BILIARY TREE: The liver is normal in size, shape, and attenuation. No focal hepatic lesion or biliary ductal dilatation is present. The gallbladder is unremarkable with no evidence of radiopaque gallstones, gallbladder wall thickening, or obvious pericholecystic inflammatory changes. PANCREAS: Unremarkable. SPLEEN: Mildly heterogeneous attenuation, likely related to phase of contrast enhancement. Otherwise normal appearance. ADRENAL GLANDS: Mild bilateral hyperplasia. KIDNEYS AND URETERS: The kidneys are normal in size, shape, and attenuation. No hydronephrosis, hydroureter, or calculi seen. No perinephric stranding. There are bilateral small simple cysts present, unchanged. BLADDER: Minimal wall thickening noted, although it is incompletely distended. The median lobe of the prostate protrudes mildly into the base. There is a left-sided posterior bladder diverticulum measuring 3.0 cm. GASTROINTESTINAL TRACT: Partial rectal resection noted with anastomosis present at the inferior rectosigmoid level, with expected anastomotic appearance. The residual rectum is unremarkable. Stranding in the presacral region is presumably postoperative. The colon is largely decompressed without significant constipation, wall thickening, or gross inflammation. The stomach is grossly normal in appearance. The duodenal sweep is grossly normal. The small bowel is nondilated. It is normal in caliber and course. No definite wall thickening or inflammation seen. ABDOMINAL WALL: No significant hernia is appreciated. LYMPH NODES: There is no pathologic lymphadenopathy identified. VASCULAR: Severe calcific and soft atheromatous disease of the aorta and iliac arteries and their branches. Severe narrowing of the aorta in the infrarenal region with associated ectasia. Estimated aortic stenosis is 80-90% (series 3, image 28). 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 There appears to be mild reconstitution in the left common femoral artery. This is unchanged. The TANIA does not definitively enhance and may be occluded as well. The SMA is patent but demonstrates moderate stenosis at the ostium. PELVIC VISCERA: There is mild prostate enlargement, and the median lobe protrudes mildly into the bladder base. The seminal vesicles are mildly atrophic. OSSEOUS STRUCTURES: Compression fractures are evident at T11, T12, L1, superior L2, L3, and kyphoplasty has been performed at T12 and L1. There is a healed posterior right 12th rib fracture. No lytic or blastic bone lesions evident. CT/CT abdomen pelvis w IV con IMPRESSION: 1. No definite acute findings in the abdomen or pelvis. No significant constipation or bowel obstruction present. 2. Numerous additional ancillary findings as discussed in the body of the report, which all appear stable from the recent prior examination. Electronically signed by: Estevan Cleaning MD 12/02/2024 09:40 AM EDT
[2024-12-02 06:51] VITALS: BP 122/70; BP 127/87; PULSE 76; PULSE 78; RESP 20; TEMP 36.6; O2SAT 94; O2SAT 95; BMI 17.6
--- NOTE | 2024-12-02 06:58 | ECG_ITS ---
Test Reason : WEAKNESS Blood Pressure : */* mmHG Vent. Rate : 68 BPM Atrial Rate : 68 BPM P-R Int : 154 ms QRS Dur : 82 ms QT Int : 392 ms P-R-T Axes : 109 23 42 degrees QTcB Int : 416 ms Normal sinus rhythm Possible Anterior infarct , age undetermined Abnormal ECG When compared with ECG of 15-Sep-2024 09:28, ST no longer depressed in Inferior leads ST no longer depressed in Anterior leads Referred By: Sejal Soriano Electronically Signed By: CA RUTHERFORD
--- NOTE | 2024-12-02 07:05 | ED.GENADULT ---
HPI - General Adult General Chief complaint: General Medical Stated complaint: Weakness Source: patient, family, EMS and old records reviewed Mode of arrival: EMS Limitations: other (has stated on arrival we need to ask his questions and Dr. Tejeda is expected to come see him. ) History of Present Illness ED Provider: GERI HPI narrative: 79 yo male with PMH of PUD diagnosed in September with EGD - denies thinner, NSAIDs, aspirin use, HLD, HTN, COPD on 4L NC, colon cancer s/p surgery and treatment with colostomy then reversal here with c/o increased weakness, fall no headstrike or LOC was there he fell on buttocks, not eating much in 4 days, tries to have frequent BMs per and all that comes out is thin liquid. She notes yesterday saw some blood x 1, then blood on toilet paper. He will not answer many questions. He states he is not in pain. He denies n/v. He tells me to ask his you won't get much out of me. on arrival he is stating he isn't going to be seen by me but by Dr. Tejeda who is en route to see him. notes no recent abx use or travel and son were recently sick MD complaint: weakness, falls, rectal leakage Onset (ago): day(s) (few) Location: buttocks Radiation: non-radiation Severity: moderate Relieving factors: none Exacerbating factors: other (trying to have BM) Associated symptoms: weakness Treatments prior to arrival: none Related Data Home Medications ?Medication ?Instructions ?Recorded ?Confirmed cholecalciferol (vitamin D3) 50 50 mcg PO DAILY 02/12/21 01/14/22 mcg (2,000 unit) capsule Previous Rx's ?Medication ?Instructions ?Recorded budesonide 160 mcg-glycopyr 9 2 inh inhalation BID 30 days #10.7 06/02/24 mcg-formot 4.8 mcg/actuation HFA grams inhaler (Breztri Aerosphere) atenolol 25 mg tablet 25 mg PO DAILY #90 tabs 08/12/24 Allergies Allergy/AdvReac Type Severity Reaction Status Date / Time No Known Allergies Allergy Verified 12/02/24 07:01 Review of Systems Review of Systems: Constitutional : No Fever, No Chills, No Fatigue ENT/Mouth : No sore throat, No Rhinorrhea Eyes: No Eye Pain, No Swelling, No Redness Cardiovascular : No Chest Pain, No SOB, No Dyspnea on Exertion Respiratory : No Cough, No Sputum Gastrointestinal : No Nausea, No Vomiting, No Diarrhea, No abdominal Pain Genitourinary : No Dysuria, No Urinary Frequency, No Hematuria, Musculoskeletal : No joint pain, No Myalgias, No Joint Swelling Skin : No Skin Lesions, No rash Neuro : pos Weakness, No Numbness, No Dizziness, no Headache All other systems reviewed and are negative [facility] Past Medical History Attestation statement: The following information was validated with the patient. Source: old records reviewed Medical History Dyslipidemia Impaired fasting glucose Osteoporosis Personal history of nicotine dependence History of radiation therapy (~2019) History of rectal cancer (~2019) Hx of compression fracture of spine COVID-19 vaccination declined Refused influenza vaccine History of COVID-19 Acute respiratory failure with hypoxia Anemia Hx of bacteremia Hx: UTI (urinary tract infection) Congestive heart failure History of chemotherapy (~2019) Hx of melanoma of skin Peptic ulcer COPD (chronic obstructive pulmonary disease) Chronic bronchitis History of herpes zoster Hypertension Surgical History History of reversal of ileostomy History of cataract surgery History of colonoscopy Hx of kyphoplasty Hx of melanoma excision History of low anterior resection of rectum History of left inguinal hernia repair History of right inguinal hernia repair (~1971) History of eye surgery (~1965) Family History Family History Sister History of breast cancer Social History Social History Household Members: Spouse and Children Housing: House Are you a primary customer care agent to a significant other at home: No Do you presently have visiting nurse or other home services: No Alcohol intake: never Comment: soreness Patient Tobacco Use Status: Former Tobacco user Tobacco use type: Cigarette Cigarette Packs Per Day: 0 Cigarettes Per Day: 0 Years Smoked: 60 Smoked in Last 30 Days: No e-Cigarette/Vaping Use: Never Used Second Hand Smoke Exposure: Yes Use of substances other than those prescribed or required for medical reasons: No Advance Directives: Yes Advance Directives on File: Yes Advance Directives Date on File: 10/04/20 Do you have a plan to hurt others: No Plan service: Yes Current occupational status: disabled Cognitive needs: No Hearing needs: Yes Vision needs: No Physical Exam ED Vital Signs: Vital Signs - 24 hr 12/02/24 06:51 12/02/24 10:15 Temperature 97.8 F 98.1 F Pulse Rate 78 76 Respiratory Rate 20 17 Blood Pressure 127/87 120/68 Pulse Oximetry 95 97 Oxygen Delivery Method Room Air Nasal Cannula Oxygen Flow Rate 6 BMI result Body Mass Index 17.6 Appearance: Alert. Oriented X3. No acute distress. difficult to get history from, kyphotic Eyes: Pupils equal, round and reactive to light. ENT: Pharynx normal. Neck: Normal inspection. Neck supple. CVS: Normal heart rate and rhythm. Pulses normal. Respiratory: No respiratory distress. Breath sounds diminished Abdomen: Soft and nontender. does not grimace to palpation Rectum: brown stool small ext hemorrhoid but not bleeding, area is irritated with a small fissure Skin: Skin warm and dry. pale skin color. Extremities: 2+ pitting edema to both feet Neuro: Oriented X 3. No motor deficit. No sensory deficit. Medications Administered Discontinued Medications Generic Name Dose Route Start Last Admin Trade Name Freq PRN Reason Stop Dose Admin Iohexol 100 ml 12/02/24 09:17 12/02/24 09:17 Iohexol 350 Mg/Ml 100 Ml Infus..Btl IV 12/02/24 09:18 85 ml ONCE ONE Administration Medical Decision Making Medical Decision Making MDM Narrative: 79 yo male with PMH of PUD diagnosed in September with EGD - denies thinner, NSAIDs, aspirin use, HLD, HTN, COPD on 4L NC, colon cancer s/p surgery and treatment with colostomy then reversal now here with c/o feeling he has to have a BM per then having just leakage of liquid. He has been using the bathroom several times a day but denies pain, n/v. He has no fevers. He is very resistant to answering questions so it is hard to get an accurate history. I did order labs, EKG, stool studies, CT scan for mass/obstruction, CXR. Differential Diagnosis Differential Diagnoses: The differential diagnosis associated with the presentation includes mass, fecal impaction, anemia, GABE, hemorrhoid, URI Admission/Observation Consideration of admission/observation: Escalation of care including admission/observation considered CT scan no acute findings, no pneumonia, no increased O2 demands he has guiac pos stools cbc stable - brown stool discussed care with his provider Dr. Tejeda he can follow up with him today as outpatient. no uti blood only on toilet paper no CHF slightly elevated BNP but no effusions he has no increased dyspnea given return precautions Lab Data MDM Lab Attestation statement: I reviewed the patient's lab results. 12/02/24 10:44 12/02/24 07:18 Labs: Lab Results 12/02/24 12/02/24 12/02/24 Range/Units 07:18 07:50 10:09 WBC 6.7 (4.8-10.8) X10*3/uL RBC 4.30 L (4.60-5.80) X10*6/uL Hgb 14.8 (14.0-18.0) g/dl Hct 41.6 L (42.0-52.0) % MCV 96.7 (80.0-98.0) fL MCH 34.4 H (27.0-33.0) pg MCHC 35.6 (31.0-36.0) g/dl RDW 13.8 (11.0-16.0) % Plt Count 119 L D (160-400) X10*3/uL MPV 10.2 (9.4-12.4) fL Immature Gran % (Auto) 0.7 H (0.0-0.4) % Neut % (Auto) 73.5 H (45-73) % Lymph % (Auto) 13.9 L (20-40) % [place] % (Auto) 10.5 (2-11) % Eos % (Auto) 1.0 (0-4) % Baso % (Auto) 0.4 (0-2) % Lymph # (Auto) 0.9 L (1.2-4.9) X10*3/uL [place] # (Auto) 0.7 (0.1-1.2) X10*3/uL Eos # (Auto) 0.1 (0.0-0.4) X10*3/uL Baso # (Auto) 0.0 (0.0-0.2) X10*3/uL Abs Immat Gran (auto) 0.05 H (0.00-0.03) X10*3/uL Absolute Neuts (auto) 4.9 (2.0-8.3) x10*3/uL Absolute Nucleated RBC 0.000 (0.0-0.012) X10*3/uL Nucleated RBC % (auto) 0.0 (0.0-0.2) /100WBC ESR 21 H (0-15) MM/HR Sodium 138 (135-145) mmol/L Potassium 3.8 (3.3-5.1) mmol/L Chloride 102 (96-108) mmol/L Carbon Dioxide 22 (22-29) mmol/L Anion Gap 18 (12-20) BUN 20 H (9-16) mg/dL Creatinine 1.02 (0.5-1.4) mg/dL Estim Creat Clear Calc 39.2 Estimated GFR > 60 Random Glucose 79 (60-115) mg/dL Calcium 9.1 (8.4-10.2) mg/dL Magnesium 1.6 (1.6-2.6) mg/dL Total Bilirubin 1.2 H (0.0-1.0) mg/dL Direct Bilirubin 0.4 (0.0-0.5) mg/dL AST 66 H (5-37) U/L ALT 23 (0-40) U/L Alkaline Phosphatase 95 (39-117) U/L Troponin I High Sens 13.5 (<3.5-35.0) ng/L C-Reactive Protein 11.76 H (< or = 0.50) mg/dL NT-Pro-B Natriuret Pep 937.2 H (<300) pg/mL Total Protein 7.3 (6.5-8.0) g/dL Albumin 4.1 (3.5-5.0) g/dL Lipase 63 (8-78) U/L Urine Color Dark Yellow Urine Appearance Clear Urine pH 5.5 (5.0-9.0) Ur Specific [place] 1.020 (1.005-1.025) Urine Protein 30 (1+) H (Neg-Trace) mg/dL Urine Glucose (UA) Negative (Negative) mg/dL Urine Ketones 40 (Negative) mg/dL Urine Blood Negative (Negative) Urine Nitrite Negative (Negative) Ur Leukocyte Esterase Negative (Negative) Urine RBC 0-2 (0-2) /HPF Urine WBC 0-5 (0-5) /HPF Ur Squamous Epith Cells 0-2 (0-2) /HPF Urine Bacteria None Seen (None Seen) Hyaline Casts 0-2 (0-2) /LPF Stool Occult Blood POSITIVE (NEGATIVE) COVID-19 (GEENA) Positive A (Negative) COVID-19 Clin Com See Note Influenza Type A (AMANDA) Negative (Negative) Influenza Type B (AMANDA) Negative (Negative) Influenza A & B Note See Note Blood Type O Positive Antibody Screen NEGATIVE 12/02/24 Range/Units 10:44 WBC 6.1 (4.8-10.8) X10*3/uL RBC 4.32 L (4.60-5.80) X10*6/uL Hgb 14.7 (14.0-18.0) g/dl Hct 41.8 L (42.0-52.0) % MCV 96.8 (80.0-98.0) fL MCH 34.0 H (27.0-33.0) pg MCHC 35.2 (31.0-36.0) g/dl RDW 13.8 (11.0-16.0) % Plt Count 104 L (160-400) X10*3/uL MPV 10.1 (9.4-12.4) fL Immature Gran % (Auto) (0.0-0.4) % Neut % (Auto) (45-73) % Lymph % (Auto) (20-40) % [place] % (Auto) (2-11) % Eos % (Auto) (0-4) % Baso % (Auto) (0-2) % Lymph # (Auto) (1.2-4.9) X10*3/uL [place] # (Auto) (0.1-1.2) X10*3/uL Eos # (Auto) (0.0-0.4) X10*3/uL Baso # (Auto) (0.0-0.2) X10*3/uL Abs Immat Gran (auto) (0.00-0.03) X10*3/uL Absolute Neuts (auto) (2.0-8.3) x10*3/uL Absolute Nucleated RBC 0.000 (0.0-0.012) X10*3/uL Nucleated RBC % (auto) 0.0 (0.0-0.2) /100WBC ESR (0-15) MM/HR Sodium (135-145) mmol/L Potassium (3.3-5.1) mmol/L Chloride (96-108) mmol/L Carbon Dioxide (22-29) mmol/L Anion Gap (12-20) BUN (9-16) mg/dL Creatinine (0.5-1.4) mg/dL Estim Creat Clear Calc Estimated GFR Random Glucose (60-115) mg/dL Calcium (8.4-10.2) mg/dL Magnesium (1.6-2.6) mg/dL Total Bilirubin (0.0-1.0) mg/dL Direct Bilirubin (0.0-0.5) mg/dL AST (5-37) U/L ALT (0-40) U/L Alkaline Phosphatase (39-117) U/L Troponin I High Sens (<3.5-35.0) ng/L C-Reactive Protein (< or = 0.50) mg/dL NT-Pro-B Natriuret Pep (<300) pg/mL Total Protein (6.5-8.0) g/dL Albumin (3.5-5.0) g/dL Lipase (8-78) U/L Urine Color Urine Appearance Urine pH (5.0-9.0) Ur Specific [place] (1.005-1.025) Urine Protein (Neg-Trace) mg/dL Urine Glucose (UA) (Negative) mg/dL Urine Ketones (Negative) mg/dL Urine Blood (Negative) Urine Nitrite (Negative) Ur Leukocyte Esterase (Negative) Urine RBC (0-2) /HPF Urine WBC (0-5) /HPF Ur Squamous Epith Cells (0-2) /HPF Urine Bacteria (None Seen) Hyaline Casts (0-2) /LPF Stool Occult Blood (NEGATIVE) COVID-19 (GEENA) (Negative) COVID-19 Clin Com Influenza Type A (AMANDA) (Negative) Influenza Type B (AMANDA) (Negative) Influenza A & B Note Blood Type Antibody Screen Independent Interpretation I performed an independent interpretation of an: EKG, Plain X-Ray and CT Scan Interpretation: Rate: 68 Rhythm: NSR [place]: normal Normal P waves. Normal SHONA. Normal QRS complex. ST T wave : inverted t waves V1 and V2, no JUSTIN qTC: 416 prior studies: no change from prior The study has been interpreted contemporaneously by me. . Radiology Impression Discussion of test interpretation with radiology: I have reviewed the radiologist's reading. Independent Historian Clinical information obtained from an independent historian. History obtained from or confirmed by: Spouse and EMS External Record Review External record reviewed: Inpatient record and Outpatient record Discharge Plan Discharge Clinical Impression: COVID-19, RB (rectal bleeding) Frequent loose stools Qualifiers: Diarrhea type: unspecified type Qualified Code(s): R19.7 - Diarrhea, unspecified Patient Disposition: Home, Self-Care Instructions: Acute Diarrhea (ED), Rectal Bleeding (ED), COVID-19 (Coronavirus Disease 2019) (ED) Additional Instructions: use cream twice a day follow up with Dr. Tejeda you tested positive for COVID: reasons to return confusion, worsening bleeding, increased oxygen demands, unable to eat or drink fluids we sent off stool studies we will call you with any abnormal results it takes up to 24 hours Prescriptions: No Action cholecalciferol (vitamin D3) 50 mcg (2,000 unit) capsule 50 mcg PO DAILY atenolol 25 mg tablet 25 mg PO DAILY Qty: 90 4RF Brezi Aerosphere 160-9-4.8 mcg/actuation HFA aerosol inhaler 2 inh inhalation BID 30 Days Qty: 10.7 11RF Print Language: Spanish
--- NOTE | 2024-12-02 07:22 | PC.NURSE ---
patient a&ox3, iv inserted, labs drawn, t&s performed, ekg performed, mail sorter and delivery applied- nsr on monitor, rr equal/non labored, currently denies pain/discomfort, at bedside, call fuchs within reach, plan of care ongoing
[2024-12-02 07:25] LABS: MANUAL DIFF FLAG NO
[2024-12-02 07:35] LABS: Hematocrit 41.6 % (42.0-52.0); Hemoglobin 14.8 g/dl (14.0-18.0); Imm Gran Abs Auto 0.05 X10*3/uL (0.00-0.03); Imm Gran Pct Auto 0.7 % (0.0-0.4); Lymphocytes Absolute Auto 0.9 X10*3/uL (1.2-4.9); Mean Corpuscular HGB Conc 35.6 g/dl (31.0-36.0); Mean Corpuscular Hemoglobin 34.4 pg (27.0-33.0); Mean Corpuscular Volume 96.7 fL (80.0-98.0); NRBC Abs Auto 0.000 X10*3/uL (0.0-0.012); NRBC Pct Auto 0.0 /100WBC (0.0-0.2); Red Blood Count 4.30 X10*6/uL (4.60-5.80); White Blood Count 6.7 X10*3/uL (4.8-10.8)
--- OUTSIDE RECORDS SUMMARY | 2024-12-02 07:42 | XMS_ITS | Patient Health Record ---
Author Organization Felix Tejeda III, MD Address [address] [place] [address] Care Team Providers Care Apparel Machinery Instructor Name Role Phone Huang MOONEY, Dahiana Primary Care Provider Felix Soriano Unavailable [phone] Krishna MOONEY, Derick Unavailable Unavailable Allergies Allergen (clinical drug ingredient) Drug/Non Drug Allergy documented on EMR Reaction Allergy Type Onset Date Status No Known Drug Allergy Unknown Drug Allergy Active Results Component Value Reference Range Notes Complete Blood Count Auto Di ff (Not yet reviewed by provider) Interpretation: Performing Lab:[facility], [address] [place] [phone] Notes/Report: White Blood Count 7.6 4.8-10.8 X10*3/uL [...] t yet reviewed by provider) Interpretation: Performing Lab:[facility], [address] [place] [phone] Notes/Report: Sodium 143 135-145 mmol/L Potassium 3.7 [...] y et reviewed by provider) Interpretation: Performing Lab:[facility], [address] [place] [phone] Notes/Report: Vitamin D 25-OH Total 46.0 >30 [...] Problem Status W/U Status Risk Notes Problem 0529097 Former smoker (Z87.891) Active confirmed He is no longer smoking and is wearing home oxygen. Problem Hyperlipidemia (54473861) Hyperlipidemia (E78.5) Active confirmed No change in hi s regimen is needed at this time. I encouraged him to consume a high-protein high-calorie diet. Problem 368728712 Underweight (R63.6) Active confirmed He has lost 5 pounds since his last visit and the peripheral edema has resolved. We discussed low-sodium nutrition today. I have recommended a high protein high-calorie diet low in sodium. Problem Benign prostatic hypertrophy without outflow obstruction (406287381) BPH (benign prostatic hypertrophy) (N40.0) Active confirmed He admits to arising from sleep once or twice a nigght to urinate. We have reviewed lifestyle modifications he could make to reduce nocturia. Problem Essential hypertension (02881915) Essential hypertension (I10) Active confirmed His blood pressure has been stable and will be followed closely. No changes were made in his regimen. Problem COPD - Chronic obstructive pulmonary disease (03382070) COPD (chronic obstructive pulmonary disease) (J44.9) Active confirmed He continues to smoke cigarettes and has a nonproductive cough. He is able to conduct all of the activities of daily living. He is short of breath with moderate exertion. He has had no hemoptysis.He was recently hospitalized at [facility] and is now using home oxygen. I encouraged him in the strongest terms to wear the oxygen at night. Problem Rectal cancer (896257140) Rectal cancer (C20) Active confirmed The colostomy has been closed. There was no sign of recurrent disease or new primary today although he is severely underweight. If he loses more weight and evaluation for recurrence will be undertaken. Problem Right inguinal hernia (272649225) Right inguinal hernia (K40.90) Active confirmed This is asymptomatic at this time. Problem Left inguinal hernia (973692813) Left inguinal hernia (K40.90) Active confirmed He will be reassessed in the office tomorrow. If she deteriorates she will go to the emergency room. Problem 480894193 Acute right-sided low back pain without sciatica (M54.50) Active confirmed The cyclobenzaprine relieved the pain very well what made him too sleepy. The pain is 95% resolved at this point. He will avoid heavy lifting. A follow-up visit was arranged. Problem 626868696 Peripheral edema (R60.0) Active confirmed His peripheral [...] Date Provider Diagnosis Felix Tejeda III, MD [address] [place] [address] [place] [address] 09/09/2024 Felix Tejeda Rectal cancer C20 ; COPD (chronic obstructive pulmonary disease) J44.9 ; Essential hypertension I10 ; Left inguinal hernia K40.90 ; Tobacco dependence F17.200 ; Underweight R63.6 and Right inguinal hernia K40.90 Felix Tejeda III, MD [address] [place] [address] [place] [address] 09/20/2024 Felix Tejeda Rectal cancer C20 ; COPD (chronic obstructive pulmonary disease) J44.9 ; Essential hypertension I10 ; Former smoker Z87.891 ; BPH (benign prostatic hypertrophy) N40.0 and Underweight R63.6 Felix Tejeda III, MD [address] [place] [address] [place] [address] 10/04/2024 Felix Tejeda Peripheral edema R60 .0 ; Acute right-sided low back pain without sciatica M54.50 ; Rectal cancer C20 ; COPD (chronic obstructive pulmonary disease) J44.9 ; Essential hypertension I10 ; Hyperlipidemia E78.5 ; Former smoker Z87.891 and Underweight R63.6 Felix Tejeda III, MD [address] [place] [address] [place] [address] 10/29/2024 Felix Tejeda Peripheral edema R60 .0 ; Rectal cancer C20 ; COPD (chronic obstructive pulmonary disease) J44.9 ; Essential hypertension I10 ; BPH (benign prostatic hypertrophy) N40.0 ; Former smoker Z87.891 and Underweight R63.6 Felix Tejeda III, MD [address] [place] [address] [place] [address] 02/02/2024 Felix Tejeda III, MD [address] [place] [address] [place] [address] 09/10/2024 Felix Tejeda III, MD [address] [place] [address] [place] [address] 10/01/2024 Felix Tejeda III, MD [address] [place] [address] [address] [place] [address] 10/05/2024 Felix Tejeda III, MD [address] [place] [address] [address] [place] [address] 10/05/2024 Felix Tejeda III, MD [address] [place] [address] [place] [address] 10/06/2024 Felix Tejeda III, MD [address] [place] [address] [address] [place] [address] 12/01/2024 Felix Tejeda Assessments Encounter Date Diagnosis (ICD [...] had no hemoptysis.He was recently hospitalized at [facility] and is now using home oxygen. [...] had no hemoptysis.He was recently hospitalized at [facility] and is now using home oxygen. [...] had no hemoptysis.He was recently hospitalized at [facility] and is now using home oxygen. [...] Details Provider Name:Felix Tejeda, 05/03/2025 11:00:00 AM, [address] [place] [address] , [facility] [address], [place], [address], Insurance Providers Payer Name Payer Address Payer Phone Subscriber Number Group Number Insured Name Patient Relationship to Insured Coverage Start Date Coverage End Date MEDICARE NGS [address] [place] [address] [phone] [id number] EUSEBIO ELISE Self - patient is the insured [facility] [address] [place], [place] [id number] GOSIA EUSEBIO Self - patient is the insured Medical (General) History Medical History History ICD Code adenocarcinoma of the rectum, MMR negati ve, [id number] COPD (chronic obstructive pulmonary dise ase) J44.9 Hypertension I10 Hyperlipidemia E78.5 former smoker, smoker for 60 pack-years history of left inguinal hernia repaired July 07, 2019 history of right inguinal hernia 1980 shrapnel injury right eye family history of breast cancer Vertebral body compression fracture Surgical History Surgery Date(Month/Year) Vertebral plasty 2022 Closure of colostomy 09/12/2021 Radical resection of rectum and formatio n of colostomy 05/2021 Spinal surgery 09/2021 Colonoscopy 11/2019 right eye removal of shrapnel right inguinal hernai 1977 left inguinal hernia 06/2019
--- OUTSIDE RECORDS SUMMARY | 2024-12-02 07:43 | XMS_ITS | Patient Health Record ---
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) use of aspirin (Z79.82) Active confirmed Problem 552013182 Abnormal finding s in stool (R19.5) Active confirmed Problem 219164953 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 Problem 267578136 Rectal mass (K62.89) Active confirmed Plan Of Treatment Future Test Test Name Order Date COLONOSCOPY 11/11/2019 Insurance Providers Payer Name Payer Address Payer Phone Subscriber Number Group Number Insured Name Patient Relationship to Insured Coverage Start Date Coverage End Date MEDICARE OF [place] [address] [place] [address] [id number] EUSEBIO ELISE Self - patient is the insured [employer] CLAIMS [address] [place] [phone] [id number] EUSEBIO ELISE Self - patient is the insured Medical (General) History Medical History History ICD Code hypertension COPD Surgical History Surgery Date(Month/Year) left inguinal herniorrhaphy 06/2019 right inguinal herniorrhaphy 40 years ag o removal of shrapnel, right eye Colonoscopy 11/2019
[2024-12-02 07:54] LABS: Alanine Aminotransferase 23 U/L (0-40); Albumin Level 4.1 g/dL (3.5-5.0); Alkaline Phosphatase 95 U/L (39-117); Anion Gap 18 (12-20); Aspartate Amino Transferase 66 U/L (5-37); Blood Urea Nitrogen 20 mg/dL (9-16); Calcium 9.1 mg/dL (8.4-10.2); Carbon Dioxide 22 mmol/L (22-29); Chloride 102 mmol/L (96-108); Creatinine Clr Calc Pharmacy 39.2; Estimated Glomerular Filt Rate > 60; Lipase 63 U/L (8-78); Magnesium 1.6 mg/dL (1.6-2.6); Potassium 3.8 mmol/L (3.3-5.1); Sodium 138 mmol/L (135-145); Total Protein 7.3 g/dL (6.5-8.0)
[2024-12-02 07:55] LABS: COVID-19 Test Positive (Negative); IDNOW Serial# 55D5AD1C; IDNOW Serial# 58CA691E; Influenza B2 Negative (Negative)
[2024-12-02 07:57] LABS: Appearance Urine Clear; Glucose Urine UA Negative (Negative); PH 5.5 (5.0-9.0); Specific Gravity - Urine 1.020 (1.005-1.025); UMIC TRIGGER UACC YES
[2024-12-02 07:59] LABS: NT Pro B Type Natriuretic Pept 937.2 pg/mL (<300); Troponin-I High Sensitivity 13.5 ng/L (<3.5-35.0)
[2024-12-02 08:11] LABS: Platelet Count 119 X10*3/uL (160-400)
[2024-12-02] MEDS: iohexoL 350 MG/ML 100 ML INFUS..BTL IV (09:17)
[2024-12-02 10:15] VITALS: BP 120/68; PULSE 76; RESP 17; TEMP 36.7; O2SAT 97
[2024-12-02 10:16] LABS: OBS Int Ctl Valid YES; OBS1 POSITIVE (NEGATIVE)
--- NOTE | 2024-12-02 10:19 | PC.NURSE ---
stool obtained/sent to lab
[2024-12-02 10:50] LABS: Hematocrit 41.8 % (42.0-52.0); Hemoglobin 14.7 g/dl (14.0-18.0); Mean Corpuscular HGB Conc 35.2 g/dl (31.0-36.0); Mean Corpuscular Hemoglobin 34.0 pg (27.0-33.0); Mean Corpuscular Volume 96.8 fL (80.0-98.0); NRBC Abs Auto 0.000 X10*3/uL (0.0-0.012); NRBC Pct Auto 0.0 /100WBC (0.0-0.2); Platelet Count 104 X10*3/uL (160-400); Red Blood Count 4.32 X10*6/uL (4.60-5.80); White Blood Count 6.1 X10*3/uL (4.8-10.8)
[2024-12-02 11:14] LABS: CDiff Gene PCR NEGATIVE (Negative)
[2024-12-02 11:22] VITALS: BP 122/78; PULSE 77; RESP 18; TEMP 36.7; O2SAT 96
[2024-12-02 12:14] LABS: E. coli EAEC Not Detected (Not Detect.); E. coli EPEC Not Detected (Not Detect.); E. coli ETEC Not Detected (Not Detect.); E. coli STEC Not Detected (Not Detect.); Shigella sp./EIEC Not Detected (Not Detect.)
== END 2024-12-02 11:34 | disposition home or self-care (01) ==
PROVIDERS: Emergency Provider Emergency Medicine; PCP Internal Medicine
DX: U07.1 COVID-19 (principal); K62.5 Hemorrhage of anus and rectum; J44.9 Chronic obstructive pulmonary disease, unspecified; I11.0 Hypertensive heart disease with heart failure; I50.9 Heart failure, unspecified; M81.0 Age-related osteoporosis without current pathological fracture; D64.9 Anemia, unspecified; Z85.038 Personal history of other malignant neoplasm of large intestine; Z87.19 Personal history of other diseases of the digestive system; Z79.899 Other long term (current) drug therapy
CPT/HCPCS: 36415; 71045; 74177; 80048; 80076; 81001; 82272; 83690; 83735; 83880; 84484; 85025; 85027; 85652; 86140; 86850; 86900; 86901; 87493; 87502; 87507; 87635; 93005; 99284; Q9967

== ENCOUNTER → 2024-12-02 06:58 | Outpatient (BNV) | payer MEDICARE, SELFPAY | PROVIDERS: Emergency Provider Emergency Medicine; PCP Internal Medicine; Visit Provider Internal Medicine | DX: R94.31 Abnormal electrocardiogram [ECG] [EKG] (principal); R53.1 Weakness | CPT/HCPCS: 93010 ==

== ENCOUNTER → 2024-12-02 07:27 | Outpatient (BNV) | payer MEDICARE, SELFPAY | PROVIDERS: Emergency Provider Emergency Medicine; PCP Internal Medicine; Visit Provider Radiology Diagnostic Radiology | DX: N32.3 Diverticulum of bladder (principal); E27.8 Other specified disorders of adrenal gland; R05.9 Cough, unspecified | CPT/HCPCS: 71045; 74177 ==